=== PATIENT | male | born 1965 | race Caucasian/White ===

== ENCOUNTER 2020-01-31 09:24 | Outpatient (CLI) | payer MEDICARE, SELFPAY ==
--- NOTE | ~2020-01-31 | CT_ITS ---
EXAMINATION:CT lung screening DATE: 01/31/2020 09:51 INDICATION: Personal history of tobacco dependence. Smoker who quit 8 years ago with 30 pack year his tory. TECHNIQUE: Computed tomography (CT) of the chest was performed without intravenous contrast. Automate d exposure control and iterative reconstruction technique were employed. The dose-length product (DLP ) was 614.18 mGy-cm. COMPARISON: None. FINDINGS: There is mild emphysema. There are patchy groundglass opacities, nodules, and small airspac e opacities in right upper lobe and right lower lobe, likely pneumonia. There is an 11 mm nodule in r ight middle lobe. There is mild atelectasis in lingula. There is a 7 mm nodule in left lower lobe. Th ere are small centrilobular nodules in left lower lobe. There is a 1.2 cm nodule in left lower lobe. There are 7 mm and 5 mm nodules in left lower lobe. No pleural effusion. The heart size is normal. No pericardial effusion. There is a small sliding hiatal hernia. There is diffuse hepatic steatosis. Th e adrenal glands are normal. There are no pathologically enlarged lymph nodes. There are bridging end plate osteophytes at multiple levels in the spine, consistent with diffuse idiopathic skeletal hypero stosis (DISH). There is mild chronic anterior wedging of multiple thoracic vertebral bodies. IMPRESSION: 1. Lung-RADS category 4AS. Noncontrast, low-dose chest CT is recommended in 3 months. 2. Right upper lobe and lower lobe pneumonia. Reviewed, dictated and finalized at location A. 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 Lung-RADS category 4AS. Noncontrast, low-dose chest CT is recommended in 3 m onths. 2. Right upper lobe and lower lobe pneumonia.
== END 2020-01-31 09:25 | disposition home or self-care (01) ==
PROVIDERS: PCP Emergency Medicine; Visit Provider Nurse Practitioner Family
DX: Z12.2 Encounter for screening for malignant neoplasm of respiratory organs (principal); Z87.891 Personal history of nicotine dependence; J18.9 Pneumonia, unspecified organism
CPT/HCPCS: G0297

== ENCOUNTER 2020-02-20 12:31 | Outpatient (CLI) | payer MEDICARE, SELFPAY ==
--- NOTE | 2020-02-24 12:39 | WPDHOLTEREM ---
Holter/Event Monitor Holter/Event Monitor Date of procedure: 02/20/20 Procedure Type: 48 hour holter monitor Indications: Tachycardia Conclusion: 1. 48 hour holter monitor on 02/20/20. 2. Underlying rhythm is atrial flutter. HR range 61-138 bpm; average HR 120 bpm. 3. There are no other supraventricular arrhythmias. 4. There are 6 premature ventricular complexes. No ventricular tachycardia. 5. No significant pauses greater than 2 seconds. 6. No symptoms available for correlation.
== END 2020-02-20 12:32 | disposition home or self-care (01) ==
PROVIDERS: PCP Emergency Medicine; Visit Provider Internal Medicine Cardiovascular Disease
DX: R00.0 Tachycardia, unspecified (principal)
CPT/HCPCS: 93225; 93226

== ENCOUNTER 2020-02-27 09:17 | Outpatient (CLI) | payer MEDICARE, SELFPAY ==
--- NOTE | 2020-02-27 09:22 | ECG_ITS ---
Measurements Intervals [place] Rate: 117 P: AL: 0 QRS: 65 QRSD: 91 T: 43 QT: 300 QTc: 420 Interpretive Statements ATRIAL FLUTTER/TACHYCARDIA WITH RAPID VENTRICULAR RESPONSE ABNORMAL ECG Electronically Signed On 02-27-2020 10:16:01 TOOTH POLISHER by Nabil Martinez D.O.
== END 2020-02-27 09:18 | disposition home or self-care (01) ==
PROVIDERS: PCP Emergency Medicine; Visit Provider Internal Medicine Cardiovascular Disease
DX: I48.92 Unspecified atrial flutter (principal); R94.31 Abnormal electrocardiogram [ECG] [EKG]
CPT/HCPCS: 93005

== ENCOUNTER 2020-03-16 00:41 | Outpatient (CLI) | payer MEDICARE, MEDICAID, SELFPAY ==
[2020-03-16 18:38] LABS: SARS-CoV-2 RNA PCR Negative
== END 2020-03-16 00:42 | disposition home or self-care (01) ==
LOC: ANHCOVIDDT 00:41
PROVIDERS: PCP Emergency Medicine; Visit Provider Internal Medicine Cardiovascular Disease
DX: Z01.818 Encounter for other preprocedural examination (principal); Z20.828 Contact with and (suspected) exposure to other viral communicable diseases
CPT/HCPCS: C9803; U0003

== ENCOUNTER 2020-03-19 01:10 | Day surgery (SDC) | payer MEDICARE, MEDICAID, SELFPAY ==
[2020-03-15 14:19] VITALS: BMI 39.0
[2020-03-19] VITALS (9 sets, daily range): BP systolic 93–128; BP diastolic 69–103; PULSE 93–124; RESP 17–20; TEMP 36.1; O2SAT 95–99; BMI 38.2
--- NOTE | 2020-03-19 07:13 | WPDANESEPP ---
Anes - Eval Pre Procedure Procedure: Operation Date: 03/19/20 09:00 Proposed Procedures p Trans Esophageal Echo - Nabil Martinez DO s Electrical Cardioversion - Nabil Martinez DO Date/Time: 03/19/20 07:13 Surgeon: Juan Preop Diagnosis: A flutter Pre Op Diagnosis: Atrial Flutter Patient Data Age: 54 Gender: M Height: 6 ft 2 in Weight: 138 kg Allergies Allergy/AdvReac Type Severity Reaction Status Date / Time amoxicillin Allergy Unknown Unknown Verified 03/15/20 14:16 NSAIDS (Non-Steroidal Allergy Unknown Unknown Verified 03/15/20 14:16 Anti-Inflamma Home Medications Medication Instructions Recorded Confirmed Type diazepam 5 mg tablet 5 mg PO BID PRN 03/07/19 03/15/20 History fluoxetine 20 mg tablet 20 mg PO DAILY 03/07/19 03/15/20 History losartan 100 mg tablet 100 mg PO DAILY 03/07/19 03/15/20 History omeprazole 20 mg capsule,delayed 20 mg PO DAILY 03/07/19 03/15/20 History release oxycodone-acetaminophen 10 mg-325 1 tablet PO Q8H PRN 03/07/19 03/15/20 History mg tablet budesonide-formoterol HFA 160 2 puff INHALATION Q12H #10.2 gm 10/14/19 03/15/20 Rx mcg-4.5 mcg/actuation aerosol inhaler albuterol sulfate 90 mcg/actuation See Rx Instructions .ROUTE 02/03/20 03/15/20 Rx aerosol inhaler .COMPLEX #18 g glimepiride 2 mg tablet 4 mg PO QAM tablet 02/16/20 03/15/20 History rosuvastatin 10 mg tablet 20 mg PO DAILY tablet 02/16/20 03/15/20 History rivaroxaban 20 mg tablet 20 mg PO DAILY #30 tablet 02/24/20 03/15/20 Rx metformin 1,000 mg tablet 1,000 mg PO BID tablet 02/27/20 03/15/20 History sotalol 80 mg tablet 80 mg PO BID #60 tablet 02/27/20 03/15/20 Rx albuterol sulfate 1.25 mg/3 mL 1.25 mg INHALATION Q6H PRN #360 ml 03/05/20 03/15/20 Rx solution for nebulization metoprolol tartrate 50 mg tablet 50 mg PO TID #60 tablet 03/05/20 03/15/20 Rx nebulizer accessories #1 ea 03/05/20 03/15/20 Rx prednisone 10 mg tablet 10 mg PO DIRECTED #34 tablet 03/05/20 03/15/20 Rx ECG: A flutter rate 123 Patient hx anesthesia problems: none Family hx anesthesia problems: none PMFSH Past Medical History Medical History Essential hypertension Former smoker Pneumonia Family History Family History Sibling Patient's brother is in good health Father Cerebrovascular accident, Onset Age: 67 Family history of malignant neoplasm Mother Family history of emphysema Other Diabetes mellitus Family history of arthritis Social History Social History Smoking packs per day: 1 Smoking cigarettes per day: 20.0 Years smoked: 30 Smoking pack-years: 30.00 Smoking status: Former smoker Alcohol intake: current Exam Day of Procedure 03/19/20 07:13
--- NOTE | 2020-03-19 07:19 | ECG_ITS ---
Measurements Intervals [place] Rate: 123 P: HI: 0 QRS: 64 QRSD: 97 T: 84 QT: 313 QTc: 448 Interpretive Statements ATRIAL FLUTTER/TACHYCARDIA WITH RAPID VENTRICULAR RESPONSE NONSPECIFIC T-WAVE ABNORMALITY- HIGH LATERAL LEADS ABNORMAL ECG Electronically Signed On 03-19-2020 9:18:50 PELLET MILL OPERATOR by Nabil Martinez D.O.
[2020-03-19 08:15] LABS: Anion Gap 6 mmol/L (8-16); Blood Urea Nitrogen 17 mg/dL (9-20); Calcium 9.1 mg/dL (8.4-10.2); Carbon Dioxide 31 mmol/L (22-30); Chloride 99 mmol/L (98-107); Estimated CRCL calculation 133 ml/min; Estimated Glomerular Filt Rate > 60; Glucose 226 mg/dL (75-110); Magnesium 1.6 mg/dL (1.6-2.3); Potassium 4.5 mmol/L (3.4-5.0); Sodium 136 mmol/L (137-145)
--- NOTE | 2020-03-19 08:46 | ECHO_ITS ---
Patient Info Name: Kushal Sanders Age: 54 years : 1965 Gender: Male Ht: 74 in Wt: 298 lbs BSA: 2.71 m2 HR: 112 bpm BP: 129 / 76 mmHg Heart Rhythm: Atrial Flutter Technical Quality: Good Exam Date: 03/19/2020 9:56 AM Exam Location: [facility] Patient Status: Outpatient Admit Date: 03/19/2020 Staff Ordering Physician: Nabil Martinez DO Stock Broker: Fer Arias RDCS Attending Provider: Nabil Martinez DO Referring Physician: Juan MARTINEZ; Exam Type: CA echo transesophageal Study Info Indications 427.32 - Atrial flutter Complete two-dimensional, color flow and Doppler transesophageal study is performed. History/Risk Factors Atrial flutter w/ cardioversion. Procedure Details Risks/benefits/alternative treatment discussed with patient and he gave informed consent for procedure. Patient was anesthetised per anesthesiology. HR 120's bpm in atrial flutter and BP 140/100 mmHg. After sedation and cetacaine spray to posterior oropharynx, NUBIA probe advanced into posterior oropharynx and glided smoothly into esophagus without incident. Agitated saline injection x1. NUBIA probe withdrawn and no bleed noted on NUBIA probe tip. No complications. Patient tolerated procedure well. Summary 1. Left ventricular chamber dimension is normal. 2. Left ventricular systolic function is moderately reduced with an ejection fraction 40-45%. 3. There is moderately increased left ventricular wall thickness. 4. The left ventricular diastolic function is indeterminate. 5. Left atrial chamber dimension is moderately enlarged. 6. Right atrial chamber dimension is mildly enlarged. 7. There is mild to moderate mitral valve regurgitation. 8. There is mild tricuspid valve regurgitation. Left Ventricle Left ventricular systolic function is moderately reduced with an ejection fraction 40-45%. Left ventricular chamber dimension is normal. There is moderately increased left ventricular wall thickness. The left ventricular diastolic function is indeterminate. Right Ventricle Right ventricular chamber dimension is normal. Right ventricular systolic function is normal. Left Atria Left atrial chamber dimension is moderately enlarged. Right Atria Right atrial chamber dimension is mildly enlarged. Atrial Septum Intact interatrial septum visualized by agitated saline imaging. Atrial Appendage There is no thrombus visualized in the left atrial appendage. Aortic Valve The aortic valve is trileaflet. There is no aortic valve stenosis. There is no aortic valve regurgitation. Pulmonic Valve There is no pulmonic regurgitation. Mitral Valve There is no mitral valve stenosis. There is mild to moderate mitral valve regurgitation. Tricuspid Valve There is mild tricuspid valve regurgitation. Pericardium/Pleural There is no pericardial effusion. Inferior Vena Cava Not well visualized inferior vena cava. Aorta The aortic root size at the sinus of Valsalva is normal. Report Signatures
--- NOTE | 2020-03-19 09:09 | WPDANESEPPF ---
Anes - Initial Pre Proc Eval Procedure: Operation Date: 03/19/20 09:00 Proposed Procedures p Trans Esophageal Echo - Nabil Martinez DO s Electrical Cardioversion - Nabil Martinez DO Date/Time: 03/19/20 09:09 Surgeon: Nabil Martinez DO Pre Op Diagnosis: Atrial Flutter Patient Data Age: 54 Gender: M Height: 1.88 m Weight: 135 kg Last Vital Signs Temp 36.1 C L 03/19/20 07:45 Pulse 122 H 03/19/20 07:45 Resp 20 03/19/20 07:45 BP 121/90 03/19/20 07:45 Pulse Ox 96 03/19/20 07:45 Allergies Allergy/AdvReac Type Severity Reaction Status Date / Time amoxicillin Allergy Unknown Unknown Verified 03/19/20 07:43 NSAIDS (Non-Steroidal Allergy Unknown Unknown Verified 03/15/20 14:16 Anti-Inflamma Home Medications Medication Instructions Recorded Confirmed Type diazepam 5 mg tablet 5 mg PO BID PRN 03/07/19 03/15/20 History fluoxetine 20 mg tablet 20 mg PO DAILY 03/07/19 03/15/20 History losartan 100 mg tablet 100 mg PO DAILY 03/07/19 03/15/20 History omeprazole 20 mg capsule,delayed 20 mg PO DAILY 03/07/19 03/15/20 History release oxycodone-acetaminophen 10 mg-325 1 tablet PO Q8H PRN 03/07/19 03/15/20 History mg tablet budesonide-formoterol HFA 160 2 puff INHALATION Q12H #10.2 gm 10/14/19 03/15/20 Rx mcg-4.5 mcg/actuation aerosol inhaler albuterol sulfate 90 mcg/actuation See Rx Instructions .ROUTE 02/03/20 03/15/20 Rx aerosol inhaler .COMPLEX #18 g glimepiride 2 mg tablet 4 mg PO QAM tablet 02/16/20 03/15/20 History rosuvastatin 10 mg tablet 20 mg PO DAILY tablet 02/16/20 03/15/20 History rivaroxaban 20 mg tablet 20 mg PO DAILY #30 tablet 02/24/20 03/15/20 Rx metformin 1,000 mg tablet 1,000 mg PO BID tablet 02/27/20 03/15/20 History sotalol 80 mg tablet 80 mg PO BID #60 tablet 02/27/20 03/15/20 Rx albuterol sulfate 1.25 mg/3 mL 1.25 mg INHALATION Q6H PRN #360 ml 03/05/20 03/15/20 Rx solution for nebulization metoprolol tartrate 50 mg tablet 50 mg PO TID #60 tablet 03/05/20 03/15/20 Rx nebulizer accessories #1 ea 03/05/20 03/15/20 Rx prednisone 10 mg tablet 10 mg PO DIRECTED #34 tablet 03/05/20 03/15/20 Rx Laboratory Tests 03/19/20 07:39 Sodium 136 mmol/L L mmol/L (137-145) Potassium 4.5 mmol/L mmol/L (3.4-5.0) Chloride 99 mmol/L mmol/L (98-107) Carbon Dioxide 31 mmol/L H mmol/L (22-30) Anion Gap 6 mmol/L L mmol/L (8-16) BUN 17 mg/dL mg/dL (9-20) Creatinine 0.80 mg/dL mg/dL (0.7-1.3) Estim Creat Clear Calc 133 ml/min ml/min Estimated GFR > 60 (59 - ) Glucose 226 mg/dL H mg/dL (75-110) Calcium 9.1 mg/dL mg/dL (8.4-10.2) Magnesium 1.6 mg/dL mg/dL (1.6-2.3) Patient hx anesthesia problems: none Family hx anesthesia problems: none PMFSH Past Medical History Medical History (Updated 03/19/20 @ 09:10 by Elie Breaux DO) Atrial flutter Chronic obstructive pulmonary disease Diabetes type 2, controlled Essential hypertension Former smoker PAMELA (obstructive sleep apnea) Pneumonia Family History Family History Sibling Patient's brother is in good health Father Cerebrovascular accident, Onset Age: 67 Family history of malignant neoplasm Mother Family history of emphysema Other Diabetes mellitus Family history of arthritis Social History Social History Smoking packs per day: 1 Smoking cigarettes per day: 20.0 Years smoked: 30 Smoking pack-years: 30.00 Smoking status: Former smoker Alcohol intake: current Anes - Eval Final PreProcedure Day of Procedure 03/19/20 09:09 Patient weight: obese Heart: regular rate and rhythm Lungs: clear to auscultation and normal air movement Airway: Mallampati scale class III Neurological: alert and oriented Last oral intake: >/= 8 hours ASA classification: III Emergent: no Anesthetic plan: proceed A
--- NOTE | 2020-03-19 10:07 | ECG_ITS ---
Measurements Intervals [place] Rate: 90 P: 65 AR: 167 QRS: 58 QRSD: 92 T: 64 QT: 364 QTc: 448 Interpretive Statements SINUS RHYTHM NONSPECIFIC T-WAVE ABNORMALITY- HIGH LATERAL LEADS BORDERLINE ECG Electronically Signed On 03-19-2020 10:39:30 APPLE TURNER by Nabil Martinez D.O.
--- NOTE | 2020-03-19 11:05 | P.PCNCVR_ITS ---
Cardioversion Cardioversion Date of procedure: 03/19/20 Procedure: Electrical cardioversion Description of procedure: Risks/benefits/alternative treatment of cardioversion discussed with patient and he gave informed consent. After NUBIA performed which showed no left atrial or left atrial appendage thrombus, cardioversion was performed. Defibrillator pads placed on anterior chest. HR in 120's in atrial flutter and BP 140/100 mmHg. Patient sedated with anesthesiology. Cardioversion set at 100 J biphasic synchronized energy and was successful at restoring sinus rhythm with one shock. Patient tolerated procedure well and no immediate co mplications. Sedation: Per anesthesilogy Conclusion: 1. Successful DC cardioversion from atrial flutter to sinus rhythm. 2. Obtain EKG post cardioversion.
--- NOTE | 2020-03-19 12:02 | SUR.PHASEII ---
1200 - IV d/c'd with catheter intact. Discharge instructions given with stated understanding. Pt up and ambulating around room without dizzyness or N/V. Drinking liquids without any numbness to throat noted. Discharged to home via wheelchair with friend to personal residence.
== END 2020-03-19 12:40 | disposition home or self-care (01) ==
PROVIDERS: PCP Emergency Medicine; Visit Provider Internal Medicine Cardiovascular Disease
PROC: (CPT 93312; principal; 2020-03-19 09:00)
PROC: 5A2204Z Restoration of Cardiac Rhythm, Single (ICD-10-PCS; 2020-03-19 09:00)
DX: I48.92 Unspecified atrial flutter (principal); I34.0 Nonrheumatic mitral (valve) insufficiency; I36.1 Nonrheumatic tricuspid (valve) insufficiency; I10 Essential (primary) hypertension; Z79.01 Long term (current) use of anticoagulants; Z87.891 Personal history of nicotine dependence
CPT/HCPCS: 36415; 80048; 83735; 92960; 93005; 93312; 93320; 93325; C9803; J7030; U0003

== ENCOUNTER 2020-05-08 07:05 | Outpatient (CLI) | payer MEDICARE, MEDICAID, SELFPAY ==
--- NOTE | ~2020-05-08 | CT_ITS ---
EXAMINATION: CT diagnostic chest wo con EXAM DATE: 05/08/2020 07:53 INDICATION: R91.8 - Other nonspecific abnormal finding of lung field. TECHNIQUE: Spiral CT of the chest without contrast. Axial, coronal and sagittal images were reviewe d. Coronal maximum intensity pixel images of chest reviewed. The dose-length product (DLP) for this examination was 1030.03 mGy-cm. The exposure was tailored according to patient size (auto mA exposu re control), and iterative reconstruction (ASIR) was used as additional dose reduction technique. Com parison is made to prior examination from 01/31/2020. FINDINGS: There is 11 mm right middle lobe nodule unchanged. Previously seen scattered small regions of right-sided pneumonia have essentially resolved, with some residual mild groundglass opacity in t he right lower lobe. There is a new triangular shaped left lower lobe pleural-based opacity measuring 1.5 cm, with some pu nctate satellite nodules. This appearance is most consistent with infectious or postinfectious proces s. There is 5 mm left lower lobe nodule unchanged. There are no pleural or pericardial effusions. T racheobronchial tree is patent. There is no mediastinal, hilar or axillary lymphadenopathy. There is no pneumothorax. Heart normal in size. No evidence of coronary arterial calcification. Upper abdomen is unremarkable. There is moderate thoracic spondylosis without osteoblastic or osteolytic lesions identified. Patient has diffuse idiopathic skeletal hyperostosis (DISH). IMPRESSION: 1. New pleural-based left lower lobe intraparenchymal opacity appearance most consistent with infect ion. Recommend 3 month follow-up chest CT. 2. Couple other pulmonary nodules stable. 3. Near resolution of previously seen pneumonia. Reviewed, dictated and finalized at location B. CE MANAGER IMPRESSION: 1. New pleural-based left lower lobe intraparenchymal opacity appearance most consistent with infection. Recommend 3 month follow-up chest CT. 2. Couple other pulmonary nodules stable. 3. Near resolution of previously seen pneumonia.
== END 2020-05-08 07:06 | disposition home or self-care (01) ==
LOC: ANHIMG 07:11
PROVIDERS: PCP Emergency Medicine; Visit Provider Nurse Practitioner Family
DX: R91.8 Other nonspecific abnormal finding of lung field (principal); J44.9 Chronic obstructive pulmonary disease, unspecified; J18.9 Pneumonia, unspecified organism
CPT/HCPCS: 71250

== ENCOUNTER → 2020-07-30 01:19 | Outpatient (CLI) | payer MEDICARE, MEDICAID, SELFPAY ==
[2020-07-30 18:48] LABS: SARS-CoV-2 RNA PCR Negative
== END ==
PROVIDERS: PCP Emergency Medicine; Visit Provider Internal Medicine Cardiovascular Disease
DX: Z01.812 Encounter for preprocedural laboratory examination (principal); Z20.822 Contact with and (suspected) exposure to COVID-19
CPT/HCPCS: C9803; U0003; U0005

== ENCOUNTER 2020-08-02 02:09 | Day surgery (SDC) | payer MEDICARE, MEDICAID, SELFPAY ==
[2020-08-01 11:15] VITALS: BMI 369.1
[2020-08-02] VITALS (7 sets, daily range): BP systolic 130–157; BP diastolic 91–114; PULSE 91–120; RESP 19–20; TEMP 36.6–36.8; O2SAT 96–100; BMI 38.9
--- NOTE | 2020-08-02 07:13 | ECG_ITS ---
Measurements Intervals [place] Rate: 120 P: VT: 0 QRS: 60 QRSD: 99 T: 60 QT: 300 QTc: 425 Interpretive Statements ATRIAL FLUTTER/TACHYCARDIA WITH RAPID VENTRICULAR RESPONSE DELAYED PRECORDIAL R/S TRANSITION ABNORMAL ECG Electronically Signed On 08-02-2020 9:09:48 CDT by Nabil Martinez D.O.
--- NOTE | 2020-08-02 08:35 | WPDANESEPPF ---
Anes - Initial Pre Proc Eval Procedure: Operation Date: 08/02/20 09:00 Proposed Procedures p Electrical Cardioversion - Nabil Martinez DO Date/Time: 08/02/20 08:35 Surgeon: Nabil Martinez DO Pre Op Diagnosis: a-fib Patient Data Age: 55 Gender: M Height: 6 ft 2 in Weight: 137.5 kg Last Vital Signs Temp 98.3 F 08/02/20 08:25 Pulse 120 H 08/02/20 08:25 Resp 19 08/02/20 08:25 BP 157/114 H 08/02/20 08:25 Pulse Ox 96 08/02/20 08:25 Allergies Allergy/AdvReac Type Severity Reaction Status Date / Time amoxicillin Allergy Unknown Swelling Verified 08/02/20 08:28 of Lip/Tongue/Throat NSAIDS (Non-Steroidal Allergy Unknown Rash Verified 08/02/20 08:28 Anti-Inflamma Home Medications Medication Instructions Recorded Confirmed Type diazepam 5 mg tablet 5 mg PO BID PRN 03/07/19 08/01/20 History fluoxetine 20 mg tablet 20 mg PO DAILY 03/07/19 08/02/20 History omeprazole 20 mg capsule,delayed 20 mg PO DAILY 03/07/19 08/02/20 History release rosuvastatin 10 mg tablet 20 mg PO DAILY tablet 02/16/20 08/02/20 History rivaroxaban 20 mg tablet 20 mg PO DAILY #30 tablet 03/29/20 08/01/20 Rx oxycodone-acetaminophen 10 mg-325 1 tablet PO Q6H PRN tablet 04/26/20 08/01/20 History mg tablet budesonide-formoterol HFA 160 See Rx Instructions .ROUTE 05/02/20 08/02/20 Rx mcg-4.5 mcg/actuation aerosol .COMPLEX #11 g inhaler sitagliptin 25 mg tablet 25 mg PO DAILY 06/25/20 08/02/20 History benzonatate 200 mg capsule 200 mg PO TID PRN #90 cap 07/04/20 08/01/20 Rx fluticasone propionate 50 1 spray INTRANASAL BID #16 g 07/04/20 08/02/20 Rx mcg/actuation nasal spray,suspension glimepiride 4 mg tablet 4 mg PO BID tablet 07/04/20 08/02/20 History ipratropium 0.5 mg-albuterol 3 mg 3 ml INHALATION QID PRN #360 ml 07/04/20 08/02/20 Rx (2.5 mg base)/3 mL nebulization soln metformin 1,000 mg tablet 1,000 mg PO BID 07/04/20 08/01/20 History montelukast 10 mg tablet 10 mg PO QHS #30 tablet 07/04/20 08/02/20 Rx sotalol 120 mg tablet 120 mg PO Q12H #180 tablet 07/20/20 08/02/20 Rx albuterol sulfate 90 mcg/actuation See Rx Instructions .ROUTE 07/26/20 08/02/20 Rx aerosol inhaler .COMPLEX #18 g magnesium oxide 400 mg PO DAILY #30 tablet 08/02/20 Rx Laboratory Tests 08/02/20 08:17 Sodium Pending Potassium Pending Chloride Pending Carbon Dioxide Pending Anion Gap Pending BUN Pending Creatinine Pending Estim Creat Clear Calc Pending Estimated GFR Pending Glucose Pending Calcium Pending Magnesium Pending Patient hx anesthesia problems: none Family hx anesthesia problems: none [facility] Past Medical History Medical History Atrial flutter Chronic obstructive pulmonary disease Diabetes type 2, controlled Essential hypertension Former smoker PAMELA (obstructive sleep apnea) Pneumonia Family History Family History Sibling Patient's brother is in good health Father Cerebrovascular accident, Onset Age: 67 Family history of malignant neoplasm Mother Family history of emphysema Other Diabetes mellitus Family history of arthritis Social History Social History Smoking packs per day: 1 Smoking cigarettes per day: 20.0 Years smoked: 30 Smoking pack-years: 30.00 Smoking status: Former smoker Tobacco type: cigarettes Alcohol intake: current Drinks per week: 4 Substance use: never Gender identity (if verbalized by the patient): Male Anes - Eval Final PreProcedure Day of Procedure 08/02/20 08:35 Patient weight: obese Heart: irregular rhythm Lungs: clear to auscultation Airway: Mallampati scale class II Neurological: alert and oriented Last oral intake: >/= 8 hours ASA classification: IV
[2020-08-02 08:38] LABS: Anion Gap 4 mmol/L (8-16); Blood Urea Nitrogen 12 mg/dL (9-20); Calcium 9.1 mg/dL (8.4-10.2); Carbon Dioxide 29 mmol/L (22-30); Chloride 103 mmol/L (98-107); Estimated CRCL calculation 150 ml/min; Estimated Glomerular Filt Rate > 60; Glucose 186 mg/dL (75-110); Magnesium 1.5 mg/dL (1.6-2.3); Potassium 4.6 mmol/L (3.4-5.0); Sodium 136 mmol/L (137-145)
--- NOTE | 2020-08-02 09:42 | ECG_ITS ---
Measurements Intervals [place] Rate: 94 P: 62 HI: 157 QRS: 56 QRSD: 96 T: 78 QT: 359 QTc: 450 Interpretive Statements SINUS RHYTHM BASELINE ARTIFACT- I, AVR, AVL NORMAL ECG Electronically Signed On 08-02-2020 10:31:23 CDT by Nabil Martinez D.O.
--- NOTE | 2020-08-02 10:46 | SUR.PHASEII ---
RN called Dr. Martinez and asked for him to place his discharge orders.
--- NOTE | 2020-08-02 12:09 | P.PCNCVR_ITS ---
Cardioversion Cardioversion Date of procedure: 08/02/20 Procedure: Direct Current cardioversion Pre-op diagnosis: Persistent atrial flutter Indications: Persistent atrial flutter Description of procedure: Risks/benefits/alternative treatment discussed with patient. Patient was given general sedation by anesthesiology. Vitals stable with HR 120 bpm in atrial flutter, BP 130/75 mmHg. DC pads placed in mid sternal and left lateral chest wall. After sedation given, cardioversion with 100 J synchronized biphasic energy without success. It was then increased to 200 J wi thout success. The left lateral wall DC pad was moved to central upper back and 200 J cardioversion was successful. Patient tolerated procedure well with no complications. Sedation: As per anesthesiology. Conclusion: 1. Successful DC cardioversion from atrial flutter to sinus rhythm.
== END 2020-08-02 11:10 | disposition home or self-care (01) ==
LOC: ANHENDO 02:11 → ANHCATHLAB 07:43
PROVIDERS: PCP Emergency Medicine; Visit Provider Internal Medicine Cardiovascular Disease
PROC: 5A2204Z Restoration of Cardiac Rhythm, Single (ICD-10-PCS; principal; 2020-08-02 09:00)
DX: I48.92 Unspecified atrial flutter (principal); J44.9 Chronic obstructive pulmonary disease, unspecified; E11.9 Type 2 diabetes mellitus without complications; I10 Essential (primary) hypertension; G47.33 Obstructive sleep apnea (adult) (pediatric); Z87.891 Personal history of nicotine dependence; Z79.01 Long term (current) use of anticoagulants; Z79.51 Long term (current) use of inhaled steroids; Z79.84 Long term (current) use of oral hypoglycemic drugs
CPT/HCPCS: 36415; 80048; 83735; 92960; 93005; C9803; J2704; J7030; J7040; U0003; U0005

== ENCOUNTER 2020-08-09 10:13 | Outpatient (CLI) | payer MEDICARE, MEDICAID, SELFPAY ==
--- NOTE | ~2020-08-09 | CT_ITS ---
EXAMINATION: CT diagnostic chest wo con DATE: 08/09/2020 10:34 INDICATION: Lung nodule TECHNIQUE: Computed tomography (CT) of the chest was performed without intravenous contrast. The dose -length product (DLP) was 600.53 mGy-cm. Automated exposure control and iterative reconstruction tech [employer] were employed. COMPARISON: 05/08/2020 FINDINGS: There is a 12 mm nodule of the right middle lobe which demonstrates slight increase in size previously measuring 11 mm. There is a stable 6 mm nodule of the right lower lobe on image 94. There are a few additional waxing and waning groundglass nodules of the lungs. There is no pleural effusio n or pneumothorax. Mild emphysema is noted. No pathologically enlarged thoracic lymph nodes are ident ified. The heart size is normal. There are bridging osteophytes at multiple levels in the spine, cons istent with diffuse idiopathic skeletal hyperostosis (DISH). IMPRESSION: 1. Right middle lobe nodule with slight enlargement, concerning for primary bronchogenic carcinoma. C T-guided biopsy is recommended. 2. Additional waxing and waning groundglass nodules of the lungs, most consistent with infection. Reviewed, dictated and finalized at location A. IMPRESSION: 1. Right middle lobe nodule with slight enlargement, concerning for primary bro nchogenic carcinoma. CT-guided biopsy is recommended. 2. Additional waxing and waning groundglass nodules of the lungs, most consiste nt with infection.
== END 2020-08-09 10:14 | disposition home or self-care (01) ==
PROVIDERS: PCP Emergency Medicine; Visit Provider Nurse Practitioner Family
DX: R91.8 Other nonspecific abnormal finding of lung field (principal)
CPT/HCPCS: 71250

== ENCOUNTER 2020-08-16 12:03 | Outpatient (CLI) | payer MEDICARE, MEDICAID, SELFPAY ==
--- NOTE | ~2020-08-16 | PE_ITS ---
EXAMINATION: PET skull to mid thigh DATE: 08/16/2020 14:17 INDICATION: Solitary pulmonary nodule. TECHNIQUE: Blood glucose level was 187 mg/dL. 10.296 mCi of 18-fluorodeoxyglucose (18-FDG) was admini stered i.v. Low dose computed tomography (CT) images were acquired from the base of the brain to the proximal thighs for attenuation correction and anatomic localization. Positron emission tomography (P ET) images were acquired in the same distribution beginning 57 minutes after injection. Images includ ing fused PET/CT images were reconstructed in axial, coronal, and sagittal planes. Automated exposure control technique was employed. The dose-length product was 1269.41mGy-cm. COMPARISON: CT dated 08/09/2020 FINDINGS: Head/neck: There is symmetric increased activity in the oral cavity, palatine tonsils and ocular muscles without CT correlate, likely physiologic. No pathologically enlarged cervical lymphadenopathy or suspicious foci of increased FDG uptake in the visualized head or neck. Chest: No appreciable FDG activity associated with the 12 mm right middle lobe nodule of concern or a smalle r 5-6 mm right lower lobe nodule along the dome of the diaphragm. 7 mm pleural-based nodule without e vident FDG activity in the posterior left lower lobe which appears increased in size since the most r ecent study but significantly decreased in size from 05/08/2020 at which time it measured approximatel y 1.5 cm. A 6 mm nodule at the anterobasilar segment of the right lower lobe on the prior study has r esolved as have the prior groundglass opacities in the left lower lobe. No new pulmonary nodules, pul monary edema or pleural effusion. Heart size is normal. No pericardial effusion. Thoracic aorta is no rmal in caliber. Small sliding-type hiatal hernia. No pathologically enlarged or FDG avid thoracic ly mphadenopathy. Abdomen/pelvis/proximal thighs: Physiologic renal accumulation and excretion of FDG activity in the kidneys, bladder and along portio ns of ureters. Normal degree and heterogenous pattern of increased uptake throughout the liver withou t radiologic correlate or dominant FDG avid lesion. The gallbladder, pancreas, spleen and bilateral a drenal glands are normal. Mild to moderate uptake scattered throughout the bowels without radiologic correlate, also likely physiologic. There are few scattered colonic diverticula without adjacent infl ammatory change to suggest diverticulitis. Normal appendix. No other abnormal foci of increased FDG u ptake or pathologically enlarged lymphadenopathy in the abdomen, pelvis or proximal thighs. Small rj ateral fat-containing inguinal hernias. Musculoskeletal: There are bridging osteophytes at multiple levels in the spine, consistent with diffuse idiopathic sk eletal hyperostosis (DISH). No FDG avid or suspicious lytic or blastic bone lesions. IMPRESSION: 1. No evident FDG uptake associated with the 12 mm right middle lobe nodule concern for of a smaller 6 mm right lower lobe nodule. While reassuring would recommend continued 3-6 month follow-up low-dose noncontrast chest CT. Reviewed, dictated and finalized at location A. IMPRESSION: 1. No evident FDG uptake associated with the 12 mm right middle lobe nodule con cern for of a smaller 6 mm right lower lobe nodule. While reassuring would dao mmend continued 3-6 month follow-up low-dose noncontrast chest CT.
[2020-08-16 12:53] LABS: Glucose Point of Care 187 mg/dl (65-105)
== END 2020-08-16 12:04 | disposition home or self-care (01) ==
LOC: ANHIMG 12:04
PROVIDERS: PCP Emergency Medicine; Visit Provider Nurse Practitioner Family
DX: R91.1 Solitary pulmonary nodule (principal)
CPT/HCPCS: 78815; 82948; A9552

== ENCOUNTER → 2020-08-18 01:07 | Outpatient (CLI) | payer MEDICARE, MEDICAID, SELFPAY ==
[2020-08-18 19:38] LABS: SARS-CoV-2 RNA PCR Negative
== END ==
PROVIDERS: PCP Emergency Medicine; Visit Provider Internal Medicine Critical Care Medicine
DX: Z01.812 Encounter for preprocedural laboratory examination (principal); Z20.822 Contact with and (suspected) exposure to COVID-19
CPT/HCPCS: C9803; U0003; U0005

== ENCOUNTER 2020-08-22 09:10 | Outpatient (CLI) | payer MEDICARE, MEDICAID, SELFPAY ==
[2020-08-20 08:54] VITALS: BMI 38.7
[2020-08-22] VITALS (10 sets, daily range): BP systolic 128–151; BP diastolic 76–100; PULSE 64–71; RESP 19–21; O2SAT 95–97
--- NOTE | ~2020-08-22 | XR_ITS ---
EXAMINATION: XR chest 1V DATE: 08/22/2020 11:33 INDICATION: Right lung middle lobe nodule status post percutaneous biopsy. TECHNIQUE: A single frontal view of the chest was obtained on 2 radiographs. COMPARISON: PET CT 08/16/2020 FINDINGS: There is no pneumonia, pleural effusion, or pneumothorax. The heart size is normal. There a re prominent paracardial fat pads. IMPRESSION: 1. No acute cardiopulmonary disease. Reviewed, dictated and finalized at location A.
--- NOTE | ~2020-08-22 | XR_ITS ---
EXAMINATION: XR chest 1V portable DATE: 08/22/2020 12:32 INDICATION: Right lung nodule status post percutaneous biopsy. TECHNIQUE: A single frontal view of the chest was obtained on 3 radiographs. COMPARISON: Chest single view at 11:25 AM FINDINGS: The chest demonstrates clear lungs without pneumonia, pleural effusion, or pneumothorax. Th e heart size is normal. There are prominent paracardial fat pads. IMPRESSION: 1. No acute cardiopulmonary disease. Reviewed, dictated and finalized at location A.
--- NOTE | ~2020-08-22 | CT_ITS ---
EXAMINATION: CT biopsy lung w/imaging DATE: 08/22/2020 11:42 INDICATION: Right lung middle lobe nodule. TECHNIQUE: The procedure including the risks, benefits, and alternatives and possibility of chest tub e placement were discussed with the patient. Risks discussed included infection, approximately 1/20 r isk of symptomatic hemorrhage beyond mild hemoptysis, approximately 1/3 risk of pneumothorax, approxi mately 1/10 risk of pneumothorax severe enough to warrant chest tube placement, and rarely . The patient understood the risks and agreed to proceed. The patient was placed supine. The skin overlyi ng the right chest was prepped and draped in sterile fashion. Anesthetic was administered with 1% li docaine subcutaneously. A 19 gauge outer needle was advanced under CT guidance to the lesion of inte rest. A 20 gauge core biopsy needle was then used to obtain 2 core biopsy specimens. The needle was r emoved and the entry site was cleaned and dressed. The mA was adjusted according to patient size. Ite rative reconstruction technique was employed. The dose-length product was 192.79 mGy-cm. There were no immediate complications. FINDINGS: CT images demonstrate the outer needle tip adjacent to a 12 mm nodule in right lung middle lobe. IMPRESSION: 1. CT-guided core needle biopsy of a 12 mm nodule in right lung middle lobe. Reviewed, dictated and finalized at location A.
--- NOTE | ~2020-08-22 | XR_ITS ---
EXAMINATION: XR chest 1V portable DATE: 08/22/2020 14:29 INDICATION: Right lung nodule status post percutaneous biopsy. TECHNIQUE: A single frontal view of the chest was obtained. COMPARISON: Chest single view at 12:25 PM FINDINGS: The chest demonstrates clear lungs without pneumonia, pleural effusion, or pneumothorax. Th e heart size is normal. IMPRESSION: 1. No acute cardiopulmonary disease. Reviewed, dictated and finalized at location A.
[2020-08-22 09:25] LABS: Mean Platelet Volume 9.5 fl (7.4-10.4); Platelet Count Result 171 k/mm3 (150-375)
[2020-08-22 09:46] LABS: INR 0.9; Prothrombin Time 12.8 Seconds (11.1-14.7)
--- NOTE | 2020-08-22 14:56 | SUR.PHASEII ---
1455- Dr. Espinoza called and said xrays were okay. That pt could go home. Saline lock removed intact.dressing to bx site dry and intact. Pt dressed and waiting for ride.
== END 2020-08-22 15:10 | disposition home or self-care (01) ==
PROVIDERS: Radiology Diagnostic Radiology; PCP Emergency Medicine; Visit Provider Internal Medicine Critical Care Medicine
DX: R91.1 Solitary pulmonary nodule (principal); Z51.81 Encounter for therapeutic drug level monitoring; Z79.899 Other long term (current) drug therapy
CPT/HCPCS: 32408; 36415; 71045; 85049; 85610; 88305; C9803; U0003; U0005

== ENCOUNTER 2020-10-25 09:30 | Outpatient (RCR) | payer MEDICARE, SELFPAY ==
[2020-10-25 09:37] VITALS: BMI 38.7
[2020-10-25 09:38] VITALS: BMI 38.7
== END 2021-01-09 11:57 | disposition home or self-care (01) ==
LOC: ANHDMC 09:30
PROVIDERS: PCP Emergency Medicine; Visit Provider Internal Medicine Endocrinology, Diabetes & Metabolism
DX: E11.65 Type 2 diabetes mellitus with hyperglycemia (principal); Z71.89 Other specified counseling; Z71.3 Dietary counseling and surveillance
CPT/HCPCS: 97802; G0108

== ENCOUNTER 2021-04-22 08:32 | Outpatient (CLI) | payer MEDICARE, MEDICAID, SELFPAY ==
--- NOTE | ~2021-04-22 | CT_ITS ---
EXAMINATION: CT diagnostic chest wo con EXAM DATE: 04/22/2021 08:46 INDICATION: R91.1 - Solitary pulmonary nodule TECHNIQUE: Spiral CT of the chest without contrast. Axial, coronal and sagittal images of the chest were reviewed. Coronal maximum intensity pixel images of chest reviewed. The dose-length product ( DLP) for this examination was 620.14 mGy-cm. The exposure was tailored according to patient size (au to mA exposure control), and iterative reconstruction (ASIR) was used as additional dose reduction te chnique. Comparison is made to prior examination from 05/08/2020, 01/31/2020. FINDINGS: There is been modest interval increase in size of the right lower lobe nodule since initia l screening CT 01/31/2020. Largest dimension is in craniocaudal dimension at 1.5 cm versus 1.2 cm in 2020. Appears that this nodule is slowly growing, was previously biopsied with indeterminate results and negative on PET CT. Low-grade malignancy is possible. Right lower lobe 4 mm nodule on image 92 unchanged. There is mild emphysema and hyperinflation. There are no pleural or pericardial effusions. Tracheobronchial tree is patent. There is no mediastina l, hilar or axillary lymphadenopathy. There is no pneumothorax. Heart normal in size. No eviden ce of coronary arterial calcification. Upper abdomen is unremarkable. There is thoracic spondylosi s without osteoblastic or osteolytic lesions identified. IMPRESSION: 1. Slow growing right middle lobe nodule; low-grade malignancy is possible. 2. Mild emphysema and hyperinflation. Reviewed, dictated and finalized at location B. 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
== END 2021-04-22 08:33 | disposition home or self-care (01) ==
LOC: ANHIMG 08:36
PROVIDERS: PCP Emergency Medicine; Visit Provider Internal Medicine Critical Care Medicine
DX: R91.1 Solitary pulmonary nodule (principal); J43.9 Emphysema, unspecified; R91.8 Other nonspecific abnormal finding of lung field
CPT/HCPCS: 71250

== ENCOUNTER 2021-05-08 08:05 | Outpatient (CLI) | payer MEDICARE, MEDICAID, SELFPAY ==
--- NOTE | 2021-05-09 15:28 | WPDPFTINT ---
PFT Procedure Performed PFT Procedure Performed Spirometry with Pre/Post Bronchodilator Plethysmography (Lung Vol) Diffusing Cap (DLCO) Flow Vol Loop Spirometry w/o Bronchodil PFT Interpretation Lung volumes were measured with the body plethysmography method. The elevated FRC and residual volume are indicative of air trapping. Spirometry showed diminished expiratory flow rates and a diminished FEV1 to FVC ratio 48%, indicative of obstructive airway disease. Following administration of a bronchodilator, there was significant increase in expiratory flow rates. Lung diffusion capacity is within the normal range. The flow volume loop is consistent with obstructive airway disease. Impression: Moderately severe obstructive airway disease with evidence of air trapping and significant response to bronchodilators on this testing. Lung diffusion capacity within the normal range.
== END 2021-05-08 08:06 | disposition home or self-care (01) ==
LOC: ANHPFT 08:06
PROVIDERS: PCP Emergency Medicine; Visit Provider Nurse Practitioner Family
DX: J44.9 Chronic obstructive pulmonary disease, unspecified (principal); R94.2 Abnormal results of pulmonary function studies
CPT/HCPCS: 94060; 94726; 94729

== ENCOUNTER 2021-06-05 07:28 | Outpatient (CLI) | payer MEDICARE, MEDICAID, SELFPAY ==
--- NOTE | ~2021-06-05 | NM_ITS ---
EXAMINATION: NM felisha stress w perfusion DATE: 06/05/2021 13:24 INDICATION: Dyspnea TECHNIQUE: Rest images were obtained following intravenous administration of 10.5 mCi Tc99m tetrofosm in (Myoview). The patient was infused intravenously with Lexiscan (Regadenoson). Then, 33 mCi Tc99m t etrofosmin (Myoview) was administered intravenously, and stress images were obtained in supine positi on. Data was reconstructed into short axis and horizontal and vertical long axis SPECT images. Gated SPECT images were also obtained. COMPARISON: None. FINDINGS: There is decreased perfusion along the inferior wall on the rest images and to lesser degre e on the stress images were additionally borderline abnormal which favors diaphoretic attenuation art ifact over infarct. Prone images were not obtained. No reversible ischemia. There is normal left vent ricular chamber size, wall motion and ejection fraction. Left ventricular ejection fraction measures 50%. IMPRESSION: 1. Mild decreased activity along the inferior wall on the rest images which is only borderline decrea sed on the stress images and favor diaphragmatic attenuation artifact over infarct. No reversible isc hemia. 2. Left ventricular ejection fraction measuring 50%. Reviewed, dictated and finalized at location A. IMPRESSION: 1. Mild decreased activity along the inferior wall on the rest images which is only borderline decreased on the stress images and favor diaphragmatic attenuat ion artifact over infarct. No reversible ischemia. 2. Left ventricular ejection fraction measuring 50%.
--- NOTE | 2021-06-05 07:44 | ECHO_ITS ---
Patient Info Name: Kushal Sanders Age: 56 years : 1965 Gender: Male Ht: 74 in Wt: 304 lbs BSA: 2.74 m2 HR: 71 bpm BP: 150 / 102 mmHg Technical Quality: Good Exam Date: 06/05/2021 8:06 AM Exam Location: [facility] Patient Status: Outpatient Admit Date: 06/05/2021 Staff Ordering Physician: Nabil Martinez DO Real Estate Lawyer: Maicol Davis RDCS, RT Attending Provider: Nabil Martinez DO Referring Physician: Juan MARTINEZ; Exam Type: CA echo dop color flow w con Study Info Indications R06.00 - Dyspnea, unspecified Complete two-dimensional, color flow and Doppler transthoracic echocardiogram is performed with contrast to opacify the left ventricle and to improve the deliniation of the left ventricle endocardial borders. Summary 1. Left ventricular chamber dimension is mildly enlarged. 2. Definity contrast administered improved wall motion interpretation. 3. Left ventricular systolic function is normal, estimated at 55-60%. 4. There is mildly increased left ventricular wall thickness. 5. The left ventricular diastolic function is grade II diastolic dysfunction. 6. E/e' 9 is minimally elevated. 7. Left atrial chamber dimension is mildly enlarged. Left Ventricle E/e' 9 is minimally elevated. Definity contrast administered improved wall motion interpretation. Left ventricular chamber dimension is mildly enlarged. Left ventricular systolic function is normal, estimated at 55-60%. There is mildly increased left ventricular wall thickness. The left ventricular diastolic function is grade II diastolic dysfunction. Right Ventricle Right ventricular systolic function is normal and with normal TAPSE 2.4 cm. Right ventricular chamber dimension is normal. Left Atria Left atrial chamber dimension is mildly enlarged. Right Atria Right atrial chamber dimension is normal. Aortic Valve The aortic valve is trileaflet. There is no aortic valve stenosis. There is no aortic valve regurgitation. Pulmonic Valve There is no pulmonic regurgitation. Mitral Valve There is no mitral valve stenosis. There is no mitral valve regurgitation. Tricuspid Valve There is no tricuspid valve regurgitation. Pericardium/Pleural There is no pericardial effusion. Inferior Vena Cava Normal inferior vena cava with >50% collapse upon inspiration consistent with normal right atrial pressure, 5 mmHg. Aorta The aortic root size at the sinus of Valsalva is normal. Left Ventricular Outflow Tract Name Value Normal LVOT 2D LVOT Diameter 2.14 cm LVOT Doppler LVOT Peak Gradient 3 mmHg LVOT Mean Gradient 2 mmHg LVOT VTI 20.75 cm LVOT VTI/AV VTI Ratio 0.85 LVOT Stroke Volume 74.51 ml LVOT CO 5.51 l/min LVOT CI 2.02 L/min/m2 Mitral Valve Name Value Normal
--- NOTE | 2021-06-05 08:44 | EST_ITS ---
Patient Info Name: Kushal Sanders Age: 56 years : 1965 Gender: Male Ht: 74 in Wt: 304 lbs BSA: 2.74 m2 HR: 70 bpm BP: 163 / 91 mmHg Heart Rhythm: Sinus Rhythm Exam Date: 06/05/2021 9:42 AM Exam Location: [facility] Stress Patient Status: Outpatient Admit Date: 06/05/2021 Staff Ordering Physician: Nabil Martinez DO Attending Provider: Nabil Martinez DO Exercise Technologist: Tania Valenzuela CT Exercise Physician: Nabil Martinez DO Exam Type: CA stress felisha w NM Study Info Indications R06.00 - Dyspnea, unspecified A regadenoson stress test was performed. Summary 1. 1. Negative lexiscan stress test for ischemic ST changes by ECG criteria. 2. 2. Baseline hypertension. 3. 3. Nuclear scan to follow and will be reported separately. Please correlate with it. 4. 4. Patient informed of the above results. Protocol: Lexiscan Stress ECG Details Stage: REST Duration (min): 2 min : 8 sec HR (bpm): 70 SBP (mmHg): 163 DBP (mmHg): 91 Stage: REST Duration (min): 9 min : 38 sec HR (bpm): 78 SBP (mmHg): 163 DBP (mmHg): 91 Stage: STAGE 1 Duration (min): 0 min : 59 sec HR (bpm): 71 SBP (mmHg): 163 DBP (mmHg): 91 Stage: RECOVERY Duration (min): 1 min : 0 sec HR (bpm): 87 SBP (mmHg): 154 DBP (mmHg): 106 Stage: RECOVERY Duration (min): 2 min : 0 sec HR (bpm): 85 SBP (mmHg): 154 DBP (mmHg): 106 Stage: RECOVERY Duration (min): 2 min : 44 sec HR (bpm): 85 SBP (mmHg): 153 DBP (mmHg): 101 Rest HR: 78 bpm Peak HR: 88 bpm Rest Sys BP: 163 mmHg Peak Sys BP: 154 mmHg Max Pred HR: 163 bpm % Max Pred HR: 54 % Target HR: 139 bpm Max RPP: 13,552 bpm*mmHg Termination Reason: Completed protocol Cardiac Symptoms: Shortness of breath Total Time: 1 min : 0 sec Rest Bobo BP: 91 mmHg Peak Bobo BP: 106 mmHg Total Dose: 0.4 mg Resting ECG Sinus rhythm. Stress ECG No ST changes. Arrhythmias None. Report Signatures
[2021-06-05] MEDS: PERFLUTREN LIPID MICROSPHERES 1.5 ML VIAL DILUTED TO 10 ML TOTAL VOLUME IV PUSH (08:45)
== END 2021-06-05 07:29 | disposition home or self-care (01) ==
LOC: ANHCARD 07:30
PROVIDERS: PCP Emergency Medicine; Visit Provider Internal Medicine Cardiovascular Disease
DX: I51.9 Heart disease, unspecified (principal); R06.02 Shortness of breath; R06.00 Dyspnea, unspecified
CPT/HCPCS: 78452; 93017; A9502; C8929; J2785; Q9957

== ENCOUNTER 2021-06-11 13:07 | Outpatient (CLI) | payer MEDICARE, MEDICAID, SELFPAY ==
--- NOTE | ~2021-06-11 | PE_ITS ---
EXAMINATION: PET skull to mid thigh DATE: 06/11/2021 15:19 INDICATION: Solitary pulmonary nodule TECHNIQUE: Blood glucose level was 111 mg/dL. 1.957 mCi of 18-fluorodeoxyglucose (18-FDG) was adminis tered i.v. Low dose computed tomography (CT) images were acquired from the base of the brain to the p roximal thighs for attenuation correction and anatomic localization. Positron emission tomography (PE T) images were acquired in the same distribution beginning 69 minutes after injection. Images includi ng fused PET/CT images were reconstructed in axial, coronal, and sagittal planes. Automated exposure control technique was employed. The dose-length product was 1225.61mGy-cm. COMPARISON: Chest CT dated 04/22/2021 and PET/CT dated 08/16/2020 FINDINGS: Head/neck: There is symmetric increased activity in the nares, oral cavity, lingual tonsils and ocular muscles w ithout CT correlate, likely physiologic. No pathologically enlarged cervical lymphadenopathy or suspi cious foci of increased FDG uptake in the visualized head or neck. Chest: No significant change in a 12 mm right middle lobe nodule with very mild FDG uptake with maximal SUV of 1.6. The region of the right lower lobe nodule along the dome of the diaphragm is not visualized h owever the region is obscured by respiratory motion. No evident increased FDG uptake in this region. Remaining nodules in the bilateral lower lobes seen on the prior PET/CT are not visualized on the cur rent study or the most recent chest CT. Heart size is normal. No pericardial or pleural effusion. No pathologically enlarged or FDG avid thoracic lymphadenopathy. Abdomen/pelvis/proximal thighs: Physiologic renal accumulation and excretion of FDG activity in the kidneys, bladder and along portio ns of ureters. Normal degree and heterogenous pattern of increased uptake throughout the liver withou t radiologic correlate or dominant FDG avid lesion. The gallbladder, pancreas, spleen and bilateral a drenal glands are normal. Moderate uptake scattered throughout the bowels without radiologic correlat e, also likely physiologic. Normal appendix. There are few scattered colonic diverticula but adjacent inflammatory change to suggest diverticulitis. No other abnormal foci of increased FDG uptake or pat hologically enlarged lymphadenopathy in the abdomen, pelvis or proximal thighs. Small bilateral fat-c ontaining inguinal hernias. Musculoskeletal: There is mild increased FDG uptake associated with a linear pattern of lateral right fifth-seventh ri b fractures. No suspicious lytic or blastic or other suspicious FDG avid bone lesions. IMPRESSION: 1. Unchanged 12 mm right middle lobe nodule with very mild FDG uptake which remains indeterminate. 2. Likely physiologic mild increased FDG uptake associated with a few recent right-sided rib fracture s. Reviewed, dictated and finalized at location A. IMPRESSION: 1. Unchanged 12 mm right middle lobe nodule with very mild FDG uptake which rem ains indeterminate. 2. Likely physiologic mild increased FDG uptake associated with a few recent ri ght-sided rib fractures.
[2021-06-11 13:29] LABS: Glucose Point of Care 111 mg/dl (65-105)
== END 2021-06-11 13:08 | disposition home or self-care (01) ==
PROVIDERS: PCP Emergency Medicine; Visit Provider Internal Medicine Critical Care Medicine
DX: R91.1 Solitary pulmonary nodule (principal); S22.41XA Multiple fractures of ribs, right side, initial encounter for closed fracture
CPT/HCPCS: 78815; A9552

== ENCOUNTER 2021-06-22 11:39 | Outpatient (CLI) | payer MEDICARE, MEDICAID, SELFPAY | END 2021-06-22 11:40 | disposition home or self-care (01) | PROVIDERS: PCP Emergency Medicine; Visit Provider Nurse Practitioner Family | DX: R09.3 Abnormal sputum (principal) | CPT/HCPCS: 87015; 87070; 87102; 87106; 87116; 87149; 87205; 87206 ==

== ENCOUNTER 2021-09-13 06:39 | Outpatient (CLI) | payer MEDICARE, MEDICAID, SELFPAY ==
--- NOTE | ~2021-09-13 | CT_ITS ---
EXAMINATION: CT diagnostic chest w con DATE: 09/13/2021 07:07 INDICATION: Right middle lobe nodule TECHNIQUE: Computed tomography (CT) of the chest was performed without intravenous contrast. The dose -length product was 976.21 mGy-cm. Automated exposure control and iterative reconstruction technique were employed. COMPARISON: CT dated 04/22/2021 FINDINGS: Heart size normal. No significant pleural or pericardial effusion. No thoracic lymphadenopa thy. No significant vascular abnormality. Fatty infiltration of the liver. There are new no pneumotho rax. No endobronchial lesions. New reticulonodular densities in the left upper 3 mm right lower lobe nodule, image 103, unchanged. And left lower lobe, most likely infectious/inflammatory. Possible mini roger increased size of 13 mm right middle lobe nodule, although this could be related to technique. Small left lower lobe pleural-based nodule measuring 4 mm, unchanged. There are multiple healing righ t lower rib fractures. Mild-moderate thoracic spondylosis with accentuated kyphosis. IMPRESSION: 1. New patchy reticulonodular densities of the left upper and lower lobe, most likely infectious/infl ammatory. Recommend follow-up low dose CT chest in 3 months to assess for resolution. 2: Stable bilateral pulmonary nodules, largest in the right middle lobe measuring 13 mm. Reviewed, dictated and finalized at location A. IMPRESSION: 1. New patchy reticulonodular densities of the left upper and lower lobe, most likely infectious/inflammatory. Recommend follow-up low dose CT chest in 3 torin hs to assess for resolution. 2: Stable bilateral pulmonary nodules, largest in the right middle lobe measuri ng 13 mm.
[2021-09-13 07:01] LABS: Estimated Glomerular Filt Rate > 60
== END 2021-09-13 06:40 | disposition home or self-care (01) ==
PROVIDERS: PCP Emergency Medicine; Visit Provider Thoracic Surgery (Cardiothoracic Vascular Surgery)
DX: R91.1 Solitary pulmonary nodule (principal); M47.814 Spondylosis without myelopathy or radiculopathy, thoracic region; K76.0 Fatty (change of) liver, not elsewhere classified
CPT/HCPCS: 71260; Q9967

== ENCOUNTER 2021-09-24 09:16 | Outpatient (CLI) | payer MEDICARE, MEDICAID, SELFPAY | END 2021-09-24 09:17 | disposition home or self-care (01) | LOC: ANHLAB 09:19 | PROVIDERS: PCP Emergency Medicine; Referring Provider Nurse Practitioner Family; Visit Provider Internal Medicine Critical Care Medicine | DX: R09.3 Abnormal sputum (principal) | CPT/HCPCS: 87015; 87070; 87102; 87106; 87116; 87205; 87206 ==

== ENCOUNTER 2022-04-02 08:43 | Outpatient (CLI) | payer MEDICARE, MEDICAID, SELFPAY ==
--- NOTE | ~2022-04-02 | CT_ITS ---
EXAMINATION: CT diagnostic chest w con DATE: 04/02/2022 09:18 INDICATION: Right lung nodule. Former smoker. TECHNIQUE: Computed tomography (CT) of the chest was performed with 75 CC Omnipaque 350 intravenous c ontrast. Automated exposure control and iterative reconstruction technique were employed. Exam dose: 1102.89 mGy-cm total exam DLP. COMPARISON: 09/13/2021 CT chest FINDINGS: Stable or slightly diminished size of middle lobe nodule since 09/13/2021, currently measurin g up to approximately 12.5 cm maximal dimension versus 13.6 mm on 09/13/2021. 5 mm nodule at the base of the right lower lobe adjacent to the diaphragm as attenuation up to 138 Ho unsfield units, most likely a calcified pulmonary granuloma, previously measured 4 mm on 09/13/2021. Stable very small pleural-based opacity, posterolateral left lower chest. No other pulmonary mass lesion is detected. No pulmonary infiltrate or consolidation.. There is resol ution of left upper and lower lobe infiltrates since 09/13/2021. Minimal discoid atelectasis or scarring at the base of the lingula and left lower lobe. No hilar or mediastinal mass lesion or lymphadenopathy. No thoracic aortic aneurysm or dissection. Normal heart size. No pericardial or pleural effusion. Small sliding hiatal hernia. Normal morphology of the adrenal glands. Diffuse hepatic steatosis. Prominent degenerative disease in the lower cervical spine. Diffuse idiopathic skeletal hyperostosis of the thoracic spine. IMPRESSION: Slightly diminished size of middle lobe nodule is suggested since 09/13/2021. No new or en larging pulmonary mass lesion Resolution of left upper and lower lobe infiltrates since 09/13/2021 Reviewed, dictated and finalized at Location A. Reviewed, dictated and finalized at location B. 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 No new or enlarging pulmonary mass lesion Resolution of left upper and lower lobe infiltrates since 09/13/2021
[2022-04-02 09:11] LABS: Estimated Glomerular Filt Rate > 60
== END 2022-04-02 08:44 | disposition home or self-care (01) ==
PROVIDERS: PCP Emergency Medicine; Visit Provider Thoracic Surgery (Cardiothoracic Vascular Surgery)
DX: R91.1 Solitary pulmonary nodule (principal)
CPT/HCPCS: 71260; Q9967

== ENCOUNTER 2022-04-02 11:35 | Outpatient (CLI) | payer MEDICARE, MEDICAID, SELFPAY ==
[2022-04-02 20:59] LABS: Creatinine Urine 99.3 mg/dL
[2022-04-02 21:03] LABS: MALB Creatinine Ratio 10.8 mg/g (0-30); Microalbumin Urine Random 10.7 mg/L (0-16.7)
== END 2022-04-02 11:36 | disposition home or self-care (01) ==
LOC: ANHWCLAB 11:37
PROVIDERS: PCP Emergency Medicine; Visit Provider Internal Medicine Endocrinology, Diabetes & Metabolism
DX: Z79.4 Long term (current) use of insulin (principal); E11.9 Type 2 diabetes mellitus without complications
CPT/HCPCS: 82043

== ENCOUNTER 2022-05-27 11:15 | Outpatient (CLI) | payer MEDICARE, MEDICAID, SELFPAY ==
--- NOTE | ~2022-05-27 | XR_ITS ---
Clinical Indication: Cough PA and lateral views of the chest: Comparison: 08/22/2020 Findings: The lungs are clear, without evidence of focal consolidation or pleural effusion. Cardiome diastinal silhouette is within normal limits. Bones and soft tissues are unremarkable. Impression: Normal chest. Reviewed, dictated and finalized at location . Impression: Normal chest.
== END 2022-05-27 11:16 | disposition home or self-care (01) ==
PROVIDERS: PCP Emergency Medicine; Visit Provider Nurse Practitioner Family
DX: R50.9 Fever, unspecified (principal); R09.3 Abnormal sputum; R05.9 Cough, unspecified
CPT/HCPCS: 71046; 87015; 87070; 87102; 87106; 87116; 87186; 87205; 87206

== ENCOUNTER 2022-09-30 07:32 | Outpatient (CLI) | payer MEDICARE, MEDICAID, SELFPAY ==
--- NOTE | ~2022-09-30 | CT_ITS ---
EXAMINATION: CT diagnostic chest wo con DATE: 09/30/2022 07:51 INDICATION: Pulmonary nodules TECHNIQUE: Computed tomography (CT) of the chest was performed without intravenous contrast. Automate d exposure control and iterative reconstruction technique were employed. Exam dose: 510.70 mGy-cm to fransisco exam DLP. COMPARISON: 08/18/2022 2 view chest 04/02/2022 CT chest 09/13/2021 CT chest 06/11/2021 PET/CT scan FINDINGS: Normal heart size. No pericardial or pleural effusion. No thoracic aortic aneurysm. Minimal aortic arch atherosclerotic calcification. No hilar or mediastinal mass lesion or lymphadenopathy. Stable up to approximately 12 mm middle lobe opacity with attenuation up to 300 Hounsfield units, mil dly diminished in size from 1.3 cm measurement on 09/13/2021. The high density and slightly diminished size since 09/13/2021 are consistent with benign process Small sliding hiatal hernia. Normal morphology of the adrenal glands. Old healed right rib fractures. Diffuse idiopathic skeletal hyperostosis of the thoracic spine. IMPRESSION: Slightly diminished size of hypodensity 12 mm mass of middle lobe since 09/13/2021, consist ent with benign process Reviewed, dictated and finalized at Location A. Reviewed, dictated and finalized at location L. IMPRESSION: Slightly diminished size of hypodensity 12 mm mass of middle lobe s robert 09/13/2021, consistent with benign process
== END 2022-09-30 07:33 | disposition home or self-care (01) ==
PROVIDERS: PCP Emergency Medicine; Visit Provider Thoracic Surgery (Cardiothoracic Vascular Surgery)
DX: R91.8 Other nonspecific abnormal finding of lung field (principal)
CPT/HCPCS: 71250

== ENCOUNTER 2023-02-07 16:46 | Emergency (ER) | payer MEDICARE, MEDICAID, SELFPAY ==
[2023-02-07] VITALS (24 sets, daily range): BP systolic 121–146; BP diastolic 65–93; PULSE 85–95; RESP 12–23; TEMP 36.2; O2SAT 91–98
--- NOTE | ~2023-02-07 | XR_ITS ---
EXAMINATION: XR chest 2V Exam Date/Time: 02/07/2023 17:06 CAPITAL EQUIPMENT SPECIALIST HISTORY: dyspnea/ cough; HTN, COPD,Type 2 DM, prev smoker Comparison: 08/18/2022. RESULT: Lines, tubes, and devices: None. Lungs and pleura: Emphysematous change. Increasing subsegmental left lower lobe opacity. Cardiomediastinal silhouette: Stable. Other: No acute osseous or upper abdominal finding. IMPRESSION: Subsegmental left lower lobe atelectasis/consolidation. Reviewed, dictated and finalized at location K. TAL EQUIPMENT SPECIALIST
--- NOTE | 2023-02-07 20:25 | ED.SOB ---
HPI - SOB/Dyspnea General Chief Complaint: Shortness of Breath/Dyspnea <Teresita Blanco MD - Last Filed: 02/16/23 20:43> Stated Complaint: bronchitis <Teresita Blanco MD - Last Filed: 02/16/23 20:43> Time Seen by Provider: 02/07/23 19:43 <Teresita Blanco MD - Last Filed: 02/16/23 20:43> History of Present Illness HPI Narrative: Patient is a 57-year-old male with a history of COPD, a flutter on Xarelto, diabetes, hypertension presenting with shortness of breath. Patient states that he has been feeling short of breath, wheezy for several weeks. States that he has had a nonproductive cough. He saw his PCP about 10 days ago who gave him steroids and antibiotics. States that his symptoms have continued. States that he has been using his nebulizer with temporary improvement. He denies any chest pain. No palpitations. No fevers or chills. No nausea or vomiting. No leg swelling. No further complaints. <Teresita Blanco MD - Last Filed: 02/16/23 20:43> Related Data Home Medications: Home Medications Medication Instructions Recorded Confirmed diazepam 5 mg tablet 5 mg PO BID PRN Anxiety 03/07/19 01/05/23 fluoxetine 20 mg tablet 20 mg PO DAILY 03/07/19 01/05/23 omeprazole 20 mg capsule,delayed 20 mg PO DAILY 03/07/19 01/05/23 release oxycodone-acetaminophen 10 mg-325 1 tablet PO Q6H PRN pain 04/26/20 01/05/23 mg tablet omega 0-cbl-muv-fish oil 1,000 mg 1 cap PO DAILY 05/21/22 01/05/23 (120 mg-180 mg) capsule (Fish Oil) rosuvastatin 20 mg tablet (Crestor) 20 mg PO DAILY 01/05/23 01/05/23 <Teresita Blanco MD - Last Filed: 02/16/23 20:43> Allergies/Adverse Reactions: Allergies Allergy/AdvReac Type Severity Reaction Status Date / Time amoxicillin Allergy Unknown Swelling Verified 01/05/23 10:23 of Lip/Tongue/Throat NSAIDS (Non-Steroidal Allergy Unknown Rash Verified 01/05/23 10:23 Anti-Inflamma <Teresita Blanco MD - Last Filed: 02/16/23 20:43> Review of Systems Review of Systems: All systems reviewed & are unremarkable except as noted in HPI and below <Teresita Blanco MD - Last Filed: 02/16/23 20:43> [facility] Past Medical History Medical History: Medical History Allergies Anxiety Arthritis Asthma Atrial flutter Body mass index (BMI) 35 or more (11/29/18) Chronic bronchitis Chronic pain of both knees COPD (chronic obstructive pulmonary disease) DEL ANGEL (dyspnea on exertion) Essential hypertension Former smoker GERD (gastroesophageal reflux disease) Hyperlipidemia LDL goal <100 Lung nodule, solitary PAMELA (obstructive sleep apnea) Pneumonia Primary osteoarthritis of both knees Systolic dysfunction Tachycardia Type 2 diabetes mellitus with hyperglycemia, without long-term current use of insulin <Teresita Blanco MD - Last Filed: 02/16/23 20:43> Surgical History Surgical History: Surgical History No pertinent past surgical history <Teresita Blanco MD - Last Filed: 02/16/23 20:43> Family History Family History: Family History Sibling Patient's brother is in good health Father Cerebrovascular accident, Onset Age: 67 Family history of malignant neoplasm Mother Family history of emphysema Other Diabetes mellitus Family history of arthritis <Teresita Blanco MD - Last Filed: 02/16/23 20:43> Social History Social History: Social History Smoking packs per day: 1 Smoking cigarettes per day: 20.0 Years smoked: 30 Smoking pack-years: 30.00 Smoking status: Former smoker Tobacco type: cigarettes Alcohol intake: current Drinks per week: 4 Substance use: never Lack of Transportation: No Lack of Food: Never True
[2023-02-07 20:26] LABS: Basophils Absolute Auto 0.1 K/mm3 (0.0-0.1); Basophils Percent Auto 0.5 % (0.2-1.2); Eosinophils Percent Auto 8.7 % (0-4.4); Hematocrit 51.7 % (42.0-52.0); Hemoglobin 17.2 g/dL (14.0-18.0); Immature Granulocyte Absolute 0.05 K/mm3 (0.00-0.031); Immature Granulocyte Percent A 0.5 % (0-0.5); Lymphocytes Absolute Auto 3.24 K/mm3 (0.9-3.2); Lymphocytes Percent Auto 29.3 % (18.3-44.2); Mean Corpuscular HGB Conc 33.3 g/dl (32-36); Mean Corpuscular Hemoglobin 29.9 pg (26-34); Mean Corpuscular Volume 89.8 fl (80-100); Mean Platelet Volume 9.5 fl (7.4-10.4); Monocytes Absolute Auto 0.8 K/mm3 (0.1-0.6); Monocytes Percent Auto 6.9 % (2.6-8.5); Neutrophils Percent Auto 54.1 % (45.5-73.1); Platelet Count Result 233 k/mm3 (150-375); Red Blood Count 5.76 M/mm3 (4.6-6.20); Red Cell Distribution Width 13.9 % (11.5-14.5); White Blood Count 11.1 K/mm3 (4.5-10.0)
[2023-02-07] MEDS: ALBUTEROL SULFATE NEB 2.5 MG/3 ML INH 10 MG INHALATION ×2 (20:49→22:25)
[2023-02-07] MEDS: IPRATROPIUM BR 0.02% INH SOLN 0.5 MG/2.5 ML VIAL INHALATION ×2 (20:52→22:25)
[2023-02-07 21:00] LABS: Alanine Aminotransferase 25 U/L (6-50); Albumin Level 4.1 g/dL (3.5-5.1); Alkaline Phosphatase 107 U/L (38-126); Anion Gap 10 mmol/L (8-16); Aspartate Amino Transferase 27 U/L (17-59); Bilirubin,Total 0.7 mg/dL (0.2-1.3); Blood Urea Nitrogen 11 mg/dL (9-20); Calcium 8.9 mg/dL (8.4-10.2); Carbon Dioxide 24 mmol/L (22-30); Chloride 102 mmol/L (98-107); Estimated CRCL calculation 163 ml/min; Estimated Glomerular Filt Rate > 60; Glucose 176 mg/dL (65-110); Potassium 3.9 mmol/L (3.4-5.0); Sodium 136 mmol/L (137-145)
[2023-02-07 21:25] LABS: Influenza A QL RT-PCR Negative (Negative); Influenza B QL RT-PCR Negative (Negative); RSV RNA, RT-PCR Negative (Negative); SARS-CoV-2 RNA PCR Negative (Negative)
[2023-02-07] MEDS: SOTALOL HCL 40 MG, SOTALOL HCL 80 MG 120 MG PO (21:40)
[2023-02-07] MEDS: methylPREDNISolone SOD SUCC 125 MG VIAL IV PUSH (21:40)
[2023-02-07] MEDS: RIVAROXABAN 20 MG TABLET PO (21:41)
[2023-02-07] MEDS: cefTRIAXone 2 GM/NS 100 ML 2 GM/100 ML BAG IVPB (21:41)
[2023-02-07] MEDS: DOXYCYCLINE 100 MG/NS 100 ML 100 MG/100 ML BAG IVPB (21:58)
[2023-02-07] MEDS: ALBUTEROL SULFATE NEB 2.5 MG/3 ML INH (22:05)
--- NOTE | 2023-02-07 23:26 | PC.NURSE ---
care and report given to [place] RN. all questions answered
--- NOTE | 2023-02-07 23:42 | PC.NURSE ---
Report received from JOHN Enamorado. Assumed care of patient at this time.
--- NOTE | 2023-02-07 23:56 | PC.NURSE ---
Patient walked in hallway for ambulation assessment. Patient maintained O2 sat of 93-94% while ambulating. Patient states he feels better and is ready to go home. ERP notified.
[2023-02-08] VITALS: PULSE 85; RESP 17; O2SAT 91
[2023-02-08 00:17] VITALS: PULSE 86; RESP 14; O2SAT 94
[2023-02-08 00:30] VITALS: PULSE 85; RESP 21; O2SAT 91
[2023-02-08 00:45] VITALS: PULSE 88; RESP 16; O2SAT 93
[2023-02-08 01:00] VITALS: PULSE 81; RESP 18; O2SAT 93
== END 2023-02-08 02:21 | disposition home or self-care (01) ==
PROVIDERS: Emergency Provider Emergency Medicine; PCP Emergency Medicine
DX: J18.9 Pneumonia, unspecified organism (principal); J44.9 Chronic obstructive pulmonary disease, unspecified; Z20.822 Contact with and (suspected) exposure to COVID-19; I48.92 Unspecified atrial flutter; I10 Essential (primary) hypertension; E11.9 Type 2 diabetes mellitus without complications; E78.5 Hyperlipidemia, unspecified; K21.9 Gastro-esophageal reflux disease without esophagitis; M17.0 Bilateral primary osteoarthritis of knee; G47.33 Obstructive sleep apnea (adult) (pediatric); F41.9 Anxiety disorder, unspecified; Z87.891 Personal history of nicotine dependence; Z87.01 Personal history of pneumonia (recurrent); Z79.01 Long term (current) use of anticoagulants; Z79.4 Long term (current) use of insulin; Z79.85 Long-term (current) use of injectable non-insulin antidiabetic drugs
CPT/HCPCS: 36415; 71046; 80053; 85025; 87637; 94640; 96365; 96367; 96375; 99284; A9270; J0696; J2930

== ENCOUNTER 2023-02-22 09:37 | Outpatient (CLI) | payer MEDICARE, MEDICAID, SELFPAY ==
--- NOTE | ~2023-02-22 | XR_ITS ---
EXAMINATION: XR chest 2V Exam Date/Time: 02/22/2023 9:58 SPORT INTERN HISTORY: HX PNEUMONIA 2WKS AGO STILL HAS TIGHTNESS AND COUGH Comparison: 02/07/2023. RESULT: Lines, tubes, and devices: None. Lungs and pleura: Emphysematous change. Improving left medial basal aeration. Cardiomediastinal silhouette: Stable. Other: No acute osseous or upper abdominal finding. IMPRESSION: Improving subsegmental left lower lobe atelectasis/consolidation. Reviewed, dictated and finalized at location K. T INTERN
== END 2023-02-22 09:38 | disposition home or self-care (01) ==
PROVIDERS: PCP Emergency Medicine; Visit Provider Emergency Medicine
DX: J18.9 Pneumonia, unspecified organism (principal)
CPT/HCPCS: 71046

== ENCOUNTER 2023-03-13 09:07 | Outpatient (CLI) | payer MEDICARE, MEDICAID, SELFPAY ==
--- NOTE | ~2023-03-13 | XR_ITS ---
EXAMINATION: XR chest 2V DATE: 03/13/2023 09:27 INDICATION: Pneumonia, follow-up TECHNIQUE: PA and lateral views of the chest are obtained. COMPARISON: 02/22/2023 FINDINGS: The lungs are free of acute opacities. No pleural effusion or pneumothorax. The cardiomedia stinal silhouette is normal. There are bridging osteophytes at multiple levels in the spine, consiste nt with diffuse idiopathic skeletal hyperostosis (DISH). There are healed anterior rib fractures on t he right. IMPRESSION: 1. No acute cardiopulmonary abnormality. Reviewed, dictated and finalized at location B. AND DETONATOR
== END 2023-03-13 09:08 | disposition home or self-care (01) ==
PROVIDERS: PCP Emergency Medicine; Visit Provider Emergency Medicine
DX: J18.9 Pneumonia, unspecified organism (principal)
CPT/HCPCS: 71046

== ENCOUNTER 2023-04-01 09:36 | Outpatient (CLI) | payer MEDICARE, MEDICAID, SELFPAY ==
--- NOTE | ~2023-04-01 | CT_ITS ---
CT Scan of the Chest without Contrast: Clinical Indication: Pulmonary nodule Technique: Contiguous sections were acquired throughout the chest without intravenous contrast. Dose reduction technique was used on this scan by utilizing automated exposure control and iterative recon struction technique. The dose-length product (DLP) was 439.94 mGy-cm. COMPARISON: 09/30/2022 and 09/13/2021 Findings: There is no evidence of any significant mediastinal, hilar or axillary lymphadenopathy. The mediastin al soft tissues appear normal. There is no evidence of pleural or pericardial effusion. 1.2 cm right middle lobe nodule is essentially stable from prior exam. 5 mm right basilar pulmonary n odules unchanged. There is probable minimal postinflammatory scarring at the left lung base, unchange d. 3 mm lingular nodule is unchanged. Images through the upper abdomen reveal no abnormalities. Impression: Stable pulmonary nodules, as detailed above, largest at the right middle lobe measuring 1.2 cm. Reviewed, dictated and finalized at location M. W MACHINE TENDER Impression: Stable pulmonary nodules, as detailed above, largest at the right middle lobe m easuring 1.2 cm.
== END 2023-04-01 09:37 | disposition home or self-care (01) ==
PROVIDERS: PCP Emergency Medicine; Visit Provider Nurse Practitioner Family
DX: R91.8 Other nonspecific abnormal finding of lung field (principal)
CPT/HCPCS: 71250

== ENCOUNTER 2023-07-31 09:15 | Outpatient (CLI) | payer MEDICARE, MEDICAID, SELFPAY ==
--- NOTE | ~2023-07-31 | XR_ITS ---
Clinical Indication: Cough PA and lateral views of the chest: Comparison: 03/13/2023 Findings: The lungs are clear, without evidence of focal consolidation or pleural effusion. Cardiome diastinal silhouette is within normal limits. Bones and soft tissues are unremarkable. Impression: Normal chest. Reviewed, dictated and finalized at location . Impression: Normal chest.
== END 2023-07-31 09:16 | disposition home or self-care (01) ==
LOC: ANHIMG 09:18
PROVIDERS: PCP Emergency Medicine; Visit Provider Emergency Medicine
DX: R05.9 Cough, unspecified (principal); J44.9 Chronic obstructive pulmonary disease, unspecified; Z87.891 Personal history of nicotine dependence
CPT/HCPCS: 71046

== ENCOUNTER 2023-11-20 09:27 | Outpatient (CLI) | payer MEDICARE, MEDICAID, SELFPAY ==
--- NOTE | ~2023-11-20 | XR_ITS ---
EXAMINATION: XR tibia fibula RT 2V DATE: 11/20/2023 09:55 INDICATION: Right lower leg injury and pain. TECHNIQUE: 2 views of right tibia and fibula on 4 radiographs were obtained. COMPARISON: None. FINDINGS: Alignment is normal. No acute fracture. There is internal fixation of distal fibula with pl ate and screws and syndesmotic screws. There is internal fixation of distal tibia with multiple screw s. There is mild knee joint osteoarthritis. There is moderate ankle joint osteoarthritis. There is mi ld midfoot osteoarthritis. There are enthesophytes at the posterior and plantar aspects of calcaneal tuberosity. IMPRESSION: 1. Polyarticular osteoarthritis. Reviewed, dictated and finalized at location A.
== END 2023-11-20 09:28 | disposition home or self-care (01) ==
LOC: ANHIMG 09:30
PROVIDERS: PCP Emergency Medicine; Visit Provider Emergency Medicine
DX: M19.071 Primary osteoarthritis, right ankle and foot (principal)
CPT/HCPCS: 73590

== ENCOUNTER 2024-03-11 15:39 | Outpatient (CLI) | payer MEDICARE, MEDICAID, SELFPAY ==
--- NOTE | ~2024-03-11 | CT_ITS ---
EXAMINATION: CT lung screening DATE: 03/11/2024 16:00 INDICATION: Z87.891 - Personal history of nicotine dependence TECHNIQUE: Computed tomography (CT) of the chest was performed without intravenous contrast. Addition al 3D reconstructions utilizing coronal maximum intensity projection (MIP) were performed. Automated exposure control and iterative reconstruction technique were employed. The dose-length product was 42 8.99 mGy-cm. COMPARISON: 04/01/2023 and 01/31/2020 FINDINGS: Mild emphysema. Very slowly growing 1.5 x 1.5 x 1.1 cm right middle lobe nodule with lobular margins which measured 1.3 x 1.1 x 1.1 cm on study from 01/31/2020. 5 mm right lower lobe nodule. Tree-in-bud opacities in the basilar left lower lobe. No pulmonary edema or pleural effusion. Heart size is norm al. No pericardial effusion. Thoracic aorta is normal in caliber. No pathologically enlarged thoracic lymphadenopathy. Small sliding-type hiatal hernia. Diffuse hepatic steatosis. Moderate thoracic spon dylosis with bridging osteophytes at multiple levels consistent with diffuse idiopathic skeletal hype rostosis (DISH). Chronic mild anterior wedging of a few lower thoracic vertebral bodies. IMPRESSION: 1. Lung-RADS category 4B: (Very suspicious, >15% chance of malignancy) PET-CT and/or tissue sampling depending on probably of malignancy and comorbidities. Reviewed, dictated and finalized at location A. NO ASSISTANT MANAGER IMPRESSION: 1. Lung-RADS category 4B: (Very suspicious, >15% chance of malignancy) PET-CT a nd/or tissue sampling depending on probably of malignancy and comorbidities.
== END 2024-03-11 15:40 | disposition home or self-care (01) ==
PROVIDERS: PCP Emergency Medicine; Visit Provider Nurse Practitioner Family
DX: Z12.2 Encounter for screening for malignant neoplasm of respiratory organs (principal); Z87.891 Personal history of nicotine dependence
CPT/HCPCS: 71271

== ENCOUNTER 2024-06-22 04:58 | Outpatient (CLI) | payer MEDICARE, MEDICAID, SELFPAY ==
[2024-06-14 08:48] VITALS: BMI 34.3
--- NOTE | 2024-06-14 08:55 | PC.NURSE ---
Pre Radiology instructions Report to the outpatient torie sahu on date _[id number]_ at time _0900_ for procedure Time: _1100_ YOU MAY BE MONITORED AT HOSPITAL FOR UP TO 4 HOURS AFTER YOUR PROCEDURE. A visitor will be allowed to accompany the patient into the hospital. You and your visitor will be asked to self-screen and do not enter if you have any COVID symptoms. A mask is OPTIONAL within the hospital. Patients are to have no food or drink 6 hours prior to procedure time Driving will be restricted after the procedure, you must have a person to drive you home. Labs will be drawn in preop area and once reviewed, you will be taken to radiology area for procedure. When the procedure is completed, you will be taken to outpatient where you will be monitored for several hours. You may have one visitor in this area. Other than holding anti-coagulants, patient may take other medication(s) as scheduled. Prior to your appointment date patients are instructed to hold anti-coagulants after discussing with ordering provider to stop. If unable to discontinue anti-coagulants please notify radiologist. ? No aspirin or warfarin (Coumadin) for 7 days prior to the procedure. ? No clopidogrel (Plavix), ticagrelor (Brilinta), prasugrel (Effient) or dabigatran (Pradaxa) for 5 days prior to the procedure. ? No rivaroxaban (Xarelto), apixaban (Eliquis), dipyridamole (Aggrenox or Persantine) or cilostazol (Pletal) for 2 days prior to the procedure. Medications to discontinue per physician: __Xarelto Date to take last dose: __[id number] Please leave all valuables, including medications, at home the day of procedure. The hospital will not accept responsibility for valuables. Wear comfortable, loose fitting clothing.? Follow any additional instructions given to you from ordering provider. Telephone instructions given to __David___and asked if any additional questions and then verbalized understanding. Patient advised to call scheduling provider office or registration scheduling [phone] if any additional questions.
[2024-06-22] VITALS (9 sets, daily range): BP systolic 133–166; BP diastolic 73–99; PULSE 53–69; RESP 16–18; TEMP 36.3; O2SAT 98–100
--- NOTE | ~2024-06-22 | XR_ITS ---
EXAM/PROCEDURE: XR chest 1V portable - 06/22/2024 14:40 CDT HISTORY: 59 years old Male with 3 HR POST LUNG BX TECHNIQUE: Three view(s) of the chest. COMPARISON: 06/22/2024 FINDINGS: LUNGS/ PLEURA: No focal consolidation. No appreciable pneumothorax or large pleural effusion. HEART/ MEDIASTINUM: Heart appears normal in size. BONES: No acute osseous abnormality. OTHER: Visualized upper abdomen is unremarkable. IMPRESSION: No residual pneumothorax post right lung nodule biopsy. Reviewed, dictated and finalized at location A.
--- NOTE | ~2024-06-22 | CT_ITS ---
Procedure: CT guided biopsy of right pulmonary nodule. Indication: 59 years old Male with PULMONARY NODULE . Operating Physician: Mariano Mcneill MD. Consent: After a detailed discussion of the procedure, risks, benefits, and alternative treatment opt ions, informed consent was obtained from the patient. Time Out: A time out for the procedure was performed in the presence of Dr. Mcneill. The patient's iden tification was verified. Informed consent with agreement of procedure was reviewed. All necessary equ ipment was available prior to procedure. Complications: Small pneumothorax which improved after aspiration Anesthesia: Local. Medication: 1% lidocaine locally. Procedure: Survey CT images were obtained. Right chest was prepped and draped using usual sterile fas hion. All elements of maximal sterile barrier technique were followed including cap, mask, sterile go wn, large sterile barrier, and hand hygiene. 2% chlorhexidine cutaneous antisepsis was also used. Local anesthesia was administered. The lesion was accessed using a 19 gauge needle and multiple core biopsy specimens were obtained using 20 gauge core biopsy device. All obtained samples were sent to Pathology. The needle was removed and hemostasis was achieved using a blood patch and manual pressure .. Given the findings, 5 Faroese one-step needle was advanced into the pleural cavity after administratio n of local anesthesia. Air was aspirated and then the needle was pulled out. Sterile dressing was applied. Patient tolerated the procedure. The entire procedure was personally performed by Dr. Mcneill. Findings: CT images provided access for biopsy of the right pulmonary nodule. Moderate-sized pneumoth orax is seen at the termination of the procedure. The air was aspirated and a tiny residual pneumotho rax was seen. Impression: Successful CT guided biopsy of right pulmonary nodule. Plan: Chest x-ray will be obtained to rule out progression of pneumothorax. Reviewed, dictated and finalized at location A. Impression: Successful CT guided biopsy of right pulmonary nodule. Plan: Chest x-ray will be obtained to rule out progression of pneumothorax.
--- NOTE | ~2024-06-22 | XR_ITS ---
CHEST RADIOGRAPH CLINICAL HISTORY: POST LUNG BIOPSY . COMPARISON: 07/31/2023 TECHNIQUE: Single portable view of the chest. FINDINGS The cardiomediastinal silhouette is unremarkable. The right lung is fully inflated. No significant perilesional hemorrhage. The left hemithorax is clear. IMPRESSION: No pneumothorax or significant perilesional hemorrhage on immediate imaging post right-sided lung bio psy, as detailed above. Reviewed, dictated and finalized at location A. IMPRESSION: No pneumothorax or significant perilesional hemorrhage on immediate imaging pos t right-sided lung biopsy, as detailed above.
--- NOTE | ~2024-06-22 | XR_ITS ---
EXAMINATION: XR chest 1V portable 06/22/2024 12:56 INDICATION: Right lung biopsy. PROCEDURE: AP portable chest COMPARISON: 06/22/2024 FINDINGS: Focal infiltrate present right lung base which may represent postbiopsy hemorrhage. No pneu mothorax identified. The cardiomediastinal silhouette is within normal limits. There are no pleural effusions. There is no pneumothorax suspected. IMPRESSION: 1: Focal right basilar infiltrate may represent hemorrhage postbiopsy. No pneumothorax.. Reviewed, dictated and finalized at location A. IMPRESSION: 1: Focal right basilar infiltrate may represent hemorrhage postbiopsy. No pneu mothorax..
--- OUTSIDE RECORDS SUMMARY | 2024-06-22 05:01 | XMS_ITS | Clinical Summary ---
Author Organization [facility] Address [address] [place] [address] Care Team Providers Care Gum Cook Name Role Phone Americo Coyle MD Primary Care Provider [phone] Source Comments [facility],non-[facility] Affiliates and Associated Physician Practices is amultiple site organization consisting of ambulatory clinics and hospital sitesin [place], [place], [place] and [place]. This disclosure is being madepursuant to the Care Everywhere program and may not contain all information available regarding this patient. Last updated 17.[facility] [employer] Social History Tobacco Use Types Packs/Day Years Used Date Smoking Tobacco: Former Cigarettes Q uit: 05/17/2012 Alcohol Use Standard Drinks/Week Comments Not Asked 0 (1 standard drink = 0.6 oz pur e alcohol) Sex and Gender Information Value Date Recorded Sex Assigned at Not on file Gender Identity Not on file Sexual Orientation Not on file Last Filed Vital Signs Vital Sign Reading Time Taken Comments Blood Pressure 122/82 07/24/2014 11:31 AM CDT Pulse - - Temperature 36.7 C (98.1 F) 12/11/2014 8:46 AM CDT Respiratory Rate - - Oxygen Saturation - - Inhaled Oxygen Concentration - - Weight 138.3 kg (305 lb) 12/11/2014 8:46 AM CDT Height 188 cm (6' 2 ) 12/11/2014 8:46 AM CDT Body Mass Index 39.16 12/11/2014 8:46 AM CDT Plan of Treatment Health Maintenance Due Date Last Done Comments [place]AN (AGES 45-75) - COL ON CA SCREENING 1964 COLON MONITORING 1964 COLONOSCOPY - COLON CA SCREENING 1964 CT COLONOGRAPHY - COLON CA SCREENING 1964 Colorectal Cancer Screening 1964 FIT - COLON CA SCREENING 1964 FLEX SIG - COLON CA SCREENING 1964 LIPID TESTING 1964 MEDICARE AWV 12 MONTHS 1964 HIV SCREENING 1979 HEPATITIS C SCREENING 04/10/1982 DTAP/TDAP/TD VACCINES (1 - Tdap) 1983 PNEUMOCOCCAL VACCINE 50+ (1 of 1 - PCV) 2014 ZOSTER VACCINE (1 of 2) 2014 COVID-19 VACCINE (1 - 2023-2 5 season) 2023 DEPRESSION SCREENING 03/16/2024 INFLUENZA VACCINE (Season Ended) 2024 Respiratory Syncytial Virus (RSV) Vaccine Pt: or over 60 yrs (1 - 1-dose 75+ series) 2039 HEPATITIS B VACCINE Aged Out No longe r eligible based on patient's age to complete this topic HIB VACCINE Aged Out No longer eligi ble based on patient's age to complete this topic HPV VACCINE Aged Out No longer eligi ble based on patient's age to complete this topic MENINGOCOCCAL (Group B) VACC INE SHARED DECISION-MAKING Aged Out No longer eligibl e based on patient's age to complete this topic MENINGOCOCCAL GROUPS A/C/Y/W VACCINE Aged Out No longer eligible b ased on patient's age to complete this topic PNEUMOCOCCAL VACCINE Aged Out No long er eligible based on patient's age to complete this topic Care Teams Gum Cook Relationship Specialty Start Date End Date Americo Coyle MD [address] [facility] [address] [place] [address] PCP - General 07/06/14
--- OUTSIDE RECORDS SUMMARY | 2024-06-22 05:01 | XMS_ITS | Encounter Summary ---
Author Organization [facility] Address [address] [place] [id number] Care Team Providers Care Fish Bait Processing Supervisor Name Role Phone Americo Coyle MD Primary Care Provider [phone] Encounter Details Date Type Department Care Team (Late st Contact Info) Description 09/25/2021 Abstract [place] [address] [address] Yi Kauffman MA Social History Tobacco Use Types Packs/Day Years Used Date Smoking Tobacco: Former Cigarettes Smokeless Tobacco: Never Sex and Gender Information Value Date Recorded Sex Assigned at Not on file Legal Sex Male 3:05 AM CDT Gender Identity Not on file Sexual Orientation Not on file COVID-19 Exposure Response Date Recorded In the last 10 days, have yo u been in contact with someone who was confirmed or suspected to have Coronavirus/COVID-19? No / Unsure 09/17/2021 8:29 AM CDT documented as of this encounter Plan of Treatment Not on file documented as of this encounter Procedures Procedure Name Priority Date/Time Associated Diagnosis Comments CREATININE Routine 09/13/2021 documented in this encounter Results * CREATININE (09/13/2021) CREATININE S/P/B 0.80 0.7 - 1.3 EGFR NON-AFR. AMER. >60 <=90 09/13/2021 us Doc [facility] LABORATORY Final Result documented in this encounter Visit Diagnoses Not on filedocumented in this encounter Care Teams Fish Bait Processing Supervisor Relationship Specialty Start Date End Date Americo Coyle MD PCP - General 06/01/14 documented as of this encounter
--- OUTSIDE RECORDS SUMMARY | 2024-06-22 05:01 | XMS_ITS | Continuity of Care Document ---
Author Organization [facility] Address [address] [place] [address] Phone Care Team Providers Care Resident Care Spec Name Role Phone Americo Coyle MD Unavailable Unavailable Allergies, Adverse Reactions, Alerts Substance Reaction Status Criticality amoxicillin Active No Information NSAIDS (Non-Steroidal Anti-Inflammatory Drug) Active No Information Medications Medication Instructions Dosage Effective Dates (start - stop) Status Comments oxybutynin chloride 5 mg tablet take 1 tablet by oral route 2 times every day 5 MG - Active Prozac 20 mg capsule take 1 Capsule by oral route every day in the morning 20 MG - Active Breztri Aerosphere 160 mcg-9mcg-4.8mcg/act uation HFA aerosol inhaler inhale 2 puff by inhalation route 2 times every day in the morning and evening 2.00 puff - Active Percocet 10 mg-325 mg tablet take 1 tablet by oral route every 6 hours as needed as needed 1.00 tablet - Active PRN for pain, avoid driving or operate machines Valium 5 mg tablet take 1 tablet by oral route 2 times every day as needed 5 MG - Active avoid driving or operate machines, PRn for anxiety omeprazole 20 mg tablet,delayed release take 1 tablet by oral route every day 1 tablet - Active Lipitor 10 mg tablet take 1 tablet by oral route every day 10 MG - Active Jardiance 10 mg tablet take 1 tablet by oral route every day in the morning 10 MG - Active Tresiba FlexTouch U-100 insulin 100 unit/mL (3 mL) subcutaneous pen inject by subcutaneous route as per insulin protocol 0.00 - Active 15 units daily naloxone 0.4 mg/mL injection syringe inject 1 milliliter by IM route over once, may repeat at 2 to 3 minute intervals as needed - Active PRN for OD losartan 25 mg tablet take 1 tablet by oral route every day 25 MG - Active Ozempic 1 mg/dose (2 mg/1.5 mL) subcutaneous pen injector inject (1MG) by subcutaneous route every week on the same day of each week - Active sotalol 120 mg tablet take 1 tablet by oral route 2 times every day 120 MG - Active Xarelto 20 mg tablet take 1 tablet by oral route every day with the evening meal 20 MG - Active albuterol sulfate 2.5 mg/3 mL (0.083 %) solution for nebulization inhale 3 milliliter by nebulization route every 6 hours as needed 2.5 MG - Active PRN for sob Procedures Procedure Date OFFICE/OUTPATIENT VISIT, EST OFFICE/OUTPATIENT VISIT, EST OFFICE/OUTPATIENT VISIT, EST OFFICE/OUTPATIENT VISIT, EST OFFICE/OUTPATIENT VISIT, EST OFFICE/OUTPATIENT VISIT, EST OFFICE/OUTPATIENT VISIT, EST OFFICE/OUTPATIENT VISIT, EST OFFICE/OUTPATIENT VISIT, EST OFFICE/OUTPATIENT VISIT, EST OFFICE/OUTPATIENT VISIT, EST OFFICE/OUTPATIENT VISIT, EST PREV VISIT, EST, AGE 40-64 OFFICE/OUTPATIENT VISIT, EST OFFICE/OUTPATIENT VISIT, EST OFFICE/OUTPATIENT VISIT, EST OFFICE/OUTPATIENT VISIT, EST OFFICE/OUTPATIENT VISIT, EST OFFICE/OUTPATIENT VISIT, EST OFFICE/OUTPATIENT VISIT, EST OFFICE/OUTPATIENT VISIT, EST OFFICE/OUTPATIENT VISIT, EST OFFICE/OUTPATIENT VISIT, EST OFFICE/OUTPATIENT VISIT, EST OFFICE/OUTPATIENT VISIT, EST OFFICE/OUTPATIENT VISIT, EST OFFICE/OUTPATIENT VISIT, EST OFFICE/OUTPATIENT VISIT, EST OFFICE/OUTPATIENT VISIT, EST OFFICE/OUTPATIENT VISIT, EST OFFICE/OUTPATIENT VISIT, EST OFFICE/OUTPATIENT VISIT, EST PREV VISIT, EST, AGE 40-64 OFFICE/OUTPATIENT VISIT, EST OFFICE/OUTPATIENT VISIT, EST OFFICE/OUTPATIENT VISIT, EST PREV VISIT, EST, AGE 40-64 OFFICE/OUTPATIENT VISIT, EST OFFICE/OUTPATIENT VISIT, EST OFFICE/OUTPATIENT VISIT, EST OFFICE/OUTPATIENT VISIT, EST OFFICE/OUTPATIENT VISIT, EST OFFICE/OUTPATIENT VISIT, EST OFFICE/OUTPATIENT VISIT, EST OFFICE/OUTPATIENT VISIT, EST OFFICE/OUTPATIENT VISIT, EST OFFICE/OUTPATIENT VISIT, EST OFFICE/OUTPATIENT VISIT, EST OFFICE/OUTPATIENT VISIT, EST OFFICE/OUTPATIENT VISIT, EST OFFICE/OUTPATIENT VISIT, EST OFFICE/OUTPATIENT VISIT, EST PREV VISIT, EST, AGE 40-64 OFFICE/OUTPATIENT VISIT, EST OFFICE/OUTPATIENT VISIT, EST OFFICE/OUTPATIENT VISIT, EST OFFICE/OUTPATIENT VISIT, EST OFFICE/OUTPATIENT VISIT, EST OFFICE/OUTPATIENT VISIT, EST OFFICE/OUTPATIENT VISIT, EST OFFICE/OUTPATIENT VISIT, EST OFFICE/OUTPATIENT VISIT, EST OFFICE/OUTPATIENT VISIT, EST OFFICE/OUTPATIENT VISIT, EST OFFICE/OUTPATIENT VISIT, EST OFFICE/OUTPATIENT VISIT, EST OFFICE/OUTPATIENT VISIT, EST OFFICE/OUTPATIENT VISIT, EST OFFICE/OUTPATIENT VISIT, EST OFFICE/OUTPATIENT VISIT, EST OFFICE/OUTPATIENT VISIT, EST PREV VISIT, EST, AGE 40-64 OFFICE/OUTPATIENT VISIT, EST OFFICE/OUTPATIENT VISIT, EST OFFICE/OUTPATIENT VISIT, EST OFFICE/OUTPATIENT VISIT, EST OFFICE/OUTPATIENT VISIT, EST OFFICE/OUTPATIENT VISIT, EST OFFICE/OUTPATIENT VISIT, EST OFFICE/OUTPATIENT VISIT, EST OFFICE/OUTPATIENT VISIT, EST OFFICE/OUTPATIENT VISIT, EST OFFICE/OUTPATIENT VISIT, EST OFFICE/OUTPATIENT VISIT, EST OFFICE/OUTPATIENT VISIT, EST OFFICE/OUTPATIENT VISIT, EST PREV VISIT, EST, AGE 40-64 OFFICE/OUTPATIENT VISIT, EST OFFICE/OUTPATIENT VISIT, EST OFFICE/OUTPATIENT VISIT, EST OFFICE/OUTPATIENT VISIT, EST OFFICE/OUTPATIENT VISIT, EST OFFICE/OUTPATIENT VISIT, EST OFFICE/OUTPATIENT VISIT, EST OFFICE/OUTPATIENT VISIT, EST OFFICE/OUTPATIENT VISIT, EST OFFICE/OUTPATIENT VISIT, EST OFFICE/OUTPATIENT VISIT, EST PREV VISIT, EST, AGE 40-64 OFFICE/OUTPATIENT VISIT, EST OFFICE/OUTPATIENT VISIT, EST OFFICE/OUTPATIENT VISIT, EST OFFICE/OUTPATIENT VISIT, EST OFFICE/OUTPATIENT VISIT, EST PREV VISIT, EST, AGE 40-64 OFFICE/OUTPATIENT VISIT, EST OFFICE/OUTPATIENT VISIT, EST OFFICE/OUTPATIENT VISIT, EST OFFICE/OUTPATIENT VISIT, EST OFFICE/OUTPATIENT VISIT, EST OFFICE/OUTPATIENT VISIT, EST OFFICE/OUTPATIENT VISIT, EST OFFICE/OUTPATIENT VISIT, EST OFFICE/OUTPATIENT VISIT, EST OFFICE/OUTPATIENT VISIT, EST OFFICE/OUTPATIENT VISIT, EST OFFICE/OUTPATIENT VISIT, EST OFFICE/OUTPATIENT VISIT, EST PREV VISIT, EST, AGE 40-64 OFFICE/OUTPATIENT VISIT, EST OFFICE/OUTPATIENT VISIT, EST OFFICE/OUTPATIENT VISIT, EST OFFICE/OUTPATIENT VISIT, EST OFFICE/OUTPATIENT VISIT, EST OFFICE/OUTPATIENT VISIT, EST OFFICE/OUTPATIENT VISIT, EST OFFICE/OUTPATIENT VISIT, EST OFFICE/OUTPATIENT VISIT, EST OFFICE/OUTPATIENT VISIT, EST OFFICE/OUTPATIENT VISIT, EST -2014 OFFICE/OUTPATIENT VISIT, EST OFFICE/OUTPATIENT VISIT, EST OFFICE/OUTPATIENT VISIT, EST -2014 PREV VISIT, EST, AGE 40-64 OFFICE/OUTPATIENT VISIT, EST -2014 OFFICE/OUTPATIENT VISIT, EST OFFICE/OUTPATIENT VISIT, EST OFFICE/OUTPATIENT VISIT, EST OFFICE/OUTPATIENT VISIT, EST OFFICE/OUTPATIENT VISIT, EST OFFICE/OUTPATIENT VISIT, EST OFFICE/OUTPATIENT VISIT, EST OFFICE/OUTPATIENT VISIT, EST OFFICE/OUTPATIENT VISIT, EST OFFICE/OUTPATIENT VISIT, EST OFFICE/OUTPATIENT VISIT, EST PREV VISIT, NEW, AGE 40-64 Advance Directives Directive Yes / No Effective Date File Name No Information Encounters Encounter Description Practice Location Reason(s) For Visit Diagnoses Date Provider Providers Copied on Encounter OFFICE/OUTPA TIENT VISIT, [facility], [address], [place], [place], [address], [place] tel:[phone] [facility] [place], [facility] pain (chief complaint) anxiety1 (chief complaint) COPD1 (chief complaint) urinary 1 (chief complaint) Solitary lung noduleCentrilobular emphysemaChronic pain syndromeGeneralized anxiety disorderOveractive bladder 5 Leonides Driscoll. [address], [place], [place], [address] , [place]. tel:[phone] OFFICE/OUTPA TIENT VISIT, [facility], [address], [place], [place], [address], [place] tel:[phone] [facility] [place] pain (chief complaint) anxiety1 (chief complaint) cough1 (chief complaint) UA (chief complaint) Chronic pain syndromeGeneralized anxiety disorderAsymptomati c microscopic hematuriaCOPD w/ acute exacerbation 5 Leonides Son [address], [place], [place], [address] , [place]. tel:[phone] OFFICE/OUTPA TIENT VISIT, [facility], [address], [place], [place], [address], [place] tel:[phone] [facility] [place] urinary1 (chief complaint) Asymptomatic microscopic hematuriaRenal stoneAbnormal weight loss 5 Leonides Driscoll. [address], [place], [place], [address] , [place]. tel:[phone] OFFICE/OUTPA TIENT VISIT, [facility], [address], [place], [place], [address], [place] tel:[phone] [facility] [place] pain (chief complaint) anxiety1 (chief complaint) lung (chief complaint) GERD1 (chief complaint) Generalized anxiety disorderChronic pain syndromeGERD w/o esophagitisSolitary lung nodule 5 Leonides Driscoll. [address], [place], [place], [address] , [place]. tel:[phone] OFFICE/OUTPA TIENT VISIT, [facility], [address], [place], [place], [address], [place] tel:[phone] [facility] Medicine pain (chief complaint) anxiety1 (chief complaint) Chronic pain syndromeGeneralized anxiety disorder 4 Leonides Driscoll. [address], [place], [place], [address] , [place]. tel:[phone] OFFICE/OUTPA TIENT VISIT, [facility], [address], [place], [place], [address], [place] tel:[phone] [facility] [place] pain (chief complaint) anxiety1 (chief complaint) fatigue1 (chief complaint) Chronic pain syndromeGeneralized anxiety disorderFatigueAdul t obstructive sleep apnea 4 Leonides Driscoll. [address], [place], [place], [address] , [place]. tel:[phone] OFFICE/OUTPA TIENT VISIT, [facility], [address], [place], [place], [address], [place] tel:[phone] [facility] [place] pain (chief complaint) anxiety1 (chief complaint) Chronic pain syndromeGeneralized anxiety disorder 4 Leonides Driscoll. [address], [place], [place], [address] , [place]. tel:[phone] OFFICE/OUTPA TIENT VISIT, [facility], [address], [place], [place], [address], [place] tel:[phone] [facility] [place] pain (chief complaint) anxiety1 (chief complaint) leg pain1 (chief complaint) Pain in right legGeneralized anxiety disorderNontraumati c hematoma of soft tissueChronic pain syndrome 4 Leonides Son [address], [place], [place], [address] , [place]. tel:[phone] OFFICE/OUTPA TIENT VISIT, [facility], [address], [place], [place], [address], [place] tel:[phone] [facility] [place] pain (chief complaint) anxiety1 (chief complaint) leg pain1 (chief complaint) Pain in right legNontraumatic hematoma of soft tissueChronic pain syndromeGeneralized anxiety disorder 4 Leonides Son [address], [place], [place], [address] , [place]. tel:[phone] OFFICE/OUTPA TIENT VISIT, [facility], [address], [place], [place], [address], [place] tel:[phone] [facility] [place] pain (chief complaint) anxiety1 (chief complaint) HLP (chief complaint) Chronic pain syndromeGeneralized anxiety disorderMixed hyperlipidemia 4 Leonides Son [address], [place], [place], [address] , [place]. tel:[phone] OFFICE/OUTPA TIENT VISIT, [facility], [address] [place], [address], [place] tel:[phone] [facility] [place] pain (chief complaint) anxiety1 (chief complaint) Chronic pain syndromeGeneralized anxiety disorder 4 Leonides Son [address], [place], [place], [address] , [place]. tel:[phone] OFFICE/OUTPA TIENT VISIT, [facility], [address], [place], [place], [address], [place] tel:[phone] [facility] [place] anxiety1 (chief complaint) pain (chief complaint) bronchitis 1 (chief complaint) yeast1 (chief complaint) Centrilobular emphysemaChronic pain syndromeGeneralized anxiety disorderInflammator y disorders of scrotum 4 Leonides Son [address], [place], [place], [address] , [place]. [phone] PREV VISIT, EST, AGE 40-64 [facility] [place], [address], [place], [place], [address], [place] tel:[phone] [facility] Medicine physical (chief complaint) Encounter for general adult medical exam w abnormal findingsEncounter for STD screeningGeneralize d anxiety disorderAtrial flutterChronic pain syndromeMixed hyperlipidemiaGERD w/o esophagitisType 2 diabetes mellitus with diabetic nephropathyCentrilo bular emphysema 4 Leonides Driscoll. [address], [place], [place], [address] , [place]. tel:[phone] OFFICE/OUTPA TIENT VISIT, [facility], [address], [place], [place], [address], [place] tel:[phone] [facility] [place] anxiety1 (chief complaint) pain (chief complaint) STD (chief complaint) aflutter1 (chief complaint) Chronic pain syndromeGeneralized anxiety disorderEncounter for STD screeningType 2 diabetes mellitus with diabetic nephropathyAtrial flutter 4 Leonides Driscoll. [address], [place], [place], [address] , [place]. tel:[phone] OFFICE/OUTPA TIENT VISIT, [facility], [address], [place], [place], [address], [place] tel:[phone] [facility] [place] anxiety1 (chief complaint) pain (chief complaint) HLP (chief complaint) Chronic pain syndromeGeneralized anxiety disorderMixed hyperlipidemia 4 Leonides Driscoll. [address], [place], [place], [address] , [place]. tel:[phone] OFFICE/OUTPA TIENT VISIT, [facility], [address], [place], [place], [address], [place] tel:[phone] [facility] [place] anxiety1 (chief complaint) pain (chief complaint) GERD1 (chief complaint) HLP (chief complaint) Mixed hyperlipidemiaChron ic pain syndromeGeneralized anxiety disorderGERD w/o esophagitis 4 Leonides Driscoll. [address], [place], [place], [address] , [place]. tel:[phone] OFFICE/OUTPA TIENT VISIT, [facility], [address], [place], [place], [address], [place] tel:[phone] [facility] [place] anxiety1 (chief complaint) pain (chief complaint) lung nodule1 (chief complaint) pneumonia1 (chief complaint) HLP (chief complaint) PneumoniaGeneralize d anxiety disorderChronic pain syndromeCentrilobul ar emphysemaSolitary lung noduleMixed hyperlipidemia 4 Leonides Son [address], [place], [place], [address] , [place]. tel:[phone] OFFICE/OUTPA TIENT VISIT, [facility], [address], [place], [place], [address], [place] tel:[phone] [facility] [place] anxiety1 (chief complaint) pain (chief complaint) COPD1 (chief complaint) PneumoniaChronic pain syndromeGeneralized anxiety disorderCentrilobul ar emphysema 3 Leonides Son [address], [place], [place], [address] , [place]. tel:[phone] OFFICE/OUTPA TIENT VISIT, [facility], [address], [place], [place], [address], [place] tel:[phone] [facility] [place] pneumonia1 (chief complaint) Pneumonia 3 Leonides Son [address], [place], [place], [address] , [place]. tel:[phone] OFFICE/OUTPA TIENT VISIT, [facility], [address], [place], [place], [address], [place] tel:[phone] [facility] [place] anxiety1 (chief complaint) pain (chief complaint) pneumonia1 (chief complaint) PneumoniaChronic pain syndromeGeneralized anxiety disorder 3 Leonides Son [address], [place], [place], [address] , [place]. tel:[phone] OFFICE/OUTPA TIENT VISIT, [facility], [address], [place], [place], [address], [place] tel:[phone] [facility] anxiety1 (chief complaint) pain (chief complaint) colon polyp1 (chief complaint) myopathy1 (chief complaint) Chronic pain syndromeDrug-induce d myopathyGeneralized anxiety disorderMixed hyperlipidemiaPolyp of colon 3 Leonides Son [address] [place], [address] , [place]. tel:[phone] OFFICE/OUTPA TIENT VISIT, [facility], [address] [place], [address], [place] tel:[phone] [facility] [place] anxiety1 (chief complaint) pain (chief complaint) HLP (chief complaint) Chronic pain syndromeGeneralized anxiety disorderMixed hyperlipidemiaDrug- induced myopathy 3 Leonides Driscoll. [address] [place] [place], [address] , [place]. tel:[phone] OFFICE/OUTPA TIENT VISIT, [facility], [address] [place], [address], [place] tel:[phone] [facility] [place] anxiety1 (chief complaint) pain (chief complaint) HLP (chief complaint) polyp1 (chief complaint) Chronic pain syndromeGeneralized anxiety disorderPolyp of colonMixed hyperlipidemia 3 Leonides Son [address] [place], [address] , [place]. tel:[phone] OFFICE/OUTPA TIENT VISIT, [facility], [address] [place], [address], [place] tel:[phone] [facility] [place] lung nodule1 (chief complaint) anxiety1 (chief complaint) pain (chief complaint) Chronic pain syndromeGeneralized anxiety disorderSolitary lung nodule 3 Leonides Driscoll. [address] [facility] [place] [address] , [place]. tel:[phone] OFFICE/OUTPA TIENT VISIT, [facility], [address] [place], [address], [place] tel:[phone] [facility] [place] anxiety1 (chief complaint) pain (chief complaint) colon polyp1 (chief complaint) lung nodule1 (chief complaint) toe (chief complaint) Ingrowing nailGeneralized anxiety disorderChronic pain syndromePolyp of colonSolitary lung nodule 3 Leonides Son [address], [place], [place], [address] , [place]. tel:[phone] OFFICE/OUTPA TIENT VISIT, [facility], [address], [place], [place], [address], [place] tel:[phone] [facility] [place] anxiety1 (chief complaint) pain (chief complaint) colon polyp1 (chief complaint) HLP (chief complaint) Generalized anxiety disorderChronic pain syndromeMixed hyperlipidemiaPolyp of colon 3 Leonides Son [address], [place], [place], [address] , [place]. tel:[phone] OFFICE/OUTPA TIENT VISIT, [facility], [address], [place], [place], [address], [place] tel:[phone] [facility] [place] anxiety1 (chief complaint) pain (chief complaint) HLP (chief complaint) DM (chief complaint) colon polylp1 (chief complaint) Chronic pain syndromeGeneralized anxiety disorderType 2 diabetes mellitus with diabetic nephropathyMixed hyperlipidemiaPolyp of colon 3 Leonides Son [address], [place], [place], [address] , [place]. tel:[phone] OFFICE/OUTPA TIENT VISIT, [facility], [address], [place], [place], [address], [place] tel:[phone] [facility] [place] anxiety1 (chief complaint) pain (chief complaint) MAC (chief complaint) Chronic pain syndromeGeneralized anxiety disorderCentrilobul ar emphysema 3 Leonides Driscoll. [address], [place], [place], [address] , [place]. tel:[phone] OFFICE/OUTPA TIENT VISIT, [facility], [address], [place], [place], [address], [place] tel:[phone] [facility] [place] anxiety1 (chief complaint) pain (chief complaint) Chronic pain syndromeGeneralized anxiety disorder 3 Leonides Son [address], [place], [place], [address] , [place]. tel:[phone] OFFICE/OUTPA TIENT VISIT, [facility], [address] [place], [address], [place] tel:[phone] [facility] [place] anxiety1 (chief complaint) pain (chief complaint) lung nodule1 (chief complaint) GERD1 (chief complaint) Chronic pain syndromeGeneralized anxiety disorderGERD w/o esophagitisSolitary lung noduleTrichomoniasi s 3 Leonides Son [address], [place], [place], [address] , [place]. [phone] OFFICE/OUTPA TIENT VISIT, [facility], [address], [place], [place], [address], [place] tel:[phone] [facility] [place] trichomona s1 (chief complaint) Trichomoniasis 3 Leonides Son [address], [place], [place], [address] , [place]. tel:[phone] PREV VISIT, [facility], AGE 40-64 [facility] [place], [address] [place], [address], [place] tel:[phone] [facility] Medicine physical (chief complaint) Encounter for general adult medical examination without abnormal findingsMixed hyperlipidemiaType 2 diabetes mellitus with diabetic nephropathyChronic pain syndromeEssential (primary) hypertensionGeneral ized anxiety disorderEncounter for general adult medical exam w abnormal findings 3 Leonides Driscoll. [address], [place], [place], [address] , [place]. tel:[phone] OFFICE/OUTPA TIENT VISIT, [facility], [address], [place], [place], [address], [place] tel:[phone] [facility] [place] anxiety1 (chief complaint) pain (chief complaint) Chronic pain syndromeGeneralized anxiety disorder 2 Leonides Driscoll. [address], [place], [place], [address] , [place]. tel:[phone] OFFICE/OUTPA TIENT VISIT, [facility], [address] [place], [address], [place] [phone] [facility] [place] anxiety1 (chief complaint) pain (chief complaint) DM (chief complaint) fatty liver1 (chief complaint) HLP (chief complaint) Mixed hyperlipidemiaFatty liverType 2 diabetes mellitus with diabetic nephropathyGenerali zed anxiety disorderChronic pain syndrome 2 Leonides Driscoll. [address], [place], [place], [address] , [place]. tel:[phone] PREV VISIT, EST, AGE 40-64 [facility] [place], [address] [place], [address], [place] tel:[phone] [facility] [place] physical (chief complaint) Encounter for general adult medical exam w abnormal findingsPrimary central sleep apneaGeneralized anxiety disorderChronic pain syndromeEssential (primary) hypertensionMixed hyperlipidemiaType 2 diabetes mellitus with diabetic mononeuropathy 2 Leonides Driscoll. [address], [place], [place], [address] , [place]. tel:[phone] OFFICE/OUTPA TIENT VISIT, [facility], [address] [place], [address], [place] [phone] [facility] [place] anxiety1 (chief complaint) pain (chief complaint) colon polyp1 (chief complaint) MAC (chief complaint) Chronic pain syndromeGeneralized anxiety disorderSolitary lung nodulePolyp of colonDissem mycobacterium avium-intracellular e complex (DMAC) 2 Leonides Driscoll. [address], [place], [place], [address] , [place]. tel:[phone] OFFICE/OUTPA TIENT VISIT, [facility], [address] [address], [place], [place], [address], [place] tel:[phone] [facility], [place], [facility] anxiety1 (chief complaint) pain (chief complaint) Chronic pain syndromeGeneralized anxiety disorder 2 Leonides Driscoll. [address], [place], [place], [address] , [place]. tel:[phone] OFFICE/OUTPA TIENT VISIT, [facility], [address], [place], [place], [address], [place] tel:[phone] [facility], [place], [facility] anxiety (chief complaint) pain (chief complaint) lung (chief complaint) GERD1 (chief complaint) Solitary lung noduleGERD w/o esophagitisGenerali zed anxiety disorderChronic pain syndrome 2 Leonides Driscoll. [address], [place], [place], [address] , [place]. tel:[phone] OFFICE/OUTPA TIENT VISIT, [facility], [address], [place], [place], [address], [place] tel:[phone] [facility] [place] anxiety1 (chief complaint) pain (chief complaint) Chronic pain syndromeGeneralized anxiety disorder 2 Leonides Driscoll. [address], [place], [place], [address] , [place]. tel:[phone] OFFICE/OUTPA TIENT VISIT, [facility], [address] [place], [address], [place] tel:[phone] [facility] [place] lung nodule1 (chief complaint) anxiety1 (chief complaint) pain1 (chief complaint) sleep apnea1 (chief complaint) Chronic pain syndromeGeneralized anxiety disorderSolitary lung noduleSleep apnea 2 Leonides Driscoll. [address], [place], [place], [address] , [place]. tel:[phone] OFFICE/OUTPA TIENT VISIT, [facility], [address], [place], [place], [address], [place] tel:[phone] [facility] [place] pain (chief complaint) anxiety1 (chief complaint) lung nodule1 (chief complaint) Chronic pain syndromeGeneralized anxiety disorderSolitary lung nodule Jun- 2 Leonides Driscoll. [address], [place], [place], [address] , [place]. tel:[phone] OFFICE/OUTPA TIENT VISIT, [facility], [address] [place], [address], [place] tel:[phone] [facility] [place] lung nodule1 (chief complaint) Aflutter1 (chief complaint) pain (chief complaint) anxniety1 (chief complaint) Chronic pain syndromeSolitary lung noduleGeneralized anxiety disorderAtrial flutter May- 2 Leonides Driscoll. [address], [place], [place], [address] , [place]. [phone] OFFICE/OUTPA TIENT VISIT, [facility], [address] [place], [address], [place] tel:[phone] [facility] [place] lung nodule1 (chief complaint) pain (chief complaint) anxiety1 (chief complaint) HTN (chief complaint) Solitary lung noduleChronic pain syndromeGeneralized anxiety disorderEssential (primary) hypertension May- 2 Leonides Driscoll. [address], [place], [place], [address] , [place]. tel:[phone] OFFICE/OUTPA TIENT VISIT, [facility], [address] [place], [address], [place] tel:[phone] [facility] [place], [facility] anxiety1 (chief complaint) pain (chief complaint) lung nodule1 (chief complaint) HLP (chief complaint) Chronic pain syndromeGeneralized anxiety disorderHyperlipide miaSolitary lung nodule 2 Leonides Driscoll. [address], [place], [place], [address] , [place]. [phone] OFFICE/OUTPA TIENT VISIT, [facility], [address], [place], [place], [address], [place] tel:[phone] [facility] [place] anxiety1 (chief complaint) pain (chief complaint) Chronic pain syndromeGeneralized anxiety disorder 2 Leonides Son [address], [place], [place], [address] , [place]. tel:[phone] OFFICE/OUTPA TIENT VISIT, [facility], [address], [place], [address], tel:[phone] [facility] [place], [facility] anxiety1 (chief complaint) pain (chief complaint) HTN (chief complaint) Chronic pain syndromeGeneralized anxiety disorderEssential (primary) hypertension 1 Leonides Son [address] [place], [address] , [place]. tel:[phone] OFFICE/OUTPA TIENT VISIT, [facility], [address] [place], [address], tel:[phone] [facility] [place] anxiety1 (chief complaint) pain (chief complaint) HTN (chief complaint) Essential (primary) hypertensionGeneral ized anxiety disorderChronic pain syndromeAsthma 1 Leonides Son [address] [place], [address] , [place]. [phone] OFFICE/OUTPA TIENT VISIT, [facility], [address] [place], [address], [place] tel:[phone] [facility] [place] anxiety1 (chief complaint) pain (chief complaint) DM (chief complaint) HLP (chief complaint) ferritin1 (chief complaint) proteinuri a1 (chief complaint) HyperlipidemiaType 2 diabetes mellitus with diabetic nephropathyIron deficiencyChronic pain syndromeGeneralized anxiety disorderEssential (primary) hypertension 1 Leonides Son [address] [place], [address] , [place]. [phone] OFFICE/OUTPA TIENT VISIT, [facility], [address] [place], [address], [place] tel:[phone] [facility] [place] anxiety1 (chief complaint) pain (chief complaint) Chronic pain syndromeGeneralized anxiety disorder 1 eLonides Son [address], [place], [place], [address] , [place]. [phone] PREV VISIT, EST, AGE 40-64 [facility] [place], [address], [place], [place], [address], [place] [phone] [facility] [place] physical (chief complaint) Encounter for general adult medical exam w abnormal findingsGERD w/o esophagitisAtrial flutterSolitary lung noduleType 2 diabetes mellitus with diabetic nephropathySleep apneaChronic pain syndromeGeneralized anxiety disorderHyperlipide miaMale erectile dysfunction, unspecifiedFatty liver 1 Leonides Son [address], [place], [place], [address] , [place]. tel:[phone] OFFICE/OUTPA TIENT VISIT, EST [facility] [place], [address], [place], [place], [address], [place] [phone] [facility] [place] anxiety1 (chief complaint) pain (chief complaint) lung nodule1 (chief complaint) aflutter1 (chief complaint) GRED1 (chief complaint) HyperlipidemiaSolit reese lung noduleAtrial flutterChronic pain syndromeGeneralized anxiety disorderGERD w/o esophagitis 1 Leonides Son [address], [place], [place], [address] , [place]. tel:[phone] OFFICE/OUTPA TIENT VISIT, EST [facility] [place], [address], [place], [place], [address], [place] tel:[phone] [facility] [place] DM (chief complaint) lung nodule1 (chief complaint) HLP (chief complaint) anxiety1 (chief complaint) pain (chief complaint) Solitary lung noduleHyperlipidemi aType 2 diabetes mellitus with diabetic nephropathyChronic pain syndromeGeneralized anxiety disorder 1 Leonides Son [address], [place], [place], [address] , [place]. [phone] OFFICE/OUTPA TIENT VISIT, [facility], [address], [place], [place], [address], [place] [phone] [facility] Medicine DM (chief complaint) anxiety1 (chief complaint) ED (chief complaint) lung nodule1 (chief complaint) pain (chief complaint) Solitary lung noduleGeneralized anxiety disorderType 2 diabetes mellitus with diabetic nephropathyMale erectile dysfunction, unspecifiedChronic pain syndrome 0 1 Leonides Driscoll. [address], [place], [place], [address] , [place]. tel:[phone] OFFICE/OUTPA TIENT VISIT, [facility], [address], [place], [place], [address], [place] tel:[phone] [facility] [place] DM (chief complaint) anxiety1 (chief complaint) ED (chief complaint) pain (chief complaint) Type 2 diabetes mellitus with diabetic nephropathyMale erectile dysfunction, unspecifiedGenerali zed anxiety disorderChronic pain syndrome 1 Leonides Driscoll. [address], [place], [place], [address] , [place]. tel:[phone] OFFICE/OUTPA TIENT VISIT, [facility], [address], [place], [place], [address], [place] tel:[phone] [facility] [place] pain (chief complaint) anxiety1 (chief complaint) DM (chief complaint) chest1 (chief complaint) ED (chief complaint) HLP (chief complaint) Atrial flutterChronic pain syndromeGeneralized anxiety disorderSolitary lung noduleType 2 diabetes mellitus with diabetic nephropathyMale erectile dysfunction, unspecifiedHyperlip idemia 1 Leonides Driscoll. [address], [place], [place], [address] , [place]. [phone] OFFICE/OUTPA TIENT VISIT, [facility], [address], [place], [place], [address], [place] tel:[phone] [facility] pain (chief complaint) anxiety1 (chief complaint) aflutter (chief complaint) DM (chief complaint) Atrial flutterType 2 diabetes mellitus with diabetic nephropathyChronic pain syndromeGeneralized anxiety disorderSolitary lung nodule 1 Leonides Driscoll. [address], [place], [place], [address] , [place]. tel:[phone] Referring Provider: [address], [place], [place], [address]. tel:[phone] OFFICE/OUTPA TIENT VISIT, [facility], [address], [place], [place], [address], [place] tel:[phone] [facility] pain (chief complaint) anxiety1 (chief complaint) aflutter (chief complaint) DM (chief complaint) lung nodule1 (chief complaint) Chronic pain syndromeGeneralized anxiety disorderType 2 diabetes mellitus with diabetic nephropathyAtrial flutterSolitary lung nodule 1 Leonides Driscoll. [address], [place], [place], [address] , [place]. tel:[phone] Referring Provider: [address], [place], [place], [address]. tel:[phone] OFFICE/OUTPA TIENT VISIT, [facility], [address], [place], [place], [address], [place] tel:[phone] [facility] Medicine pain (chief complaint) anxiety1 (chief complaint) tachycardi a1 (chief complaint) slep apnea1 (chief complaint) DM (chief complaint) Generalized anxiety disorderType 2 diabetes mellitus with diabetic nephropathyAtrial flutterSleep apneaChronic pain syndrome 0 Leonides Driscoll. [address], [place], [place], [address] , [place]. tel:[phone] Referring Provider: [address], [place], [place], [address]. tel:[phone] OFFICE/OUTPA TIENT VISIT, [facility], [address], [place], [place], [address], [place] tel:[phone] [facility] [place] anxiety1 (chief complaint) pain (chief complaint) HLP (chief complaint) lung (chief complaint) DM (chief complaint) Chronic pain syndromeGeneralized anxiety disorderHyperlipide miaType 2 diabetes mellitus with diabetic nephropathyPneumoni a 0 Leonides Driscoll. [address], [place], [place], [address] , [place]. tel:[phone] Referring Provider: [address], [place], [place], [address]. tel:[phone] OFFICE/OUTPA TIENT VISIT, [facility], [address], [place], [place], [address], [place] tel:[phone] [facility] [place] HLP (chief complaint) pain (chief complaint) anxiety1 (chief complaint) DM (chief complaint) Generalized anxiety disorderChronic pain syndromeType 2 diabetes mellitus with diabetic nephropathyHyperlip idemia 0 Leonides Driscoll. [address], [place], [place], [address] , [place]. tel:[phone] Referring Provider: [address], [place], [place], [address]. tel:[phone] OFFICE/OUTPA TIENT VISIT, [facility], [address], [place], [place], [address], [place] tel:[phone] [facility] [place] HLP (chief complaint) DM (chief complaint) pain (chief complaint) anxiety1 (chief complaint) LFT (chief complaint) Type 2 diabetes mellitus with diabetic nephropathyHyperlip idemiaFatty liverChronic pain syndromeGeneralized anxiety disorder 0 Leonides Driscoll. [address], [place], [place], [address] , [place]. tel:[phone] Referring Provider: [address], [place], [place], [address]. tel:[phone] OFFICE/OUTPA TIENT VISIT, [facility], [address], [place], [place], [address], [place] tel:[phone] [facility] [place] pain (chief complaint) anxiety1 (chief complaint) Generalized anxiety disorderChronic pain syndrome 0 Leonides Driscoll. [address], [place], [place], [address] , [place]. tel:[phone] Referring Provider: [address], [place], [place], [address]. tel:[phone] OFFICE/OUTPA TIENT VISIT, [facility], [address], [place], [place], [address], [place] tel:[phone] [facility] [place] pain (chief complaint) anxiety1 (chief complaint) GERD1 (chief complaint) GERD w/o esophagitisGenerali zed anxiety disorderChronic pain syndrome 0 Leonides Driscoll. [address], [place], [place], [address] , [place]. tel:[phone] Referring Provider: [address], [place], [place], [address]. tel:[phone] OFFICE/OUTPA TIENT VISIT, [facility], [address], [place], [place], [address], [place] tel:[phone] [facility] [place] pain (chief complaint) anxiety1 (chief complaint) HLP (chief complaint) sleep apnea1 (chief complaint) Chronic pain syndromeGeneralized anxiety disorderSleep apneaHyperlipidemia Tobacco use 0 Leonides Driscoll. [address], [place], [place], [address] , [place]. tel:[phone] Referring Provider: [address], [place], [place], [address]. tel:[phone] OFFICE/OUTPA TIENT VISIT, [facility], [address], [place], [place], [address], [place] tel:[phone] [facility] [place] chronic pain1 (chief complaint) anxiety1 (chief complaint) Chronic pain syndromeGeneralized anxiety disorder -202 0 Leonides Son [address], [place], [place], [address] , [place]. tel:[phone] Referring Provider: [address], [place], [place], [address]. tel:[phone] OFFICE/OUTPA TIENT VISIT, [facility], [address], [place], [place], [address], [place] tel:[phone] [facility] [place] pain (chief complaint) anxiety1 (chief complaint) Chronic pain syndromeGeneralized anxiety disorder July-0 0 Leonides Son [address], [place], [place], [address] , [place]. tel:[phone] Referring Provider: [address], [place], [place], [address]. tel:[phone] OFFICE/OUTPA TIENT VISIT, [facility], [address], [place], [place], [address], [place] tel:[phone] [facility] [place] pain (chief complaint) anxiety1 (chief complaint) tobacco1 (chief complaint) Chronic pain syndromeGeneralized anxiety disorderTobacco use Jun-0 0 Leonides Son [address], [place], [place], [address] , [place]. [phone] Referring Provider: [address], [place], [place], [address]. tel:[phone] PREV VISIT, EST, AGE 40-64 [facility] [place], [address], [place], [place], [address], [place] tel:[phone] [facility] [place] PHysical (chief complaint) Encounter for general adult medical exam w abnormal findingsSleep apneaType 2 diabetes mellitus without complicationsEssent ial (primary) hypertensionGERD w/o esophagitisHyperlip idemiaGeneralized anxiety disorder May-0 0 Leonides Son [address], [place], [place], [address] , [place]. tel:[phone] Referring Provider: [address], [place], [place], [address]. tel:[phone] OFFICE/OUTPA TIENT VISIT, [facility], [address], [place], [place], [address], [place] [phone] [facility] [place] pain1 (chief complaint) anxiety1 (chief complaint) polyp1 (chief complaint) Generalized anxiety disorderChronic pain syndromePolyp of colon 0 Leonides Son [address], [place], [place], [address] , [place]. tel:[phone] Referring Provider: [address], [place], [place], [address]. tel:[phone] OFFICE/OUTPA TIENT VISIT, [facility], [address], [place], [place], [address], [place] tel:[phone] [facility] [place] DM (chief complaint) chronic pain1 (chief complaint) anxiety1 (chief complaint) COPD1 (chief complaint) Chronic pain syndromeType 2 diabetes mellitus without complicationsEmphys emaGeneralized anxiety disorderSleep apneaPolyp of colon 0 Leonides Son [address], [place], [place], [address] , [place]. tel:[phone] Referring Provider: [address], [place], [place], [address]. tel:[phone] OFFICE/OUTPA TIENT VISIT, [facility], [address], [place], [place], [address], [place] tel:[phone] [facility] [place] chronic pain (chief complaint) anxiety1 (chief complaint) polyp1 (chief complaint) sleep apnea1 (chief complaint) Chronic pain syndromeGeneralized anxiety disorderPolyp of colonSleep apnea 201 [address], [place], [place], [address] , [place]. [phone] Referring Provider: [address], [place], [place], [address]. tel:[phone] OFFICE/OUTPA TIENT VISIT, [facility], [address], [place], [place], [address], [place] tel:[phone] [facility] [place] pain1 (chief complaint) anxiety1 (chief complaint) colon polyp1 (chief complaint) Body mass index (BMI) 40.0-44.9, adultChronic pain syndromeGeneralized anxiety disorderPolyp of colon 9 Leonides Driscoll. [address], [place], [place], [address] , [place]. [phone] Referring Provider: [address], [place], [place], [address]. tel:[phone] OFFICE/OUTPA TIENT VISIT, [facility], [address], [place], [place], [address], [place] tel:[phone] [facility] [place] chronic pain (chief complaint) anxiety1 (chief complaint) HTN (chief complaint) COPD1 (chief complaint) EmphysemaChronic pain syndromeGeneralized anxiety disorderEssential (primary) hypertension 9 Leonides Driscoll. [address], [place], [place], [address] , [place]. [phone] Referring Provider: [address], [place], [place], [address]. tel:[phone] OFFICE/OUTPA TIENT VISIT, [facility], [address], [place], [place], [address], [place] tel:[phone] [facility] [place] chronic pain1 (chief complaint) DM (chief complaint) anxiety1 (chief complaint) Body mass index (BMI) 40.0-44.9, adultType 2 diabetes mellitus without complicationsGenera lized anxiety disorderChronic pain syndrome 9 Leonides Son [address], [place], [place], [address] , [place]. tel:[phone] Referring Provider: [address], [place], [place], [address]. tel:[phone] OFFICE/OUTPA TIENT VISIT, [facility], [address], [place], [place], [address], tel:[phone] [facility] [place] chronic pain (chief complaint) anxiety1 (chief complaint) Chronic pain syndromeGeneralized anxiety disorder 9 Leonides Driscoll. [address], [place], [place], [address] , [place]. tel:[phone] Referring Provider: [address], [place], [place], [address]. tel:[phone] OFFICE/OUTPA TIENT VISIT, [facility], [address], [place], [place], [address], [place] tel:[phone] [facility] [place] HLP (chief complaint) DM (chief complaint) chronic pain1 (chief complaint) anxiety1 (chief complaint) GERD1 (chief complaint) Generalized anxiety disorderType 2 diabetes mellitus without complicationsGERD w/o esophagitisChronic pain syndromeHyperlipide elio 9 Leonides Driscoll. [address], [place], [place], [address] , [place]. tel:[phone] OFFICE/OUTPA TIENT VISIT, [facility], [address], [place], [place], [address], [place] tel:[phone] [facility] [place] anxiety1 (chief complaint) pain (chief complaint) DM (chief complaint) HLP (chief complaint) COPD1 (chief complaint) Generalized anxiety disorderChronic pain syndromeHyperlipide miaType 2 diabetes mellitus without complicationsEmphys donna 9 Leonides Driscoll. [address], [place], [place], [address] , [place]. tel:[phone] Referring Provider: [address], [place], [place], [address]. tel:[phone] OFFICE/OUTPA TIENT VISIT, [facility], [address], [place], [place], [address], [place] tel:[phone] [facility] [place] anxiety1 (chief complaint) chronic pain1 (chief complaint) Chronic pain syndromeGeneralized anxiety disorder 9 Leonides Driscoll. [address], [place], [place], [address] , [place]. tel:[phone] Referring Provider: [address], [place], [place], [address]. tel:[phone] OFFICE/OUTPA TIENT VISIT, [facility], [address], [place], [place], [address], [place] tel:[phone] [facility] [place] cough1 (chief complaint) Acute bronchitis 9 Leonides Dris[address]. [address], [place], [place], [address] , [place]. [phone] Referring Provider: [address], [place], [place], [address]. tel:[phone] OFFICE/OUTPA TIENT VISIT, [facility], [address], [place], [place], [address], [place] tel:[phone] [facility] [place] chronic pain (chief complaint) anxiety1 (chief complaint) Body mass index (BMI) 40.0-44.9, adultGeneralized anxiety disorderChronic pain syndrome 9 [address], [place], [place], [address] , [place]. tel:[phone] Referring Provider: [address], [place], [place], [address]. tel:[phone] OFFICE/OUTPA TIENT VISIT, [facility], [address], [place], [place], [address], [place] tel:[phone] [facility] [place] chronic pain1 (chief complaint) anxiety1 (chief complaint) HLP (chief complaint) knee pain1 (chief complaint) Chronic pain syndromeHyperlipide miaGeneralized anxiety disorderSleep apneaPain in left knee 9 Leonides Driscoll. [address], [place], [place], [address] , [place]. [phone] Referring Provider: Sim [address], [place], [place], [address]. tel:[phone] PREV VISIT, EST, AGE 40-64 [facility], [place], [address], [place], [place], [address], [place] tel:[phone] [facility] Medicine PHysical (chief complaint) Encounter for general adult medical exam w abnormal findingsHyperlipide miaFatty liverChronic pain syndromeGERD w/o esophagitisSleep apneaType 2 diabetes mellitus without complications 9 Leonides Driscoll. [address], [place], [place], [address] , [place]. [phone] Referring Provider: Sim [address], [place], [place], [address]. tel:[phone] OFFICE/OUTPA TIENT VISIT, EST [facility], [place], [address], [place], [place], [address], [place] tel:[phone] [facility] [place] HLP (chief complaint) chronic pain (chief complaint) anxiety1 (chief complaint) Body mass index (BMI) 40.0-44.9, adultHyperlipidemia Chronic pain syndromeGeneralized anxiety disorder 9 Leonides Son [address], [place], [place], [address] , [place]. tel:[phone] OFFICE/OUTPA TIENT VISIT, EST [facility] [place], [address], [place], [place], [address], [place] tel:[phone] [facility] [place] GERD1 (chief complaint) chronic pain (chief complaint) anxiety1 (chief complaint) toothpain1 (chief complaint) Generalized anxiety disorderChronic pain syndromeGERD w/o esophagitisAtypical facial pain 8 Leonides Driscoll. [address], [place], [place], [address] , [place]. tel:[phone] Referring Provider: Americo Coyle, [address], [place], [address]. tel:[phone] OFFICE/OUTPA TIENT VISIT, [facility], [address] [place] [address] [place], [address], tel:[phone] [facility] [place] chronic pain (chief complaint) anxiety1 (chief complaint) HLP (chief complaint) HTN (chief complaint) sleep apnea1 (chief complaint) Body mass index (BMI) 40.0-44.9, adultChronic pain syndromeHyperlipide miaGeneralized anxiety disorderEssential (primary) hypertensionSleep apnea 8 Leonides Driscoll. [address] [facility] [place], [address] , . tel:[phone] Referring Provider: Sim Wei [place], [address]. tel:[phone] OFFICE/OUTPA TIENT VISIT, [facility], [address] [place] [address] [place], [address], [place] tel:[phone] [facility] [place] DM (chief complaint) HLP (chief complaint) proteinuri a1 (chief complaint) COPD1 (chief complaint) pain1 (chief complaint) Body mass index (BMI) 40.0-44.9, adultEmphysemaType 2 diabetes mellitus without complicationsHyperl ipidemiaProteinuria Chronic pain syndromeGeneralized anxiety disorder 8 Leonides Driscoll. [address] [place] [address] [place], [address] , [place]. tel:[phone] Referring Provider: Sim Wei [place], [address]. tel:[phone] OFFICE/OUTPA TIENT VISIT, [facility], [address] [place] [address] [place], [address], tel:[phone] [facility] [place] chronic pain (chief complaint) anxiety1 (chief complaint) DM (chief complaint) COPD1 (chief complaint) Body mass index (BMI) 40.0-44.9, adultEmphysemaGener alized anxiety disorderChronic pain syndromeType 2 diabetes mellitus without complicationsPolyp of colon 8 Leonides Son [address], [place], [place], [address] , [place]. tel:[phone] Referring Provider: Sim Wei [facility] A, [place], [place], [address]. tel:[phone] OFFICE/OUTPA TIENT VISIT, [facility], [address] [place], [address], [place] tel:[phone] [facility] [place] anxiety1 (chief complaint) HLP (chief complaint) chronic pain1 (chief complaint) cough1 (chief complaint) Body mass index (BMI) 40.0-44.9, adultHyperlipidemia Chronic pain syndromeGeneralized anxiety disorderAcute bronchitis 8 Leonides Son [address], [place], [place], [address] , [place]. tel:[phone] Referring Provider: [facility] [address], [place], [place], [address]. tel:[phone] OFFICE/OUTPA TIENT VISIT, [facility], [address] [place], [address], [place] tel:[phone] [facility] [place] anxiety1 (chief complaint) chronic pain1 (chief complaint) hand pain1 (chief complaint) Body mass index (BMI) 40.0-44.9, adultChronic pain syndromeDe Quervain tenosynovitisGenera lized anxiety disorder 8 Leonides Son [address], [place], [place], [address] , [place]. tel:[phone] OFFICE/OUTPA TIENT VISIT, [facility], [address] [place], [address], [place] tel:[phone] [facility] [place] HLP (chief complaint) anxiety1 (chief complaint) GERD1 (chief complaint) chronic pain (chief complaint) Body mass index (BMI) 40.0-44.9, adultFatty liverHyperlipidemia Chronic pain syndromeGeneralized anxiety disorderGERD w/o esophagitis 8 Leonides Son [address], [place], [place], [address] , [place]. tel:[phone] Referring Provider: Sim Wei [facility] A, [place], [place], [address]. tel:[phone] OFFICE/OUTPA TIENT VISIT, [facility], [address] [place], [address], [place] tel:[phone] [facility] [place] chronic pain (chief complaint) anxiety1 (chief complaint) KCL (chief complaint) obesity1 (chief complaint) Body mass index (BMI) 40.0-44.9, adultChronic pain syndromeHyperkalemi aType 2 diabetes mellitus without complicationsLiver diseaseGeneralized Anxiety Disorder 8 Leonides Son [address], [place], [place], [address] , [place]. tel:[phone] OFFICE/OUTPA TIENT VISIT, [facility], [address] [place], [address], [place] tel:[phone] [facility] [place] DM (chief complaint) LFT (chief complaint) kcl (chief complaint) chronic pain1 (chief complaint) Type 2 diabetes mellitus without complicationsLiver diseaseHyperkalemia Chronic pain syndrome 8 [address] [place], [address] , [place]. tel:[phone] Referring Provider: Sim [address], [place], [place], [address]. tel:[phone] PREV VISIT, EST, AGE 40-64 [facility] [place], [address] [place], [address], [place] tel:[phone] [facility] [place] PHysical (chief complaint) Encounter for general adult medical exam w abnormal findingsType 2 diabetes mellitus without complicationsHyperl ipidemiaAllergy status to penicillin 8 Leonides Son [address], [place], [place], [address] , [place]. [phone] Referring Provider: Sim [address], [place], [place], [address]. tel:[phone] OFFICE/OUTPA TIENT VISIT, [facility], [address], [place], [place], [address], [place] [phone] [facility] [place] chronic pain (chief complaint) anxiety1 (chief complaint) HLP (chief complaint) GERD1 (chief complaint) HyperlipidemiaGERD w/o esophagitisChronic pain syndromeType 2 diabetes mellitus without complications 8 Leonides Driscoll. [address], [place], [place], [address] , [place]. tel:[phone] Referring Provider: Sim [address], [place], [place], [address]. tel:[phone] OFFICE/OUTPA TIENT VISIT, [facility], [address], [place], [place], [address], [place] tel:[phone] [facility] [place] back pain1 (chief complaint) Anxiety1 (chief complaint) HTN (chief complaint) COPD1 (chief complaint) EmphysemaEssential (primary) hypertensionChronic pain syndrome 7 Leonides Driscoll. [address], [place], [place], [address] , [place]. tel: [phone] Referring Provider: Sim [address], [place], [place], [address]. tel:[phone] OFFICE/OUTPA TIENT VISIT, [facility], [address], [place], [place], [address], [place] [phone] [facility] [place] HLP (chief complaint) DM (chief complaint) cough1 (chief complaint) anxiety1 (chief complaint) chronic pain1 (chief complaint) HyperlipidemiaType 2 diabetes mellitus without complicationsChroni c pain syndromeGeneralized anxiety disorder 7 Leonides Son [address], [place], [place], [address] , [place]. tel:[phone] Referring Provider: Americo Coyle, [address], [place], [place], [address]. tel:[phone] OFFICE/OUTPA TIENT VISIT, [facility], [address], [place], [place], [address], [place] [phone] [facility] [place] COPD1 (chief complaint) HLP (chief complaint) DM (chief complaint) GERD1 (chief complaint) anxiety1 (chief complaint) GERD w/o esophagitisEmphysem aHyperlipidemiaType 2 diabetes mellitus without complications Leonides Driscoll. [address], [place], [place], [address] , [place]. [phone] PREV VISIT, [facility], AGE 40-64 [facility] [place], [address], [place], [place], [address], [place] tel:[phone] [facility] [place] physical (chief complaint) Encounter for general adult medical exam w abnormal findingsGERD w/o esophagitisSleep apneaType 2 diabetes mellitus without complications Leonides Driscoll. [address], [place], [place], [address] , [place]. [phone] Referring Provider: Sim [address], [place], [place], [address]. tel:[phone] OFFICE/OUTPA TIENT VISIT, [facility], [address], [place], [place], [address], [place] tel:[phone] [facility] [place] chronic pain1 (chief complaint) anxiety1 (chief complaint) GERD1 (chief complaint) colon polyp1 (chief complaint) Chronic pain syndromeGeneralized anxiety disorderGERD w/o esophagitisPolyp of colon 7 Leonides Driscoll. [address], [place], [place], [address] , [place]. [phone] Referring Provider: Sim [address], [place], [place], [address]. tel:[phone] OFFICE/OUTPA TIENT VISIT, [facility], [address], [place], [place], [address], [place] tel:[phone] [facility] [place] anxiety1 (chief complaint) LBP (chief complaint) sleep apnea1 (chief complaint) HTN (chief complaint) Chronic pain syndromeSleep apneaEssential (primary) hypertensionGeneral ized anxiety disorder 7 Leonides Driscoll. [address], [place], [place], [address] , [place]. tel:[phone] Referring Provider: Sim [address], [place], [place], [address]. tel:[phone] OFFICE/OUTPA TIENT VISIT, [facility], [address], [place], [place], [address], [place] tel:[phone] [facility] [place] chronic pain (chief complaint) anxiety1 (chief complaint) Chronic pain syndromeGeneralized anxiety disorder 7 Leonides Driscoll. [address], [place], [place], [address] , [place]. tel:[phone] Referring Provider: Sim [address], [place], [place], [address]. tel:[phone] OFFICE/OUTPA TIENT VISIT, [facility], [address], [place], [place], [address], [place] tel:[phone] [facility] [place] back pain1 (chief complaint) anxiety1 (chief complaint) GERD1 (chief complaint) obeisty1 (chief complaint) Chronic pain syndromeGeneralized anxiety disorderBody mass index (BMI) 40.0-44.9, adultGERD w/o esophagitis 7 Leonides Driscoll. [address], [place], [place], [address] , [place]. tel:[phone] Referring Provider: Sim [address], [place], [place], [address]. tel:[phone] OFFICE/OUTPA TIENT VISIT, [facility], [address], [place], [place], [address], tel:[phone] [facility] [place] HLP (chief complaint) chronic pain1 (chief complaint) anxiety1 (chief complaint) DM (chief complaint) HyperlipidemiaType 2 diabetes mellitus without complicationsSleep apneaGeneralized anxiety disorder July- 7 Leonides Driscoll. [address], [place], [place], [address] , [place]. tel:[phone] Referring Provider: Sim [address], [place], [place], [address]. tel:[phone] OFFICE/OUTPA TIENT VISIT, [facility], [address], [place], [place], [address], tel:[phone] [facility] [place] anxiety1 (chief complaint) chronic pain1 (chief complaint) hearing loss1 (chief complaint) obesity1 (chief complaint) Chronic pain syndromeGeneralized anxiety disorderBody mass index (BMI) 40.0-44.9, adultHearing loss Apr-0 7 Leonides Driscoll. [address], [place], [place], [address] , [place]. tel:[phone] Referring Provider: Sim [address], [place], [place], [address]. tel:[phone] OFFICE/OUTPA TIENT VISIT, [facility], [address], [place], [place], [address], [place] tel:[phone] [facility] [place] hearing loss1 (chief complaint) GERD1 (chief complaint) chornic pain1 (chief complaint) sleep apnea1 (chief complaint) anxiety1 (chief complaint) GERD w/o esophagitisHearing lossSleep apneaChronic pain syndrome 0 7 Leonides Driscoll. [address], [place], [place], [address] , [place]. tel:[phone] Referring Provider: Sim [address], [place], [place], [address]. tel:[phone] OFFICE/OUTPA TIENT VISIT, [facility], [address], [place], [place], [address], [place] tel:[phone] [facility] [place] chronic pain1 (chief complaint) anxiety1 (chief complaint) HLP (chief complaint) Chronic pain syndromeGeneralized anxiety disorderHyperlipide miaBody mass index (BMI) 40.0-44.9, adult Fe- 7 Leonides Driscoll. [address], [place], [place], [address] , [place]. [phone] Referring Provider: Americo Coyle, [address], [place], [place], [address]. tel:[phone] OFFICE/OUTPA TIENT VISIT, [facility], [address], [place], [place], [address], [place] tel:[phone] [facility] [place] chornic pain (chief complaint) anxiety1 (chief complaint) obesity1 (chief complaint) hearing loss1 (chief complaint) Body mass index (BMI) 40.0-44.9, adultChronic pain syndromeGeneralized anxiety disorderHearing loss 7 Leonides Driscoll. [address], [place], [place], [address] , [place]. tel:[phone] Referring Provider: Sim [address], [place], [place], [address]. tel:[phone] OFFICE/OUTPA TIENT VISIT, [facility], [address], [place], [place], [address], [place] tel:[phone] [facility] [place] DM (chief complaint) anxiety1 (chief complaint) GERD1 (chief complaint) back pain1 (chief complaint) Chronic pain syndromeType 2 diabetes mellitus without complicationsGERD w/o esophagitisGenerali zed Anxiety Disorder 6 Leonides Driscoll. [address], [place], [place], [address] , [place]. tel:[phone] Referring Provider: Sim [address], [place], [place], [address]. tel:[phone] OFFICE/OUTPA TIENT VISIT, EST [facility] [place], [address], [place], [place], [address], [place] tel:[phone] [facility] Medicine chronic pain1 (chief complaint) anxiety1 (chief complaint) HLP (chief complaint) leg numbness1 (chief complaint) Chronic pain syndromeHyperlipide miaGeneralized anxiety disorder 0-201 6 Leonides Driscoll. [address], [place], [place], [address] , [place]. tel:[phone] Referring Provider: Sim [address], [place], [place], [address]. tel:[phone] OFFICE/OUTPA TIENT VISIT, [facility], [address], [place], [place], [address], [place] tel:[phone] [facility] Medicine DM (chief complaint) HLP (chief complaint) chronic pain1 (chief complaint) anxiety1 (chief complaint) Type 2 diabetes mellitus without complicationsHyperl ipidemiaChronic pain syndromeGeneralized anxiety disorder 2201 6 Leonides Driscoll. [address], [place], [place], [address] , [place]. tel:[phone] Referring Provider: Sim [address], [place], [place], [address]. tel:[phone] PREV VISIT, EST, AGE 40-64 [facility] [place], [address], [place], [place], [address], [place] tel:[phone] [facility] Medicine PHysical (chief complaint) Encounter for general adult medical exam w abnormal findingsChronic pain syndromeType 2 diabetes mellitus without complicationsGenera lized anxiety disorder 4201 6 Leonides Driscoll. [address], [place], [place], [address] , [place]. tel:[phone] Referring Provider: Sim [address], [place], [place], [address]. tel:[phone] OFFICE/OUTPA TIENT VISIT, [facility], [address], [place], [place], [address], [place] tel:[phone] [facility] [place] GERD1 (chief complaint) chronic pain1 (chief complaint) anxiety1 (chief complaint) HLP (chief complaint) GERD w/o esophagitisChronic pain syndromeGeneralized anxiety disorderHyperlipide elio 6 Leonides Driscoll. [address], [place], [place], [address] , [place]. tel:[phone] Referring Provider: Sim [address], [place], [place], [address]. tel:[phone] OFFICE/OUTPA TIENT VISIT, [facility], [address], [place], [place], [address], [place] tel:[phone] [facility] [place] HLP (chief complaint) GERD1 (chief complaint) chronic pain (chief complaint) anxiety1 (chief complaint) Chronic pain syndromeGeneralized anxiety disorderHyperlipide [facility] w/o esophagitis 6 Leonides Driscoll. [address], [place], [place], [address] , [place]. tel:[phone] Referring Provider: Sim [address], [place], [place], [address]. tel:[phone] OFFICE/OUTPA TIENT VISIT, [facility], [address], [place], [place], [address], [place] tel:[phone] [facility] [place] DM (chief complaint) back pain1 (chief complaint) HLP (chief complaint) anxiety1 (chief complaint) Type 2 diabetes mellitus without complicationsHyperl ipidemiaChronic pain syndromeGeneralized anxiety disorder 6 Leonides Driscoll. [address], [place], [place], [address] , [place]. tel:[phone] Referring Provider: Sim [address], [place], [place], [address]. tel:[phone] OFFICE/OUTPA TIENT VISIT, [facility], [address], [place], [place], [address], [place] tel:[phone] [facility] [place] DM (chief complaint) HLP (chief complaint) chronic pain1 (chief complaint) anxiety1 (chief complaint) Type 2 diabetes mellitus without complicationsHyperl ipidemiaChronic pain syndromeGeneralized anxiety disorder 6 Leonides Driscoll. [address], [place], [place], [address] , [place]. tel:[phone] Referring Provider: Sim [address], [place], [place], [address]. tel:[phone] OFFICE/OUTPA TIENT VISIT, [facility], [address], [place], [place], [address], [place] tel:[phone] [facility] [place] DM (chief complaint) HLP (chief complaint) chronic apin (chief complaint) anxiety1 (chief complaint) GERD1 (chief complaint) Type 2 diabetes mellitus without complicationsGenera lized anxiety disorderChronic pain syndromeHyperlipide elio 6 Leonides Driscoll. [address], [place], [place], [address] , [place]. tel:[phone] Referring Provider: Sim [address], [place], [place], [address]. tel:[phone] OFFICE/OUTPA TIENT VISIT, [facility], [address], [place], [place], [address], [place] tel:[phone] [facility] [place] chronic pain (chief complaint) anxiety1 (chief complaint) HLP (chief complaint) GERD1 (chief complaint) GERD w/o esophagitisGenerali zed anxiety disorderChronic pain syndromeEssential (primary) hypertension 6 Leonides Driscoll. [address], [place], [place], [address] , [place]. tel:[phone] Referring Provider: Sim [address], [place], [place], [address]. tel:[phone] OFFICE/OUTPA TIENT VISIT, [facility], [address], [place], [place], [address], [place] tel:[phone] [facility] [place] GERD1 (chief complaint) back pain1 (chief complaint) HTN (chief complaint) Anxiety1 (chief complaint) Other chronic painEssential (primary) hypertensionGeneral ized anxiety disorderGERD with esophagitis 6 Leonides Driscoll. [address], [place], [place], [address] , [place]. tel:[phone] Referring Provider: Sim [address], [place], [place], [address]. tel:[phone] OFFICE/OUTPA TIENT VISIT, [facility], [address], [place], [place], [address], [place] tel:[phone] [facility] [place] DM1 (chief complaint) anxiety1 (chief complaint) chronic pain1 (chief complaint) Type 2 diabetes mellitus without complicationsGenera lized anxiety disorderChronic pain syndromeEncounter for screening for malignant neoplasm of prostate 6 Leonides Driscoll. [address], [place], [place], [address] , [place]. tel:[phone] Referring Provider: Sim [address], [place], [place], [address]. tel:[phone] OFFICE/OUTPA TIENT VISIT, [facility], [address], [place], [place], [address], [place] tel:[phone] [facility] [place] DM1 (chief complaint) chronic pain1 (chief complaint) Anxiety1 (chief complaint) sleep apnea1 (chief complaint) Type 2 diabetes mellitus with unspecified complicationsChroni c pain syndromeGeneralized anxiety disorderSleep apnea 5 Leonides Son [address], [place], [place], [address] , [place]. tel:[phone] Referring Provider: Sim [address], [place], [place], [address]. tel:[phone] OFFICE/OUTPA TIENT VISIT, [facility], [address], [place], [place], [address], [place] tel:[phone] [facility] [place] DM1 (chief complaint) HLP1 (chief complaint) back pain1 (chief complaint) anxizety1 (chief complaint) Type 2 diabetes mellitus without complicationsMixed hyperlipidemiaOther spondylosis, lumbar regionGeneralized anxiety disorder 5 Leonides Driscoll. [address], [place], [place], [address] , [place]. tel:[phone] Referring Provider: Sim [address], [place], [place], [address]. tel:[phone] OFFICE/OUTPA TIENT VISIT, [facility], [address], [place], [place], [address], [place] tel:[phone] [facility], [place] chronic pain1 (chief complaint) DM1 (chief complaint) anxiety1 (chief complaint) HLP1 (chief complaint) Dietary surveillance and counselingOther spondylosis, lumbar regionType 2 diabetes mellitus w/o complicationMixed hyperlipidemiaGener alized anxiety disorder 5 Leonides Driscoll. [address], [place], [place], [address] , [place]. [phone] Referring Provider: Sim [address], [place], [place], [address]. tel:[phone] OFFICE/OUTPA TIENT VISIT, [facility], [address], [place], [place], [address], [place] tel:[phone] [facility], [place] DM (chief complaint) anxiety (chief complaint) back pain (chief complaint) Diabetes mellitus without mention of complication, type II or unspecified type, uncontrolledGeneral ized anxiety disorderChronic painDietary surveillance and counseling 5 Leonides Driscoll. [address], [place], [place], [address] , [place]. tel:[phone] Referring Provider: Sim [address], [place], [place], [address]. tel:[phone] OFFICE/OUTPA TIENT VISIT, [facility], [address], [place], [place], [address], [place] tel:[phone] [facility] Medicine DM (chief complaint) HLP (chief complaint) chronic pain (chief complaint) GERDR (chief complaint) Brittle diabetesOther and unspecified hyperlipidemiaChron ic painDietary surveillance and counseling 5 Leonides Driscoll. [address], [place], [place], [address] , [place]. tel:[phone] Referring Provider: Sim [address], [place], [place], [address]. tel:[phone] PREV VISIT, EST, AGE 40-64 [facility], [place], [address], [place], [place], [address], [place] tel:[phone] [facility] [place] Physical (chief complaint) Routine medical examDietary surveillance and counseling 5 Leonides Driscoll. [address], [place], [place], [address] , [place]. tel:[phone] Referring Provider: [address], [place], [place], [address]. tel:[phone] OFFICE/OUTPA TIENT VISIT, EST [facility], [place], [address], [place], [place], [address], [place] tel:[phone] [facility] [place] ankle pain (chief complaint) anxiety (chief complaint) Ankle painDepressive disorder, not elsewhere classifiedUnspecifi ed essential hypertensionBMI 35.0 to 35.9 5 Leonides Son [address], [place], [place], [address] , [place]. tel:[phone] Referring Provider: Sim [address], [place], [place], [address]. tel:[phone] OFFICE/OUTPA TIENT VISIT, EST [facility], [place], [address], [place], [place], [address], [place] tel:[phone] [facility] Medicine ankle pain (chief complaint) anxiety (chief complaint) HTN (chief complaint) Dietary surveillance and counselingGeneraliz ed anxiety disorderEsophageal refluxUnspecified essential hypertensionAnkle pain 5 Leonides Driscoll. [address], [place], [place], [address] , [place]. tel:[phone] Referring Provider: [address], [place], [place], [address]. tel:[phone] OFFICE/OUTPA TIENT VISIT, [facility], [address], [place], [place], [address], [place] tel:[phone] [facility] [place] GERD (chief complaint) chornic pain (chief complaint) DM (chief complaint) depression (chief complaint) Dietary surveillance and counselingGERDPain in joint involving lower legDiabetes Mellitus Type 2, UncomplicatedGenera lized anxiety disorder 5 Leonides Driscoll. [address], [place], [place], [address] , [place]. tel:[phone] Referring Provider: Sim [address], [place], [place], [address]. tel:[phone] OFFICE/OUTPA TIENT VISIT, [facility], [address], [place], [place], [address], [place] tel:[phone] [facility] [place] GERD (chief complaint) HTN (chief complaint) chornic pain (chief complaint) Dietary surveillance and counselingGERDHyper tension, UnspecifiedPain in joint involving lower legSpecial screening for malignant neoplasms, colon 5 Leonides Driscoll. [address], [place], [place], [address] , [place]. tel:[phone] Referring Provider: [address], [place], [place], [address]. tel:[phone] OFFICE/OUTPA TIENT VISIT, [facility], [address] [place] [address], [place] tel:[phone] [facility] [place] HTN (chief complaint) chronic pain (chief complaint) DM (chief complaint) depression (chief complaint) back pain (chief complaint) GERD (chief complaint) Dietary surveillance and counselingLumbagoHy pertension, UnspecifiedGERDOpio id type dependence, unspecified use 5 Leonides Driscoll. [address], [place], [place], [address] , [place]. [phone] Referring Provider: [address], [place], [place], [address]. tel:[phone] OFFICE/OUTPA TIENT VISIT, [facility], [address], [place], [place], [address], [place] tel:[phone] [facility] [place] HTN (chief complaint) chronic pain (chief complaint) back pain (chief complaint) Dietary surveillance and counselingHypertens ion, UnspecifiedPain in joint involving lower legLumbago Fe 5 Leonides Son [address], [place], [place], [address] , [place]. [phone] Referring Provider: Sim [address], [place], [place], [address]. tel:[phone] OFFICE/OUTPA TIENT VISIT, [facility], [address], [place], [place], [address], [place] tel:[phone] [facility] [place] HTN (chief complaint) Ankle pain (chief complaint) depression (chief complaint) COPD (chief complaint) Dietary surveillance and counselingHypertens ion, UnspecifiedDepressi onPain in joint involving lower legCOPD 5 Leonides Son [address], [place], [place], [address] , [place]. [phone] Referring Provider: Sim [address], [place], [place], [address]. tel:[phone] OFFICE/OUTPA TIENT VISIT, [facility], [address], [place], [place], [address], [place] tel:[phone] [facility] [place] DM (chief complaint) Chornic pain (chief complaint) depression (chief complaint) Dietary surveillance and counselingDiabetes Mellitus Type 2, UncomplicatedPain in joint involving lower legDepression 2 4 Leonides Son [address], [place], [place], [address] , [place]. [phone] Referring Provider: [address], [place], [place], [address]. tel:[phone] OFFICE/OUTPA TIENT VISIT, [facility], [address], [place], [place], [address], [place] tel:[phone] [facility] [place] carpal tunnel (chief complaint) ankle pain (chief complaint) DM (chief complaint) Dietary surveillance and counselingPain in joint involving lower legDiabetes Mellitus Type 2, UncomplicatedCarpal Tunnel Syndrome 4 Leonides Son [address], [place], [place], [address] , [place]. [phone] Referring Provider: [address], [place], [place], [address]. tel:[phone] OFFICE/OUTPA TIENT VISIT, [facility], [address], [place], [place], [address], [place] tel:[phone] [facility] [place] hand pain (chief complaint) ankle pain (chief complaint) DM (chief complaint) Dietary surveillance and counselingCarpal Tunnel SyndromePain in joint involving lower legDiabetes Mellitus Type 2, Uncomplicated 4 Leonides Son [address], [place], [place], [address] , [place]. [phone] Referring Provider: Sim [address], [place], [place], [address]. tel:[phone] OFFICE/OUTPA TIENT VISIT, [facility], [address], [place], [place], [address], [place] tel:[phone] [facility] [place] ankle pain (chief complaint) COPD (chief complaint) Dietary surveillance and counselingCOPDPain in joint involving lower leg Sep-0 4 Leonides Son [address], [place], [place], [address] , [place]. tel:[phone] Referring Provider: Sim [address], [place], [place], [address]. tel:[phone] OFFICE/OUTPA TIENT VISIT, EST [facility] [place], [address], [place], [place], [address], [place] tel:[phone] [facility] Medicine ankle pain (chief complaint) DM (chief complaint) vitamin D (chief complaint) COPD (chief complaint) Dietary surveillance and counselingDiabetes Mellitus Type 2, UncomplicatedCOPDPa in in joint involving lower leg 4 Leonides Driscoll. [address] [facility] [place] [address] , [place]. tel:[phone] Referring Provider: Sim [address] [facility] [address], [place], [place], [address]. tel:[phone] PREV VISIT, NEW, AGE 40-64 [facility] [place], [address] [place], [address], [place] tel:[phone] [facility] [place] Physical (chief complaint) Routine Medical ExamDietary surveillance and counselingRoutine Medical Exam 4 Leonides Driscoll. [address], [address] [place], [address] , [place]. [phone] Family History Family Member Type Diagnosis Age At Onset Mother Problem (finding) Diabetes mellitus Father Problem (finding) Stroke 69 Mother Problem (finding) COPD Brother Problem (finding) Alive and well Payers Payer name Insurance type Covered libertarian ID Authoriza tisandor(s) [facility] [id number] Social History Type Description Quantity Date Captured Comments Alcohol Use Details No Caffeine Use Details Unknown Tobacco Use Status Ex-cigarette smoker 025 Smoking Status Former smoker Sex Male Vital Signs Date / Time: Height Weight BMI Pulse Rate Blood Pressure Temperature Respiratory Rate Body Surface Area Head Circumference BMI percentile Pulse Ox Inhaled Ox 9:15 AM 74.00 in 257.60 lbs 33.0 7 kg/m eter (2) 52 /min 135/88 mm[Hg] 97.9 F 16 /min Chief Complaint And Reason For Visit From encounter dated '06/09/2024 09:11'. pain (chief complaint). Description: Pt has chronic back and ankle pain. Pt denies any worsening pain, Pt denies any loss of bladder control. Pt failed NSAID and ultram. Pt takes percocet PRN for pain. Pt has 6/10 pain daily. Pt has mild neuropathy. Pt failed neurontin. Pt denies any saddle area paresthesia anxiety1 (chief complaint). Description: Pt has chronic anxiety and depression Pt takes prozac and valium and doing ok. Pt denies any suicidal or homicidal thought. pt denies any crying spells COPD1 (chief complaint). Description: Pt has COPD . Pt started breztri and he is off symbicort and spiriva and he is breathing much better now. Pt still coughs but much less. urinary 1 (chief complaint). Description: Pt has been having urinary incontinence for the past month Pt has some urgency and he could not hold urine before making to bathrooms. Pt denies any dysuria.Pt also takes jardiance. Plan Of Treatment Date Type Action Status Goal Tobacco cessation counseling completed Goal Tobacco cessation counseling completed Goal Special diet education compl eted Goal Tobacco cessation counseling completed Goal Special diet education compl eted Goal Tobacco cessation counseling completed Goal Special diet education compl eted Goal Special diet education compl eted Goal Tobacco cessation counseling completed Goal Tobacco cessation counseling completed Goal Special diet education compl eted Goal Tobacco cessation counseling completed Goal Special diet education compl eted Goal Special diet education compl eted Goal Tobacco cessation counseling completed Goal Special diet education compl eted Goal Tobacco cessation counseling completed Goal Tobacco cessation counseling completed Goal Special diet education compl eted Goal Special diet education compl eted Goal Tobacco cessation counseling completed Goal Special diet education compl eted Goal Special diet education compl eted Goal Tobacco cessation counseling completed Goal Tobacco cessation counseling completed Goal Special diet education compl eted Goal Tobacco cessation counseling completed Goal Special diet education compl eted Goal Tobacco cessation counseling completed Goal Special diet education compl eted Goal Special diet education compl eted Goal Special diet education compl eted Goal Special diet education compl eted Goal Prescribed dietary intake co mpleted Goal Special diet education compl eted Goal Prescribed dietary intake co mpleted Goal Special diet education compl eted Goal Special diet education compl eted Referral Ordered: LOWER LEG TIB/FIB XRAY Right ordered Referral Ordered: ZAN MARTINEZ -Podiatric Medicine & Surgery Service Providers : Flotation Tender (related to Ingrowing nail) ordered Referral Referred To: ZAN MARTINEZ [address] [place], [place], [phone] Ordered: Referrals: Podiatric Medicine & Surgery Service Providers : Flotation Tender. ZAN MARTINEZ. 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 YESIKA CAIN. 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
[address] [place], [place] [id number] Ordered: Referrals: Allopathic & Osteopathic Physicians : Internal Medicine : Endocrinology, Diabetes & Metabolism. Jane Stevenson. Evaluate and treat ordered Referral Ordered: CT THORAX W/O DYE ordered Referral Referred To: Corinne Taylor [address] [place], [phone] Ordered: Referrals: Corinne Taylor. Evaluate and treat ordered Referral Ordered: Eloy Pandya -Allopathic & Osteopathic Physicians : Orthopaedic Surgery (related to Pain in left knee) ordered Referral Referred To: Eloy Pandya [address] [place], [place] [phone] Ordered: Referrals: Allopathic & Osteopathic Physicians : Orthopaedic Surgery. Eloy Pandya. Evaluate and treat ordered Referral Ordered: Callum Renae -Allopathic & Osteopathic Physicians : Surgery (related to De Quervain tenosynovitis) ordered Referral Ordered: Jono Hein -Allopathic & Osteopathic Physicians : Orthopaedic Surgery (related to Chronic pain syndrome) ordered Referral Referred To: Jono Hein [facility] [address] [place], [place] [phone] Ordered: Referrals: Allopathic & Osteopathic Physicians : Orthopaedic Surgery. Jono Hein. Evaluate and treat ordered Referral Referred To: Callum Renae [address] [place], [place] [phone] Ordered: Referrals: Allopathic & Osteopathic Physicians : Surgery. Callum Renae. Evaluate and treat ordered Referral Ordered: US EXAM, ABDOM, COMPLETE ordered Referral Ordered: Jono Hein (related to Chronic pain syndrome) ordered Referral Referred To: Jono Hein [facility] [address] [place], [place] [phone] Ordered: Referrals: Jono Hein. Evaluate and treat ordered Referral Ordered: Otolaryngology (related to Hearing loss) ordered Referral Ordered: Referrals: Otolaryngology. Evaluate and treat ordered Referral Ordered: Lio Hernandez (related to Body mass index (BMI) 40.0-44.9, adult) ordered Referral Referred To: Lio Hernandez [address] [place], [phone] Ordered: Referrals: Lio Hernandez. Evaluate and treat ordered Referral Ordered: HEARING TEST PURE TONE AUDIOMETRY, AIR ordered Referral Ordered: Neurosurgery (related to Other spondylosis, lumbar region) ordered Referral Ordered: Referrals: Neurosurgery. Evaluate and treat ordered Referral Ordered: MRI LUMBAR SPINE W/O DYE ordered Referral Ordered: Physical Therapy (related to Diabetes Mellitus Type 2, Uncomplicated) ordered Referral Referred To: Physical Therapy Ordered: Referrals: Physical Therapy. Evaluate and treat ordered Referral Ordered: Ortho Surg (related to Pain in joint involving lower leg) ordered Referral Ordered: Referral: Ortho Surg. ordered Referral Ordered: COLONOSCOPY AND BIOPSY ordered Referral Ordered: LUMBAR XRAY AP AND LAT ONLY ordered Referral Ordered: Referral: Ophthalmology. Evaluate and treat. ordered Referral Ordered: Referral: Plastic Surg. ordered Referral Ordered: MOTOR NERVE CONDUCTION TEST ordered Referral Ordered: CHEST X-RAY PA/LAT TWO-VIEWS ordered Appointment Kushal Sanders BOOKED History Of Present Illness Encounter Date Complaint History Of Prese nt Illness pain Pt has chronic b ack and ankle pain. Pt denies any worsening pain, Pt denies any loss of bladder control. Pt failed NSAID and ultram. Pt takes percocet PRN for pain. Pt has 6/10 pain daily. Pt has mild neuropathy. Pt failed neurontin. Pt denies any saddle area paresthesia anxiety1 Pt has chronic a nxiety and depression Pt takes prozac and valium and doing ok. Pt denies any suicidal or homicidal thought. pt denies any crying spells COPD1 Pt has COPD . Pt started breztri and he is off symbicort and spiriva and he is breathing much better now. Pt still coughs but much less. urinary 1 Pt has been havi ng urinary incontinence for the past month Pt has some urgency and he could not hold urine before making to bathrooms. Pt denies any dysuria. Pt also takes jardiance. cough1 Pt c/o persisten t productive cough with green phlegm feeling sob for two weeks .Pt denies any hemoptysis Pt has not done lung nodule biopsy yet. Pt does have COPD Pt is on symbicort only .Pt sees pulmonary. Pt denies any fever. UA Pt states that u rinary symptoms resolved. UA clear. Pt denies any abd pain pain Pt has chronic b ack and ankle pain. Pt denies any worsening pain, Pt denies any loss of bladder control. Pt failed NSAID and ultram. Pt takes percocet PRN for pain. Pt has 6/10 pain daily. Pt has mild neuropathy. Pt failed neurontin. Pt denies any saddle area paresthesia anxiety1 Pt has chronic a nxiety and depression Pt takes prozac and valium and doing ok. Pt denies any suicidal or homicidal thought. pt denies any crying spells urinary1 Pt has urinary f requency and urgency for the past 10 days .pt denies any dysuria, Pt stopped jardiance which did not help and he is back on jardiance now Pt states that he also lost some bowel control when he tried to urinate Pt denies any flank pain, fever, chill, Pt took some OTC azo and he is back to his baseline now with normal stream but he still feels urgency and frequency but is improving. Pt states that he also had some difficulty with urination with slow stream several days ago which resolved now. Pt had UA done which showed turbid, with blood in urine and WBC but urine culture is negative. Pt did have brief episode of pain around low pelvic area during above episode several days ago which resolved also. he is back to 80 % baseline now. he states that bowel incontinence resolved now. Pt has been losing weight with ozempic pain Pt has chronic b ack and ankle pain. Pt denies any worsening pain, Pt denies any loss of bladder control. Pt failed NSAID and ultram. Pt takes percocet PRN for pain. Pt has 6/10 pain daily. Pt has mild neuropathy. Pt failed neurontin. Pt denies any saddle area paresthesia anxiety1 Pt has chronic a nxiety and depression Pt takes prozac and valium and doing ok. Pt denies any suicidal or homicidal thought. pt denies any crying spells lung Pt has suspiciou s lung nodule and he had PET scan done which was recommended for biopsy . pt does have COPD and s GERD1 Pt has chronic G ERD Pt takes omeprazole and doing ok. Pt needs it refilled pt had benign EGD pain Pt has chronic b ack and ankle pain. Pt denies any worsening pain, Pt denies any loss of bladder control. Pt failed NSAID and ultram. Pt takes percocet PRN for pain. Pt has 6/10 pain daily. Pt has mild neuropathy. Pt failed neurontin. Pt denies any saddle area paresthesia anxiety1 Pt has chronic a nxiety and depression Pt takes prozac and valium and doing ok. Pt denies any suicidal or homicidal thought. pt denies any crying spells pain Pt has chronic b ack and ankle pain. Pt denies any worsening pain, Pt denies any loss of bladder control. Pt failed NSAID and ultram. Pt takes percocet PRN for pain. Pt has 6/10 pain daily. Pt has mild neuropathy. Pt failed neurontin. Pt denies any saddle area paresthesia anxiety1 Pt has chronic a nxiety and depression Pt takes prozac and valium and doing ok. Pt denies any suicidal or homicidal thought. pt denies any crying spells fatigue1 Pt has been feel ing fatigue recently .Pt does have sleep apnea but he does not want to use any cpap or dental device. Pt is interested in testosterone check anxiety1 Pt has chronic a nxiety and depression Pt takes prozac and valium and doing ok. Pt denies any suicidal or homicidal thought. pt denies any crying spells pain Pt has chronic b ack and ankle pain. Pt denies any worsening pain, Pt denies any loss of bladder control. Pt failed NSAID and ultram. Pt takes percocet PRN for pain. Pt has 6/10 pain daily. Pt has mild neuropathy. Pt failed neurontin. Pt denies any saddle area paresthesia anxiety1 Pt has chronic a nxiety and depression Pt takes prozac and valium and doing ok. Pt denies any suicidal or homicidal thought. pt denies any crying spells pain Pt has chronic b ack and ankle pain. Pt denies any worsening pain, Pt denies any loss of bladder control. Pt failed NSAID and ultram. Pt takes percocet PRN for pain. Pt has 6/10 pain daily. Pt has mild neuropathy. Pt failed neurontin. Pt denies any saddle area paresthesia leg pain1 Pt states that r ight lower leg pain resolved completely Pt denies any bruising or paresthesia. X ray showed polyarthritis anxiety1 Pt has chronic a nxiety and depression Pt takes prozac and valium and doing ok. Pt denies any suicidal or homicidal thought. pt denies any crying spells leg pain1 Pt was stung by a wasp two days ago and he tried to get away and his right leg got caught by a metal bar that sticking out of the trailer. He fell on the ground and he notices right anterior tib/fib swelling and bruising immediately afterward and he notices a small area of skin abrasion right anterior tib/fib area ,Pt is able to bear weight on right leg without pain and he only notices pain when he put pressure around the area. He notices a swelling nodule along right tib/fib. He states that bruising or redness resolved. pain Pt has chronic b ack and ankle pain. Pt denies any worsening pain, Pt denies any loss of bladder control. Pt failed NSAID and ultram. Pt takes percocet PRN for pain. Pt has 6/10 pain daily. Pt has mild neuropathy. Pt failed neurontin. Pt denies any saddle area paresthesia pain Pt has chronic b ack and ankle pain. Pt denies any worsening pain, Pt denies any loss of bladder control. Pt failed NSAID and ultram. Pt takes percocet PRN for pain. Pt has 6/10 pain daily. Pt has mild neuropathy. Pt failed neurontin. Pt denies any saddle area paresthesia anxiety1 Pt has chronic a nxiety and depression Pt takes prozac and valium and doing ok. Pt denies any suicidal or homicidal thought. pt denies any crying spells HLP Pt has HLP Pt ta kes lipitor Pt denies any myalgia pain Pt has chronic b ack and ankle pain. Pt denies any worsening pain, Pt denies any loss of bladder control. Pt failed NSAID and ultram. Pt takes percocet PRN for pain. Pt has 6/10 pain daily. Pt has mild neuropathy. Pt failed neurontin. Pt denies any saddle area paresthesia anxiety1 Pt has chronic a nxiety and depression Pt takes prozac and valium and doing ok. Pt denies any suicidal or homicidal thought. pt denies any crying spells pain Pt has chronic b ack and ankle pain. Pt denies any worsening pain, Pt denies any loss of bladder control. Pt failed NSAID and ultram. Pt takes percocet PRN for pain. Pt has 6/10 pain daily. Pt has mild neuropathy. Pt failed neurontin. Pt denies any saddle area paresthesia anxiety1 Pt has chronic a nxiety and depression Pt takes prozac and valium and doing ok. Pt denies any suicidal or homicidal thought. pt denies any crying spells bronchitis1 Pt c/o persisten t productive cough and wheezing Pt does have COPD Pt is on symbicort and spiriva. He had chest x ray done last month which was normal. His pulmonary one week ago and he was started again on Z kenia with steroid taper. Pt states that his cough is improving. yeast1 Pt states that h is G/f told him that she has bacterial infection around vaginal area. Pt started to notice some drainage with raw appearing skin on the base of his shaft penis on the scrotum and also some redness around the tip of his penis for 6 days .Pt denies any pain or itching. Pt denies any penile discharge. Pt notices some pus drainage from the area as well Pt denies any testicular pain. physical Pt needs annual physical. Pt has chronic back and knee and ankle pain. Pt takes percocet PRn for pain. Pt has anxiety and depression Pt takes prozac and valium and doing ok. Pt denies any suicidal or homicidal thought. Pt denies any crying spells. Pt has chronic GERD. Pt takes omeprazole and doing ok. Pt has HTN Pt takes losartan .Pt has atrial flutter Pt denies any chest pain or palpitation Pt takes sotalol and xarelto. Pt sees cardiology Pt has COPD Pt sees pulmonary. Pt is on symbicort and spiriva and rescue inhalers. Pt c/o acute onset of productive green phlegm with some wheezing recently and he just started doxycycline and prednisone by pulmonary yesterday .. Pt has HLP. He is back on lipitor and he has very mild leg ramp his lipid profile improved Pt has DM ,pt takes ozempic and insulin. Pt sees endo. Pt denies any fever or worsening sob. anxiety1 Pt has chronic a nxiety and depression Pt takes prozac and valium and doing ok. Pt denies any suicidal or homicidal thought. pt denies any crying spells pain Pt has chronic b ack and ankle pain. Pt denies any worsening pain, Pt denies any loss of bladder control. Pt failed NSAID and ultram. Pt takes percocet PRN for pain. Pt has 6/10 pain daily. Pt has mild neuropathy. Pt failed neurontin. Pt denies any saddle area paresthesia STD Pt wants STD scr eening. Pt denies any symptoms. his partner cheated on him recently aflutter1 Pt has atrial fl utter Pt is on sotalol and he is on xarelto and he sees cardiology Pt denies any chest pain or palpitation Pt has DM Pt sees endo. His A1c is 6.6 recently anxiety1 Pt has chronic a nxiety and depression Pt takes prozac and valium and doing ok. Pt denies any suicidal or homicidal thought. pt denies any crying spells pain Pt has chronic b ack and ankle pain. Pt denies any worsening pain, Pt denies any loss of bladder control. Pt failed NSAID and ultram. Pt takes percocet PRN for pain. Pt has 6/10 pain daily. Pt has mild neuropathy. Pt failed neurontin. Pt denies any saddle area paresthesia HLP Pt tolerated lip itor ok He has not had any myalgia pain Pt has chronic b ack and ankle pain. Pt denies any worsening pain, Pt denies any loss of bladder control. Pt failed NSAID and ultram. Pt takes percocet PRN for pain. Pt has 6/10 pain daily. Pt has mild neuropathy. Pt failed neurontin. Pt denies any saddle area paresthesia anxiety1 Pt has chronic a nxiety and depression Pt takes prozac and valium and doing ok. Pt denies any suicidal or homicidal thought. pt denies any crying spells GERD1 Pt has chronic G ERD Pt is on omeprazole daily Pt failed pepcid Pt has daily gerd without omeprazole HLP Pt has HLP Pt sanchez s been off statin due to myalgia. his LDL is high. lung nodule1 Pt has history o f lung nodule Pt has COPD Pt is on spiriva and also symbicort now and he is off stiolto per pulmonary Pt had chest CT done which showed stable nodule Pt no longer smoking pain Pt has chronic b ack and ankle pain. Pt denies any worsening pain, Pt denies any loss of bladder control. Pt failed NSAID and ultram. Pt takes percocet PRN for pain. Pt has 6/10 pain daily. Pt has mild neuropathy. Pt failed neurontin. Pt denies any saddle area paresthesia HLP Pt has HLP Pt sanchez s been off crestor and myalgia resolved. anxiety1 Pt has chronic a nxiety and depression Pt takes prozac and valium and doing ok. Pt denies any suicidal or homicidal thought. pt denies any crying spells pneumonia1 Pt denies any ch est pain or sob or cough or hemoptysis. chest x ray clear anxiety1 Pt has chronic a nxiety and depression Pt takes prozac and valium and doing ok. Pt denies any suicidal or homicidal thought. pt denies any crying spells COPD1 Pt has COPD Pt n o longer smoking Pt is on stiolto inhaler daily and he needs neb and albuterol PRN. Pt sees pulmonary Pt has pneumonia recently and he finished two rounds of abx and steroid .Pt still has some wheezing, productive cough with yellow phlegm with some sob .Pt denies any fever. Pt denies any chest pain pain Pt has chronic b ack and ankle pain. Pt denies any worsening pain, Pt denies any loss of bladder control. Pt failed NSAID and ultram. Pt takes percocet PRN for pain. Pt has 6/10 pain daily. Pt has mild neuropathy. Pt failed neurontin. Pt denies any saddle area paresthesia pneumonia1 Pt recently was diagnosed with pneumonia and he took cefuroxime and also doxycycline along with prednisone and he still feels sob with wheezing with productive cough. Pt denies any fever. Pt denies any chest pain Pt had chest x ray done which showed improving subsegmental left lower lobe consolidation. Pt does have COPD and he sees pulmonary and he is on inhalers. pain Pt has chronic b ack and ankle pain. Pt denies any worsening pain, Pt denies any loss of bladder control. Pt failed NSAID and ultram. Pt takes percocet PRN for pain. Pt has 6/10 pain daily. Pt has mild neuropathy. Pt failed neurontin. Pt denies any saddle area paresthesia anxiety Pt has chronic a nxiety and depression Pt takes prozac and valium and doing ok. Pt denies any suicidal or homicidal thought. pt denies any crying spells pneumonia1 Pt recently went to ER for coughing and he has pneumonia LLL. Pt was treated with neb and IV abx and he is on doxycycline and cefuroxime and prednisone now. He is doing better .Pt denies any acute sob or wheezing or any chest pain he denies any hemoptysis colon polyp1 Pt has history o f tubular adenoma and he just had another colonoscopy done which was clear without polyps anxiety1 Pt has chronic a nxiety and depression Pt takes prozac and valium and doing ok. Pt denies any suicidal or homicidal thought. pt denies any crying spells pain Pt has chronic b ack and ankle pain. Pt denies any worsening pain, Pt denies any loss of bladder control. Pt failed NSAID and ultram. Pt takes percocet PRN for pain. Pt has 6/10 pain daily. Pt has mild neuropathy. Pt failed neurontin. Pt denies any saddle area paresthesia myopathy1 Pt still c/o laurie dalila symptoms with only 10 mg crestor. anxiety1 Pt has chronic a nxiety and depression Pt takes prozac and valium and doing ok. Pt denies any suicidal or homicidal thought. pt denies any crying spells pain Pt has chronic b ack and ankle pain. Pt denies any worsening pain, Pt denies any loss of bladder control. Pt failed NSAID and ultram. Pt takes percocet PRN for pain. Pt has 6/10 pain daily. Pt has mild neuropathy. Pt failed neurontin. Pt denies any saddle area paresthesia HLP Pt has HLP. Pt r estarted crestor last month but he notices some bilateral leg cramps. pain Pt has chronic b ack and ankle pain. Pt denies any worsening pain, Pt denies any loss of bladder control. Pt failed NSAID and ultram. Pt takes percocet PRN for pain. Pt has 6/10 pain daily. Pt has mild neuropathy. Pt failed neurontin. Pt denies any saddle area paresthesia anxiety1 Pt has chronic a nxiety and depression Pt takes prozac and valium and doing ok. Pt denies any suicidal or homicidal thought. pt denies any crying spells HLP Pt has HLP Pt wa s taking crestor but was put on hold by ID and his pulmonary cleared him to go back to crestor pt denies any myalgia. polyp1 pt has tubular a denoma on colonoscopy 2019. He denies any lower GI issue. Pt supposes to do colonoscopy but he has to reschedule until December lung nodule1 Pt has stable damien ng nodule on recent chest Ct. Pt denies any hemoptysis, cough. pt does have COPD Pt sees pulmonary. anxiety1 Pt has chronic a nxiety and depression Pt takes prozac and valium and doing ok. Pt denies any suicidal or homicidal thought. pt denies any crying spells pain Pt has chronic b ack and ankle pain. Pt denies any worsening pain, Pt denies any loss of bladder control. Pt failed NSAID and ultram. Pt takes percocet PRN for pain. Pt has 6/10 pain daily. Pt has mild neuropathy. Pt failed neurontin. Pt denies any saddle area paresthesia anxiety1 Pt has chronic a nxiety and depression Pt takes prozac and valium and doing ok. Pt denies any suicidal or homicidal thought. pt denies any crying spells pain Pt has chronic b ack and ankle pain. Pt denies any worsening pain, Pt denies any loss of bladder control. Pt failed NSAID and ultram. Pt takes percocet PRN for pain. Pt has 6/10 pain daily. Pt has mild neuropathy. Pt failed neurontin. Pt denies any saddle area paresthesia toe Pt c/o left big toe nail fungus with ingrown toenail for several months Pt notices some pain around the lateral nailbed. Pt denies any drainage. Pt denies any injury colon polyp1 Pt has tubular a denoma. Pt has colonoscopy scheduled in October. Pt denies any GI issue lung nodule1 Pt has history o f lung nodule. Pt denies any hemoptysis, sob or cough Pt has lung Ct scheduled in two weeks by pulmonary anxiety1 Pt has chronic a nxiety and depression Pt takes prozac and valium and doing ok. Pt denies any suicidal or homicidal thought. pt denies any crying spells colon polyp1 Pt has tubular a denoma on colonoscopy 2019 Pt denies any GI issue Pt has kelly with Dr Taylor for colonoscopy in two weeks HLP Pt has HLP Pt is not on statin per ID Pt has hard time reaching his ID. Pt is being treated for MAC infection and he denies any hemoptysis, fever or cough now pain Pt has chronic b ack and ankle pain. Pt denies any worsening pain, Pt denies any loss of bladder control. Pt failed NSAID and ultram. Pt takes percocet PRN for pain. Pt has 6/10 pain daily. Pt has mild neuropathy. Pt failed neurontin. Pt denies any saddle area paresthesia pain Pt has chronic b ack and ankle pain. Pt denies any worsening pain, Pt denies any loss of bladder control. Pt failed NSAID and ultram. Pt takes percocet PRN for pain. Pt has 6/10 pain daily. Pt has mild neuropathy. Pt failed neurontin. Pt denies any saddle area paresthesia anxiety1 Pt has chronic a nxiety and depression Pt takes prozac and valium and doing ok. Pt denies any suicidal or homicidal thought. pt denies any crying spells colon polylp1 Pt has tubular a denoma around 2019 and he needs to repeat colonoscopy now Pt denies any GI issue HLP Pt has HLP Pt wa s on crestor but ID took him off due to MAC infection and he was successfully treated for MAC. pt is on fish oil DM Pt has DM Pt see s endo. pt is on jardiance, tresiba and ozempic now .His glucose is around 110s .Pt denies any hypoglycemia pain Pt has chronic b ack and ankle pain. Pt denies any worsening pain, Pt denies any loss of bladder control. Pt failed NSAID and ultram. Pt takes percocet PRN for pain. Pt has 6/10 pain daily. Pt has mild neuropathy. Pt failed neurontin. Pt denies any saddle area paresthesia anxiety1 Pt has chronic a nxiety and depression Pt takes prozac and valium and doing ok. Pt denies any suicidal or homicidal thought. pt denies any crying spells MAC Pt has MAC. Pt i s seeing pulmonary and ID .Pt is on prednisone and doxycycline now Pt still coughs up phlegm. Pt has been on doxycycline x 2 round now. Pt tested negative for MAC recently. But he is still on doxycycline and prednisone due to productive cough Pt is on Bevespi now for emphysema. Pt denies any sob anxiety1 Pt has chronic a nxiety and depression Pt takes prozac and valium and doing ok. Pt denies any suicidal or homicidal thought. pt denies any crying spells pain Pt has chronic b ack and ankle pain. Pt denies any worsening pain, Pt denies any loss of bladder control. Pt failed NSAID and ultram. Pt takes percocet PRN for pain. Pt has 6/10 pain daily. Pt has mild neuropathy. Pt failed neurontin. Pt denies any saddle area paresthesia anxiety1 Pt has chronic a nxiety and depression Pt takes prozac and valium and doing ok. Pt denies any suicidal or homicidal thought. pt denies any crying spells lung nodule1 Pt had another c hest Ct done recently and the nodule reduced in size per patient. Pt was told to follow up with chest Ct in 6 months. GERD1 Pt has chronic G ERD Pt takes omeprazole daily and doing ok. P failed pepcid Pt has daily GERD without omeprazole pain Pt has chronic b ack and ankle pain. Pt denies any worsening pain, Pt denies any loss of bladder control. Pt failed NSAID and ultram. Pt takes percocet PRN for pain. Pt has 6/10 pain daily. Pt has mild neuropathy. Pt failed neurontin. Pt denies any saddle area paresthesia trichomonas1 Pt states that h is sex partner recently got a pap smear last week which showed trichomonas. She is asymptomatic. Pt denies any penile discharge or any urinary symptoms. Pt denies any testicular pain, atrophy or nodule or swelling or redness .Pt davina any inguinal swelling. physical Pt needs annual physical. Pt has chronic back and knee and ankle pain. Pt takes percocet PRn for pain. Pt has anxiety and depression Pt takes prozac and valium and doing ok. Pt denies any suicidal or homicidal thought. Pt denies any crying spells. Pt has chronic GERD. Pt takes omeprazole and doing ok. Pt has HTN Pt takes losartan .Pt has a flutter Pt denies any chest pain or palpitation Pt takes sotalol and xarelto. Pt has MAC infection and lung nodule. pt is seeing ID and pulmonary. Pt is on symbicort and rescue inhalers. Pt has HLP Pt has DM ,pt takes ozempic and insulin. Pt sees endo .Pt states that his glucose is around 120s. anxiety1 Pt has chronic a nxiety and depression Pt takes prozac and valium and doing ok. Pt denies any suicidal or homicidal thought. pt denies any crying spells pain Pt has chronic b ack and ankle pain. Pt denies any worsening pain, Pt denies any loss of bladder control. Pt failed NSAID and ultram. Pt takes percocet PRN for pain. Pt has 6/10 pain daily. Pt has mild neuropathy. Pt failed neurontin. Pt denies any saddle area paresthesia anxiety1 Pt has chronic a nxiety and depression Pt takes prozac and valium and doing ok. Pt denies any suicidal or homicidal thought. pt denies any crying spells pain Pt has chronic b ack and ankle pain. Pt denies any worsening pain, Pt denies any loss of bladder control. Pt failed NSAID and ultram. Pt takes percocet PRN for pain. Pt has 6/10 pain daily. Pt has mild neuropathy. Pt failed neurontin. Pt denies any saddle area paresthesia DM Pt has DM, which is getting worse, His A1c is 9.1 .Pt takes ozempic and his endo started him on long acting insulin as well pt has not picked up the insulin yet. his glucose is over 200 . fatty liver1 Pt has fatty pamela er .Pt denies any abd pain or jaundice. HLP Pt has HLP Pt is off crestor per ID specialist. Pt has MAC infection and he is seeing ID who took him off crestor for unknown reason physical Pt needs annual physical. Pt has chronic back and knee and ankle pain. Pt takes percocet PRn for pain. Pt has anxiety and depression Pt takes prozac and valium and doing ok. Pt denies any suicidal or homicidal thought. Pt denies any crying spells. Pt has chronic GERD. Pt takes omeprazole and doing ok. Pt has HTN Pt takes losartan .Pt has a flutter Pt denies any chest pain or palpitation Pt takes sotalol and xarelto. Pt has MAC infection and lung nodule. pt is seeing ID and pulmonary. Pt is on symbicort and rescue inhalers. Pt has HLP Pt has DM ,pt takes ozempic only .Pt sees endo. Pt is off metformin and amaryl. anxiety1 Pt has chronic a nxiety and depression Pt takes prozac and valium and doing ok. Pt denies any suicidal or homicidal thought. pt denies any crying spells pain Pt has chronic b ack and ankle pain. Pt denies any worsening pain, Pt denies any loss of bladder control. Pt failed NSAID and ultram. Pt takes percocet PRN for pain. Pt has 6/10 pain daily. Pt has mild neuropathy. Pt failed neurontin. Pt denies any saddle area paresthesia colon polyp1 Pt has tubular a denoma 2019 and he denies any GI issue. MAC Pt has mycobacte rium avium. Pt denies any chest pain or sob. Pt denies any hemoptysis Pt has not been treated by pulmonary. Pt has kelly with ID in two weeks. pain Pt has chronic b ack and ankle pain. Pt denies any worsening pain, Pt denies any loss of bladder control. Pt failed NSAID and ultram. Pt takes percocet PRN for pain. Pt has 6/10 pain daily. Pt has mild neuropathy. Pt failed neurontin. Pt denies any saddle area paresthesia anxiety1 Pt has chronic a nxiety and depression Pt takes prozac and valium and doing ok. Pt denies any suicidal or homicidal thought. pt denies any crying spells lung Pt had chest CT done which showed stable nodule with ? MAC? Pt is getting sputum sample now from pulmonary. GERD1 Pt has chronic G ERD Pt takes omeprazole and doing ok pt failed pepcid. pt needs omeprazole refilled anxiety Additional infor mation: Pt has chronic anxiety and depression Pt takes prozac and valium and doing ok. Pt denies any suicidal or homicidal thought. pt denies any crying spells. pain Pt has chronic b ack and ankle pain. Pt denies any worsening pain, Pt denies any loss of bladder control. Pt failed NSAID and ultram. Pt takes percocet PRN for pain. Pt has 6/10 pain daily. Pt has mild neuropathy. Pt failed neurontin. Pt denies any saddle area paresthesia anxiety1 Pt has chronic a nxiety and depression Pt takes prozac and valium and doing ok. Pt denies any suicidal or homicidal thought. pt denies any crying spells pain Pt has chronic b ack and ankle pain. Pt denies any worsening pain, Pt denies any loss of bladder control. Pt failed NSAID and ultram. Pt takes percocet PRN for pain. Pt has 6/10 pain daily. Pt has mild neuropathy. Pt failed neurontin. Pt denies any saddle area paresthesia anxiety1 Pt has chronic a nxiety and depression Pt takes prozac and valium and doing ok. Pt denies any suicidal or homicidal thought. pt denies any crying spells pain1 Pt has chronic b ack and ankle pain. Pt denies any worsening pain, Pt denies any loss of bladder control. Pt failed NSAID and ultram. Pt takes percocet PRN for pain. Pt has 6/10 pain daily. Pt has mild neuropathy. Pt failed neurontin. Pt denies any saddle area paresthesia lung nodule1 Pt has lung nodu le and he had PET CT which showed stable nodule and he will do chest ct on 09/13/21. pt denies any hemoptysis, worsening sob or cough sleep apnea1 Pt has sleep carrier blower ea Pt uses oral device and doing ok. Pt failed cpap. Pt feels more energy and better resting at night pain Pt has chronic b ack and ankle pain. Pt denies any worsening pain, Pt denies any loss of bladder control. Pt failed NSAID and ultram. Pt takes percocet PRN for pain. Pt has 6/10 pain daily. Pt has mild neuropathy. Pt failed neurontin. Pt denies any saddle area paresthesia anxiety1 Pt has chronic a nxiety and depression Pt takes prozac and valium and doing ok. Pt denies any suicidal or homicidal thought. pt denies any crying spells lung nodule1 Pt has suspiciou s lung nodule. Pt was evaluated by CT surgeon and he will do another chest CT in September. lung nodule1 Pt has lung nodu le. Pt had PET scan and biopsy but were inconclusive and he went to see CT surgeon and he was told to do another PET CT and biopsy. Pt denies any hemoptysis worsening or cough. Pt had another PET CT by pulmonary which showed unchanged nodule which remains indeterminate. He has severe right side rib fracture from recent fall. Aflutter1 Pt has aflutter Pt denies any chest pain or palpitation Pt sees cardiology and he had negative echo and nuclear stress test recently Pt is on sotalol and also xarelto by cardiology pain Pt has chronic b ack and ankle pain. Pt denies any worsening pain, Pt denies any loss of bladder control. Pt failed NSAID and ultram. Pt takes percocet PRN for pain. Pt has 6/10 pain daily. Pt has mild neuropathy. Pt failed neurontin. Pt denies any saddle area paresthesia anxniety1 Pt has chronic a nxiety and depression Pt takes prozac and valium and doing ok. Pt denies any suicidal or homicidal thought. pt denies any crying spells lung nodule1 Pt has lung nodu le. Pt had PET scan and biopsy but were inconclusive and he went to see CT surgeon and he was told to do another PET CT and biopsy. Pt denies any hemoptysis worsening or cough pain Pt has chronic b ack and ankle pain. Pt denies any worsening pain, Pt denies any loss of bladder control. Pt failed NSAID and ultram. Pt takes percocet PRN for pain. Pt has 6/10 pain daily. Pt has mild neuropathy. Pt failed neurontin. Pt denies any saddle area paresthesia anxiety Pt has chronic a nxiety and depression Pt takes prozac and valium and doing ok. Pt denies any suicidal or homicidal thought. pt denies any crying spells HTN Pt has HTN Pt ta kes losartan 25 mg daily and sotalol and his bp is around 130/80 anxiety Pt has chronic a nxiety and depression Pt takes prozac and valium and doing ok. Pt denies any suicidal or homicidal thought. pt denies any crying spells lung nodule1 Pt has lung nodu le Pt denies any hemoptysis, worsening sob or cough Pt sees pulmonary .Pt has chest CT scheduled next week HLP Pt has HLP Pt ta devyn crestor. Pt denies any myalgia. pain Pt has chronic b ack and ankle pain. Pt denies any worsening pain, Pt denies any loss of bladder control. Pt failed NSAID and ultram. Pt takes percocet PRN for pain. Pt has 6/10 pain daily. Pt has mild neuropathy. Pt failed neurontin. Pt denies any saddle area paresthesia pain Pt has chronic b ack and ankle pain. Pt denies any worsening pain, Pt denies any loss of bladder control. Pt failed NSAID and ultram. Pt takes percocet PRN for pain. Pt has 6/10 pain daily. Pt has mild neuropathy. Pt failed neurontin. Pt denies any saddle area paresthesia anxiety1 Pt has chronic a nxiety and depression Pt takes prozac and valium and doing ok. Pt denies any suicidal or homicidal thought. pt denies any crying spells HTN Pt takes losarta n 25 mg and sotalol and his bp is around 120/70 at home anxiety1 Pt has chronic a nxiety and depression Pt takes prozac and valium and doing ok. Pt denies any suicidal or homicidal thought. pt denies any crying spells pain Pt has chronic b ack and ankle pain. Pt denies any worsening pain, Pt denies any loss of bladder control. Pt failed NSAID and ultram. Pt takes percocet PRN for pain. Pt has 6/10 pain daily. Pt has mild neuropathy. Pt failed neurontin. Pt denies any saddle area paresthesia anxiety1 Pt has chronic a nxiety and depression Pt takes prozac and valium and doing ok. Pt denies any suicidal or homicidal thought. pt denies any crying spells pain Pt has chronic b ack and ankle pain. Pt denies any worsening pain, Pt denies any loss of bladder control. Pt failed NSAID and ultram. Pt takes percocet PRN for pain. Pt has 6/10 pain daily. Pt has mild neuropathy. Pt failed neurontin HTN Pt has HTN. he i s back on losartan but only 50 mg daily for now per his cardiology. Pt is on sotalol as well. Pt has not checked his bp at home. Pt denies any chest pain or headache or dizziness anxiety1 Pt has chronic a nxiety and depression Pt takes prozac and valium and doing ok. Pt denies any suicidal or homicidal thought. pt denies any crying spells pain Pt has chronic b ack and ankle pain. Pt denies any worsening pain, Pt denies any loss of bladder control. Pt failed NSAID and ultram. Pt takes percocet PRN for pain. Pt has 6/10 pain daily. Pt has mild neuropathy. Pt failed neurontin DM Pt has DM Pt levon es metformin, amaryl and also ozempic and his glucose is doing better and A1c down to 6.6 Pt sees endo. HLP Pt has HLP Pt ta kes Crestor Pt denies any myalgia. His lipid is ok ferritin1 Pt has mildly lo w ferritin .Pt is not anemic Pt denies any bleeding proteinuria1 Pt has mild prot einuria. Urine albumin ok. Pt has HTN. Pt only takes sotalol now. His bp was borderline high at endo office Pt told me he no loner takes losartan per cardiology since August anxiety1 Pt has chronic a nxiety and depression Pt takes prozac and valium and doing ok. Pt denies any suicidal or homicidal thought. pt denies any crying spells pain Pt has chronic b ack and ankle pain. Pt denies any worsening pain, Pt denies any loss of bladder control. Pt failed NSAID and ultram. Pt takes percocet PRN for pain. Pt has 6/10 pain daily. Pt has mild neuropathy. Pt failed neurontin physical Pt needs annual physical. Pt has aflutter and he underwent cardioversion and it is sinus now Pt is on sotalol. Pt denies any chest pain. Pt has chronic anxiety and depression. Pt takes prozac and valium and doing ok. pt denies any suicidal or homicidal thought. Pt has chronic back and knee pain .Pt takes percocet PRn for pain and doing ok. Pt is also on xarelto pre cardiology. Pt has chronic GERD. Pt takes omeprazole and doing ok. Pt has COPD. Pt sees pulmonary and he uses oral device nightly and doing ok. Pt uses symbicort and he rarely uses albuterol. Pt denies any new complaints anxiety1 Pt has chronic a nxiety and depression Pt takes prozac and valium and doing ok. Pt denies any suicidal or homicidal thought. pt denies any crying spells pain Pt has chronic b ack and ankle pain. Pt denies any worsening pain, Pt denies any loss of bladder control. Pt failed NSAID and ultram. Pt takes percocet PRN for pain. Pt has 6/10 pain daily. Pt has mild neuropathy lung nodule1 Pt has lung nodu le and he had biopsy done but unable to get enough sample so he was told to repeat chest CT in 6 months aflutter1 Pt has aflutter Pt underwent cardioversion recently and his cardiac rhythm is ok now per cardiology pt denies any chest pain or palpitation GRED1 Pt has chronic G ERD pt takes omeprazole and doing ok pt failed pepcid P has daily GERD without omeprazole anxiety Pt has chronic a nxiety and depression Pt takes prozac and valium and doing ok. Pt denies any suicidal or homicidal thought. pt denies any crying spells pain Pt has chronic b ack and ankle pain. Pt denies any worsening pain, Pt denies any loss of bladder control. Pt failed NSAID and ultram. Pt takes percocet PRN for pain. Pt has 6/10 pain daily. Pt has mild neuropathy DM Pt has DM. Pt sa w endo and he is on ozempic now and he is off januvia. He is on metformin and amaryl and his glucose is around 180s. Pt has neuropathy. He denies any hypoglycemia lung nodule1 Pt has lung nodu le .Pt just had lung nodule biopsy yesterday. he no longer smoking He denies any hemoptysis, cough HLP Pt has HLP Pt dom grier. He did lab from cardiology last month and was told lipid ok. Pt denies any myalgia DM Pt takes januvia and metformin and amaryl an his glucose is around 150s. Pt denies any hypoglycemia, polyuria, polydipsia anxiety1 Pt has chronic a nxiety and depression Pt takes prozac and valium and doing ok. Pt denies any suicidal or homicidal thought. pt denies any crying spells ED Pt doing ok with sildenafil pt denies any chest pain or prolonged erection or dizziness. Pt denies any testicular pain or nodule or atrophy lung nodule1 Pt has lung nodu le and he is seeing pulmonary and he will repeat chest cT later this month Pt denies any hemoptysis, worsening sob or cough pain Pt has chronic b ack and ankle pain. Pt denies any worsening pain, Pt denies any loss of bladder control. Pt failed NSAID and ultram. Pt takes percocet PRN for pain. Pt has 6/10 pain daily. Pt has mild neuropathy DM Pt takes januvia and his glucose is around 170s. Pt stopped taking metformin and amaryl?? Pt has proteinuria. Pt denies any UTI symptoms Pt takes losartan anxiety1 Pt has chronic a nxiety and depression Pt takes prozac and valium and doing ok. Pt denies any suicidal or homicidal thought. pt denies any crying spells ED Pt doing ok with sildenafil pt denies any chest pain or prolonged erection or dizziness pain Pt has chronic b ack and ankle pain. Pt denies any worsening pain, Pt denies any loss of bladder control. Pt failed NSAID and ultram. Pt takes percocet PRN for pain. Pt has 6/10 pain daily ED Pt c/o ED Pt wan ts to try viagra pt denies any chest pain with sex Pt denies any testicular pain or atrophy. or nodule HLP Pt has HLP Pt dom grier .Pt needs refill Pt had lab done by cardiology last week pt denies any myalgia pain Pt has chronic b ack and ankle pain. Pt denies any worsening pain, Pt denies any loss of bladder control. Pt failed NSAID and ultram. Pt takes percocet PRN for pain. Pt has 6/10 pain daily anxiety1 Pt has chronic a nxiety and depression Pt takes prozac and valium and doing ok. Pt denies any suicidal or homicidal thought. pt denies any crying spells DM Pt takes metform in and amaryl and his glucose is around 180s Pt denies any polyuria polydipsia. Pt has kelly with endo on August 14 chest1 Pt had another c hest CT done which showed patchy spot. Pt denies any sob. Pt is seeing pulmonary and he will repeat chest CT in 3 months aflutter Pt has persisten t aflutter Pt is seeing cardiology ,Pt denies any chest pain or palpitation or sob Pt failed cardioversion .Pt is on sotalol and metoprolol now. DM pt has DM. Pt ta kes metformin and amaryl and his glucose was 130s. Pt states that he still has not seen endo yet. Pt told me endo is [place] pain Pt has chronic b ack and ankle pain. Pt denies any worsening pain, Pt denies any loss of bladder control. Pt failed NSAID and ultram. Pt takes percocet PRN for pain. Pt has 6/10 pain daily anxiety1 Pt has chronic a nxiety and depression Pt takes prozac and valium and doing ok. Pt denies any suicidal or homicidal thought. pt denies any crying spells anxiety Pt has chronic a nxiety and depression Pt takes prozac and valium and doing ok. Pt denies any suicidal or homicidal thought. pt denies any crying spells aflutter Pt has aflutter Pt recently had cardioversion and he is doing ok He denies any chest pain or palpitation .He is off metoprolol, He is on sotalol and xarelto DM pt takes metform in and amaryl. His glucose is around 135. he has kelly with end next month lung nodule1 Pt has lung nodu le .Pt denies any sob or hemoptysis ,Pt needs lung CT soon. his pulmonary is ordering that. He still smoking pain Pt has chronic b ack and ankle pain. Pt denies any worsening pain, Pt denies any loss of bladder control. Pt failed NSAID and ultram. Pt takes percocet PRN for pain. Pt has 6/10 pain daily slep apnea1 Pt has sleep carrier blower ea but he could not tolerate cpap. Pt is waiting for oral device pain Pt has chronic b ack and ankle pain. Pt denies any worsening pain, Pt denies any loss of bladder control. Pt failed NSAID and ultram. Pt takes percocet PRN for pain. Pt has 6/10 pain daily anxiety1 Pt has chronic a nxiety and depression Pt takes prozac and valium and doing ok. Pt denies any suicidal or homicidal thought. pt denies any crying spells tachycardia1 Pt was referred to Dr. 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 Pt told me hydrogen plant operator will do cardioversion for him next week Pt has aflutter. pt is on xarelto, sotalol and metoprolol now. DM Pt has DM. Pt ta kes metformin and amaryl. His glucose is around 150s. Pt denies any polyuria, polydipsia anxiety1 Pt has chronic a nxiety and depression Pt takes prozac and valium and doing ok. Pt denies any suicidal or homicidal thought. pt denies any crying spells HLP Pt tolerating cr estor ok. Pt denies any myalgia lung Pt had LDCT done and he was told he has pneumonia and he was given abx. he denies any coughing or fever or sob. No nodule on lung CT DM Pt has DM. Pt ta kes metformin and amaryl and his glucose was 140. He has not heard from Dr Cain yet. pain Pt has chronic b ack and ankle pain. Pt denies any worsening pain, Pt denies any loss of bladder control. Pt failed NSAID and ultram. Pt takes percocet PRN for pain. Pt has 6/10 pain daily HLP Pt tolerating cr estor 20 mg ok. Pt denies any myalgia pain Pt has chronic b ack and ankle pain. Pt denies any worsening pain, Pt denies any loss of bladder control. Pt failed NSAID and ultram. Pt takes percocet PRN for pain. Pt has 6/10 pain daily anxiety1 Pt has chronic a nxiety and depression Pt takes prozac and valium and doing ok. Pt denies any suicidal or homicidal thought. pt denies any crying spells DM Pt has DM. Pt ta kes metformin and higher dose of amaryl and his glucose is around 140 now. Pt denies any polyuria, polydipsia. Dr. Cotter does not take his insurance pain Pt has chronic b ack and ankle pain. Pt denies any worsening pain, Pt denies any loss of bladder control. Pt failed NSAID and ultram. Pt takes percocet PRN for pain. Pt has 6/10 pain daily anxiety1 Pt has chronic a nxiety and depression Pt takes prozac and valium and doing ok. Pt denies any suicidal or homicidal thought. pt denies any crying spells LFT Pt has fatty pamela er. Pt denies any abd pain or jaundice . HLP Patient has hype rlipidemia. Patient take Crestor. His cholesterol is getting worse. Patient has been staying home due to virus and has been eating poorly. Patient denies any myalgia. DM Pt has DM. Pt ta kes metformin and amaryl and his glucose is around 200. Pt developed some proteinuria. Pt notices mild polyuria, polydipsia lately anxiety1 Pt has chronic a nxiety and depression Pt takes prozac and valium and doing ok. Pt denies any suicidal or homicidal thought. pt denies any crying spells pain Pt has chronic b ack and ankle pain. Pt denies any worsening pain, Pt denies any loss of bladder control. Pt failed NSAID and ultram. Pt takes percocet PRN for pain. Pt has 6/10 pain daily pain Pt has chronic b ack and ankle pain. Pt denies any worsening pain, Pt denies any loss of bladder control. Pt failed NSAID and ultram. Pt takes percocet PRN for pain. Pt has 6/10 pain daily anxiety1 Pt has chronic a nxiety and depression Pt takes prozac and valium and doing ok. Pt denies any suicidal or homicidal thought. pt denies any crying spells GERD1 Pt has chronic G ERd Pt takes omeprazole daily. Pt failed pepcid Pt has daily GERD without omeprazole pain Pt has chronic b ack and ankle pain. Pt denies any worsening pain, Pt denies any loss of bladder control. Pt failed NSAID and ultram. Pt takes percocet PRN for pain. Pt has 6/10 pain daily anxiety1 Pt has chronic a nxiety and depression Pt takes prozac and valium and doing ok. Pt denies any suicidal or homicidal thought. pt denies any crying spells HLP Pt has HLP .Pt t akmick crestor. Pt denies any myalgia. Pt still has not done lab yet sleep apnea1 Pt states that gavin arizmendi could not tolerate cpap so he is not using it. He states that dentist is fitting him a mouth piece but he has not gotten it yet. anxiety1 Pt has chronic a nxiety and depression Pt takes prozac and valium and doing ok. Pt denies any suicidal or homicidal thought. pt denies any crying spells chronic pain1 Pt has chronic b ack and ankle pain. Pt denies any worsening pain, Pt denies any loss of bladder control. Pt failed NSAID and ultram. Pt takes percocet PRN for pain. Pt has 6/10 pain daily anxiety1 Pt has chronic a nxiety and depression Pt takes prozac and valium and doing ok. Pt denies any suicidal or homicidal thought. pt denies any crying spells pain Pt has chronic b ack and ankle pain. Pt denies any worsening pain, Pt denies any loss of bladder control. Pt failed NSAID and ultram. Pt takes percocet PRN for pain. Pt has 6/10 pain daily pain Pt has chronic b ack and ankle pain. Pt denies any worsening pain, Pt denies any loss of bladder control. Pt failed NSAID and ultram. Pt takes percocet PRN for pain. anxiety1 Pt has chronic a nxiety and depression Pt takes prozac and valium and doing ok. Pt denies any suicidal or homicidal thought. pt denies any crying spells tobacco1 Pt has 32 pack y ear tobacco. Pt quit smoking 7 years ago Pt denies any chest pain or hemoptysis pt sees pulmonary Pt has COPD PHysical Pt needs annual physical. Pt has anxiety and depression. Pt takes prozac and valium and doing ok pt denies any suicidal or homicidal thought. Pt has HLP ,Pt takes crestor and doing ok. Pt denies any myalgia. Pt has asthma/COPD and he sees pulmonary and he takes symbicort. Pt rarely uses albuterol. Pt has HTn. Pt takes losartan. His BP is stable. Pt has metformin and amaryl Pt states that his glucose is 150s. Pt denies any neuropathy symptoms. Pt has GERD. Pt takes omeprazole and doing ok. Pt had colonoscopy which showed colon polyp recently and he was told to repeat in 3 years Pt denies any GI issue pain1 Pt has chronic b ack and ankle pain. Pt denies any worsening pain, Pt denies any loss of bladder control. Pt failed NSAID and ultram. Pt takes percocet PRN for pain. anxiety1 Pt has chronic a nxiety and depression Pt takes prozac and valium and doing ok. Pt denies any suicidal or homicidal thought. pt denies any crying spells polyp1 Pt had another c olonoscopy recently and was found to have another big' polyp. Pt was told to repeat colonoscopy in 3 years .Pt denies any bleeding Pt denies any lower Gi issue DM Pt has DM, Pt ta kes metformin and amaryl. His BG is around 150s. Pt denies any polyuria, polydipsia. Pt denies any neuropathy symptoms chronic pain1 Pt has chronic b ack and ankle pain. Pt denies any worsening pain, Pt denies any loss of bladder control. Pt failed NSAID and ultram. Pt takes percocet PRN for pain. anxiety1 Pt has chronic a nxiety and depression Pt takes prozac and valium and doing ok. Pt denies any suicidal or homicidal thought. pt denies any crying spells COPD1 Pt has COPD/asth ma. pt recently seen pulmonary and was changed from anoro to symbicort and also another inhaler but insurance does not cover the other one Pt doing much better with symbicort. Pt uses albuterol once per day on average. Pt no longer smoking chronic pain Pt has chronic b ack and ankle pain Pt denies any worsening pain Pt denies any loss of bladder control. Pt takes opioid for pain control Pt failed NSAID and ultram. Pt also failed injections anxiety1 Pt has anxiety a nd depression. Pt takes prozac and valium. pt denies any suicidal or homicidal thought. Pt denies any crying spells polyp1 Pt has colon reece yp pt just seen Dr. Taylor and he will have colonoscopy next month sleep apnea1 Pt has sleep carrier blower ea Pt unable to tolerate the CPAP Pt keeps ripping his face mask off. pain1 Pt has chronic b ack and ankle pain Pt denies any worsening pain Pt denies any loss of bladder control. Pt takes opioid for pain control Pt failed NSAID and ultram anxiety1 Pt has anxiety a nd depression. Pt takes prozac and valium. pt denies any suicidal or homicidal thought. Pt denies any crying spells colon polyp1 Pt has history o f tubular adenoma and also hyperplastic polyp Pt denies any lower GI issue Pt denies any bleeding Pt is noncompliant wit colonoscopy. chronic pain Pt has chronic b ack and ankle pain Pt denies any worsening pain Pt denies any loss of bladder control. Pt takes opioid for pain control Pt failed NSAID and ultram anxiety1 Pt has anxiety a nd depression. Pt takes prozac and valium. pt denies any suicidal or homicidal thought. Pt denies any crying spells HTN Pt has chronic H TN. Pt takes losartan and his BP is ok COPD1 Pt has COPD. Pt just seen his pulmonary and he is on Anoro now. Pt is off symbicort pt is working with pulmonary to get his sleep apnea equipment. Pt denies any hemoptysis, worsening sob or cough chronic pain1 Pt has chronic b ack and ankle pain Pt denies any worsening pain Pt denies any loss of bladder control. Pt takes opioid for pain control Pt failed NSAID and ultram DM Pt has DM Pt levon es metformin and amaryl. His BG is around 130s .Pt denies any polyuria, polydipsia. pt has been cutting down sweet and carb anxiety1 Pt has anxiety a nd depression. Pt takes prozac and valium. pt denies any suicidal or homicidal thought. Pt denies any crying spells chronic pain Pt has chronic b ack and ankle pain. Pt takes pain meds. Pt failed NSAID and ultram. Pt has chronic right ankle pain s/p fracture and surgery. pt denies any worsening pain anxiety1 Pt has anxiety a nd depression. Pt takes prozac and valium and doing ok. Pt denies any suicidal or homicidal thought HLP Pt has HLP. Pt t pavithra crestveronica and lipid profile normal. pt notices some leg cramp with crestor DM Pt has Dm. pt ta kes metformin and amaryl. His A1c is slightly worse Pt denies any polyuria, polyuria, Pt states that his BG is around 130s. chronic pain1 Pt has chronic b ack and ankle pain. Pt takes pain meds. Pt failed NSAID and ultram anxiety1 Pt has anxiety a nd depression. Pt takes prozac and valium and doing ok. Pt denies any suicidal or homicidal thought GERD1 Pt failed zantac Pt has daily GED without omeprazole. pain Pt has low back and ankle pain and ankle pain, Pt is seeing Dr. Pandya now Pt denies any injury Pt c/o flaring up of right ankle pain lately pt denies any redness or warmth. Pt notices mild swelling DM Pt takes metform in and amaryl. Pt states that his BG is around 130s. Pt denies any polyuria, polydipsia HLP Pt has HLP. Pt t pavithra creshannon. Pt denies any myalgia COPD1 Pt has COPD. Pt denies any hemoptysis, sob or cough. Pt needs symbicort refilled. His kelly with pulmonary is in November,. Pt had to change MD due to insurance issue. Pt rarely uses ventolin. pt has not used ventolin for over one month anxiety1 Pt has anxiety a nd depression Pt takes prozac and valium and doing ok. Pt denies any suicidal or homicidal thought anxiety1 Pt has anxiety a nd depression. Pt takes prozac and valium and doing ok Pt denies any suicidal or homicidal thought chronic pain1 Pt has chronic k nee and back pain Pt denies any worsening pain. Pt denies any loss of bladder control. Pt failed NSAID and ultram cough1 Pt c/o acute pro ductive coughing since last Thursday. Pt c/o green phlegm, and chest congestion. Pt denies any fever. Pt denies any recent travel or bedrest. Pt denies any sinus symptoms or sore throat. Pt denies any chest pain or sob. Pt denies any calf pain or any recent travel. chronic pain Pt has chronic b ack and knee pain. Pt seen ortho recently and had knee injections and he feels better. Pt takes percocet PRn for pain. Pt failed NSAID anxiety1 Pt has chronic a nxiety and depression. Pt takes prozac and valium and doing ok. Pt denies any suicidal or homicidal thought chronic pain1 Pt has chronic b ack and knee pain pt takes percocet PRN for pain Pt denies any worsening pain pt denies any loss of bladder control. anxiety1 Pt has chronic a nxiety and depression. Pt takes prozac and valium and doing ok. Pt denies any suicidal o r homicidal thought. Pt denies any crying spells HLP Pt is tolerating crestor 20 mg ok. Pt denies any myalgia knee pain1 Pt has meniscus tear left knee. pt needs to see ortho. Her old ortho does not take his insurance anymore. Pt received injection in the past. pt denies any redness or swelling .Pt has constant left knee pain PHysical Pt needs annual physical. pt has chronic back and knee pain. Pt takes percocet PRN for pain and doing ok. Pt failed NSAID and ultram. Pt has chronic anxiety and depression. Pt takes prozac and valium and doing ok. pt denies any suicidal or homicidal thought. Pt denies any crying spells. Pt has HLP. Pt takes crestor. His lipid profile is slightly high. Pt has fatty liver. Pt denies any abdominal pain. Pt has GERD. Pt takes omeprazole and doing ok. Pt also has DM and HTN. Pt takes metformin and amaryl. His BG is around 150s. His BP is stable. Pt denies any other complaints HLP Pt has HLP. Pt t pavithra marvel. pt states that he notices some myalgia around both of his legs now which he feels the same with previous statins. Pt is working on low fat and low carb diet chronic pain Pt has chronic l ow back and knee and ankle pain. pt denies any worsening pain. Pt denies any loss of bladder control. Pt failed NSAID and ultram anxiety1 Pt has chronic a nxiety and depression pt takes prozac and valium and doing ok. Pt denies any suicidal or homicidal thought GERD1 Pt has chronic G ERD Pt takes omeprazole. Pt doing ok. chronic pain Pt has chronic b ack and knee and ankle pain Pt denies any worsening pain. Pt denies any loss of bladder control. Pt is seeing ortho for knee injections Pt failed NSAID and ultram anxiety1 Pt has chronic a nxiety and depression. Pt takes prozac and valium and doing ok. Pt denies any suicidal or homicidal thought toothpain1 Pt c/o left uppe r tooth pain for several weeks Pt has appointment with dentist today. Pt denies any facial swelling chronic pain Pt has chronic l ow back and also knee and ankle pain. Pt takes percocet PRn for pain. Pt failed NSAID and ultram. pt failed injections. Pt denies any loss of bladder control anxiety1 Pt has chronic a nxiety and depression Pt takes prozac and valium and doing ok. Pt denies any suicidal or homicdial thought. Pt denies any crying spells HLP pt tolerating cr estor ok. pt denies any myalgia. Pt is on low fat and low carb diet HTN Pt takes losarta n and his BP is borderline today. Pt needs refill sleep apnea1 Pt has sleep carrier blower ea. Pt uses CPAP nightly. Pt uses at least 5 hours. Pt feels less fatigue and less snoring DM Pt has DM pt levon es metformin and amaryl now. his BG is around 130s His A1c is better. Pt denies hypoglycemia HLP Pt has HLP. Pt t akes zocor but lipid profile is still high Pt is on poor diet Pt is not very active proteinuria1 Pt has mild prot einuria. Pt is drinking muscle milk every morning instead of regular breakfast. COPD1 Pt has COPD. His chest x ray is benign which showed mild COPD. Pt takes Symbicort and duoneb and albuterol PRn> pt denies any acute sob pain1 Pt has chronic l ow back and ankle pain and knee pain. Pt failed NSAID and ultram Pt is on percocet for pain and doing ok chronic pain Pt has chronic b ack and knee and ankle pain Pt denies any worsening pain Pt denies any loss of bladder control. Pt has 8/10 pain. anxiety1 Pt has chronic a nxiety and depression Pt takes prozac and valium and doing ok Pt denies any suicidal or homicidal thought. Pt denies any crying spells DM Pt has been taki ng metformin and amaryl. His BG is average around 120s. Pt denies any polyuria, polydipsia COPD1 Pt has COPD. Pt sees pulmonary. pt uses symbicort and duoneb BID. Pt notices that he notices more sob recently, Pt has some productive coughing. Pt denies any chest pain Pt does use CPAP for sleep apnea. pt denies any acute sob. Pt states that zpak did help last month anxiety1 Pt has chronic a nxiety and depression Pt takes prozac and valium and doing ok Pt denies any suicidal or homicidal thought HLP Pt takes zocor P t denies any myalgia chronic pain1 Pt has chronic b ack and knee pain. Pt just had MRi done by ortho and he has meniscus tear and he also is seeing ortho for hand and wrist pain. Pt may need surgery cough1 pt c/o coughing up green phlegm for one week Pt denies any chest pain or sob. Pt denies any fever or other URI symptoms anxiety1 Pt has chronic a nxiety and depression. Pt takes prozac and valium and doing ok. pt denies any suicidal or homicidal thought pt denies any crying spells chronic pain1 Pt has chronic b ack and knee and ankle pain. Pt has DDD Pt has history of ankle surgery Pt denies any worsening pain hand pain1 Pt c/o extensor pain around right thumb for one month Pt denies any injury. Pt feels right hand is swelling Pt denies any weakness. Pt feels numbness around right thumb. Pt denies any injury HLP Pt has HLP Pt ta devyn zocor. PT denies any myalgia anxiety1 Pt has chronic a nxiety and depression. Pt takes prozac and valium and doing ok. Pt denies any suicidal or homicidal thought. Pt denies any crying spells GERD1 Pt has GERD. Pt takes omeprazole and doing ok. Pt denies any GERD or abd pain. Pt failed zantac. Pt denies any abdominal pain chronic pain Pt has chronic b ack and knee and ankle pain. Pt takes percocet for pain. Pt failed NSAID and ultram chronic pain Pt has chronic l ow back and knee pain. Pt denies any worsening pain. Pt denies any loss of bladder control. Pt has chronic right ankle pain post fracture long time ago. Pt takes percocet for pain anxiety1 Pt has chronic a nxiety and depression. Pt takes prozac and valium and doing ok Pt denies any suicidal or homicdial thought. Pt denies any crying spells. KCL Pt had repeat BM P and his KCL is ok now obesity1 Pt is obese. Pt has appointment with bariatric seminar at end of this month Pt is scared of the procedure. DM Pt has DM. Pt ta kejaclyn metformin. Pt has not been taking amaryl for two months? Pt told me pharmacy has not been giving him the amaryl His A1c went up to 8.0. Pt denies any polyuria, polydipsia. LFT Pt has mild high LFT. Pt denies any abd pain. Pt denies any juandice kcl Pt has mild bord carlos KCL. Pt deneis any chest pain chronic pain1 Pt has chronic l ow back and right knee and ankle pain. Pt takes percocet. Pt denies any worsening pain PHysical Pt needs annual physical. Pt has chronic anxiety and depression. Pt takes prozac and valium and doing ok. pt deneis any suicidal or homicdial thought. Pt has DM. Pt takes metformin and also amaryl and his BG is around 140s. Pt also has COPD. Pt in on symbicort and venotlin. Pt is off incruse from pulmonary due to asthma component. Pt also has HTn. pt takes losartan and his BP is stable. Pt also has HLP. Pt denies any myalgia. Pt recently went to [facility] for allergy reaction to amoxil. Pt wants some benadryl PRN. Pt deneis any rash or any breathing trouble now Pt denies any other complaints. chronic pain Pt has chornic b ack and ankle pain. pt has kneep ain Pt failed NSAID pt takes percocet PRN for pain and doing ok Pt foreign any worsening pain anxiety1 Pt has chronic a nxiety and depression. Pt takes prozac and valium and doing ok Pt denies any suicidal or homicidal thought Pt denies any crying spells HLP Pt has HLP Pt ta devyn zocor. Pt deneis any myalgia GERD1 Pt has GERD Pt t akes omerpzole and doing ok. Pt deneis any abd pain back pain1 Pt has chronic l ow back and ankle pain. pt just seen ortho and was told nothing can be done for ankle pain. Pt is taking percocet for pain now. Pt failed NSAID and pain management Anxiety1 Pt has chronic a nxiety and depression. Pt takes prozac and valium and doing ok. Pt denies any suicidal or homicidal thought HTN Pt takes losarta n and his BP is stable. Pt denies any priscilla pain COPD1 Pt has COPD and also sleep apnea. pt takes symbicort and incruse and he rarely uses albuterol anymore. Pt also uses CPAP and doing ok. Pt no longer smoking DM Pt has DM. pt ta kes metformin and amaryl. Pt states that his BG is around 130s. Pt denies any polyuria, polydipsia. cough1 Pt c/o coughing up green phlegm for severasl days. Pt denies any fever, chill. Pt denies any sob anxiety1 Pt has chronic a nxiety and depression. Pt takes prozac and valium and doing ok Pt denies any suicidal or homicdial thought .Pt denies any cyring spells chronic pain1 Pt has chronic a nkle and low back pain. Pt has history of right ankle surgery. Pt failed NSAID and pain injections Pt has 8/10 pain daily .Pt denies any sciatica or any loss of bladder control HLP Pt has HLP. Pt t akmick zocor. Pt denies any myalgia. Pt is on low fat and low carb diet COPD1 Pt has COPD. Pt takes symbicort and also ventolin PRN Pt unable to tolerate duoneb. Pt wants to use regular albuterol for now Pt uses neb 2 hcata per day Pt denies any aute sob HLP Pt has HLP Pt ta kes pravastatin but his lipid profile is etting slighlty worse. Pt is trying low fat diet DM Pt has DM. Pt ta kes metformin and amaryl but his glucose is worse and his A1c is worse. Pt denies any polyuria, polydipsia. Pt denies any neuropathy GERD1 Pt has GERD pt t akes omeprazole and doing ok pt denies any ad pain or GERd on meds. anxiety1 Pt has chronic a nxiety and dperession and low back and ankle pain Pt takes prozac and valiuma nd percocoet and doing ok. physical Pt needs annual physical. Pt has HTN and chronic low back pain. Pt failed pain management. Pt takes losartan and his BP is stable. pt has DM. Pt take metfomrin and amaryl. His BG is around 130s. Pt denies any polyuria, polydipsia, Pt denies any hypglycemia. Pt also has GERD and he takes omerpzole. Pt deneis any other ocmplaints chronic pain1 Pt has chronic l ow back and ankle pain Pt takes percocet for pain PRN and doign ok. Pt denie any worsening pain. Pt failed injection anxiety1 Pt has chronic a nxiety and depression. Pt takes prozac and valium and doing ok. Pt denies any suicidal or homicidal thought. Pt denies any crying spells GERD1 Pt has GERD. Pt takes omerpzoel and doign ok. Pt denies any abd pain. Pt denies any nauea colon polyp1 Pt has colon reece yp. Pt needs to repeat colonoscpy next year. Pt denies any GI bleeding anxiety1 Pt has chronic a nxiety and depression Pt takes provzac and valium and doing ok. Pt denies any suicidal or homcidial thought LBP Pt has chronic l ow back pain. Pt denies any worsening pain Pt denies any loss of bowel or bladder control Pt failed injection sleep apnea1 Pt has sleep carrier blower ea. Pt is on CPAP now. Pt is changing insurance to [employer] soon. Pt has COPD/asthma. Pt sees pulmonary Pt uses symbicort, flonase and ventolin Pt uses ventolin about once daily Pt denies any acute sob HTN Pt has HTN. Pt t akes losartan and his BP is stalbe. Pt denies any chest pain or headache chronic pain Pt has chronic l ow back pain. Pt deneis any worsening pain. Pt is getting injections for his back pain but not working. pt takes opoioid for pain control anxiety1 Pt has chronic a nxiety and depression. Pt takes prozac and valium and doing ok. Pt denies any suicidal or homicdial thought. Pt denies any crying spells back pain1 Pt has chronic l ow back pain. Pt denie any loss of bladder control. Pt denies any worsening pain. Pt failed injection. Pt failed NSAID. Pt takes percocet PRN for pain anxiety1 Pt has chronic a nxiety and depression Pt takes prozac and valium and doing ok Pt denies any suicidal or homicidal thought. Pt denies any cyring spells GERD1 Pt has chronic g astritis Pt failed zantac. Pt states that he has GERD without omeprazole. His insurance denied it obeisty1 Pt is morbidly o bese. Pt canot afford to go to [place] for bariatric surgery HLP Pt has HLP Pt ta kes pravastatin and he denies any myalgia. Pt is trying low fat and low carb diet chronic pain1 Pt has chronic b ack and knee pain. Pt failed pain management and injections Pt takes percocet for pain PRN and doing ok. Pt denies any loss of bladder control. Pt denies any worsening pain anxiety1 PT has chronic a nxiety and depression. Pt takes prozac and valium and doing ok. Pt denies any suicidal or homicidal thought Pt denies any cyring spells DM Pt has DM. Pt ta kes metformin and amaryl. His BG is around 120s. Pt denies any polyuria, polyuria anxiety1 Pt has chronic a nxiety and depression. Pt takes prozac and valium and doing ok. Pt denies any suicidal or homicidal thought. Pt denies any crying spells chronic pain1 Pt has chronic b ack and ankle pain. Pt takes percocet for pain and doing ok Pt denies any worsenign pain Pt failed pain management. hearing loss1 Pt is getting he aring aid from ENT. obesity1 Pt is morbidly o bese. Pt needs weight loss. Pt told me he could not make it to the bariatric sugery due to distance from his own hearing loss1 Pt has bilatearl high pitch hearing loss. Pt is good candidate for hearing aid. Pt denies any ear trauma. Pt has chronic exposure to loud nosie in the past Pt denies any ear pain GERD1 Pt has chronic G ERD Pt failed zantac. Pt takes omeprazole and doing ok Pt denies any abd pain or GERD chornic pain1 Pt has chornic l ow back pain. Pt denies any worsenign pain. Pt has 7/10 pain Pt failed pain management. Pt denies any sciatica or any loss of bladder control sleep apnea1 Pt has sleep carrier blower ea. Pt uses CPAP nightly. Pt doing ok. Pt feels less fatigue anxiety1 Pt has chronic a nxiety and depression. Pt takes prozac andvalium and doing ok pt denies any sucidal or homicdial thought chronic pain1 Pt has chronic b ack and knee pain. Pt failed injection. Pt is not taking neurontin anymore since not working. Pt takes percocet for pain. Pt has 7/10 pain daily anxiety1 Pt has chronic a nxiety and depression. Pt takes prozac and valium and doing ok. Pt denies any suicidal or homicidal thought. Pt denies any cyring spells HLP Pt has HLP. Pt t dylan pravastatin. Pt denies any myalgia. Pt is on low fat and low carb diet chornic pain Pt has chronic b ack and ankle pain. Pt failed pain management Pt takes percocet for pain and doing ok. Pt denies any loss of bowel or bladder control anxiety1 Pt has chronic a nxiety and depression. Pt takes prozac and valium and doing ok. Pt denies any suicidal or homicidal thought obesity1 Pt is morbidly o bese His BMI is over 40 Pt has difficulty losing weight hearing loss1 Pt c/o right ear hearing loss for several month. Pt denies any pain DM Pt has DM. pt ta kes metformin and amaryl. Pt states that his BG is around 120s. Pt denies any polyuria, polydipsia. anxiety1 Pt has chronic a nxiety and depression. Pt takes prozac and valium. Pt denies any suicidal or homicidal thought. Pt denies any crying spells GERD1 Pt has daily JUS D. Pt states that without omeprazole, he has daily GERD. Pt could not tolerate NSAID> Pt states that insuance only covers omeprazole 20 tablet. back pain1 Pt has chronic l ow back pain. Pt denies any worsening pain, any loss of bowel or bladder control. Pt states that percocet is better for pain control. Pt states that he feels that his back pain is better with percocet and without pain injections chronic pain1 Pt has chronic s evere low back pain. Pt has 8/10 pain. Pt is on norco but not helping. Pt has been seeing pain management and tried and failed neurontin, diclofenac, mobic and injection x 3 .Pt states that his pain is poorly controlled. anxiety1 Pt has chronic a nxiety and depression. Pt takes prozac and valium. Pt deneis any suicidla or homicidal thought. HLP Pt has HLP. Pt t akes pravastatin. Pt deneis any myalgia. Pt is on low fat and low carb diet leg numbness1 Pt has neuropath y both legs. Pt has numbness. Pt failed neurontin. Pt has appointment for NCS next month from pain management DM Pt takes metform in and amaryl and his BG is around 100s. His A1c is normal now. He is doing well. Pt denies any hypoglycemia HLP Pt takes pravast atin and his lipid profile is normal along with diet and exercise chronic pain1 Pt has chronic l ow back and ankle pain. Pt failed injection. Pt is not surgical candidate. Pt takes norco for decent pain control. Pt has 7/10 pain. anxiety1 Pt has chronic a nxiety and depression. Pt takes prozac and valium. Pt denies any suicidal or homicidal thought. Pt denies any crying spells PHysical Pt needs annual physical. Pt has HTN and he takes losartan and his BP is stable. Pt has DM and he takes metformin and amaryl and his BG is around 100. pt denies any numbness. Pt has HLP and he takes pravastatin. Pt has chronic anxiety and depression and she takes prozac and valium and doing ok. Pt denies any suicidal or homicidal thought. Pt has chronic severe low back and ankle pain Pt has been getting back injections and his pain is 10 fold worse. Pt has right sciatica but no numnbess. Pt has been taking diclofenac from pain management which is bothering his stomach again. Pt denies any other complaints GERD1 Pt has chronic G ERD Pt recently started on mobic by pain management and he had worsening GERD symptoms. Pt called pain managemnet and was told to stop mobic and his GERD resolved. Pt is on zantac. Pt denies any abd apin chronic pain1 Pt has chronic l ow back and knee pain. Pt went to see neurosurgery and was told no surgery and referred him to pain management with water therapy. Pt davina any worsening pain anxiety1 Pt has chronic a nxiety and depression. pt takes prozac and valium and doing ok. Pt denies any suicidal or homicdial thought .Pt denies any crying spells HLP Pt tolerating pr avastatin ok. Pt has not had any cramp HLP Pt has not been taking zocor on his own. His leg cramp resolved. GERD1 Pt insurance carnes s not approve omeprazole. Pt does not have chávez Pt has mild gERd. NO abd pain chronic pain Pt has chronic b ack and ankle pain. Pt is obese. Pt denies any worsening pain anxiety1 Pt has chronic a nxiety and depression. Pt takes prozac and valium and doing ok Pt denie any suicidal or homicdial thought anxiety1 Pt has chronic a nxiety and depression. Pt takes prozac and valium. Pt denies any suicidal or homicdial thought. Pt denies any crying spells DM Pt takes metform i and amaryl. His BG is around 120. Pt keeps gaining weight due to inactivity and poor diet. pt denies any hypoglycemia back pain1 Pt has chronic l ow back pain. Pt denies any loss of bowel or bladder control. Pt denies any worsening pain. Pt has knee pain also HLP Pt has been taki ng zocor 40 mg daily for 4 weeks. Pt notices mild cramp around leg and arm. Pt denies any severe myalgia. Pt is trying better diet HLP Pt has HLP Pt ta kes zocor Pt denies any myalgia. DM Pt stats that hi s BG is around 130 on average. Pt is noncompliant with diet and exercise. Pt had DM education class already .pt states that he just has hard time trying to be on low carb diet. Pt denies any polyruia, polyuria. Pt eats a lot of crackers, cheese it. chronic pain1 Pt has chronic l ow bakc pain pt denies any worsenign pain anxiety1 Pt has chronic a nxiety and depression. Pt takes prozac and valium and doign ok. Pt denies any suicidal or homicdialt hought DM Pt takes metform in and amaryl. His BG is around 120s. Pt denies any numnbess. pt denies any polyuria, polydipsia HLP Pt takes zocor. Pt denies any myalgia. pt is on low fat and low carb diet chronic apin Pt has chronic b ack and ankle pain. Pt has appointemtn with neurosurgery in . Pt denies any worsening pain. Pt denies any loss ofb owel or bladder control anxiety1 Pt has chronic a nxiety and depression Pt takes prozac and valium and doing ok. Pt denies any suicidal or homicdial thought GERD1 Pt is on 20 mg o meprazole and denies any GERD symptoms anxiety1 Pt has chronican xiety and depression. Pt takes prozac and valium and doing ok. Pt denies any suicidal or homicdial thought. pt denies anycrying spells HLP Pt taks zocor. P t denies any myalgia. Pt is on low fat and low carb diet GERD1 Pharmacy told hi m insuance only cover 40 mg omeprazole, not 20 mg?? Pt was given 40 mg daily. Pt denies any gERD or abd pain chronic pain Pt has chronic l ow back and ankle pain. Pt denies any worsenign pain. Pt denies any loss of owel or bladder control GERD1 Pt has GERD. Pt has been taking omeprazole 40 mg daily. Pt denies any acute abd pain or any GERD symptoms. Pt does not have chávez esophagus. Pt denies any active issue back pain1 Pt has chronic l ow back pain. Pt c/o sciatiac. Pt denies any loss of bowel or bladder control. Pt c/o numnbes both legs. Pt states that his low back pain is getting worse. Pt has 7/10 sharp and dull low abck pain HTN Pt takes losarta n for HTN. His PB is stable. Anxiety1 Pt has chronic a nxiety and depression. Pt takes prozac, valium. Pt feels more anxious due to his low back pain. pt denies any suicidal or homicidal thought chronic pain1 Pt has chornic l ow back and knee pain. Pt sees neurosrugery soon. Pt deneis any worsenign pain DM1 Pt takes metform in and amaryl. His bG is around 100. Pt denies any hypoglycemia. a1c is only 5.8 anxiety1 Pt has chronic a nxiety and depression Pt takes prozac and valium and doing ok Pt denies any suicidal or homcidial thougth. Pt denies any crying spells DM1 Pt has DM Pt levon es metformin and amaryl. His BG is around 110s now. Pt is doing DM education class and eating better now. Pt denies any numnbess chronic pain1 Pt has chronic l ow back and right ankle pain. Pt denies any loss of bowel or bladder control. Pt has right sciatica Pt notices right upper leg numbness Pt has appointment with neurosurgery 08/29. Anxiety1 Pt has chronic a nxiety and depression Pt takes prozac and valum and doing ok Pt denies any suicidal thought. Pt denies any crying spellss Pt denies any feeling of hopelessness. sleep apnea1 Pt has sleep carrier blower ea and COPD Pt uses CPAP nightly and he uses symbicort and albuterol Pt uses albuterol once per week. Pt does not smoke Pt sees pulmonary MD DM1 Pt has DM. Pt ta kes metformin and amaryl. His BG is 104. His A1c is only 5.8. Pt denies claribel hypoglcyemia HLP1 Pt takes zocor a nd his lipid profie is normal now. Pt denies any myalgia. Pt is doing better on diet also back pain1 Pt has chronic l ow back pain with right scaiatca and right leg numbness. Pt had MRi done which showes arthritis and stenosis. pt denies any loss of bowel or bladder control anxizety1 Pt has chronic a nxiety and depression. Pt atkes prozac and valium. Pt denies any suicidal thought or any crying spells. chronic pain1 Pt has chronic r ight ankle pain. Pt had history of ankle surgery. Pt is seeing ortho. Pt was sent to orthotic place and will get special ankle brace and boot. Pt has chornic low back pain Pt c/o right sciatica and right leg numnbess. Pt has 8/10 sharp pain all the time. Pt denies any loss of owel ro bladder control DM1 Pt has been taki ng metformin and amaryl 2 mg daily. His BG is around 130s which is better than last month. Pt will start DM education class next week. Pt is taking losartan daily anxiety1 Pt has chronic a nxiety and depressin. Pt takes prozac and valium. Pt denies any suicidal thought Pt deneis any crying spells or feeling of hopelessness. Pt doing ok with current meds. HLP1 Pt has been taki ng zocor. Pt denies any myalgia. Pt is on low fat and low carb diet DM Pt takes metform in and amaryl. His BG is around 145 and sometimes 180s. Pt denies any hypoglcyemia. Pt denies any numbness anxiety Additional infor mation: Pt has chronic anxiety and depression. Ptatkes prozac and valium and doing ok. Pt denies any suicidasl or feeling of hopelessness. back pain Additional infor mation: Pt has chronic LBP and ankle pain. Pt c/o right scaitica Pt has some right leg numbness. Pt denies any worsening pain. DM Pt states that o n average his BG is around 150s. Pt takes metformin only. He denies any hypogclyemia. Pt denies any numbness HLP Pt has mild HLP. Pt is not on any diet chronic pain Pt has chronic b ack and ankle pain. Pt denies any worsening pain. Pt denies any scaitica or any num bness. No loss of bowel or bladder control GERDR No chávez. Pt i s on 40 mg omperzole and doing ok. Pt had large colon polyp s/p removal Physical Pt needs annual physical. Pt had EGD and colonoscopy done which showed polyp and ? johanna. Pt is on omerpzole but still has GErD. Pt denies any abd apin. Pt has chornic right li and back pain. Pt takes norco and doing ok. Pt has HTN and his BP i ok. Pt denies any othe complaints ankle pain Location: ankle. Additional information: Pt has chronic right ankle pain. Pt had ankle surgery. Pt is seeing ortho and doing PT now. Pt states that his pain is getting worse Pt states that he needs maybe one more pain pill per day. anxiety Additional infor mation: pt has chronic anxiety and depression. pt takes prozac and valium. Pt doing ok. Pt denies any suicidal thought. ankle pain Location: ankle. Additional information: Pt has chornic right ankle pain. Pt seen ortho and will start PT. no surgery per pt. anxiety Additional infor mation: Pt has chronic anxiety and depression. Pt takes prozac and valium and is doing ok. Pt denies any suicidal thought. HTN Pt takes losarta n and his BP is stable Instructions Date Instruction Additional Infor mation Special diet education Related t o Body mass index (BMI) 40.0-44.9, adult Increase physical activity Relat ed to Chronic pain syndrome Weight management Related to Chr onic pain syndrome Weight management Related to Chr onic pain syndrome Weight management Related to Chr onic pain syndrome Special diet education Related t o Body mass index (BMI) 40.0-44.9, adult Increase physical activity Relat ed to Chronic pain syndrome Special diet education Related t o Body mass index (BMI) 40.0-44.9, adult Increase physical activity Relat ed to Chronic pain syndrome Weight management Related to Chr onic pain syndrome Special diet education Related t o Body mass index (BMI) 40.0-44.9, adult Increase physical activity Relat ed to Emphysema Weight management Related to Emp hysema Special diet education Related t o Body mass index (BMI) 40.0-44.9, adult Increase physical activity. Rela desiree to Type 2 diabetes mellitus without complications Stop smoking. Related to Type 2 diabetes mellitus without complications Weight management Related to Chr onic pain syndrome Special diet education Related t o Body mass index (BMI) 40.0-44.9, adult Increase physical activity Relat ed to Chronic pain syndrome Special diet education Related t o Body mass index (BMI) 40.0-44.9, adult Increase physical activity Relat ed to Generalized anxiety disorder Weight management Related to Gen eralized anxiety disorder Special diet education Related t o Body mass index (BMI) 40.0-44.9, adult Increase physical activity Relat ed to Generalized anxiety disorder Weight management Related to Gen eralized anxiety disorder Special diet education Related t o Body mass index (BMI) 40.0-44.9, adult Increase physical activity Relat ed to Chronic pain syndrome Weight management Related to Chr onic pain syndrome Special diet education Related t o Body mass index (BMI) 40.0-44.9, adult Increase physical activity Relat ed to Acute bronchitis Weight management Related to Acu te bronchitis Special diet education Related t o Body mass index (BMI) 40.0-44.9, adult Increase physical activity Relat ed to Generalized anxiety disorder Weight management Related to Gen eralized anxiety disorder Special diet education Related t o Body mass index (BMI) 40.0-44.9, adult Increase physical activity Relat ed to Chronic pain syndrome Weight management Related to Chr onic pain syndrome Special diet education Related t o Body mass index (BMI) 40.0-44.9, adult Special diet education Related t o Body mass index (BMI) 40.0-44.9, adult Special diet education Related t o Body mass index (BMI) 40.0-44.9, adult Increase physical activity Relat ed to Chronic pain syndrome Weight management Related to Chr onic pain syndrome Special diet education Related t o Body mass index (BMI) 40.0-44.9, adult Increase activity. Related to Hy perlipidemia Follow a low sodium diet. Relate d to Hyperlipidemia Check blood sugar twice a day. R elated to Type 2 diabetes mellitus without complications Increase physical activity. Rela desiree to Type 2 diabetes mellitus without complications Special diet education Related t o Body mass index (BMI) 40.0-44.9, adult Increase physical activity Relat ed to Emphysema Weight management Related to Emp hysema Special diet education Related t o Body mass index (BMI) 40.0-44.9, adult Increase physical activity Relat ed to Emphysema Weight management Related to Emp hysema Prescribed dietary intake Relate d to Body mass index (BMI) 40.0-44.9, adult Special diet education Related t o Body mass index (BMI) 40.0-44.9, adult Increase physical activity Relat ed to Chronic pain syndrome Weight management Related to Chr onic pain syndrome Weight management Related to Fat ty liver Prescribed dietary intake Relate d to Body mass index (BMI) 40.0-44.9, adult Weight management Related to Chr onic pain syndrome Special diet education Related t o Body mass index (BMI) 40.0-44.9, adult Increase physical activity Relat ed to Chronic pain syndrome Prescribed Activity and Exercise Education Related to Dietary Surveillance and Counseling Prescribed Diet Educ ation/Lifestyle Education Regarding Diet Related to Dietary Surveillance and Counseling Check blood sugar twice a day. R elated to Type 2 diabetes mellitus without complications Increase physical activity. Rela desiree to Type 2 diabetes mellitus without complications Prescribed Activity and Exercise Education Related to Dietary Surveillance and Counseling Prescribed Diet Educ ation/Lifestyle Education Regarding Diet Related to Dietary Surveillance and Counseling Increase physical activity Relat ed to Encounter for general adult medical exam w abnormal findings Weight management Related to Enc ounter for general adult medical exam w abnormal findings Prescribed Activity and Exercise Education Related to Dietary Surveillance and Counseling Increase activity. Related to Hy perlipidemia Follow a low sodium diet. Relate d to Hyperlipidemia Prescribed Diet Educ ation/Lifestyle Education Regarding Diet Related to Dietary Surveillance and Counseling Prescribed Activity and Exercise Education Related to Dietary Surveillance and Counseling Prescribed Diet Educ ation/Lifestyle Education Regarding Diet Related to Dietary Surveillance and Counseling Increase physical activity Relat ed to Emphysema Weight management Related to Emp hysema Follow a low sodium diet. Relate d to Hyperlipidemia Prescribed Activity and Exercise Education Related to Dietary Surveillance and Counseling Prescribed Diet Educ ation/Lifestyle Education Regarding Diet Related to Dietary Surveillance and Counseling Increase activity. Related to Hy perlipidemia Prescribed Activity and Exercise Education Related to Dietary Surveillance and Counseling Prescribed Diet Educ ation/Lifestyle Education Regarding Diet Related to Dietary Surveillance and Counseling Avoid provocative fo ods: citrus, alcohol, coffee, chocolate, mints Related to GERD w/o esophagitis Eat smaller meals, n o eating three hours prior to bedtime Related to GERD w/o esophagitis Elevate head of bed prior to sle ep Related to GERD w/o esophagitis Prescribed Activity and Exercise Education Related to Dietary Surveillance and Counseling Prescribed Diet Educ ation/Lifestyle Education Regarding Diet Related to Dietary Surveillance and Counseling Increase physical activity Relat ed to Encounter for general adult medical exam w abnormal findings Weight management Related to Enc ounter for general adult medical exam w abnormal findings Prescribed Activity and Exercise Education Related to Dietary Surveillance and Counseling Prescribed Diet Educ ation/Lifestyle Education Regarding Diet Related to Dietary Surveillance and Counseling Increase physical activity Relat ed to Chronic pain syndrome Weight management Related to Chr onic pain syndrome Increase physical activity Relat ed to Chronic pain syndrome Weight management Related to Chr onic pain syndrome Prescribed Activity and Exercise Education Related to Dietary Surveillance and Counseling Prescribed Diet Educ ation/Lifestyle Education Regarding Diet Related to Dietary Surveillance and Counseling Increase activity. Related to Es sential (primary) hypertension Follow a low sodium diet. Relate d to Essential (primary) hypertension Prescribed Diet Educ ation/Lifestyle Education Regarding Diet Related to Dietary Surveillance and Counseling Prescribed Activity and Exercise Education Related to Dietary Surveillance and Counseling Prescribed Diet Educ ation/Lifestyle Education Regarding Diet Related to Dietary Surveillance and Counseling Prescribed Activity and Exercise Education Related to Dietary Surveillance and Counseling Prescribed Activity and Exercise Education Related to Dietary Surveillance and Counseling Prescribed Diet Educ ation/Lifestyle Education Regarding Diet Related to Dietary Surveillance and Counseling Prescribed Diet Educ ation/Lifestyle Education Regarding Diet Related to Dietary Surveillance and Counseling Prescribed Activity and Exercise Education Related to Dietary Surveillance and Counseling Prescribed Activity and Exercise Education Related to Dietary Surveillance and Counseling Prescribed Diet Educ ation/Lifestyle Education Regarding Diet Related to Dietary Surveillance and Counseling Prescribed Activity and Exercise Education Related to Dietary Surveillance and Counseling Prescribed Diet Educ ation/Lifestyle Education Regarding Diet Related to Dietary Surveillance and Counseling Prescribed Activity and Exercise Education Related to Dietary Surveillance and Counseling Prescribed Diet Educ ation/Lifestyle Education Regarding Diet Related to Dietary Surveillance and Counseling Prescribed Activity and Exercise Education Related to Dietary Surveillance and Counseling Prescribed Diet Educ ation/Lifestyle Education Regarding Diet Related to Dietary Surveillance and Counseling Prescribed Activity and Exercise Education Related to Dietary Surveillance and Counseling Prescribed Diet Educ ation/Lifestyle Education Regarding Diet Related to Dietary Surveillance and Counseling Prescribed Activity and Exercise Education Related to Dietary Surveillance and Counseling Prescribed Diet Educ ation/Lifestyle Education Regarding Diet Related to Dietary Surveillance and Counseling Prescribed Activity and Exercise Education Related to Dietary Surveillance and Counseling Prescribed Diet Educ ation/Lifestyle Education Regarding Diet Related to Dietary Surveillance and Counseling Prescribed Activity and Exercise Education Related to Dietary Surveillance and Counseling Prescribed Diet Educ ation/Lifestyle Education Regarding Diet Related to Dietary Surveillance and Counseling Prescribed Activity and Exercise Education Related to Dietary Surveillance and Counseling Prescribed Diet Educ ation/Lifestyle Education Regarding Diet Related to Dietary Surveillance and Counseling Prescribed Activity and Exercise Education Related to Dietary Surveillance and Counseling Prescribed Diet Educ ation/Lifestyle Education Regarding Diet Related to Dietary Surveillance and Counseling Prescribed Activity and Exercise Education Related to Dietary Surveillance and Counseling Prescribed Diet Educ ation/Lifestyle Education Regarding Diet Related to Dietary Surveillance and Counseling Prescribed Activity and Exercise Education Related to Dietary Surveillance and Counseling Prescribed Diet Educ ation/Lifestyle Education Regarding Diet Related to Dietary Surveillance and Counseling Prescribed Activity and Exercise Education Related to Dietary Surveillance and Counseling Prescribed Diet Educ ation/Lifestyle Education Regarding Diet Related to Dietary Surveillance and Counseling Prescribed Activity and Exercise Education Related to Dietary Surveillance and Counseling Prescribed Diet Educ ation/Lifestyle Education Regarding Diet Related to Dietary Surveillance and Counseling Prescribed Activity and Exercise Education Related to Dietary Surveillance and Counseling Prescribed Diet Educ ation/Lifestyle Education Regarding Diet Related to Dietary Surveillance and Counseling Prescribed Diet Educ ation/Lifestyle Education Regarding Diet Related to Dietary Surveillance and Counseling Prescribed Activity and Exercise Education Related to Dietary Surveillance and Counseling Prescribed Activity and Exercise Education Related to Dietary Surveillance and Counseling Prescribed Diet Educ ation/Lifestyle Education Regarding Diet Related to Dietary Surveillance and Counseling Prescribed Activity and Exercise Education Related to Dietary Surveillance and Counseling Prescribed Diet Educ ation/Lifestyle Education Regarding Diet Related to Dietary Surveillance and Counseling Prescribed Activity and Exercise Education Related to Dietary Surveillance and Counseling Prescribed Diet Educ ation/Lifestyle Education Regarding Diet Related to Dietary Surveillance and Counseling Prescribed Diet Educ ation/Lifestyle Education Regarding Diet Related to Dietary Surveillance and Counseling Prescribed Activity and Exercise Education Related to Dietary Surveillance and Counseling Prescribed activity/ exercise education Related to Dietary surveillance and counseling Special diet education Related t o Dietary surveillance and counseling Physical activity counseling Rel ated to Dietary surveillance counseling Decrease caloric intake Related to Dietary surveillance counseling Physical activity counseling Rel ated to Dietary surveillance counseling Decrease caloric intake Related to Dietary surveillance counseling Physical activity counseling Rel ated to Dietary surveillance counseling Physical activity counseling Rel ated to Dietary surveillance counseling Decrease caloric intake Related to Dietary surveillance counseling Physical activity counseling Rel ated to Dietary surveillance counseling Decrease caloric intake Related to Dietary surveillance counseling Decrease caloric intake Related to Dietary surveillance counseling Physical activity counseling Rel ated to Dietary surveillance counseling Dietary counseling Related to Di etary surveillance counseling Decrease caloric intake Related to Dietary surveillance counseling Dietary counseling Related to Di etary surveillance counseling Decrease caloric intake Related to Dietary surveillance counseling Dietary counseling Related to Di etary surveillance counseling Decrease caloric intake Related to Dietary surveillance counseling Decrease caloric intake Related to Dietary surveillance counseling Dietary counseling Related to Di etary surveillance counseling Dietary counseling Related to Di etary surveillance counseling Decrease caloric intake Related to Dietary surveillance counseling Decrease caloric intake Related to Dietary surveillance counseling Dietary counseling Related to Di etary surveillance counseling Assessments Type Assessment Date assessment Solitary lung nodule assessment Centrilobular emphysema 025 assessment Chronic pain syndrome assessment Generalized anxiety disorder May assessment Overactive bladder Mental Status Date Cognitive Assessment Orientation - [place] ed to time, place, person, situation.
--- OUTSIDE RECORDS SUMMARY | 2024-06-22 05:01 | XMS_ITS | Referral Summary ---
Author Organization [facility] Address [address] [place] [address] Care Team Providers Care Store Manager Name Role Phone Americo Coyle MD Primary Care Provider [phone] Allergies Active Allergy Reactions Criticality Noted Date Comments Amoxicillin Unknown 04/30/2017 Sulfamethoxazole-Trimethoprim Stomach upset Low Diclofenac Rash Medium 02/11/2017 Nsaids (Non-Steroidal Anti-I nflammatory Drug) Unknown 04/30/2017 Medications losartan (COZAAR) 100 mg tablet 7 Active omeprazole (PriLOSEC) 20 mg capsule 7 Active oxyCODONE-aceta minophen (PERCOCET) 10-325 mg per tabletIndicatio ns:Pain 7 Active INCRUSE ELLIPTA 62.5 mcg/actuation blister with device 7 Active VENTOLIN HFA 90 mcg/actuation inhaler 8 Active glimepiride (AMARYL) 2 mg tabletIndicatio ns:type 2 diabetes mellitus Take 1 tablet by mouth every 12 hours. 8 Active SYMBICORT 160-4.5 mcg/actuation inhaler INHALE 2 PUFFS TWICE A DAY 6 8 Active diphenhydrAMINE (diphenhydrAMIN E) 25 mg capsule Take 1 capsule by mouth every 4 hours. 8 Active FLUoxetine (PROzac) 20 mg capsule 8 Active albuterol (PROVENTIL,VENT YUSUF) 2.5 mg /3 mL (0.083 %) nebulizer solution Inhale 3 mL every 6 hours. 7 Active fluticasone propionate (FLONASE) 50 mcg/actuation nasal spray Administer 1 spray into each nostril daily 1 spray 3 9 Active diazePAM (VALIUM) 5 mg tablet Take 5 mg by mouth 2 (two) times a day as needed Active rivaroxaban (XARELTO) 20 mg tablet Take 20 mg by mouth nightly Active semaglutide (OZEMPIC) 1 mg/dose (4 mg/3 mL) pen injector injection Inject 2 mg under the skin 2 (two) times a week Active ipratropium-alb uteroL (DUO-NEB) 0.5-2.5 mg/3 mL nebulizer solution every 6 hours Active magnesium oxide (MAG-OX) 400 mg (241.3 mg elemental magnesium) tablet Take 1 tablet by mouth Active montelukast (SINGULAIR) 10 mg tablet 1 tablet 2 Active naloxone 0.4 mg/mL syringe inject 1 milliliter by IM route over once, may repeat at 2 to 3 minute intervals as needed 2 Active sotaloL (BETAPACE) 120 mg tablet Take 1 tablet by mouth 2 (two) times a day 1 Active Active Problems Problem Noted Date Diagnosed Date History of COPD 12/17/2021 Allergy status to penicillin 10/22/2017 Pain in joint, ankle and foot 10/22/2017 Body mass index 35.0-35.9, adult 10/22/2017 Type 2 or unspecified type diabetes mellitus, un controlled 10/22/2017 Other chronic pain 10/22/2017 Chronic pain syndrome 10/22/2017 Other specified chronic obstructive airways dise ase 10/22/2017 Radial styloid tenosynovitis 10/22/2017 Other depressive disorder 10/22/2017 Type 2 or unspecified type diabetes mellitus 11/2017 Pulmonary emphysema 10/22/2017 Encounter for general adult medical examination with abnormal findings 10/22/2017 Encounter for screening for malignant neoplasm o f prostate 10/22/2017 Esophageal reflux 10/22/2017 Essential (primary) hypertension 10/22/2017 Fatty liver 10/22/2017 Gastro-esophageal reflux disease without esophag itis 10/22/2017 GERD with esophagitis 10/22/2017 Hearing loss 10/22/2017 Hyperlipidemia 10/22/2017 Hyperkalemia 10/22/2017 Liver disease 10/22/2017 Mixed hyperlipidemia 10/22/2017 Opioid type dependence, abuse 10/22/2017 Other and unspecified hyperlipidemia 10/22/2017 Other spondylosis, lumbar region 10/22/2017 Pain in joint, lower leg 10/22/2017 Polyp of colon 10/22/2017 Routine general medical exam ination at a health care facility 10/22/2017 Sleep apnea 10/22/2017 Special screening for malignant neoplasms, colon 10/22/2017 Type 2 diabetes mellitus without complications 0 10/22/2017 Type 2 diabetes mellitus with unspecified compli cations 10/22/2017 Body mass index (BMI) 40.0-44.9, adult 8 Dietary counseling and surveillance 01/03/2015 Diabetes mellitus 11/06/2014 Hypercholesterolemia 11/06/2014 Generalized anxiety disorder 07/11/2014 Gastroesophageal reflux disease 05/16/2014 Opioid dependence 05/16/2014 Low back pain 04/18/2014 Essential hypertension 03/17/2014 Depressive disorder 02/14/2014 Carpal tunnel syndrome 01/17/2014 Chronic obstructive lung disease 10/19/2013 Knee pain 10/19/2013 Open bimalleolar fracture 09/22/2012 Encounter for preventive health examination 08/15 Immunizations Immunization Administration Dates Next Due Influenza, Quadrivalent, Evette l Culture-based MDCK, Preservative Free, Antibiotic Free, Intramuscular 12/17/2021 Influenza, Quadrivalent, Rec ombinant, Egg Free, Preservative Free, Intramuscular 12/25/2017 Influenza, Quadrivalent, Spl it, Preservative Free, Intramuscular 01/25/2021,12/20/2018 Influenza, Trivalent, Preser vative Free, Intramuscular 12/22/2016,01/31/2016,12/28/2015,03/19 Pfizer Sars-Cov-2 Bivalent V accination (12+ YRS) 12/17/2021 Pneumococcal Polysaccharide PPV23 01/25/2021,06/2013 Social History Tobacco Use Types Packs/Day Years Used Date Smoking Tobacco: Never Smokeless Tobacco: Former Tobacco Cessation:Counseling Given: Not Answered Alcohol Use Standard Drinks/Week Comments Yes 0 (1 standard drink = 0.6 oz pur e alcohol) Personal Safety Answer Date Recorded Getting School Help Needed Not on file 02/25 Sex and Gender Information Value Date Recorded Sex Assigned at Not on file Legal Sex Male 4:52 AM DISPATCH CLERK Gender Identity Not on file Sexual Orientation Not on file Last Filed Vital Signs Vital Sign Reading Time Taken Comments Blood Pressure 151/97 02/18/2022 8:59 AM DISPATCH CLERK Pulse 71 02/18/2022 8:59 AM DISPATCH CLERK Temperature 36.4 C (97.6 F) 02/18/2022 8:59 AM DISPATCH CLERK Respiratory Rate - - Oxygen Saturation 96% 12/17/2021 10: 46 AM CDT Inhaled Oxygen Concentration - - Weight 135.4 kg (298 lb 9.6 oz) 02/18/2022 8:59 AM DISPATCH CLERK Height 188 cm (6' 2 ) 02/18/2022 8:59 AM DISPATCH CLERK Body Mass Index 38.34 02/18/2022 8:59 AM DISPATCH CLERK Plan of Treatment Not on file Procedures Procedure Name Priority Date/Time Associated Diagnosis Comments EGFR Routine 12/19/2021 10:57 AM CDT Mycobacterial infection, unspecified from Last 3 Months or Most Recently Relevant to Health Maintenance Results * eGFR (12/19/2021 10:57 AM CDT) eGFR >90 90 - 130 mL/min/1. 73 m2 [facility] Comment: Interpretive Data Reference Interval Normal >/= 90 mL/min/1.73m2 Mildly decreased* 60 - 89 mL/min/1.73m2 Mildly to moderately decreased 45 - 59 mL/min/1.73m2 Moderately to severely decreased 30 - 44 mL/min/1.73m2 Severely decreased 15 - 29 mL/min/1.73m2 Kidney Failure < 15 mL/min/1.73m2 *Relative to young adult level Estimated glomerular filtration rate is determined by the 2020 CKD-EPI equation recommended by the National Kidney Foundation (A Unifying Approach to GFR Estimation: Recommendations of the NKF-ASK Task Force on Reassessing the Inclusion of Race in Diagnosing Kidney Disease, JASN 2020). The CKD-EPI equation should not be used for patients with unstable renal function and has not been validated in children and those over 70. Current interpretive data was last reviewed 2021. Blood 12/19/2021 10:5 7 AM CDT 12/19/2021 12:58 PM CDT us Christopher Ingram MD LAB BLOOD ORDERABLES Final Resul t [facility] Department [place] [address] from Last 3 Months or Most Recently Relevant to Health Maintenance Insurance IDPA MEDICARE [facility] MEDICARE HMO IDPA [facility] MEDICARE ADVANTAGE IDPA [employer] MEDICARE HMO Care Teams Store Manager Relationship Specialty Start Date End Date Americo Coyle MD PCP - General Family Medicine 02/09/17
--- OUTSIDE RECORDS SUMMARY | 2024-06-22 05:01 | XMS_ITS | Clinical Summary ---
Author Organization [facility] Address [address] [place] [address] Care Team Providers Care Organic Preparation Analyst Name Role Phone Americo Coyle MD Primary Care Provider [phone] Allergies Active Allergy Reactions Criticality Noted Date [...] (12+ YRS) 12/17/2021 Pneumococcal Polysaccharide PPV23 01/25/2021,06/2013 Surgical History Surgery Date Site/Laterality Comments ANKLE SURGERY right CARPAL TUNNEL RELEASE 02/2014 Medical History Medical History Date Comments Asthma Hypertension Diabetes mellitus (HCC) High cholesterol History of COPD Family History Medical History Relation Name Comments Stomach cancer Father Stroke Father Emphysema Mother Arthritis Neg Hx Diabetes Neg Hx Lung disease Neg Hx Relation Name Status Comments Father Mother Social History Tobacco Use Types Packs/Day Years [...] on file Legal Sex Male 4:52 AM MANAGER OPERATIONS AND PROCUREMENT Gender Identity Not on file Sexual Orientation Not on file Obstetrics History Last Filed Vital Signs Vital Sign Reading Time Taken Comments Blood Pressure 151/97 02/18/2022 8:59 AM MANAGER OPERATIONS AND PROCUREMENT Pulse 71 02/18/2022 8:59 AM MANAGER OPERATIONS AND PROCUREMENT Temperature 36.4 C (97.6 F) 02/18/2022 8:59 AM MANAGER OPERATIONS AND PROCUREMENT Respiratory Rate - - Oxygen Saturation 96% 12/17/2021 10: 46 AM CDT Inhaled Oxygen Concentration - - Weight 135.4 kg (298 lb 9.6 oz) 02/18/2022 8:59 AM MANAGER OPERATIONS AND PROCUREMENT Height 188 cm (6' 2 ) 02/18/2022 8:59 AM MANAGER OPERATIONS AND PROCUREMENT Body Mass Index 38.34 02/18/2022 8:59 AM MANAGER OPERATIONS AND PROCUREMENT Plan of Treatment Health Maintenance Due Date Last Done Comments Albumin Creatinine Ratio, Urine 1964 Colon Cancer Screening-Colonoscopy 1964 Depression Screening 1964 Hemoglobin A1C 1964 Hepatitis C Screening 1964 Prostate Cancer Screening-PSA 1964 Dilated Eye Exam 1964 Foot Exam 1964 Lipid Panel 1964 DTaP/Tdap/Td Vaccine (1 - Tdap) 1975 Hepatitis B Screening 1982 Regular Well Visit/Exam 18-64 1982 Zoster Vaccine (1 of 2) 2014 Pneumococcal vaccine <65 (2 of 2 - PCV) 01/25/2022 01/25/2021, 03/19/2013 eGFR 12/19/2022 12/19/2021 Covid-19 Vaccine (2023-2 5 season) 2023 12/17/2021, 06/09/2020, 05/17/2020 Influenza Vaccine (#1) 2023 2, 01/25/2021, 12/20/2018, Additional history exists Procedures Procedure Name Priority Date/Time Associated Diagnosis Comments EGFR Routine 12/19/2021 10:57 AM CDT Mycobacterial infection, unspecified from Last 3 Months or Most Recently Relevant to Health Maintenance Results * eGFR (12/19/2021 10:57 AM CDT) eGFR >90 90 - 130 mL/min/1. 73 m2 [facility] Comment: Interpretive Data Reference Interval Normal >/= [...] of Race in Diagnosing Kidney Disease, JASN 202). The CKD-EPI equation should not be used for patients with unstable renal function and has not been validated in children and those over 70. Current interpretive data was last reviewed 2021. Blood 12/19/2021 10:5 7 AM CDT 12/19/2021 12:58 PM CDT us Christopher Ingram MD LAB BLOOD ORDERABLES Final Resul t [facility] Department [place] [address] from Last 3 Months or Most Recently Relevant to Health Maintenance Insurance IDPA MEDICARE [employer] MEDICARE HMO IDPA [facility] MEDICARE ADVANTAGE [facility] WELLCARE MEDICARE HMO Care Teams Organic Preparation Analyst Relationship Specialty Start Date End Date Americo Coyle MD PCP - General Family Medicine 02/09/17
--- OUTSIDE RECORDS SUMMARY | 2024-06-22 05:01 | XMS_ITS | Clinical Summary ---
Author Organization [facility] Address [address] [place] [address] Care Team Providers Care Supervisor Treating And Pumping Name Role Phone Americo Coyle MD Primary Care Provider [phone] Allergies Active Allergy Reactions Criticality Noted Date Comments Amoxicillin Unknown 04/30/2017 Diclofenac Rash Medium 02/11/2017 Nsaids Unknown 04/30/2017 Sulfamethoxazole-Trimethoprim GI Upset Low 2016 Medications albuterol 1.25 MG/3ML nebulizer solution Take 1 ampule by nebulization every 6 (six) hours as needed for Wheezing. Active albuterol sulfate HFA 108 (90 Base) MCG/ACT inhaler Inhale 2 puffs into the lungs every 6 (six) hours as needed for Wheezing. Active Budeson-Glycopy rrol-Formoterol (BREZTRI AEROSPHERE) 160-9-4.8 MCG/ACT Aerosol Acti ve diazePAM 5 MG tablet Take 5 mg by mouth every 6 (six) hours as needed for Anxiety. Active FLUoxetine 20 MG capsule Take 20 mg by mouth daily. Active fluticasone propionate 50 MCG/ACT nasal spray 1 spray by Nasal route daily. Active glimepiride 4 MG tablet Take 4 mg by mouth every morning before breakfast. Active losartan 25 MG tablet Take 25 mg by mouth daily. Active metFORMIN 1000 MG tablet 2 Active montelukast 10 MG tablet 2 Active omeprazole 20 MG capsule 2 Active oxyCODONE-aceta minophen 10-325 MG tablet 2 Active XARELTO 20 MG Tab tablet 2 Active rosuvastatin 20 MG tablet 2 Active OZEMPIC, 1 MG/DOSE, 4 MG/3ML Solution Pen-injector 2 Active sotalol 120 MG tablet 2 Active magnesium oxide 400 (240 Mg) MG tablet Take 400 mg by mouth daily. Active Active Problems Problem Noted Date Diagnosed Date History of COPD 12/17/2021 Solitary pulmonary nodule 05/08/2020 Disorder of liver 10/22/2017 GERD with esophagitis 10/22/2017 Hearing loss 10/22/2017 Hyperkalemia 10/22/2017 Chronic pain syndrome 10/22/2017 Other spondylosis, lumbar region 10/22/2017 Polyp of colon 10/22/2017 Radial styloid tenosynovitis 10/22/2017 Sleep apnea 10/22/2017 Type 2 diabetes mellitus wit hout complications ([facility]) 10/22/2017 Hypercholesterolemia 11/06/2014 Diabetes mellitus ([facility]) 11/06/2014 Generalized anxiety disorder 07/11/2014 Gastroesophageal reflux disease 05/16/2014 Opioid dependence ([facility]) 05/16/2014 Low back pain 04/18/2014 Hypertension 03/17/2014 Depressive disorder 02/14/2014 Carpal tunnel syndrome 01/17/2014 Chronic obstructive pulmonary disease ([facility]) 10/19/2013 Knee pain 10/19/2013 Open bimalleolar fracture 09/22/2012 Family History Medical History Relation Comments Stroke Father Cancer Mother Relation Status Comments Father Mother Social History Tobacco Use Types Packs/Day Years Used Date Smoking Tobacco: Former Cigarettes Smokeless Tobacco: Never Sex and Gender Information Value Date Recorded Sex Assigned at Not on file Legal Sex Male 3:05 AM CDT Gender Identity Not on file Sexual Orientation Not on file Last Filed Vital Signs Vital Sign Reading Time Taken Comments Blood Pressure 134/79 10/07/2022 8:40 AM CDT Pulse 69 10/07/2022 8:40 AM CDT Temperature 36.7 C (98 F) 10/07/2022 8:40 AM CDT Respiratory Rate 18 10/07/2022 8:40 AM CDT Oxygen Saturation 98% 10/07/2022 8:40 AM CDT Inhaled Oxygen Concentration - - Weight 130.2 kg (287 lb) 10/07/2022 8:40 AM CDT Height 188 cm (6' 2 ) 10/07/2022 8:40 AM CDT Body Mass Index 36.85 10/07/2022 8:40 AM CDT Plan of Treatment Health Maintenance Due Date Last Done Comments Colorectal Cancer Screening Colonoscopy (10 Years) 1965 Kidney Health Evaluation 1964 Hemoglobin A1C 1964 Lipid Panel 1964 Annual Physical 1967 Diabetes: Retinopathy Eye Exam 1982 Hepatitis C 1982 DTaP, Tdap and Td Vaccines ( 1 - Tdap) 1983 Zoster Vaccines (1 of 2) 2014 Pneumococcal Vaccine: Pediatrics (0 to 5 Years) and At-Risk Patients (6 to 64 Years) (2 of 2 - PCV) 01/25/2022 01/25/2021, 03/19/2013 COVID-19 Vaccine (4 - 2023-2 5 season) 2023 12/17/2021, 06/09/2020, 05/17/2020 PHQ-2 (Physician [place]) 03/16/2024 RSV Immunization or 60+ Years (1 - Risk 60-74 years 1-dose series) 2024 Meningococcal B Vaccine Aged Out No l onger eligible based on patient's age to complete this topic Meningococcal Vaccine Aged Out No jenniffer walt eligible based on patient's age to complete this topic RSV Immunizations Under 20 Months Aged Out No longer eligible b ased on patient's age to complete this topic Insurance * Guarantor: Kushal Sanders Account Type Relation to Patient Date of Phone Billing Address Personal/Family Self [address] [place] [id number] [place] [address] Care Teams Supervisor Treating And Pumping Relationship Specialty Start Date End Date Americo Coyle MD PCP - General 06/01/14
--- OUTSIDE RECORDS SUMMARY | 2024-06-22 05:01 | XMS_ITS | CONTINUITY OF CARE DOCUMENT ---
Author Name sharruyvince Address Unknown Organization [facility] Address [address] [address] [place] [address] Phone [phone] Care Team Providers Care Clinical Documentation Developer Name Role Phone Shashi Verdin MD Unavailable MARLENI FUCHS MD Unavailable INSURANCE PROVIDERS Payer name Policy type / Coverage type [place] red libertarian [place] MEDICAID (2) Medicaid [id number] [facility] [id number]
--- OUTSIDE RECORDS SUMMARY | 2024-06-22 05:01 | XMS_ITS | Encounter Summary ---
Author Organization [facility] Address [address] [place] [address] Care Team Providers Care Survey Superintendent Name Role Phone Americo Coyle MD Primary Care Provider [phone] Encounter Details Date Type Department Care Team (Late st Contact Info) Description 09/10/2022 MyChart Message [facility] [address] [place] [phone] Mychart, [facility] Provider Air Quality Message Social History Tobacco Use Types Packs/Day Years Used Date Smoking Tobacco: Former Cigarettes Smokeless Tobacco: Never Sex and Gender Information Value Date Recorded Sex Assigned at Not on file Legal Sex Male 3:05 AM CDT Gender Identity Not on file Sexual Orientation Not on file documented as of this encounter Plan of Treatment Not on file documented as of this encounter Visit Diagnoses Not on filedocumented in this encounter Care Teams Survey Superintendent Relationship Specialty Start Date End Date Americo Coyle MD PCP - General 06/01/14 documented as of this encounter
--- OUTSIDE RECORDS SUMMARY | 2024-06-22 05:01 | XMS_ITS | Data Portability ---
Author Organization [facility], Main Office Address [address] [place] [address] Care Team Providers Care Pricing Consultant Name Role Phone BLAKE DE Primary Care Provider BLAKE DE Referring Provider Assessment Encounter Date Assessment Date Assessment LastModified by Organization Details LastModified Time 12/30/2022 12/30/2022 This note is dictated and transcribed by [employer]. [employer] Salesperson variances may occur. Despite proofreading, typographical errors may occur. Not available 12/30/2022 09:45:28 05/14/2023 05/14/2023 This note is dictated and transcribed by [employer]. [employer] Salesperson variances may occur. Despite proofreading, typographical errors may occur. Not available 05/14/2023 09:06:33 Plan of Treatment Reminders Order Date Submit Date Provider Last Modified By Organization Details Last Modified Time Details Appointments None recorded. Lab None recorded. Referral None recorded. Procedures None recorded. Surgeries None recorded. Imaging None recorded. Medication Orders gentamicin 0.1 % topical ointment 2023 024 [facility] #[id number], [address], [place], [address], 09:58:45 Patient TargetsNo targets recorded. Patient Instructions Encounter Date Encounter Id Patient Instructions Last Modified By Organization Details Last Modified Time 05/14/2023 [id number] paronychia: care instructions vaishali Not available 05/14/2023 09:58:43 Reason for Referral None Reported. Problems Name Problem SNOMED Code Status Onset Date Resolution Date Notes Provider Name and Address Organization Details Recorded Time Seasonal allergy 677508917 Active 2022 Lizzy isbell, [place] [facility] 3 09:23:05 Arthritis 5476754 Active 2022 Lizzy Luevano null, [place] [facility] 3 09:23:11 Asthma 415247116 Active 2022 Lizzy Luevano null, [place] [facility] 3 09:23:17 Bronchitis 59992979 Active 2022 Lizzy Luevano null, [place] - [facility] 3 09:23:24 Cardiac arrhythmia 860100995 Active 2022 Lizzy Luevano null, [place] [facility] 3 09:23:32 Diabetes mellitus 66947512 Active 2022 Lizzy Luevano null, [place] [facility] 3 09:23:39 Heartburn 34302758 Active 2022 Lizzy Luevano null, [facility] 3 09:23:47 Hypercholeste rolemia 63519161 Active 2022 Lizzy Dodd null, [facility] 3 09:23:59 Disorder of lung 61630295 Active 2022 Lizzy Luevano null, [facility] 3 09:24:09 Pneumonia 436649575 Active 2022 Lizzy Luevano null, [facility] 3 09:24:17 Ingrowing toenail 018559012 Active 2022 Maicol Davis DPM [address], [place], [address] , [facility] 3 09:44:50 Notes:USE OF BLOOD THINNERS Problem Notes None recorded. Procedures Surgical History Date Name Laterality Status Provider Name and Address Organization Details Recorded Time 4 Partial Nail Avulsion Chemical Matrixectomy-Ri ght completed Maicol Davis DPM [address], [place], [address], [facility] 05/14/2023 09:03:51 4 Partial Nail Avulsion Chemical Matrixectomy-Le ft completed Maicol Davis DPM [address], [facility] [address], [place], [address], [facility] 05/14/2023 09:04:04 3 Nail Debridement completed Maicol Davis DPM [address], [facility] [address], [place], [address], [facility] 12/30/2022 09:44:42 Imaging Results None recorded. Procedure Notes None recorded. Medical Equipment None Reported. Allergies Allergen ID Allergen Name Allergen Category Reaction Reaction Severity Criticality Documentation Date Start Date Code Code System Note Provider Name and Address Organization Details Recorded Time 05220 amoxicill in medicatio n Not available Not available Not available 12/30/2022 723 [facility] 09:19:19 12334 Non-stero idal anti-infl ammatory agent (product) medicatio n Not available Not available Not available 12/30/2022 06938 005 [facility] 09:19:27 12610 meloxicam medicatio n Not available Not available Not available 12/30/2022 15500 [facility] 09:19:36 Medications Name Sig Start Date Stop Date Status Note LastModified by Organization Details LastModified Time prednisone 10 mg tablet TAKE 4 TABS DAILY X3 DAYS, 3 TABS DAILY X3 DAYS, 2 TABS DAILY X3 DAYS THEN 1 TAB DAILY X3 DAYS 12/30 completed Not Available Not Available Not Available doxycycline hyclate 100 mg capsule TAKE 1 CAPSULE BY MOUTH TWICE A DAY FOR 10 DAYS 12/30 completed Not Available Not Available Not Available clindamycin HCl 300 mg capsule TAKE 2 CAPSULES 2 TIMES A DAY FOR 5 DAYS 12/30 completed Not Available Not Available Not Available atorvastati n 10 mg tablet TAKE 1 TABLET BY MOUTH EVERY DAY active Not Available Not Available No t Available clarithromy ton 250 mg tablet TAKE 1 TABLET BY MOUTH EVERY 12 HOURS FOR 5 DAYS. 12/30 completed Not Available Not Available Not Available azithromyci n 250 mg tablet TAKE 2 TABLETS BY MOUTH TODAY, THEN TAKE 1 TABLET DAILY FOR 4 DAYS 12/30 completed Not Available Not Available Not Available ibuprofen 800 mg tablet TAKE 1 TABLET BY MOUTH TWICE A DAY X10 DAYS 12/30 completed Not Available Not Available Not Available albuterol sulfate 1.25 mg/3 mL solution for nebulizatio n INHALE THE CONTENTS OF 1 VIAL VIA NEBULIZER EVERY 4-6 HRS NEEDED FOR SHORTNESS OF BREATH/WH EEZING active Not Available Not Available No t Available prednisone 20 mg tablet TAKE 3 TABLETS BY MOUTH EVERY DAY 05/20 completed Not Available Not Available Not Available sotalol 120 mg tablet TAKE 1 TABLET BY MOUTH EVERY 12 HOURS active Not Available Not Available No t Available oxycodone-a cetaminophe n 10 mg-325 mg tablet TAKE 1 TABLET BY MOUTH EVERY 6 HOURS NEEDED FOR PAIN active Not Available Not Available No t Available prednisone 50 mg tablet TAKE 1 TABLET BY MOUTH EVERY DAY FOR 5 DAYS. 12/30 completed Not Available Not Available Not Available losartan 25 mg tablet TAKE 1 TABLET BY MOUTH EVERY DAY active Not Available Not Available No t Available omeprazole 20 mg capsule,del ayed release TAKE 1 CAPSULE BY MOUTH EVERY DAY active Not Available Not Available No t Available montelukast 10 mg tablet TAKE 1 TABLET BY MOUTH EVERYDAY AT BEDTIME active Not Available Not Available No t Available azelastine 137 mcg (0.1 %) nasal spray INSTILL 1 SPRAY INTO EACH NOSTRIL EVERY 12 HOURS NEEDED FOR SINUS CONGESTIO N AND ALLERGIES active Not Available Not Available No t Available cefuroxime axetil 500 mg tablet TAKE 1 TABLET BY MOUTH TWICE DAILY active Not Available Not Available No t Available levofloxaci n 750 mg tablet TAKE 1 TABLET BY MOUTH EVERY DAY active Not Available Not Available No t Available albuterol sulfate HFA 90 mcg/actuati on aerosol inhaler 1 - 2 PUFF INHALED EVERY 4 - 6 HOURS NEEDED FOR SHORTNESS OF BREATH OR WHEEZING active Not Available Not Available No t Available fluoxetine 20 mg capsule TAKE 1 CAPSULE BY MOUTH EVERY DAY IN THE MORNING active Not Available Not Available No t Available doxycycline hyclate 100 mg tablet TAKE 1 TABLET BY MOUTH TWICE DAILY 05/20 completed Not Available Not Available Not Available gentamicin 0.1 % topical ointment APPLY A SMALL AMOUNT TO THE AFFECTED AREA GREAT TOES BY TOPICAL ROUTE 3 TIMES PER DAY active Not Available Not Available No t Available diazepam 5 mg tablet TAKE 1 TABLET BY MOUTH TWICE A DAY NEEDED FOR ANXIETY active Not Available Not Available No t Available rosuvastati n 20 mg tablet TAKE 1 TABLET BY MOUTH EVERY DAY active Not Available Not Available No t Available BD Ultra-Fine Short Pen Needle 31 gauge x 5/16 USE 1 PEN NEEDLE EVERY DAY active Not Available Not Available No t Available Symbicort 80 mcg-4.5 mcg/actuati on HFA aerosol inhaler INHALE 2 PUFFS BY MOUTH EVERY 12 HOURS -RINSE AND SPIT AFTER USE AND USE WITH SPACER active Not Available Not Available No t Available Xarelto 20 mg tablet TAKE 1 TABLET BY MOUTH DAILY WITH EVENING MEAL active Not Available Not Available No t Available OneTouch Verio test strips USE DIRECTED TWICE A DAY active Not Available Not Available No t Available [facility] spacer USE DIRECTED active Not Available Not Available No t Available Jardiance 10 mg tablet TAKE 1 TABLET BY MOUTH EVERY DAY FOR 90 DAYS 05/20 completed Not Available Not Available Not Available Jardiance 25 mg tablet TAKE 1 TABLET BY MOUTH EVERY DAY active Not Available Not Available No t Available Spiriva Respimat 2.5 mcg/actuati on solution for inhalation INHALE 2 PUFFS BY MOUTH ONCE DAILY active Not Available Not Available No t Available Stiolto Respimat 2.5 mcg-2.5 mcg/actuati on solution for inhalation INHALE 2 PUFFS BY MOUTH ONCE DAILY. active Not Available Not Available No t Available Tresiba FlexTouch U-100 insulin 100 unit/mL (3 mL) subcutaneou s pen INJECT 30 UNITS UNDER THE SKIN ONCE DAILY AT BEDTIME active Not Available Not Available No t Available Bevespi Aerosphere 9 mcg-4.8 mcg HFA aerosol inhaler INHALE 2 PUFFS BY MOUTH EVERY 12 HOURS 12/30 completed Not Available Not Available Not Available Ozempic 1 mg/dose (4 mg/3 mL) subcutaneou s pen injector 12/30 completed Not Available Not Available Not Available Ozempic 2 mg/dose (8 mg/3 mL) subcutaneou s pen injector INJECT 2MG UNDER THE SKIN ONCE WEEKLY active Not Available Not Available No t Available Dexcom G7 Diamond Cleaver WILL USE SMARTPHON E active Not Available Not Available No t Available Dexcom G7 Sensor device USE TO MONITOR GLCUOSE active Not Available Not Available No t Available Vitals Date Recorded Body height Provider Name an d Address Organization Details Last Updated DateTime 12/30/2022 187.96 cm Lizzy Chloé [place] [employer] [facility] [employer] 12/30/2022 09:19:00 Date Recorded Heart rate Respiratory rate Oxygen saturation Oxygen saturation in Arterial blood by Pulse oximetry Body mass index (BMI) Body weight Systolic blood pressure Diastolic blood pressure Provider Name and Address Organization Details Last Updated DateTime 3 74 /min 14 /min 98 % 98 % 36.5 kg/m2 142597. 23 g 136 mm[Hg] 80 mm[Hg] Claribel Nolen [employer] [facility] 3 09:21:32 Date Recorded Body height Body mass index (BMI) Body weight Heart rate Respiratory rate Oxygen saturation Oxygen saturation in Arterial blood by Pulse oximetry Systolic blood pressure Diastolic blood pressure Provider Name and Address Organization Details Last Updated DateTime 4 187.96 cm 36.5 kg/m2 001328. 23 g 70 /min 14 /min 99 % 99 % 135 mm[Hg] 68 mm[Hg] Claribel Nolen [employer] [facility] 4 09:10:35 Date Recorded Body height Body mass index (BMI) Body weight Heart rate Respiratory rate Oxygen saturation Oxygen saturation in Arterial blood by Pulse oximetry Systolic blood pressure Diastolic blood pressure Provider Name and Address Organization Details Last Updated DateTime 4 187.96 cm 36.5 kg/m2 753343. 23 g 83 /min 14 /min 99 % 99 % 131 mm[Hg] 78 mm[Hg] Claribel Nolen [employer] [facility] 4 08:51:25 Date Recorded Body height Body mass index (BMI) Body weight Heart rate Respiratory rate Oxygen saturation Oxygen saturation in Arterial blood by Pulse oximetry Systolic blood pressure Diastolic blood pressure Provider Name and Address Organization Details Last Updated DateTime 4 187.96 cm 36.5 kg/m2 232544. 23 g 83 /min 14 /min 99 % 99 % 91 mm[Hg] 60 mm[Hg] Claribel Nolen [facility] [employer] 08:42:26 Social History Question Answer Notes LastModified by Organizat ion Details LastModified Time Tobacco Smoking Status Former Smoker Lizzy Chloé isbell [facility] 12/30/2022 09:38:47 What Is Your Level Of Alcohol Consumption? Occasional Information not available 12/30/2022 When Did You Quit Smoking? 11-15yearssince lastcigarette Information not available 12/30/2022 How Many Years Have You Smoked Tobacco? 30 Information not available 12/30/2022 Sex: Unknown Functional Status None recorded. Mental Status None recorded. Family History Relationship Description Onset Age of this Age Resolved Age Notes LastModified by Organization Details LastModified Time Mother Diabetes mellitus Not available 2022 09:37:33 Mother Arthritis Not available 12/30/2022 09:37:49 Father Cerebrovascu lar accident Not available 09:37:40 Father Arthritis Not available 12/30/2022 09:37:49 Father Family history of malignant neoplasm Not available 2022 09:38:20 Unspecified Relation Hypertensive disorder Not available 2022 09:38:11 Medical History Condition Response DIABETES, TYPE Y CARDIAC ARRHYTHMIA Y ARTHRITIS Y ALLERGIES/HAYFEVER Y USE OF BLOOD THINNERS Y LUNG DISEASE/DISORDER Y HEARTBURN / REFLUX Y HIGH CHOLESTEROL / HYPERLIPIDEMIA Y Past Encounters Encounter ID Performer Location Encounter Start Date Encounter Closed Date Diagnosis/Indication Diagnosis SNOMED-CT Code Diagnosis ICD10 Code Diagnosis Note [id number] Maicol Davis DPM [facility] [place] [address] [facility], [facility] [address] [place] [address] 12/30/2022 09:15:24 12/30/2022 10:00:45 Ingrowing toenail 364832330 L60.0 Bilateral great toenail- both cornersnai ls debrided without incidentEd ucated on conditionP atient will return for partial matrixecto my both nails great toe shows both corners [id number] Maicol Davis DPM [facility] [place] [address] [facility], [place] [address] [place] [address] 05/14/2023 09:04:41 05/14/2023 16:53:02 Ingrowing toenail 918551275 L60.0 Bilateral great toenail- both cornerspar tial matrixecto my both nails great toe todaywound care and dressings instructio ns reviewedmo nitor for signs of infection if presents seek medical attention immediatel yfollow up in one week [id number] Maicol Davis DPM [facility] [place] [address] [facility], [address] [place] [address] 05/21/2023 08:46:06 05/21/2023 14:06:03 Ingrowing toenail 482804422 L60.0 Bilateral great toenail- both cornerspar tial matrixecto my healingwou nd care and dressings instructio ns reviewedmo nitor for signs of infection if presents seek medical attention immediatel yfollow up in 2k [id number] Maicol Davis DPM [facility] [place] [address] [facility], [address] [place] [address] 06/04/2023 08:39:36 06/04/2023 08:59:14 Ingrowing toenail 301521321 L60.0 Bilateral great toenail- both cornerspar tial matrixecto my healedDC dressingfo llow-up as needed Health Concerns Section Related Observation LastModified by Organization Detai ls LastModified Time None Recorded Concern Status LastModified by Organization Details LastModified Time None Recorded Advance Directives Directive None Recorded Payers Encounter Date Sequence Insurance Name Policy Number Policy Gamble Covered Member ID Gamble Member ID Guarantor Name 12/30/2022 1 [facility] [id number] Kushal Sanders [id number] Kushal Sanders 05/14/2023 1 [facility] [id number] Kushal Sanders [id number] Kushal Sanders 05/21/2023 1 [facility] [id number] Kushal Sanders [id number] Kushal Sanders 06/04/2023 1 [facility] (MEDICARE REPLACEMENT/A DVANTAGE - PPO) [id number] Kushal Sanders [id number] Kushal Sanders Notes Date Note Type Note Provider Name and Address Organization Details Recorded Time 12/30/2022 text/html . Patient is a 57-year-old male diabetic who presents to the office with complaints of ingrown toenail pain to bilateral great toenails. Patient states that he has had ingrown toenails to both corners of both great toenails for several years and states he has had this chronic issue. Patient denies any redness or drainage. Patient denies any history of injury to the toes. Patient denies any numbness tingling or burning of the feet. Maicol Davis DPM [address], [place], [address], [employer] 12/30/2022 09:46:06 05/14/2023 text/html Patient returns for office procedure of the toenail. Denies any new complaints. Denies any changes in health. Understands procedure, risk, benefits, complications of procedure and elects to continue. Maicol Davis DPM [address], [place], [address], [employer] 05/14/2023 09:59:29 05/21/2023 text/html Returns for foll ow up procedure doing well no pain or signs of infection. Patient cont daily wound care. About 50% healed. No new complaints. Maicol Davis DPM [address], [place], [address], [employer] 05/21/2023 14:05:32 06/04/2023 text/html . Patient is a 58-year-old male who returns the office for follow-up on partial matrixectomy of the great toenails. Patient has completely healed the area has no complaints of pain or signs of infection. Patient denies any other complaints. Maicol Davis DPM [address], [place], [address], [employer] 06/04/2023 08:57:32
[2024-06-22 10:00] LABS: Glucose Point of Care 180 mg/dl (65-105)
[2024-06-22 10:16] LABS: Mean Platelet Volume 9.6 fl (7.4-10.4); Platelet Count Result 173 k/mm3 (150-375)
[2024-06-22 10:22] LABS: Prothrombin Time 13.3 Seconds (11.1-14.7)
[2024-06-22 13:17] LABS: Glucose Point of Care 177 mg/dl (65-105)
== END 2024-06-22 15:35 | disposition home or self-care (01) ==
PROVIDERS: PCP Emergency Medicine; Referring Provider Nurse Practitioner Family; Visit Provider Radiology Diagnostic Radiology
PROC: BB24ZZZ Computerized Tomography (CT Scan) of Bilateral Lungs (ICD-10-PCS; CPT 32408; principal; 2024-06-22 11:00)
DX: C34.91 Malignant neoplasm of unspecified part of right bronchus or lung (principal); R91.1 Solitary pulmonary nodule; J95.811 Postprocedural pneumothorax; E11.9 Type 2 diabetes mellitus without complications
CPT/HCPCS: 32408; 36415; 71045; 82948; 85049; 85610; 88305; 88342; C1729

== ENCOUNTER 2024-07-19 09:59 | Outpatient (CLI) | payer MEDICARE, MEDICAID, SELFPAY ==
--- NOTE | ~2024-07-19 | PE_ITS ---
EXAMINATION: PET skull to mid thigh DATE: 07/19/2024 11:54 INDICATION: Right middle lobe lung cancer TECHNIQUE: Blood glucose level was 138 mg/dL. 10.342 mCi of 18-fluorodeoxyglucose (18-FDG) was admini stered i.v. Low dose computed tomography (CT) images were acquired from the base of the brain to the proximal thighs for attenuation correction and anatomic localization. Positron emission tomography (P ET) images were acquired in the same distribution beginning 53 minutes after injection. Images includ ing fused PET/CT images were reconstructed in axial, coronal, and sagittal planes. Automated exposure control technique was employed. The dose-length product was 1319.18mGy-cm. COMPARISON: 03/31/2024 FINDINGS: Head/neck: There is symmetric increased activity in the oral and nasal cavities, laryngeal muscles and ocular mu scles without CT correlate, likely physiologic. There is complete opacification of the right maxillar y sinus with peripheral increased mucosal FDG activity. No pathologically enlarged cervical lymphaden opathy or suspicious foci of increased FDG uptake in the visualized head or neck. Chest: No interval change in size of a 1.5 x 1.2 cm FDG avid right middle lobe nodule with maximal SUV of 8. 0, previously 5.2. Unchanged 5 mm basilar right lower lobe nodule without FDG uptake. Also unchanged is a small region of chronic tree-in-bud opacity with multiple <4 mm nodules in the basilar left lowe r lobe. There are new centrilobular groundglass opacities in the left upper and lower lobes and lingu la consistent with pneumonia. No pleural effusion. Heart size is normal. Atherosclerotic coronary art tyler calcifications. No pericardial effusion. Small sliding-type hiatal hernia. Again seen are couple normal-sized FDG avid mediastinal lymph nodes the more cephalad right paratracheal lymph node measuri ng 1.3 x 0.8 cm with maximal SUV of 9.7 and a more caudal 1.4 x 0.9 cm subcarinal lymph node with max imal SUV of 9.6. Abdomen/pelvis/proximal thighs: Physiologic renal accumulation and excretion of FDG activity in the kidneys, bladder and along portio ns of ureters. There is mild bilateral hydroureteronephrosis extending to the distended bladder sugge stive of bladder outlet obstruction. Mild prostatomegaly measuring 5.1 x 3.6 cm. Normal degree and he terogenous pattern of increased uptake throughout the liver without radiologic correlate or dominant FDG avid lesion. The gallbladder, pancreas, spleen and bilateral adrenal glands are normal. Mild upta ke scattered throughout the bowels without radiologic correlate, also likely physiologic. There is a a persistent small focus of more prominent uptake along the ascending colon with maximal SUV increase d from 12.6 on the prior study due to 20.4 but which remains without radiologic correlate on the CT i maging. Normal appendix. No other abnormal foci of increased FDG uptake or pathologically enlarged ly mphadenopathy in the abdomen, pelvis or proximal thighs. Musculoskeletal: No suspicious lytic, blastic or abnormally FDG avid bone lesions. IMPRESSION: 1. Increased uptake associated with an unchanged 1.5 x 1.2 cm right middle lobe nodule consistent wit h biopsy-proven lung cancer. 2. No significant change in a couple normal-sized FDG avid mediastinal lymph nodes suspicious for met astatic disease but which could also be reactive. 3. Persistent single focus of disproportionately increased uptake along the ascending colon without r adiologic correlate on CT. If not recently performed would consider further evaluation with colonosco py. Reviewed, dictated and finalized at location A. IMPRESSION: 1. Increased uptake associated with an unchanged 1.5 x 1.2 cm right middle lobe nodule consistent with biopsy-proven lung cancer. 2. No significant change in a couple normal-sized FDG avid mediastinal lymph no dc suspicious for metastatic disease but which could also be reactive. 3. Persistent single focus of disproportionately increased uptake along the asc ending colon without radiologic correlate on CT. If not recently performed woul d consider further evaluation with colonoscopy.
[2024-07-19 10:20] LABS: Glucose Point of Care 127 mg/dl (65-105)
--- OUTSIDE RECORDS SUMMARY | 2024-07-19 10:50 | XMS_ITS | Clinical Summary ---
Author Organization [facility] (Former[facility]) Roger Thakkar Address [address] [place] [address] Care Team Providers Care Route Process Administrator Name Role Phone Unavailable Primary Care Provider Unavailabl e Allergies Active Allergy Reactions Criticality Noted Date Comments Amoxicillin Swelling Low 07/05/2024 Swelling of lip,tongue and throat Nsaids (Non-Steroidal Anti-Inflammatory Drug) Rash Low 07/05/2024 Medications FLUoxetine (PROzac) 20 mg capsule Take 20 mg by mouth daily. 5 Active diazePAM (VALIUM) 5 mg tablet Take 1 Tablet by mouth 2 times daily. 5 Active omeprazole (PriLOSEC) 20 mg Capsule, Delayed Release(E.C.) Take 1 Capsule by mouth daily. 5 Active oxyCODONE-acet aminophen (PERCOCET) 10-325 mg Tablet Take 1 Tablet by mouth every 6 hours. Active MAGNESIUM OXIDE ORAL Take 400 mg by mouth daily. Active omega-3 fatty acids-fish oil 300-1,000 mg Capsule Take 1 Capsule by mouth daily. Active empagliflozin (JARDIANCE) 25 mg tablet Take 25 mg by mouth daily. Active albuterol sulfate HFA 90 mcg/actuation aerosol inhaler 2 Puffs by See Admin Instructions route see administration instructions. 5 Active azelastine (ASTELIN) 137 mcg/actuation nasal spray Administer 2 Sprays in each nostril 2 times daily. Active losartan (COZAAR) 25 mg tablet Take 1 Tablet by mouth daily. 5 Active budesonide-for moteroL (SYMBICORT) 160-4.5 mcg/actuation HFA Aerosol Inhaler 2 Puffs by See Admin Instructions route see administration instructions. 5 Active oxyBUTYnin (DITROPAN) 5 mg tablet Take 1 Tablet by mouth 2 times daily. 5 Active ALPRAZolam (XANAX) 0.25 mg tablet TAKE 1 TABLET BY MOUTH ONCE TAKE 30-45 MINUTES PRIOR TO PROCEDURE. 5 Active atorvastatin (LIPITOR) 10 mg tablet Take 1 Tablet by mouth daily. 5 Active sotaloL (BETAPACE) 120 mg Tablet Take 1 Tablet by mouth 2 times daily. 5 Active Xarelto 20 mg Tablet Take 20 mg by mouth daily with supper. 5 Active predniSONE (DELTASONE) 20 mg tablet Take 3 Tablets by mouth daily. 5 Active levoFLOXacin (LEVAQUIN) 750 mg tablet Take 1 Tablet by mouth daily. 5 Active OneTouch Delica Plus Lancet 33 gauge USE TO TEST 3-4 TIMES DAILY 5 Active Tresiba FlexTouch U-100 100 unit/mL (3 mL) pen syringe INJECT 30 UNITS UNDER THE SKIN ONCE DAILY FOR 3 MONTHS 5 Active Breztri Aerosphere 160 mcg-9mcg-4.8mc g/actuation HFA aerosol inhaler TAKE 2 PUFFS BY MOUTH TWICE A DAY IN THE MORNING AND IN THE EVENING 5 Active OneTouch Verio Flex meter use as directed 5 Active OneTouch Verio test strips Strip USE TO TEST 3-4 TIMES DAILY 5 Active montelukast (SINGULAIR) 10 mg tablet Take 10 mg by mouth daily at bedtime. Active Active Problems No known active problems Encounters Date Type Department Care Team Description 07/12/2024 External Device Data ST[facility] ABSTRACTION Provider, Abstract 07/12/2024 External Device Data [facility] ABSTRACTION Provider, Abstract 07/12/2024 External Device Data [facility] ABSTRACTION Provider, Abstract 07/05/2024 2:00 PM CDT Office Visit [facility] ([facility] Oncology and Hematology [facility] [address] [place] [id number] Nan Mckeon MD Non-small cell cancer of right lung (CMS/HCC) (Primary Dx) from Last 3 Months Family History Medical History Relation Name Comments No Known Problems Brother No Known Problems Child Stomach Cancer Father Diabetes Mother Emphysema Mother No Known Problems Sister Relation Name Status Comments Brother Alive Child Alive Father Mother Sister Alive Social History Tobacco Use Types Packs/Day Years Used Date Smoking Tobacco: Never Smokeless Tobacco: Never Alcohol Use Standard Drinks/Week Comments Never 0 (1 standard drink = 0.6 oz pur e alcohol) Sex and Gender Information Value Date Recorded Sex Assigned at Not on file Legal Sex Male 2:47 PM CDT Gender Identity Not on file Sexual Orientation Not on file Last Filed Vital Signs Vital Sign Reading Time Taken Comments Blood Pressure 141/79 07/05/2024 2:21 PM CDT Pulse 74 07/05/2024 2:17 PM CDT Temperature 36.5 C (97.7 F) 07/05/2024 2:17 PM CDT Respiratory Rate 16 07/05/2024 2:17 PM CDT Oxygen Saturation 95% 07/05/2024 2:17 PM CDT Inhaled Oxygen Concentration - - Weight 119 kg (262 lb 6.4 oz) 07/05/2024 2:17 PM CDT Height 185.4 cm (6' 1 ) 07/05/2024 2:17 PM CDT Body Mass Index 34.62 07/05/2024 2:17 PM CDT Plan of Treatment Upcoming Encounters Date Type Department Care Team (Late st Contact Info) Description 07/26/2024 10:00 AM CDT Office Visit [facility] ([facility] Oncology and Hematology - [place] [address] [facility] [address] [place] [address] Arnie Bai MD [address] [facility] [address] [place] [address] Health Maintenance Due Date Last Done Comments DIABETES ANNUAL FOOT EXAM 1982 DIABETES ANNUAL RETINAL EXAM 1982 DIABETES HBA1C Q 6 MONTHS 1982 DIABETES MICROALBUMIN ANNUAL SCREEN 1982 LDL CHOLESTEROL ANNUAL 1982 DTAP/TDAP/TD VACCINES (1 - Tdap) 1983 COLORECTAL SCREENING 2009 Colorectal Cancer Screening 2009 FIT-DNA Q 3 years 2009 FIT/FOBT Q 1 year 2009 Flex Sig/CT Colonography Q 5 years 2009 ZOSTER VACCINE (1 of 2) 2014 INFLUENZA VACCINE (#1) 2023 , 01/25/2021, 12/20/2018, Additional history exists COVID-19 Vaccine ( season) 2023 12/17/2021 [place] ([place]) Preventative Visit/Annual Wellness Visit 03/16/2024 07/31/2023, 07/31/2023 RSV VACCINE (60+ or ) (1 - Risk 60-74 years 1-dose series) 2024 HEPATITIS B VACCINES Aged Out No long er eligible based on patient's age to complete this topic Insurance MEDICAID [place] UHC DUAL COMPLETE PPO [facility] [id number]
--- OUTSIDE RECORDS SUMMARY | 2024-07-19 10:50 | XMS_ITS | Clinical Summary ---
Author Organization [facility] Address [address] [facility] [place] [address] Care Team Providers Care Social Service Coordinator Name Role Phone Americo Coyle MD Primary Care Provider [phone] Source Comments [facility] and Associated Physician Practices is amultiple site organization consisting of ambulatory clinics and hospital sitesin [place], [place], [place] and [place]. This disclosure is being madepursuant to the Care Everywhere program and may not contain all information available regarding this patient. Last updated 17.[facility] Social History Tobacco Use Types Packs/Day Years Used Date Smoking Tobacco: Former Cigarettes Q uit: 05/17/2012 Alcohol Use Standard Drinks/Week Comments Not Asked 0 (1 standard drink = 0.6 oz pur e alcohol) Sex and Gender Information Value Date Recorded Sex Assigned at Not on file Legal Sex Male 2:49 PM CDT Gender Identity Not on file [...] age to complete this topic Insurance MEDICAID - OUT OF STATE MEDICARE [facility] MANAGED MEDICARE ADV MED[place]ID - [place] SELF PAY NO INSURANCE Member Subscriber Plan / Payer (Ef fective for All Dates) Name:Dayan Sanders Member ID:Not on file Relation to Subscriber:Not on file Name:DAYAN SANDERS Subscriber ID:Not on file (Home) Address: [address] [place] [id number] Payer ID:Not on file Group ID:Not on file Type:Self Pay Address: [place], [place] Care Teams Social Service Coordinator Relationship Specialty Start Date End Date Americo Coyle MD [address] [place] [address] (work) PCP - General 07/06/14
--- OUTSIDE RECORDS SUMMARY | 2024-07-19 10:50 | XMS_ITS | Referral Summary ---
Author Organization [facility] Address [address] [place] [id number] Care Team Providers Care Program Coordinator Executive Education Name Role Phone Americo Coyle MD Primary Care Provider [phone] Allergies Active Allergy Reactions Criticality Noted Date [...] Active Problems Problem Noted Date Diagnosed Date Adenocarcinoma of right lung 07/15/2024 History of COPD 12/17/2021 Allergy status to [...] on file Legal Sex Male 4:52 AM ALPACA FARMER Gender Identity Not on file Sexual Orientation Not on file Last Filed Vital Signs Vital Sign Reading Time Taken Comments Blood Pressure 151/97 02/18/2022 8:59 AM ALPACA FARMER Pulse 71 02/18/2022 8:59 AM ALPACA FARMER Temperature 36.4 C (97.6 F) 02/18/2022 8:59 AM ALPACA FARMER Respiratory Rate - - Oxygen Saturation 96% 12/17/2021 10: 46 AM CDT Inhaled Oxygen Concentration - - Weight 135.4 kg (298 lb 9.6 oz) 02/18/2022 8:59 AM ALPACA FARMER Height 188 cm (6' 2 ) 02/18/2022 8:59 AM ALPACA FARMER Body Mass Index 38.34 02/18/2022 8:59 AM ALPACA FARMER Plan of Treatment Not on file Procedures Procedure Name Priority Date/Time Associated Diagnosis Comments EGFR Routine 12/19/2021 10:57 AM CDT Mycobacterial infection, unspecified from Last 3 Months or Most Recently Relevant to Health Maintenance Results * eGFR (12/19/2021 10:57 AM CDT) eGFR >90 90 - 130 mL/min/1. 73 m2 [facility] Comment: Interpretive Data Reference Interval Normal >/= [...] LAB BLOOD ORDERABLES Final Resul t [facility] Department [place] [address] from Last 3 Months or Most Recently Relevant to Health Maintenance Insurance [place]PA MEDICARE [facility] MEDICARE HMO IDPA [facility] MEDICARE ADVANTAGE [facility] Address: [address] [address] [place] [address] IDPA [facility] MEDICARE ADVANTAGE Care Teams Program Coordinator Executive Education Relationship Specialty Start Date End Date Americo Coyle MD PCP - General Family Medicine 02/09/17
--- OUTSIDE RECORDS SUMMARY | 2024-07-19 10:50 | XMS_ITS | Clinical Summary ---
Author Organization [facility] Address [address] [place] [address] Care Team Providers Care Plumbing Warehouse Helper Name Role Phone Americo Coyle MD Primary Care Provider [phone] Allergies Active Allergy Reactions Criticality Noted Date [...] ANKLE SURGERY right CARPAL TUNNEL RELEASE 02/2014 LUNG BIOPSY Medical History Medical History Date Comments Asthma Hypertension Diabetes mellitus (HCC) High cholesterol History of COPD Anxiety GERD (gastroesophageal reflux disease) Chronic anticoagulation Allergic rhinitis Depression Family History Medical History Relation Name Comments [...] on file Legal Sex Male 4:52 AM BOAT HOIST OPERATOR Gender Identity Not on file Sexual Orientation Not on file Obstetrics History Last Filed Vital Signs Vital Sign Reading Time Taken Comments Blood Pressure 151/97 02/18/2022 8:59 AM BOAT HOIST OPERATOR Pulse 71 02/18/2022 8:59 AM BOAT HOIST OPERATOR Temperature 36.4 C (97.6 F) 02/18/2022 8:59 AM BOAT HOIST OPERATOR Respiratory Rate - - Oxygen Saturation 96% 12/17/2021 10: 46 AM CDT Inhaled Oxygen Concentration - - Weight 135.4 kg (298 lb 9.6 oz) 02/18/2022 8:59 AM BOAT HOIST OPERATOR Height 188 cm (6' 2 ) 02/18/2022 8:59 AM BOAT HOIST OPERATOR Body Mass Index 38.34 02/18/2022 8:59 AM BOAT HOIST OPERATOR Plan of Treatment Health Maintenance Due Date [...] season) 2023 12/17/2021, 06/09/2020, 05/17/2020 Influenza Vaccine (Season Ended) 2024 12/17/2021, 01/25/2021, 12/20/2018, Additional history exists Procedures Procedure [...] MD LAB BLOOD ORDERABLES Final Resul t [facility] [place] [address] from Last 3 Months or Most Recently Relevant to Health Maintenance Insurance IDPA MEDICARE [facility] Address: [address] [address] [place] [address] WE[employer] MEDICARE HMO IDPA [facility] MEDICARE ADVANTAGE IDPA [facility] MEDICARE ADVANTAGE Care Teams Plumbing Warehouse Helper Relationship Specialty Start Date End Date Americo Coyle MD PCP - General Family Medicine 02/09/17
--- OUTSIDE RECORDS SUMMARY | 2024-07-19 10:50 | XMS_ITS | CONTINUITY OF CARE DOCUMENT ---
Author Name sharruyvince Address Unknown Organization [facility] Address [address] [place] [address] Phone [phone] Care Team Providers Care X Ray Developer Name Role Phone Shashi Verdin MD Unavailable MARLENI FUCHS MD Unavailable INSURANCE PROVIDERS Payer name Policy type / Coverage type [place] red [place] MEDICAID (2) Medicaid [id number] [facility] [id number]
--- OUTSIDE RECORDS SUMMARY | 2024-07-19 10:51 | XMS_ITS | Data Portability ---
Author Organization [facility] [employer], Main Office Address [address] [place] [address] Care Team Providers Care Gripper Machine Operator Name Role Phone BLAKE DE Primary Care Provider [phone] BLAKE DE Referring Provider [phone] Assessment Encounter Date Assessment Date Assessment LastModified by Organization Details LastModified Time 12/30/2022 12/30/2022 This note is dictated and transcribed by [employer]. Supervisor [employer] variances may occur. Despite proofreading, typographical errors may occur. Not available 12/30/2022 09:45:28 05/14/2023 05/14/2023 This note is dictated and transcribed by [employer]. Supervisor [employer] variances may occur. Despite proofreading, typographical errors may occur. Not available 05/14/2023 09:06:33 Plan of Treatment Reminders Order Date Submit Date Provider Last Modified By Organization Details Last Modified Time Details Appointments None recorded. Lab None recorded. Referral None recorded. Procedures None recorded. Surgeries None recorded. Imaging None recorded. Medication Orders gentamicin 0.1 % topical ointment 2023 024 [id number] [address] [facility] [place], [address], 09:58:45 Patient TargetsNo targets recorded. Patient Instructions Encounter Date Encounter Id Patient Instructions Last Modified By Organization Details Last Modified Time 05/14/2023 [id number] paronychia: care instructions vaishali Not available 05/14/2023 09:58:43 Reason for Referral None Reported. Problems Name Problem SNOMED Code Status Onset Date Resolution Date Notes Provider Name and Address Organization Details Recorded Time Seasonal allergy 452755993 Active 2022 Liz[place]bell[place] [facility] 3 09:23:05 Arthritis 6009826 Active 2022 Lizzy Luevano null, [place] [facility] 3 09:23:11 Asthma 693862505 Active 2022 Lizzy Luevano null, [place] [facility] 3 09:23:17 Bronchitis 43775046 Active 2022 Lizzy Luevano null, [place] [facility] 3 09:23:24 Cardiac arrhythmia 924653287 Active 2022 Lizzy Luevano null, [place] [facility] 3 09:23:32 Diabetes mellitus 01058104 Active 2022 Lizzy Luevano null, [place] [facility] 3 09:23:39 Heartburn 88355320 Active 2022 Lizzy Luevano null, [facility] 3 09:23:47 Hypercholeste rolemia 25575824 Active 2022 Lizzy Dodd null, [facility] 3 09:23:59 Disorder of lung 61465496 Active 2022 Lizzy Luevano null, [facility] 3 09:24:09 Pneumonia 062914587 Active 2022 Lizzy Luevano null, [facility] 3 09:24:17 Ingrowing toenail 893732600 Active 2022 Maicol Davis DPM [address], [address], [place], [address] , [facility] 3 09:44:50 Notes:USE OF BLOOD THINNERS Problem Notes None recorded. Procedures Surgical History Date Name Laterality Status Provider Name and Address Organization Details Recorded Time 4 Partial Nail [employer] Matrixectomy-Ri ght completed Maicol Davis DPM [address], [address], [place], [address], [facility] 05/14/2023 09:03:51 4 Partial Nail [employer] Matrixectomy-Le ft completed Maicol Davis DPM [address] [facility] [facility] [address], [place], [address], [facility] [employer] [facility] 05/14/2023 09:04:04 3 Nail Debridement completed Maicol Davis DPM [address] [facility], [facility] [address], [place], [address], [facility] [employer] [facility] 12/30/2022 09:44:42 Imaging Results None recorded. Procedure Notes None recorded. Medical Equipment None Reported. Allergies Allergen ID Allergen Name Allergen Category Reaction Reaction Severity Criticality Documentation Date Start Date Code Code System Note Provider Name and Address Organization Details Recorded Time 58704 amoxicill in medicatio n Not available Not available Not available 12/30/2022 723 [facility] 09:19:19 39582 Non-stero idal anti-infl ammatory agent (product) medicatio n Not available Not available Not available 12/30/2022 76742 005 SNOMED [facility] 09:19:27 31945 meloxicam medicatio n Not available Not available Not available 12/30/2022 66266 RxNorm [facility] 3 09:19:36 Medications Name Sig Start Date [...] Not Available Not Available No t Available [facility] spacer USE DIRECTED active Not [...] Not Available No t Available Dexcom G7 Delivery Person WILL USE SMARTPHON E active Not Available Not Available No t Available Dexcom G7 Sensor device USE TO MONITOR GLCUOSE active Not Available Not Available No t Available Vitals Date Recorded Body height Provider Name an d Address Organization Details Last Updated DateTime 12/30/2022 187.96 cm Lizzy Chloé [place] [employer] [facility] [employer] 12/30/2022 09:19:00 Date Recorded Heart rate Respiratory rate Oxygen saturation Oxygen saturation in Arterial blood by Pulse oximetry Body mass index (BMI) Body weight Systolic blood pressure Diastolic blood pressure Provider Name and Address Organization Details Last Updated DateTime 3 74 /min 14 /min 98 % 98 % 36.5 kg/m2 673333. 23 g 136 mm[Hg] 80 mm[Hg] Claribel Nolen [employer] 3 09:21:32 Date Recorded Body height Body mass index (BMI) Body weight Heart rate Respiratory rate Oxygen saturation Oxygen saturation in Arterial blood by Pulse oximetry Systolic blood pressure Diastolic blood pressure Provider Name and Address Organization Details Last Updated DateTime 4 187.96 cm 36.5 kg/m2 826493. 23 g 70 /min 14 /min 99 % 99 % 135 mm[Hg] 68 mm[Hg] Claribel Nolen [employer] [facility] [employer] 4 09:10:35 Date Recorded Body height Body mass index (BMI) Body weight Heart rate Respiratory rate Oxygen saturation Oxygen saturation in Arterial blood by Pulse oximetry Systolic blood pressure Diastolic blood pressure Provider Name and Address Organization Details Last Updated DateTime 4 187.96 cm 36.5 kg/m2 730566. 23 g 83 /min 14 /min 99 % 99 % 131 mm[Hg] 78 mm[Hg] Claribel Nolen [employer] 4 08:51:25 Date Recorded Body height Body mass index (BMI) Body weight Heart rate Respiratory rate Oxygen saturation Oxygen saturation in Arterial blood by Pulse oximetry Systolic blood pressure Diastolic blood pressure Provider Name and Address Organization Details Last Updated DateTime 4 187.96 cm 36.5 kg/m2 176889. 23 g 83 /min 14 /min 99 % 99 % 91 mm[Hg] 60 mm[Hg] Claribel Nolen [facility] [employer] 08:42:26 Social History Question Answer Notes LastModified by Organizat ion Details LastModified Time Tobacco Smoking Status Former Smoker Lizzy Chloé isbell [facility] [employer] [facility] 12/30/2022 09:38:47 What Is Your Level [...] available 2022 09:38:11 Medical History Condition Response ALLERGIES/HAYFEVER Y LUNG DISEASE/DISORDER Y HIGH CHOLESTEROL / HYPERLIPIDEMIA Y ARTHRITIS Y USE OF BLOOD THINNERS Y DIABETES, TYPE Y HEARTBURN / REFLUX Y CARDIAC ARRHYTHMIA Y Past Encounters Encounter ID Performer Location Encounter Start Date Encounter Closed Date Diagnosis/Indication Diagnosis SNOMED-CT Code Diagnosis ICD10 Code Diagnosis Note [id number] Maicol Davis DPM [facility] [place] [address] [facility] [address] [place] [address] 12/30/2022 09:15:24 12/30/2022 10:00:45 Ingrowing toenail 899907081 L60.0 Bilateral great toenail- both cornersnai ls debrided without incidentEd ucated on conditionP atient will return for partial matrixecto my both nails great toe shows both corners [id number] Maicol Davis DPM [facility] [place] [address] [address] 05/14/2023 09:04:41 05/14/2023 16:53:02 Ingrowing toenail 914674972 L60.0 Bilateral great toenail- both cornerspar tial matrixecto my both nails great toe todaywound care and dressings instructio ns reviewedmo nitor for signs of infection if presents seek medical attention immediatel yfollow up in one week [id number] Maicol Davis DPM [facility] [place] [address] [id number] 05/21/2023 08:46:06 05/21/2023 14:06:03 Ingrowing toenail 094202398 L60.0 Bilateral great toenail- both cornerspar tial matrixecto my healingwou nd care and dressings instructio ns reviewedmo nitor for signs of infection if presents seek medical attention immediatel yfollow up in 2k [id number] Maicol Davis DPM [facility] [place] [address] [address] 06/04/2023 08:39:36 06/04/2023 08:59:14 Ingrowing toenail 083671817 L60.0 Bilateral great toenail- both cornerspar tial matrixecto my healedDC dressingfo llow-up as needed Health Concerns Section Related Observation LastModified by Organization Detai ls LastModified Time None Recorded Concern Status LastModified by Organization Details LastModified Time None Recorded Advance Directives Directive None Recorded Payers Encounter Date Sequence Insurance Name Policy Number Policy Gamble Covered Member ID Gamble Member ID Guarantor Name 12/30/2022 1 [facility] [id number] Kushal Sanders [id number] Kushal Sanders 05/14/2023 1 [facility] [id number] Kushal Sanders [id number] Kushal Sanders 05/21/2023 1 [facility] [id number] Kushal Sanders [id number] Kushal Sanders 06/04/2023 1 [facility] (MEDICARE REPLACEMENT/A DVANTAGE - PPO) [id number] Kushal Sanders [id number] Kushal Sanders Notes Date Note Type Note [...] Maicol Davis DPM [address], [place], [address], [email or web address] 12/30/2022 09:46:06 05/14/2023 text/html Patient returns for office procedure of the toenail. Denies any new complaints. Denies any changes in health. Understands procedure, risk, benefits, complications of procedure and elects to continue. Maicol Davis DPM [address], [place], [address], [email or web address] 05/14/2023 09:59:29 05/21/2023 text/html Returns for foll ow up procedure doing well no pain or signs of infection. Patient cont daily wound care. About 50% healed. No new complaints. Maicol Davis DPM [address], [place], [address], [email or web address] 05/21/2023 14:05:32 06/04/2023 text/html . Patient is a 58-year-old male who returns the office for follow-up on partial matrixectomy of the great toenails. Patient has completely healed the area has no complaints of pain or signs of infection. Patient denies any other complaints. Maicol Davis DPM [address], [place], [address], [email or web address] 06/04/2023 08:57:32
--- OUTSIDE RECORDS SUMMARY | 2024-07-19 10:51 | XMS_ITS | Encounter Summary ---
Author Organization [facility] Address [address] [place] [address] Care Team Providers Care Nursing Clerk Name Role Phone Americo Coyle MD Primary Care Provider [phone] Encounter Details Date Type Department Care Team (Late st Contact Info) Description 09/25/2021 [place] [address] [address] Yi Kauffman MA Social History Tobacco Use [...] on filedocumented in this encounter Care Teams Nursing Clerk Relationship Specialty Start Date End Date Americo Coyle MD PCP - General 06/01/14 documented as of this encounter
--- OUTSIDE RECORDS SUMMARY | 2024-07-19 10:51 | XMS_ITS | Clinical Summary ---
Author Organization [facility] Address [address] [place] [address] Care Team Providers Care Online Communications Manager Name Role Phone Americo Coyle MD Primary Care Provider [phone] Allergies Active Allergy Reactions Criticality Noted Date [...] Type 2 diabetes mellitus wit hout complications ([facility]) 10/22/2017 Hypercholesterolemia 11/06/2014 Diabetes mellitus ([facility]) 11/06/2014 Generalized anxiety disorder 07/11/2014 Gastroesophageal reflux disease 05/16/2014 Opioid dependence ([facility]) 05/16/2014 Low back pain 04/18/2014 Hypertension 03/17/2014 Depressive disorder 02/14/2014 Carpal tunnel syndrome 01/17/2014 Chronic obstructive pulmonary disease ([facility]) 10/19/2013 Knee pain 10/19/2013 Open bimalleolar fracture [...] Vaccines (1 of 2) 2014 Pneumococcal Vaccine: 50+ Years (2 of 2 - PCV) 01/25/2022 01/25/2021, 03/19/2013 COVID-19 Vaccine (4 - 2023-2 5 season) 2023 12/17/2021, 06/09/2020, 05/17/2020 PHQ-2 (Physician [place]) 03/16/2024 RSV Immunization or 60+ Years (1 [...] age to complete this topic Insurance MEDICAID [employer] Care Teams Online Communications Manager Relationship Specialty Start Date End Date Americo Coyle MD PCP - General 06/01/14
--- OUTSIDE RECORDS SUMMARY | 2024-07-19 10:51 | XMS_ITS | Encounter Summary ---
Author Organization [facility] Address [facility] [place] [address] Care Team Providers Care Can Stacker Name Role Phone Americo Coyle MD Primary Care Provider Encounter Details Date Type Department Care Team (Late st Contact Info) Description 09/10/2022 MyChart Message [facility] [address] [place] [phone] Mychart, [facility] Provider Air Quality Message Social [...] on filedocumented in this encounter Care Teams Can Stacker Relationship Specialty Start Date End Date Americo Coyle MD PCP - General 06/01/14 documented as of this encounter
--- OUTSIDE RECORDS SUMMARY | 2024-07-19 10:51 | XMS_ITS | Continuity of Care Document ---
Author Organization [facility] Address [address] [place] [address] Phone Care Team Providers Care Computer Aided Drafter Name Role Phone Americo Coyle MD Unavailable Unavailable Allergies, Adverse Reactions, Alerts Substance Reaction Status Criticality amoxicillin Active No Information NSAIDS (Non-Steroidal Anti-Inflammatory Drug) Active No Information Medications Medication Instructions Dosage Effective Dates (start - stop) Status Comments Percocet 10 mg-325 mg tablet take 1 tablet by oral route every 6 hours as needed as needed 1.00 tablet - Active PRN for pain, avoid driving or operate machines Valium 5 mg tablet take 1 tablet by oral route 2 times every day as needed 5 MG - Active avoid driving or operate machines, PRn for anxiety Vesicare 10 mg tablet take 1 tablet by oral route every day 10 MG - Active Breztri Aerosphere 160 mcg-9mcg-4.8mcg/act uation HFA aerosol inhaler inhale 2 puff by inhalation route 2 times every day in the morning and evening 2.00 puff - Active Prozac 20 mg capsule take 1 Capsule by oral route every day in the morning 20 MG - Active omeprazole 20 mg tablet,delayed release take 1 [...] VISIT, EST, AGE 40-64 OFFICE/OUTPATIENT VISIT, EST -2015 OFFICE/OUTPATIENT VISIT, EST OFFICE/OUTPATIENT VISIT, EST OFFICE/OUTPATIENT VISIT, EST OFFICE/OUTPATIENT VISIT, EST OFFICE/OUTPATIENT VISIT, EST OFFICE/OUTPATIENT VISIT, EST OFFICE/OUTPATIENT VISIT, EST -2015 OFFICE/OUTPATIENT VISIT, EST OFFICE/OUTPATIENT VISIT, EST -2014 OFFICE/OUTPATIENT VISIT, EST -2014 OFFICE/OUTPATIENT VISIT, EST OFFICE/OUTPATIENT VISIT, EST -2014 OFFICE/OUTPATIENT VISIT, EST -2014 PREV VISIT, EST, AGE 40-64 OFFICE/OUTPATIENT VISIT, EST -2014 OFFICE/OUTPATIENT VISIT, EST -2014 OFFICE/OUTPATIENT VISIT, EST OFFICE/OUTPATIENT VISIT, EST -2014 OFFICE/OUTPATIENT VISIT, EST OFFICE/OUTPATIENT VISIT, EST -2014 OFFICE/OUTPATIENT VISIT, EST OFFICE/OUTPATIENT VISIT, EST OFFICE/OUTPATIENT VISIT, EST OFFICE/OUTPATIENT VISIT, EST OFFICE/OUTPATIENT VISIT, EST OFFICE/OUTPATIENT VISIT, EST PREV VISIT, NEW, AGE 40-64 Advance Directives Directive Yes / No Effective Date File Name No Information Encounters Encounter Description Practice Location Reason(s) For Visit Diagnoses Date Provider Providers Copied on Encounter OFFICE/OUTPA TIENT VISIT, EST [facility], [address], [place], [place], [address], [place] tel:[phone] [facility] Medicine pain (chief complaint) anxiety1 (chief complaint) urinary1 (chief complaint) lung CA (chief complaint) Chronic pain syndromeGeneralized anxiety disorderOveractive bladderCancer of lung Jun- 5 Leonides Driscoll. [address], [place], [place], [address] , [place]. tel:[phone] OFFICE/OUTPA TIENT VISIT, EST [facility], [address], [place], [place], [address], [place] tel:[phone] [facility] Medicine pain (chief complaint) anxiety1 (chief complaint) COPD1 (chief complaint) urinary 1 (chief complaint) Solitary lung noduleCentrilobular emphysemaChronic pain syndromeGeneralized anxiety disorderOveractive bladder May- 5 Leonides Son [address], [place], [place], [address] , [place]. tel:[phone] OFFICE/OUTPA TIENT VISIT, EST [facility], [address] [place], [address], [place] tel:[phone] [facility] Medicine pain (chief complaint) anxiety1 (chief complaint) cough1 (chief complaint) UA (chief complaint) Chronic pain syndromeGeneralized anxiety disorderAsymptomati c microscopic hematuriaCOPD w/ acute exacerbation 5 Leonides Son [address], [place], [place], [address] , [place]. tel:[phone] OFFICE/OUTPA TIENT VISIT, EST [facility], [address], [place], [place], [address], [place] tel:[phone] [facility] Medicine urinary1 (chief complaint) Asymptomatic microscopic hematuriaRenal stoneAbnormal weight loss 3- 5 Leonides Driscoll. [address], [place], [place], [address] , [place]. tel:[phone] OFFICE/OUTPA TIENT VISIT, [facility], [address], [place], [place], [address], [place] tel:[phone] [facility] pain (chief complaint) anxiety1 (chief complaint) lung (chief complaint) GERD1 (chief complaint) Generalized anxiety disorderChronic pain syndromeGERD w/o esophagitisSolitary lung nodule 5 Leonides Son [address], [place], [place], [address] , [place]. tel:[phone] OFFICE/OUTPA TIENT VISIT, [facility], [address], [place], [place], [address], [place] tel:[phone] [facility] pain (chief complaint) anxiety1 (chief complaint) Chronic pain syndromeGeneralized anxiety disorder 4 Leonides Son [address], [place], [place], [address] , [place]. [phone] OFFICE/OUTPA TIENT VISIT, [facility], [address], [place], [place], [address], [place] tel:[phone] [facility] pain (chief complaint) anxiety1 (chief complaint) fatigue1 (chief complaint) Chronic pain syndromeGeneralized anxiety disorderFatigueAdul t obstructive sleep apnea 4 Leonides Son [address], [place], [place], [address] , [place]. [phone] OFFICE/OUTPA TIENT VISIT, [facility], [address], [place], [place], [address], [place] tel:[phone] [facility] pain (chief complaint) anxiety1 (chief complaint) Chronic pain syndromeGeneralized anxiety disorder 4 Leonides Son [address], [place], [place], [address] , [place]. tel:[phone] OFFICE/OUTPA TIENT VISIT, [facility], [address], [place], [place], [address], [place] tel:[phone] [facility] pain (chief complaint) anxiety1 (chief complaint) leg pain1 (chief complaint) Pain in right legGeneralized anxiety disorderNontraumati c hematoma of soft tissueChronic pain syndrome 4 Leonides Son [address], [place], [place], [address] , [place]. tel:[phone] OFFICE/OUTPA TIENT VISIT, [facility], [address], [place], [place], [address], [place] tel:[phone] [facility] Medicine pain (chief complaint) anxiety1 (chief complaint) leg pain1 (chief complaint) Pain in right legNontraumatic hematoma of soft tissueChronic pain syndromeGeneralized anxiety disorder 4 Leonides Driscoll. [address], [place], [place], [address] , [place]. tel:[phone] OFFICE/OUTPA TIENT VISIT, [facility], [address], [place], [place], [address], [place] tel:[phone] [facility] pain (chief complaint) anxiety1 (chief complaint) HLP (chief complaint) Chronic pain syndromeGeneralized anxiety disorderMixed hyperlipidemia 4 Leonides Son [address], [place], [place], [address] , [place]. tel:[phone] OFFICE/OUTPA TIENT VISIT, [facility], [address], [place], [place], [address], [place] tel:[phone] [facility] Medicine pain (chief complaint) anxiety1 (chief complaint) Chronic pain syndromeGeneralized anxiety disorder 4 Leonides Driscoll. [address], [place], [place], [address] , [place]. tel:[phone] OFFICE/OUTPA TIENT VISIT, [facility], [address], [place], [place], [address], [place] tel:[phone] [facility] Medicine anxiety1 (chief complaint) pain (chief complaint) bronchitis 1 (chief complaint) yeast1 (chief complaint) Centrilobular emphysemaChronic pain syndromeGeneralized anxiety disorderInflammator y disorders of scrotum 4 Leonides Driscoll. [address], [place], [place], [address] , [place]. tel:[phone] PREV VISIT, EST, AGE 40-64 [facility], [address], [place], [place], [address], [place] tel:[phone] [facility] physical (chief complaint) Encounter for general adult medical exam w abnormal findingsEncounter for STD screeningGeneralize d anxiety disorderAtrial flutterChronic pain syndromeMixed hyperlipidemiaGERD w/o esophagitisType 2 diabetes mellitus with diabetic nephropathyCentrilo bular emphysema 4 Leonides Driscoll. [address], [place], [place], [address] , [place]. tel: [phone] OFFICE/OUTPA TIENT VISIT, [facility], [address], [place], [place], [address], [place] tel:[phone] [facility] anxiety1 (chief complaint) pain (chief complaint) STD (chief complaint) aflutter1 (chief complaint) Chronic pain syndromeGeneralized anxiety disorderEncounter for STD screeningType 2 diabetes mellitus with diabetic nephropathyAtrial flutter 4 Leonides Driscoll. [address], [place], [place], [address] , [place]. tel: [phone] OFFICE/OUTPA TIENT VISIT, [facility], [address], [place], [place], [address], [place] [phone] [facility] anxiety1 (chief complaint) pain (chief complaint) HLP (chief complaint) Chronic pain syndromeGeneralized anxiety disorderMixed hyperlipidemia May- 4 Leonides Driscoll. [address], [place], [place], [address] , [place]. tel:[phone] OFFICE/OUTPA TIENT VISIT, [facility], [address], [place], [place], [address], [place] tel:[phone] [facility] anxiety1 (chief complaint) pain (chief complaint) GERD1 (chief complaint) HLP (chief complaint) Mixed hyperlipidemiaChron ic pain syndromeGeneralized anxiety disorderGERD w/o esophagitis 4 Leonides Son [address], [place], [place], [address] , [place]. tel:[phone] OFFICE/OUTPA TIENT VISIT, [facility], [address], [place], [place], [address], [place] tel:[phone] [facility] anxiety1 (chief complaint) pain (chief complaint) lung nodule1 (chief complaint) pneumonia1 (chief complaint) HLP (chief complaint) PneumoniaGeneralize d anxiety disorderChronic pain syndromeCentrilobul ar emphysemaSolitary lung noduleMixed hyperlipidemia 4 Leonides Son [address], [place], [place], [address] , [place]. [phone] OFFICE/OUTPA TIENT VISIT, [facility], [address], [place], [place], [address], [place] tel:[phone] [facility] anxiety1 (chief complaint) pain (chief complaint) COPD1 (chief complaint) PneumoniaChronic pain syndromeGeneralized anxiety disorderCentrilobul ar emphysema 3 Leonides Son [address], [place], [place], [address] , [place]. tel:[phone] OFFICE/OUTPA TIENT VISIT, [facility], [address], [place], [place], [address], [place] tel:[phone] [facility] pneumonia1 (chief complaint) Pneumonia 3 Leonides Son [address], [place], [place], [address] , [place]. tel:[phone] OFFICE/OUTPA TIENT VISIT, [facility], [address], [place], [place], [address], [place] tel:[phone] [facility] anxiety1 (chief complaint) pain (chief complaint) pneumonia1 (chief complaint) PneumoniaChronic pain syndromeGeneralized anxiety disorder 3 Leonides Driscoll. [address], [place], [place], [address] , [place]. tel:[phone] OFFICE/OUTPA TIENT VISIT, [facility], [address], [address], tel:[phone] [facility] anxiety1 (chief complaint) pain (chief complaint) colon polyp1 (chief complaint) myopathy1 (chief complaint) Chronic pain syndromeDrug-induce d myopathyGeneralized anxiety disorderMixed hyperlipidemiaPolyp of colon 3 Leonides Driscoll. [address], [place], [place], [address] , [place]. tel:[phone] OFFICE/OUTPA TIENT VISIT, [facility], [address] [place], [address], [place] tel:[phone] [facility] anxiety1 (chief complaint) pain (chief complaint) HLP (chief complaint) Chronic pain syndromeGeneralized anxiety disorderMixed hyperlipidemiaDrug- induced myopathy 3 Leonides Driscoll. [address], [place], [place], [address] , [place]. tel:[phone] OFFICE/OUTPA TIENT VISIT, [facility], [address] [place], [address], [place] tel:[phone] [facility] anxiety1 (chief complaint) pain (chief complaint) HLP (chief complaint) polyp1 (chief complaint) Chronic pain syndromeGeneralized anxiety disorderPolyp of colonMixed hyperlipidemia 3 eLonides Driscoll. [address] [place], [address] , [place]. tel:[phone] OFFICE/OUTPA TIENT VISIT, [facility], [address] [place], [address], tel:[phone] [facility] lung nodule1 (chief complaint) anxiety1 (chief complaint) pain (chief complaint) Chronic pain syndromeGeneralized anxiety disorderSolitary lung nodule 3 Coyle Americo. [address], [place], [place], [address] , [place]. [phone] OFFICE/OUTPA TIENT VISIT, [facility], [address], [place], [place], [address], [place] tel:[phone] [facility] anxiety1 (chief complaint) pain (chief complaint) colon polyp1 (chief complaint) lung nodule1 (chief complaint) toe (chief complaint) Ingrowing nailGeneralized anxiety disorderChronic pain syndromePolyp of colonSolitary lung nodule 3 Coyle Americo. [address], [place], [place], [address] , [place]. tel: [phone] OFFICE/OUTPA TIENT VISIT, [facility], [address], [place], [place], [address], [place] tel:[phone] [facility] anxiety1 (chief complaint) pain (chief complaint) colon polyp1 (chief complaint) HLP (chief complaint) Generalized anxiety disorderChronic pain syndromeMixed hyperlipidemiaPolyp of colon Romeo- 3 Coyle Americo. [address], [place], [place], [address] , [place]. [phone] OFFICE/OUTPA TIENT VISIT, [facility], [address], [place], [place], [address], [place] tel:[phone] [facility] anxiety1 (chief complaint) pain (chief complaint) HLP (chief complaint) DM (chief complaint) colon polylp1 (chief complaint) Chronic pain syndromeGeneralized anxiety disorderType 2 diabetes mellitus with diabetic nephropathyMixed hyperlipidemiaPolyp of colon 3 Coyle Americo. [address], [place], [place], [address] , [place]. tel:[phone] OFFICE/OUTPA TIENT VISIT, [facility], [address], [place], [place], [address], [place] tel:[phone] [facility] Medicine anxiety1 (chief complaint) pain (chief complaint) MAC (chief complaint) Chronic pain syndromeGeneralized anxiety disorderCentrilobul ar emphysema 3 Leonides Son [address], [place], [place], [address] , [place]. [phone] OFFICE/OUTPA TIENT VISIT, EST [facility], [address], [place], [place], [address], [place] tel:[phone] [facility] Medicine anxiety1 (chief complaint) pain (chief complaint) Chronic pain syndromeGeneralized anxiety disorder 3 Leonides Dricsoll. [address], [place], [place], [address] , [place]. [phone] OFFICE/OUTPA TIENT VISIT, EST [facility], [address], [place], [place], [address], [place] tel:[phone] [facility] anxiety1 (chief complaint) pain (chief complaint) lung nodule1 (chief complaint) GERD1 (chief complaint) Chronic pain syndromeGeneralized anxiety disorderGERD w/o esophagitisSolitary lung noduleTrichomoniasi s 3 Leonides Driscoll. [address], [place], [place], [address] , [place]. [phone] OFFICE/OUTPA TIENT VISIT, EST [facility], [address], [place], [place], [address], [place] tel:[phone] [facility] Medicine trichomona s1 (chief complaint) Trichomoniasis 3 Leonides Son [address], [place], [place], [address] , [place]. tel:[phone] PREV VISIT, EST, AGE 40-64 [facility], [address], [place], [place], [address], [place] tel:[phone] [facility] physical (chief complaint) Encounter for general adult medical examination without abnormal findingsMixed hyperlipidemiaType 2 diabetes mellitus with diabetic nephropathyChronic pain syndromeEssential (primary) hypertensionGeneral ized anxiety disorderEncounter for general adult medical exam w abnormal findings 3 Leonides Son [address], [place], [place], [address] , [place]. tel:[phone] OFFICE/OUTPA TIENT VISIT, [facility], [address], [place], [place], [address], [place] tel:[phone] [facility] anxiety1 (chief complaint) pain (chief complaint) Chronic pain syndromeGeneralized anxiety disorder 2 Leonides Son [address], [place], [place], [address] , [place]. [phone] OFFICE/OUTPA TIENT VISIT, [facility], [address], [place], [place], [address], [place] tel:[phone] [facility] anxiety1 (chief complaint) pain (chief complaint) DM (chief complaint) fatty liver1 (chief complaint) HLP (chief complaint) Mixed hyperlipidemiaFatty liverType 2 diabetes mellitus with diabetic nephropathyGenerali zed anxiety disorderChronic pain syndrome 2 Leonides Son [address], [place], [place], [address] , [place]. [phone] PREV VISIT, EST, AGE 40-64 [facility], [address], [place], [place], [address], [place] tel:[phone] [facility] physical (chief complaint) Encounter for general adult medical exam w abnormal findingsPrimary central sleep apneaGeneralized anxiety disorderChronic pain syndromeEssential (primary) hypertensionMixed hyperlipidemiaType 2 diabetes mellitus with diabetic mononeuropathy 2 Leonides Son [address], [place], [place], [address] , [place]. tel:[phone] OFFICE/OUTPA TIENT VISIT, [facility], [address], [place], [place], [address], [place] tel:[phone] [facility] anxiety1 (chief complaint) pain (chief complaint) colon polyp1 (chief complaint) MAC (chief complaint) Chronic pain syndromeGeneralized anxiety disorderSolitary lung nodulePolyp of colonDissem mycobacterium avium-intracellular e complex (DMAC) 2 Leonides Driscoll. [address], [place], [place], [address] , [place]. tel:[phone] OFFICE/OUTPA TIENT VISIT, [facility], [address], [place], [place], [address], [place] tel:[phone] [facility] anxiety1 (chief complaint) pain (chief complaint) Chronic pain syndromeGeneralized anxiety disorder 2 Leonides Driscoll. [address], [place], [place], [address] , [place]. tel:[phone] OFFICE/OUTPA TIENT VISIT, [facility], [address], [place], [place], [address], [place] tel:[phone] [facility] anxiety (chief complaint) pain (chief complaint) lung (chief complaint) GERD1 (chief complaint) Solitary lung noduleGERD w/o esophagitisGenerali zed anxiety disorderChronic pain syndrome 2 Leonides Driscoll. [address], [place], [place], [address] , [place]. tel:[phone] OFFICE/OUTPA TIENT VISIT, [facility], [address], [place], [place], [address], [place] tel:[phone] [facility] anxiety1 (chief complaint) pain (chief complaint) Chronic pain syndromeGeneralized anxiety disorder 2 Leonides Driscoll. [address], [place], [place], [address] , [place]. tel:[phone] OFFICE/OUTPA TIENT VISIT, [facility], [address], [place], [place], [address], [place] tel:[phone] [facility] lung nodule1 (chief complaint) anxiety1 (chief complaint) pain1 (chief complaint) sleep apnea1 (chief complaint) Chronic pain syndromeGeneralized anxiety disorderSolitary lung noduleSleep apnea July- 2 Coyle Americo. [address], [place], [place], [address] , [place]. tel:[phone] OFFICE/OUTPA TIENT VISIT, [facility], [address], [place], [place], [address], [place] tel:[phone] [facility] pain (chief complaint) anxiety1 (chief complaint) lung nodule1 (chief complaint) Chronic pain syndromeGeneralized anxiety disorderSolitary lung nodule Jun- 2 Coyle Americo. [address], [place], [place], [address] , [place]. tel:[phone] OFFICE/OUTPA TIENT VISIT, [facility], [address], [place], [place], [address], [place] tel:[phone] [facility] lung nodule1 (chief complaint) Aflutter1 (chief complaint) pain (chief complaint) anxniety1 (chief complaint) Chronic pain syndromeSolitary lung noduleGeneralized anxiety disorderAtrial flutter May-3 2 Leonides Driscoll. [address], [place], [place], [address] , [place]. tel:[phone] OFFICE/OUTPA TIENT VISIT, [facility], [address], [place], [place], [address], [place] tel:[phone] [facility] lung nodule1 (chief complaint) pain (chief complaint) anxiety1 (chief complaint) HTN (chief complaint) Solitary lung noduleChronic pain syndromeGeneralized anxiety disorderEssential (primary) hypertension May-0 2 Coyle Americo. [address], [place], [place], [address] , [place]. tel:[phone] OFFICE/OUTPA TIENT VISIT, [facility], [address], [place], [place], [address], [place] tel:[phone] [facility] anxiety1 (chief complaint) pain (chief complaint) lung nodule1 (chief complaint) HLP (chief complaint) Chronic pain syndromeGeneralized anxiety disorderHyperlipide miaSolitary lung nodule 2 Leonides Son [address], [place], [place], [address] , [place]. [phone] OFFICE/OUTPA TIENT VISIT, [facility], [address], [place], [place], [address], [place] tel:[phone] [facility] Medicine anxiety1 (chief complaint) pain (chief complaint) Chronic pain syndromeGeneralized anxiety disorder 2 Leonides Son [address], [place], [place], [address] , [place]. [phone] OFFICE/OUTPA TIENT VISIT, [facility], [address] [place], [address], [place] tel:[phone] [facility] anxiety1 (chief complaint) pain (chief complaint) HTN (chief complaint) Chronic pain syndromeGeneralized anxiety disorderEssential (primary) hypertension 1 Leonides Son [address], [place], [place], [address] , [place]. [phone] OFFICE/OUTPA TIENT VISIT, [facility], [address], [address], [place] tel:[phone] [facility] Medicine anxiety1 (chief complaint) pain (chief complaint) HTN (chief complaint) Essential (primary) hypertensionGeneral ized anxiety disorderChronic pain syndromeAsthma 1 Leonides Son [address], [place], [place], [address] , [place]. [phone] OFFICE/OUTPA TIENT VISIT, [facility], [address] [place], [address], [place] tel:[phone] [facility] anxiety1 (chief complaint) pain (chief complaint) DM (chief complaint) HLP (chief complaint) ferritin1 (chief complaint) proteinuri a1 (chief complaint) HyperlipidemiaType 2 diabetes mellitus with diabetic nephropathyIron deficiencyChronic pain syndromeGeneralized anxiety disorderEssential (primary) hypertension 1 Leonides Son [address], [place], [place], [address] , [place]. [phone] OFFICE/OUTPA TIENT VISIT, EST [facility], [address], [place], [place], [address], [place] [phone] [id number] [facility] anxiety1 (chief complaint) pain (chief complaint) Chronic pain syndromeGeneralized anxiety disorder 1 Leonides Son [address], [place], [place], [address] , [place]. [phone] PREV VISIT, EST, AGE 40-64 [facility], [address], [place], [place], [address], [place] tel:[phone] [facility] Medicine physical (chief complaint) Encounter for general adult medical exam w abnormal findingsGERD w/o esophagitisAtrial flutterSolitary lung noduleType 2 diabetes mellitus with diabetic nephropathySleep apneaChronic pain syndromeGeneralized anxiety disorderHyperlipide miaMale erectile dysfunction, unspecifiedFatty liver 1 Leonides Son [address], [address], [place], [place], [address] , [place]. tel:[phone] OFFICE/OUTPA TIENT VISIT, EST [facility], [address], [place], [place], [address], [place] tel:[phone] [facility] Medicine anxiety1 (chief complaint) pain (chief complaint) lung nodule1 (chief complaint) aflutter1 (chief complaint) GRED1 (chief complaint) HyperlipidemiaSolit reese lung noduleAtrial flutterChronic pain syndromeGeneralized anxiety disorderGERD w/o esophagitis 1 Leonides Son [address], [place], [place], [address] , [place]. tel:[phone] OFFICE/OUTPA TIENT VISIT, [facility], [address], [place], [place], [address], [place] tel:[phone] [facility] Medicine DM (chief complaint) lung nodule1 (chief complaint) HLP (chief complaint) anxiety1 (chief complaint) pain (chief complaint) Solitary lung noduleHyperlipidemi aType 2 diabetes mellitus with diabetic nephropathyChronic pain syndromeGeneralized anxiety disorder 1 Leonides Driscoll. [address], [place], [place], [address] , [place]. tel:[phone] OFFICE/OUTPA TIENT VISIT, [facility], [address], [place], [place], [address], [place] tel:[phone] [facility] DM (chief complaint) anxiety1 (chief complaint) ED (chief complaint) lung nodule1 (chief complaint) pain (chief complaint) Solitary lung noduleGeneralized anxiety disorderType 2 diabetes mellitus with diabetic nephropathyMale erectile dysfunction, unspecifiedChronic pain syndrome 1 Leonides Driscoll. [address], [place], [place], [address] , [place]. [phone] OFFICE/OUTPA TIENT VISIT, [facility], [address], [place], [place], [address], [place] tel:[phone] [facility] Medicine DM (chief complaint) anxiety1 (chief complaint) ED (chief complaint) pain (chief complaint) Type 2 diabetes mellitus with diabetic nephropathyMale erectile dysfunction, unspecifiedGenerali zed anxiety disorderChronic pain syndrome 1 Leonides Driscoll. [address], [place], [place], [address] , [place]. [phone] OFFICE/OUTPA TIENT VISIT, [facility], [address], [place], [place], [address], [place] tel:[phone] [facility] Medicine pain (chief complaint) anxiety1 (chief complaint) DM (chief complaint) chest1 (chief complaint) ED (chief complaint) HLP (chief complaint) Atrial flutterChronic pain syndromeGeneralized anxiety disorderSolitary lung noduleType 2 diabetes mellitus with diabetic nephropathyMale erectile dysfunction, unspecifiedHyperlip idemia 1 Leonides Driscoll. [address], [place], [place], [address] , [place]. tel:[phone] OFFICE/OUTPA TIENT VISIT, [facility], [address], [place], [place], [address], [place] tel:[phone] [facility] Medicine pain (chief complaint) anxiety1 (chief complaint) aflutter (chief complaint) DM (chief complaint) Atrial flutterType 2 diabetes mellitus with diabetic nephropathyChronic pain syndromeGeneralized anxiety disorderSolitary lung nodule 1 Leonides Driscoll. [address], [place], [place], [address] , [place]. tel:[phone] Referring Provider: Sim Wei [address], [place], [place], [address]. tel:[phone] OFFICE/OUTPA TIENT VISIT, [facility], [address], [place], [place], [address], [place] tel:[phone] [facility] Medicine pain (chief complaint) anxiety1 (chief complaint) aflutter (chief complaint) DM (chief complaint) lung nodule1 (chief complaint) Chronic pain syndromeGeneralized anxiety disorderType 2 diabetes mellitus with diabetic nephropathyAtrial flutterSolitary lung nodule 1 Leonides Son [address], [place], [place], [address] , [place]. tel:[phone] Referring Provider: Sim Wei [address], [place], [place], [address]. tel:[phone] OFFICE/OUTPA TIENT VISIT, [facility], [address], [place], [place], [address], [place] tel:[phone] [facility] pain (chief complaint) anxiety1 (chief complaint) tachycardi a1 (chief complaint) slep apnea1 (chief complaint) DM (chief complaint) Generalized anxiety disorderType 2 diabetes mellitus with diabetic nephropathyAtrial flutterSleep apneaChronic pain syndrome 0 Leonides Driscoll. [address], [place], [place], [address] , [place]. tel:[phone] Referring Provider: Americo Coyle, [address], [place], [place], [address]. tel:[phone] OFFICE/OUTPA TIENT VISIT, [facility], [address], [place], [place], [address], [place] tel:[phone] [facility] anxiety1 (chief complaint) pain (chief complaint) HLP (chief complaint) lung (chief complaint) DM (chief complaint) Chronic pain syndromeGeneralized anxiety disorderHyperlipide miaType 2 diabetes mellitus with diabetic nephropathyPneumoni a 0 Leonides Driscoll. [address], [place], [place], [address] , [place]. tel:[phone] Referring Provider: Americo Coyle [address], [place], [place], [address]. tel:[phone] OFFICE/OUTPA TIENT VISIT, [facility], [address], [place], [place], [address], [place] tel:[phone] [facility] HLP (chief complaint) pain (chief complaint) anxiety1 (chief complaint) DM (chief complaint) Generalized anxiety disorderChronic pain syndromeType 2 diabetes mellitus with diabetic nephropathyHyperlip idemia 0 Leonides Driscoll. [address], [place], [place], [address] , [place]. tel:[phone] Referring Provider: Sim Wei [address], [place], [place], [address]. tel:[phone] OFFICE/OUTPA TIENT VISIT, [facility], [address], [place], [place], [address], [place] tel:[phone] [facility] HLP (chief complaint) DM (chief complaint) pain (chief complaint) anxiety1 (chief complaint) LFT (chief complaint) Type 2 diabetes mellitus with diabetic nephropathyHyperlip idemiaFatty liverChronic pain syndromeGeneralized anxiety disorder 0 Leonides Son [address], [place], [place], [address] , [place]. tel:[phone] Referring Provider: Sim Wei [address], [place], [place], [address]. tel:[phone] OFFICE/OUTPA TIENT VISIT, [facility], [address], [place], [place], [address], [place] tel:[phone] [facility] pain (chief complaint) anxiety1 (chief complaint) Generalized anxiety disorderChronic pain syndrome 0 Leonides Son [address], [place], [place], [address] , [place]. tel:[phone] Referring Provider: Sim Wei [address], [place], [place], [address]. tel:[phone] OFFICE/OUTPA TIENT VISIT, [facility], [address], [place], [place], [address], [place] tel:[phone] [facility] pain (chief complaint) anxiety1 (chief complaint) GERD1 (chief complaint) GERD w/o esophagitisGenerali zed anxiety disorderChronic pain syndrome 0 Leonides Montemayor [address], [place], [place], [address] , [place]. tel:[phone] Referring Provider: Sim Wei [address], [place], [place], [address]. tel:[phone] OFFICE/OUTPA TIENT VISIT, [facility], [address], [place], [place], [address], [place] tel:[phone] [facility] pain (chief complaint) anxiety1 (chief complaint) HLP (chief complaint) sleep apnea1 (chief complaint) Chronic pain syndromeGeneralized anxiety disorderSleep apneaHyperlipidemia Tobacco use 0 Coyle Americo. [address], [place], [place], [address] , [place]. [phone] Referring Provider: Sim Wei [address], [place], [place], [address]. tel:[phone] OFFICE/OUTPA TIENT VISIT, [facility], [address], [place], [place], [address], [place] tel:[phone] [facility] chronic pain1 (chief complaint) anxiety1 (chief complaint) Chronic pain syndromeGeneralized anxiety disorder July- 0 Leonides Driscoll. [address], [place], [place], [address] , [place]. [phone] Referring Provider: Sim Wei [address], [place], [place], [address]. tel:[phone] OFFICE/OUTPA TIENT VISIT, [facility], [address], [place], [place], [address], [place] tel:[phone] [facility] pain (chief complaint) anxiety1 (chief complaint) Chronic pain syndromeGeneralized anxiety disorder July-0 0 Leonides Son [address], [place], [place], [address] , [place]. [phone] Referring Provider: Sim Wei [address], [place], [place], [address]. tel:[phone] OFFICE/OUTPA TIENT VISIT, [facility], [address], [place], [place], [address], [place] tel:[phone] [facility] pain (chief complaint) anxiety1 (chief complaint) tobacco1 (chief complaint) Chronic pain syndromeGeneralized anxiety disorderTobacco use Jun-0 0 Leonides Driscoll. [address], [place], [place], [address] , [place]. [phone] Referring Provider: Sim Wei [address], [place], [place], [address]. tel:[phone] PREV VISIT, EST, AGE 40-64 [facility], [address], [place], [place], [address], [place] tel:[phone] [facility] PHysical (chief complaint) Encounter for general adult medical exam w abnormal findingsSleep apneaType 2 diabetes mellitus without complicationsEssent ial (primary) hypertensionGERD w/o esophagitisHyperlip idemiaGeneralized anxiety disorder May-0 0 Leonides Driscoll. [address], [place], [place], [address] , [place]. tel:[phone] Referring Provider: Americo Coyle, [address], [place], [place], [address]. tel:[phone] OFFICE/OUTPA TIENT VISIT, [facility], [address], [place], [place], [address], [place] tel:[phone] [facility] pain1 (chief complaint) anxiety1 (chief complaint) polyp1 (chief complaint) Generalized anxiety disorderChronic pain syndromePolyp of colon Apr- 0 Leonides Driscoll. [address], [place], [place], [address] , [place]. tel:[phone] Referring Provider: Sim Wei [address], [place], [place], [address]. tel:[phone] OFFICE/OUTPA TIENT VISIT, [facility], [address] [place], [address], [place] tel:[phone] [facility] DM (chief complaint) chronic pain1 (chief complaint) anxiety1 (chief complaint) COPD1 (chief complaint) Chronic pain syndromeType 2 diabetes mellitus without complicationsEmphys emaGeneralized anxiety disorderSleep apneaPolyp of colon Mar- 0 Leonides Driscoll. [address], [place], [place], [address] , [place]. tel:[phone] Referring Provider: Americo Coyle [address], [place], [place], [address]. tel:[phone] OFFICE/OUTPA TIENT VISIT, [facility], [address], [place], [place], [address], [place] tel:[phone] [facility] chronic pain (chief complaint) anxiety1 (chief complaint) polyp1 (chief complaint) sleep apnea1 (chief complaint) Chronic pain syndromeGeneralized anxiety disorderPolyp of colonSleep apnea 9 Leonides Driscoll. [address], [place], [place], [address] , [place]. tel:[phone] Referring Provider: Sim Wei [address], [place], [place], [address]. tel:[phone] OFFICE/OUTPA TIENT VISIT, [facility], [address], [place], [place], [address], [place] tel:[phone] [facility] pain1 (chief complaint) anxiety1 (chief complaint) colon polyp1 (chief complaint) Body mass index (BMI) 40.0-44.9, adultChronic pain syndromeGeneralized anxiety disorderPolyp of colon 9 Leonides Driscoll. [address], [place], [place], [address] , [place]. tel:[phone] Referring Provider: Sim Wei [address], [place], [place], [address]. tel:[phone] OFFICE/OUTPA TIENT VISIT, [facility], [address], [place], [place], [address], [place] tel:[phone] [facility] chronic pain (chief complaint) anxiety1 (chief complaint) HTN (chief complaint) COPD1 (chief complaint) EmphysemaChronic pain syndromeGeneralized anxiety disorderEssential (primary) hypertension 9 Leonides Driscoll. [address], [place], [place], [address] , [place]. tel:[phone] Referring Provider: Sim Wei [address], [place], [place], [address]. tel:[phone] OFFICE/OUTPA TIENT VISIT, [facility], [address], [place], [place], [address], [place] tel:[phone] [facility] chronic pain1 (chief complaint) DM (chief complaint) anxiety1 (chief complaint) Body mass index (BMI) 40.0-44.9, adultType 2 diabetes mellitus without complicationsGenera lized anxiety disorderChronic pain syndrome Nov-0 9 Leonides Son [address], [place], [place], [address] , [place]. tel:[phone] Referring Provider: Americo Coyle, [address], [place], [place], [address]. tel:[phone] OFFICE/OUTPA TIENT VISIT, [facility], [address], [place], [place], [address], [place] tel:[phone] [facility] chronic pain (chief complaint) anxiety1 (chief complaint) Chronic pain syndromeGeneralized anxiety disorder 9 Leonides Son [address], [place], [place], [address] , [place]. tel:[phone] Referring Provider: Sim Wei [address], [place], [place], [address]. tel:[phone] OFFICE/OUTPA TIENT VISIT, [facility], [address], [place], [place], [address], [place] tel:[phone] [facility] HLP (chief complaint) DM (chief complaint) chronic pain1 (chief complaint) anxiety1 (chief complaint) GERD1 (chief complaint) Generalized anxiety disorderType 2 diabetes mellitus without complicationsGERD w/o esophagitisChronic pain syndromeHyperlipide elio 9 Leonides Son [address], [place], [place], [address] , [place]. tel:[phone] OFFICE/OUTPA TIENT VISIT, [facility], [address], [place], [place], [address], [place] tel:[phone] [facility] anxiety1 (chief complaint) pain (chief complaint) DM (chief complaint) HLP (chief complaint) COPD1 (chief complaint) Generalized anxiety disorderChronic pain syndromeHyperlipide miaType 2 diabetes mellitus without complicationsEmphys donna 9 Leonides Driscoll. [address], [place], [place], [address] , [place]. [phone] Referring Provider: Americo Coyle, [address], [place], [place], [address]. tel:[phone] OFFICE/OUTPA TIENT VISIT, [facility], [address], [place], [place], [address], [place] tel:[phone] [facility] anxiety1 (chief complaint) chronic pain1 (chief complaint) Chronic pain syndromeGeneralized anxiety disorder 9 Leonides Driscoll. [address], [place], [place], [address] , [place]. [phone] Referring Provider: Sim Wei [address], [place], [place], [address]. tel:[phone] OFFICE/OUTPA TIENT VISIT, [facility], [address], [place], [place], [address], [place] tel:[phone] [facility] cough1 (chief complaint) Acute bronchitis 9 Leonides Driscoll. [address], [place], [place], [address] , [place]. tel:[phone] Referring Provider: Sim Wei [address], [place], [place], [address]. tel:[phone] OFFICE/OUTPA TIENT VISIT, [facility], [address], [place], [place], [address], [place] tel:[phone] [facility] chronic pain (chief complaint) anxiety1 (chief complaint) Body mass index (BMI) 40.0-44.9, adultGeneralized anxiety disorderChronic pain syndrome 9 Leonides Driscoll. [address], [place], [place], [address] , [place]. [phone] Referring Provider: Sim Wei [address], [place], [place], [address]. tel:[phone] OFFICE/OUTPA TIENT VISIT, EST [facility], [address], [place], [place], [address], [place] tel:[phone] [facility] chronic pain1 (chief complaint) anxiety1 (chief complaint) HLP (chief complaint) knee pain1 (chief complaint) Chronic pain syndromeHyperlipide miaGeneralized anxiety disorderSleep apneaPain in left knee 9 Leonides Driscoll. [address], [place], [place], [address] , [place]. tel:[phone] Referring Provider: Sim Wei [address], [place], [place], [address]. tel:[phone] PREV VISIT, EST, AGE 40-64 [facility], [address], [place], [place], [address], [place] tel:[phone] [facility] PHysical (chief complaint) Encounter for general adult medical exam w abnormal findingsHyperlipide miaFatty liverChronic pain syndromeGERD w/o esophagitisSleep apneaType 2 diabetes mellitus without complications 9 Leonides Driscoll. [address], [place], [place], [address] , [place]. tel:[phone] Referring Provider: Sim Wei [address], [place], [place], [address]. tel:[phone] OFFICE/OUTPA TIENT VISIT, EST [facility], [address], [place], [place], [address], [place] tel:[phone] [facility] Medicine HLP (chief complaint) chronic pain (chief complaint) anxiety1 (chief complaint) Body mass index (BMI) 40.0-44.9, adultHyperlipidemia Chronic pain syndromeGeneralized anxiety disorder 9 Leonides Driscoll. [address], [place], [place], [address] , [place]. tel:[phone] OFFICE/OUTPA TIENT VISIT, [facility], [address] [employer], [place], [place], [address], [place] tel:[phone] [facility] GERD1 (chief complaint) chronic pain (chief complaint) anxiety1 (chief complaint) toothpain1 (chief complaint) Generalized anxiety disorderChronic pain syndromeGERD w/o esophagitisAtypical facial pain 8 Leonides Driscoll. [address], [place], [place], [address] , [place]. tel:[phone] Referring Provider: Sim Wei [facility] [place], [address]. tel:[phone] OFFICE/OUTPA TIENT VISIT, [facility], [address] [place], [address], [place] tel:[phone] [facility] chronic pain (chief complaint) anxiety1 (chief complaint) HLP (chief complaint) HTN (chief complaint) sleep apnea1 (chief complaint) Body mass index (BMI) 40.0-44.9, adultChronic pain syndromeHyperlipide miaGeneralized anxiety disorderEssential (primary) hypertensionSleep apnea 8 Leonides Driscoll. [address], [address] , [place]. tel:[phone] Referring Provider: Sim Wei [facility] [place], [address]. tel:[phone] OFFICE/OUTPA TIENT VISIT, [facility], [address] [employer] [place], [address], [place] tel:[phone] [facility] DM (chief complaint) HLP (chief complaint) proteinuri a1 (chief complaint) COPD1 (chief complaint) pain1 (chief complaint) Body mass index (BMI) 40.0-44.9, adultEmphysemaType 2 diabetes mellitus without complicationsHyperl ipidemiaProteinuria Chronic pain syndromeGeneralized anxiety disorder 8 Leonides Driscoll. [address], [place], [place], [address] , [place]. tel:[phone] Referring Provider: Sim Wei [address], [place], [place], [address]. tel:[phone] OFFICE/OUTPA TIENT VISIT, [facility], [address], [place], [place], [address], [place] tel:[phone] [facility] chronic pain (chief complaint) anxiety1 (chief complaint) DM (chief complaint) COPD1 (chief complaint) Body mass index (BMI) 40.0-44.9, adultEmphysemaGener alized anxiety disorderChronic pain syndromeType 2 diabetes mellitus without complicationsPolyp of colon 8 Leonides Driscoll. [address], [place], [place], [address] , [place]. tel:[phone] Referring Provider: Sim Wei [facility], [place], [place], [address]. tel:[phone] OFFICE/OUTPA TIENT VISIT, [facility], [address], [place], [place], [address], [place] tel:[phone] [facility] anxiety1 (chief complaint) HLP (chief complaint) chronic pain1 (chief complaint) cough1 (chief complaint) Body mass index (BMI) 40.0-44.9, adultHyperlipidemia Chronic pain syndromeGeneralized anxiety disorderAcute bronchitis 8 Leonides Driscoll. [address], [place], [place], [address] , [place]. tel:[phone] Referring Provider: Sim Wei [address], [place], [place], [address]. tel:[phone] OFFICE/OUTPA TIENT VISIT, [facility], [address] [place], [address], [place] tel:[phone] [facility] Medicine anxiety1 (chief complaint) chronic pain1 (chief complaint) hand pain1 (chief complaint) Body mass index (BMI) 40.0-44.9, adultChronic pain syndromeDe Quervain tenosynovitisGenera lized anxiety disorder 8 Leonides Son [address], [place], [place], [address] , [place]. [phone] OFFICE/OUTPA TIENT VISIT, [facility], [address], [place], [place], [address], [place] [phone] [facility] HLP (chief complaint) anxiety1 (chief complaint) GERD1 (chief complaint) chronic pain (chief complaint) Body mass index (BMI) 40.0-44.9, adultFatty liverHyperlipidemia Chronic pain syndromeGeneralized anxiety disorderGERD w/o esophagitis 8 Leonides Son [address], [place], [place], [address] , [place]. [phone] Referring Provider: Americo Coyle [address] [facility] [address], [place], [place], [address]. tel:[phone] OFFICE/OUTPA TIENT VISIT, [facility], [address], [place], [place], [address], [place] tel:[phone] [facility] chronic pain (chief complaint) anxiety1 (chief complaint) KCL (chief complaint) obesity1 (chief complaint) Body mass index (BMI) 40.0-44.9, adultChronic pain syndromeHyperkalemi aType 2 diabetes mellitus without complicationsLiver diseaseGeneralized Anxiety Disorder 8 Leonides Son [address], [place], [place], [address] , [place]. tel:[phone] OFFICE/OUTPA TIENT VISIT, [facility], [address], [place], [place], [address], [place] tel:[phone] [facility] DM (chief complaint) LFT (chief complaint) kcl (chief complaint) chronic pain1 (chief complaint) Type 2 diabetes mellitus without complicationsLiver diseaseHyperkalemia Chronic pain syndrome 8 Leonides Son [address], [place], [place], [address] , [place]. tel:[phone] Referring Provider: Sim [address], [place], [place], [address]. tel:[phone] PREV VISIT, EST, AGE 40-64 [facility], [address], [place], [place], [address], [place] [phone] [facility] PHysical (chief complaint) Encounter for general adult medical exam w abnormal findingsType 2 diabetes mellitus without complicationsHyperl ipidemiaAllergy status to penicillin 8 Leonides Driscoll. [address], [place], [place], [address] , [place]. tel:[phone] Referring Provider: Sim Wei [address], [place], [place], [address]. tel:[phone] OFFICE/OUTPA TIENT VISIT, [facility], [address], [place], [place], [address], [place] [phone] [facility] chronic pain (chief complaint) anxiety1 (chief complaint) HLP (chief complaint) GERD1 (chief complaint) HyperlipidemiaGERD w/o esophagitisChronic pain syndromeType 2 diabetes mellitus without complications 8 Leonides Driscoll. [address], [place], [place], [address] , [place]. tel:[phone] Referring Provider: Sim Wei [address], [place], [place], [address]. tel:[phone] OFFICE/OUTPA TIENT VISIT, EST [facility], [address], [place], [place], [address], [place] [phone] [facility] back pain1 (chief complaint) Anxiety1 (chief complaint) HTN (chief complaint) COPD1 (chief complaint) EmphysemaEssential (primary) hypertensionChronic pain syndrome 7 Leonides Driscoll. [address], [place], [place], [address] , [place]. tel:[phone] Referring Provider: Sim Wei [address], [place], [place], [address]. tel:[phone] OFFICE/OUTPA TIENT VISIT, EST [facility], [address], [place], [place], [address], [place] [phone] [facility] Medicine HLP (chief complaint) DM (chief complaint) cough1 (chief complaint) anxiety1 (chief complaint) chronic pain1 (chief complaint) HyperlipidemiaType 2 diabetes mellitus without complicationsChroni c pain syndromeGeneralized anxiety disorder 7 Leonides Driscoll. [address], [place], [place], [address] , [place]. [phone] Referring Provider: Sim Wei [address], [place], [place], [address]. tel:[phone] OFFICE/OUTPA TIENT VISIT, EST [facility], [address], [place], [place], [address], [place] tel:[phone] [facility] COPD1 (chief complaint) HLP (chief complaint) DM (chief complaint) GERD1 (chief complaint) anxiety1 (chief complaint) GERD w/o esophagitisEmphysem aHyperlipidemiaType 2 diabetes mellitus without complications 7 Leonides Driscoll. [address], [place], [place], [address] , [place]. tel:[phone] PREV VISIT, EST, AGE 40-64 [facility], [address], [place], [place], [address], [place] tel:[phone] [facility] physical (chief complaint) Encounter for general adult medical exam w abnormal findingsGERD w/o esophagitisSleep apneaType 2 diabetes mellitus without complications 7 Leonides Driscoll. [address], [place], [place], [address] , [place]. tel:[phone] Referring Provider: Sim Wei [address], [place], [place], [address]. tel:[phone] OFFICE/OUTPA TIENT VISIT, EST [facility], [address], [place], [place], [address], [place] tel:[phone] [facility] chronic pain1 (chief complaint) anxiety1 (chief complaint) GERD1 (chief complaint) colon polyp1 (chief complaint) Chronic pain syndromeGeneralized anxiety disorderGERD w/o esophagitisPolyp of colon 7 Leonides Driscoll. [address], [place], [place], [address] , [place]. tel:[phone] Referring Provider: Americo Coyle, [address], [place], [place], [address]. tel:[phone] OFFICE/OUTPA TIENT VISIT, [facility], [address], [place], [place], [address], [place] tel:[phone] [facility] anxiety1 (chief complaint) LBP (chief complaint) sleep apnea1 (chief complaint) HTN (chief complaint) Chronic pain syndromeSleep apneaEssential (primary) hypertensionGeneral ized anxiety disorder 7 Leonides Driscoll. [address], [place], [place], [address] , [place]. tel:[phone] Referring Provider: Sim [address], [place], [place], [address]. tel:[phone] OFFICE/OUTPA TIENT VISIT, [facility], [address], [place], [place], [address], [place] tel:[phone] [facility] chronic pain (chief complaint) anxiety1 (chief complaint) Chronic pain syndromeGeneralized anxiety disorder 7 Leonides Driscoll. [address], [place], [place], [address] , [place]. [phone] Referring Provider: Sim Wei [address], [place], [place], [address]. tel:[phone] OFFICE/OUTPA TIENT VISIT, [facility], [address], [place], [place], [address], [place] tel:[phone] [facility] back pain1 (chief complaint) anxiety1 (chief complaint) GERD1 (chief complaint) obeisty1 (chief complaint) Chronic pain syndromeGeneralized anxiety disorderBody mass index (BMI) 40.0-44.9, adultGERD w/o esophagitis Aug- 7 Leonides Driscoll. [address], [place], [place], [address] , [place]. [phone] Referring Provider: Sim [address], [place], [place], [address]. tel:[phone] OFFICE/OUTPA TIENT VISIT, [facility], [address], [place], [place], [address], [place] [phone] [facility] HLP (chief complaint) chronic pain1 (chief complaint) anxiety1 (chief complaint) DM (chief complaint) HyperlipidemiaType 2 diabetes mellitus without complicationsSleep apneaGeneralized anxiety disorder July- 7 Leonides Son [address], [place], [place], [address] , [place]. tel:[phone] Referring Provider: Sim Wei [address], [place], [place], [address]. tel:[phone] OFFICE/OUTPA TIENT VISIT, [facility], [address], [place], [place], [address], [place] tel:[phone] [facility] anxiety1 (chief complaint) chronic pain1 (chief complaint) hearing loss1 (chief complaint) obesity1 (chief complaint) Chronic pain syndromeGeneralized anxiety disorderBody mass index (BMI) 40.0-44.9, adultHearing loss Jun-0 7 Leonides Son [address], [place], [place], [address] , [place]. [phone] Referring Provider: Sim [address], [place], [place], [address]. tel:[phone] OFFICE/OUTPA TIENT VISIT, [facility], [address], [place], [place], [address], [place] tel:[phone] [facility] hearing loss1 (chief complaint) GERD1 (chief complaint) chornic pain1 (chief complaint) sleep apnea1 (chief complaint) anxiety1 (chief complaint) GERD w/o esophagitisHearing lossSleep apneaChronic pain syndrome 7 Leonides Son [address], [place], [place], [address] , [place]. [phone] Referring Provider: Sim [address], [place], [place], [address]. tel:[phone] OFFICE/OUTPA TIENT VISIT, [facility], [address], [place], [place], [address], [place] tel:[phone] [facility] chronic pain1 (chief complaint) anxiety1 (chief complaint) HLP (chief complaint) Chronic pain syndromeGeneralized anxiety disorderHyperlipide miaBody mass index (BMI) 40.0-44.9, adult Fe 7 Leonides Son [address], [place], [place], [address] , [place]. [phone] Referring Provider: Sim [address], [place], [place], [address]. tel:[phone] OFFICE/OUTPA TIENT VISIT, [facility], [address], [place], [place], [address], [place] tel:[phone] [facility] chornic pain (chief complaint) anxiety1 (chief complaint) obesity1 (chief complaint) hearing loss1 (chief complaint) Body mass index (BMI) 40.0-44.9, adultChronic pain syndromeGeneralized anxiety disorderHearing loss 7 Leonides Son [address], [place], [place], [address] , [place]. tel:[phone] Referring Provider: Sim [address], [place], [place], [address]. tel:[phone] OFFICE/OUTPA TIENT VISIT, [facility], [address], [place], [place], [address], [place] tel:[phone] [facility] DM (chief complaint) anxiety1 (chief complaint) GERD1 (chief complaint) back pain1 (chief complaint) Chronic pain syndromeType 2 diabetes mellitus without complicationsGERD w/o esophagitisGenerali zed Anxiety Disorder 8 6 Leonides Driscoll. [address], [place], [place], [address] , [place]. [phone] Referring Provider: Sim eWi [address], [place], [place], [address]. tel:[phone] OFFICE/OUTPA TIENT VISIT, [facility], [address], [place], [place], [address], [place] tel:[phone] [facility] chronic pain1 (chief complaint) anxiety1 (chief complaint) HLP (chief complaint) leg numbness1 (chief complaint) Chronic pain syndromeHyperlipide miaGeneralized anxiety disorder 6 Leonides Driscoll. [address], [place], [place], [address] , [place]. [phone] Referring Provider: Sim [address], [place], [place], [address]. tel:[phone] OFFICE/OUTPA TIENT VISIT, EST [facility], [address], [place], [place], [address], [place] [phone] [facility] DM (chief complaint) HLP (chief complaint) chronic pain1 (chief complaint) anxiety1 (chief complaint) Type 2 diabetes mellitus without complicationsHyperl ipidemiaChronic pain syndromeGeneralized anxiety disorder 2 6 Leonides Driscoll. [address], [place], [place], [address] , [place]. tel:[phone] Referring Provider: Sim [address], [place], [place], [address]. tel:[phone] PREV VISIT, EST, AGE 40-64 [facility], [address], [place], [place], [address], [place] tel:[phone] [facility] Medicine PHysical (chief complaint) Encounter for general adult medical exam w abnormal findingsChronic pain syndromeType 2 diabetes mellitus without complicationsGenera lized anxiety disorder 6 Leonides Driscoll. [address], [place], [place], [address] , [place]. [phone] Referring Provider: Sim [address], [place], [place], [address]. tel:[phone] OFFICE/OUTPA TIENT VISIT, [facility], [address], [place], [place], [address], [place] [phone] [facility] GERD1 (chief complaint) chronic pain1 (chief complaint) anxiety1 (chief complaint) HLP (chief complaint) GERD w/o esophagitisChronic pain syndromeGeneralized anxiety disorderHyperlipide elio 6 Leonides Driscoll. [address], [place], [place], [address] , [place]. [phone] Referring Provider: Sim [address], [place], [place], [address]. tel:[phone] OFFICE/OUTPA TIENT VISIT, [facility], [address], [place], [place], [address], [place] tel:[phone] [facility] HLP (chief complaint) GERD1 (chief complaint) chronic pain (chief complaint) anxiety1 (chief complaint) Chronic pain syndromeGeneralized anxiety disorderHyperlipide [facility] hospitalGERD w/o esophagitis 6 Leonides Driscoll. [address], [place], [place], [address] , [place]. [phone] Referring Provider: Sim [address], [place], [place], [address]. tel:[phone] OFFICE/OUTPA TIENT VISIT, [facility], [address], [place], [place], [address], [place] tel:[phone] [facility] DM (chief complaint) back pain1 (chief complaint) HLP (chief complaint) anxiety1 (chief complaint) Type 2 diabetes mellitus without complicationsHyperl ipidemiaChronic pain syndromeGeneralized anxiety disorder 6 Leonides Driscoll. [address], [place], [place], [address] , [place]. tel:[phone] Referring Provider: Sim [address], [place], [place], [address]. tel:[phone] OFFICE/OUTPA TIENT VISIT, [facility], [address], [place], [place], [address], [place] tel:[phone] [facility] DM (chief complaint) HLP (chief complaint) chronic pain1 (chief complaint) anxiety1 (chief complaint) Type 2 diabetes mellitus without complicationsHyperl ipidemiaChronic pain syndromeGeneralized anxiety disorder 6 Leonides Driscoll. [address], [place], [place], [address] , [place]. [phone] Referring Provider: Sim [address], [place], [place], [address]. tel:[phone] OFFICE/OUTPA TIENT VISIT, [facility], [address], [place], [place], [address], [place] tel:[phone] [facility] DM (chief complaint) HLP (chief complaint) chronic apin (chief complaint) anxiety1 (chief complaint) GERD1 (chief complaint) Type 2 diabetes mellitus without complicationsGenera lized anxiety disorderChronic pain syndromeHyperlipide elio 6 Leonides Driscoll. [address], [place], [place], [address] , [place]. [phone] Referring Provider: Sim [address], [place], [place], [address]. tel:[phone] OFFICE/OUTPA TIENT VISIT, [facility], [address], [place], [place], [address], [place] tel:[phone] [facility] chronic pain (chief complaint) anxiety1 (chief complaint) HLP (chief complaint) GERD1 (chief complaint) GERD w/o esophagitisGenerali zed anxiety disorderChronic pain syndromeEssential (primary) hypertension 6 Leonides Driscoll. [address], [place], [place], [address] , [place]. tel:[phone] Referring Provider: Sim [address], [place], [place], [address]. tel:[phone] OFFICE/OUTPA TIENT VISIT, [facility], [address], [place], [place], [address], [place] tel:[phone] [facility] GERD1 (chief complaint) back pain1 (chief complaint) HTN (chief complaint) Anxiety1 (chief complaint) Other chronic painEssential (primary) hypertensionGeneral ized anxiety disorderGERD with esophagitis 6 Leonides Driscoll. [address], [place], [place], [address] , [place]. [phone] Referring Provider: Sim [address], [place], [place], [address]. tel:[phone] OFFICE/OUTPA TIENT VISIT, [facility], [address], [place], [place], [address], [place] tel:[phone] [facility] DM1 (chief complaint) anxiety1 (chief complaint) chronic pain1 (chief complaint) Type 2 diabetes mellitus without complicationsGenera lized anxiety disorderChronic pain syndromeEncounter for screening for malignant neoplasm of prostate 6 Leonides Driscoll. [address], [place], [place], [address] , [place]. [phone] Referring Provider: Sim [address], [place], [place], [address]. tel:[phone] OFFICE/OUTPA TIENT VISIT, [facility], [address], [place], [place], [address], [place] tel:[phone] [facility] DM1 (chief complaint) chronic pain1 (chief complaint) Anxiety1 (chief complaint) sleep apnea1 (chief complaint) Type 2 diabetes mellitus with unspecified complicationsChroni c pain syndromeGeneralized anxiety disorderSleep apnea 5 Leonides Driscoll. [address], [place], [place], [address] , [place]. [phone] Referring Provider: Sim Wei [address], [place], [place], [address]. tel:[phone] OFFICE/OUTPA TIENT VISIT, [facility], [address], [place], [place], [address], [place] tel:[phone] [facility] DM1 (chief complaint) HLP1 (chief complaint) back pain1 (chief complaint) anxizety1 (chief complaint) Type 2 diabetes mellitus without complicationsMixed hyperlipidemiaOther spondylosis, lumbar regionGeneralized anxiety disorder 5 Leonides Driscoll. [address], [place], [place], [address] , [place]. [phone] Referring Provider: Sim [address], [place], [place], [address]. tel:[phone] OFFICE/OUTPA TIENT VISIT, [facility], [address] [place], [address], [place] tel:[phone] [facility] chronic pain1 (chief complaint) DM1 (chief complaint) anxiety1 (chief complaint) HLP1 (chief complaint) Dietary surveillance and counselingOther spondylosis, lumbar regionType 2 diabetes mellitus w/o complicationMixed hyperlipidemiaGener alized anxiety disorder 5 Leonides Son [address], [place], [place], [address] , [place]. [phone] Referring Provider: Sim Wei [address], [place], [place], [address]. tel:[phone] OFFICE/OUTPA TIENT VISIT, [facility], [address], [place], [place], [address], [place] tel:[phone] [facility] DM (chief complaint) anxiety (chief complaint) back pain (chief complaint) Diabetes mellitus without mention of complication, type II or unspecified type, uncontrolledGeneral ized anxiety disorderChronic painDietary surveillance and counseling 5 Leonides Driscoll. [address], [place], [place], [address] , [place]. tel:[phone] Referring Provider: Sim [address], [place], [place], [address]. tel:[phone] OFFICE/OUTPA TIENT VISIT, EST [facility], [address], [place], [place], [address], [place] tel:[phone] [facility] Medicine DM (chief complaint) HLP (chief complaint) chronic pain (chief complaint) GERDR (chief complaint) Brittle diabetesOther and unspecified hyperlipidemiaChron ic painDietary surveillance and counseling 5 Leonides Son [address], [place], [place], [address] , [place]. tel:[phone] Referring Provider: Sim [address], [place], [place], [address]. tel:[phone] PREV VISIT, EST, AGE 40-64 [facility], [address], [place], [place], [address], [place] tel:[phone] [facility] Medicine Physical (chief complaint) Routine medical examDietary surveillance and counseling 5 Leonides Son [address], [place], [place], [address] , [place]. tel:[phone] Referring Provider: Sim [address], [place], [place], [address]. tel:[phone] OFFICE/OUTPA TIENT VISIT, EST [facility], [address], [place], [place], [address], [place] tel:[phone] [facility] Medicine ankle pain (chief complaint) anxiety (chief complaint) Ankle painDepressive disorder, not elsewhere classifiedUnspecifi ed essential hypertensionBMI 35.0 to 35.9 5 Coyle Americo. [address], [place], [place], [address] , [place]. tel:[phone] Referring Provider: Sim Wei [address], [place], [place], [address]. tel:[phone] OFFICE/OUTPA TIENT VISIT, [facility], [address], [place], [place], [address], [place] tel:[phone] [facility] ankle pain (chief complaint) anxiety (chief complaint) HTN (chief complaint) Dietary surveillance and counselingGeneraliz ed anxiety disorderEsophageal refluxUnspecified essential hypertensionAnkle pain 5 Leonides Driscoll. [address], [place], [place], [address] , [place]. tel:[phone] Referring Provider: Sim [address], [place], [place], [address]. tel:[phone] OFFICE/OUTPA TIENT VISIT, [facility], [address], [place], [place], [address], [place] tel:[phone] [facility] GERD (chief complaint) chornic pain (chief complaint) DM (chief complaint) depression (chief complaint) Dietary surveillance and counselingGERDPain in joint involving lower legDiabetes Mellitus Type 2, UncomplicatedGenera lized anxiety disorder 5 Leonides Driscoll. [address], [place], [place], [address] , [place]. tel:[phone] Referring Provider: Sim [address], [place], [place], [address]. tel:[phone] OFFICE/OUTPA TIENT VISIT, [facility], [address], [place], [place], [address], [place] tel:[phone] [facility] GERD (chief complaint) HTN (chief complaint) chornic pain (chief complaint) Dietary surveillance and counselingGERDHyper tension, UnspecifiedPain in joint involving lower legSpecial screening for malignant neoplasms, colon May- 5 Leonides Driscoll. [address], [place], [place], [address] , [place]. tel:[phone] Referring Provider: Sim [address], [place], [place], [address]. tel:[phone] OFFICE/OUTPA TIENT VISIT, [facility], [address], [place], [place], [address], [place] tel:[phone] [facility] HTN (chief complaint) chronic pain (chief complaint) DM (chief complaint) depression (chief complaint) back pain (chief complaint) GERD (chief complaint) Dietary surveillance and counselingLumbagoHy pertension, UnspecifiedGERDOpio id type dependence, unspecified use 5 Leonides Driscoll. [address], [place], [place], [address] , [place]. tel:[phone] Referring Provider: Smi [address], [place], [place], [address]. tel:[phone] OFFICE/OUTPA TIENT VISIT, [facility], [address], [place], [place], [address], [place] tel:[phone] [facility] HTN (chief complaint) chronic pain (chief complaint) back pain (chief complaint) Dietary surveillance and counselingHypertens ion, UnspecifiedPain in joint involving lower legLumbago 5 Leonides Son [address], [place], [place], [address] , [place]. tel:[phone] Referring Provider: Sim [address], [place], [place], [address]. tel:[phone] OFFICE/OUTPA TIENT VISIT, [facility], [address], [place], [place], [address], [place] tel:[phone] [facility] HTN (chief complaint) Ankle pain (chief complaint) depression (chief complaint) COPD (chief complaint) Dietary surveillance and counselingHypertens ion, UnspecifiedDepressi onPain in joint involving lower legCOPD 5 Leonides Son [address], [place], [place], [address] , [place]. tel:[phone] Referring Provider: Sim [address], [place], [place], [address]. tel:[phone] OFFICE/OUTPA TIENT VISIT, [facility], [address], [place], [place], [address], [place] tel:[phone] [facility] DM (chief complaint) Chornic pain (chief complaint) depression (chief complaint) Dietary surveillance and counselingDiabetes Mellitus Type 2, UncomplicatedPain in joint involving lower legDepression 2 4 Leoindes Driscoll. [address], [place], [place], [address] , [place]. [phone] Referring Provider: Sim [address], [place], [place], [address]. tel:[phone] OFFICE/OUTPA TIENT VISIT, [facility], [address], [place], [place], [address], [place] tel:[phone] [facility] carpal tunnel (chief complaint) ankle pain (chief complaint) DM (chief complaint) Dietary surveillance and counselingPain in joint involving lower legDiabetes Mellitus Type 2, UncomplicatedCarpal Tunnel Syndrome 4 Leonides Driscoll. [address], [place], [place], [address] , [place]. [phone] Referring Provider: Sim [address], [place], [place], [address]. tel:[phone] OFFICE/OUTPA TIENT VISIT, [facility], [address], [place], [place], [address], [place] tel:[phone] [facility] hand pain (chief complaint) ankle pain (chief complaint) DM (chief complaint) Dietary surveillance and counselingCarpal Tunnel SyndromePain in joint involving lower legDiabetes Mellitus Type 2, Uncomplicated 3201 4 Leonides Son [address], [address], [place], [place], [id number] , [place]. tel:[phone] Referring Provider: Sim [address], [place], [place], [id number]. tel:[phone] OFFICE/OUTPA TIENT VISIT, [facility], [address], [place], [place], [id number], [phone] [facility] ankle pain (chief complaint) COPD (chief complaint) Dietary surveillance and counselingCOPDPain in joint involving lower leg Nov-0 4 Leonides Driscoll. [address], [address], [place], [place], [address] , [place]. tel:[phone] Referring Provider: Sim Wei [address], [place], [place], [address]. tel:[phone] OFFICE/OUTPA TIENT VISIT, [facility], [address], [place], [place], [id number], [place] tel:[phone] [facility] ankle pain (chief complaint) DM (chief complaint) vitamin D (chief complaint) COPD (chief complaint) Dietary surveillance and counselingDiabetes Mellitus Type 2, UncomplicatedCOPDPa in in joint involving lower leg Oct-0 4 Leonides Driscoll. [address], [address], [place], [place], [address] , [place]. tel:[phone] Referring Provider: Sim [address], [place], [place], [address]. tel:[phone] PREV VISIT, NEW, AGE 40-64 [facility], [address] [place], [address], [place] [phone] [facility] Physical (chief complaint) Routine Medical ExamDietary surveillance and counselingRoutine Medical Exam Sep-0 4 Leonides Driscoll. [address], [place], [place], [address] , [place]. tel:[phone] Family History Family Member Type Diagnosis Age At Onset Mother Problem (finding) Diabetes mellitus Father Problem (finding) Stroke 69 Mother Problem (finding) COPD Brother Problem (finding) Alive and well Payers Payer name Insurance type Covered libertarian ID Authoriza tion(s) [employer] CI [id number] Social History Type Description Quantity Date Captured Comments Alcohol Use Details No Caffeine Use Details Unknown Tobacco Use Status Ex-cigarette smoker 025 Smoking Status Former smoker Sex Male Vital Signs Date / Time: Height Weight BMI Pulse Rate Blood Pressure Temperature Respiratory Rate Body Surface Area Head Circumference BMI percentile Pulse Ox Inhaled Ox 9:37 AM 74.00 in 263.00 lbs 33.7 7 kg/m eter (2) 76 /min 110/68 mm[Hg] 98.0 F 16 /min Chief Complaint And Reason For Visit From encounter dated '07/07/2024 09:31'. pain (chief complaint). Description: Pt has chronic [...] thought. pt denies any crying spells urinary1 (chief complaint). Description: pt has persistent urinary frequency and urgency with urinary incontinence. pt is on jardiance. Pt states that oxybutynin is not helping much lung CA (chief complaint). Description: Pt has newly diagnosed carcinoma of the lung. Pt has kelly with [facility] in two weeks with PET scan soon Plan Of Treatment Date Type Action Status [...] -Podiatric Medicine & Surgery Service Providers : Per Assessment Nurse (related to Ingrowing nail) ordered Referral Referred To: ZAN MARTINEZ [address] [facility] [place], [place], [phone] Ordered: Referrals: Podiatric Medicine & Surgery Service Providers : Per Assessment Nurse. AZN MARTINEZ. 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 YESIKA CAIN. 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
[address] [place], [place] [id number] Ordered: Referrals: Allopathic & Osteopathic Physicians : Internal Medicine : Endocrinology, Diabetes & Metabolism. Jane Stevenson. Evaluate and treat ordered Referral Ordered: CT THORAX W/O DYE ordered Referral Referred To: Corinne Taylor [address] [place], [phone] Ordered: Referrals: Corinne Taylor. Evaluate and treat ordered Referral Ordered: Eloy Pandya -Allopathic & Osteopathic Physicians : Orthopaedic Surgery (related to Pain in left knee) ordered Referral Referred To: Eloy Padnya [address] [place], [place] [phone] Ordered: Referrals: Allopathic & Osteopathic Physicians : Orthopaedic Surgery. Eloy Pandya. Evaluate and treat ordered Referral Ordered: Callum Renae -Allopathic & Osteopathic Physicians : Surgery (related to De Quervain tenosynovitis) ordered Referral Ordered: Jono Hein -Allopathic & Osteopathic Physicians : Orthopaedic Surgery (related to Chronic pain syndrome) ordered Referral Referred To: Jono Hein [address] [facility] [address] [place], [place] [phone] Ordered: Referrals: Allopathic & Osteopathic Physicians : Orthopaedic Surgery. Jono Hein. Evaluate and treat ordered Referral Referred To: Callum Renae [address] [place], [place] [phone] Ordered: Referrals: Allopathic & Osteopathic Physicians : Surgery. Callum Renae. Evaluate and treat ordered Referral Ordered: US EXAM, ABDOM, COMPLETE ordered Referral Ordered: Jono Hein (related to Chronic pain syndrome) ordered Referral Referred To: Jono Hein [address] [place] [address] [address] [place], [place] [phone] Ordered: Referrals: Jono Hein. Evaluate and treat ordered Referral Ordered: Otolaryngology (related to Hearing loss) ordered Referral Ordered: Referrals: Otolaryngology. Evaluate and treat ordered Referral Ordered: Lio Hernandez (related to Body mass index (BMI) 40.0-44.9, adult) ordered Referral Referred To: Lio Hernandez [address] [place], [phone] Ordered: Referrals: Lio Hernandez. Evaluate and treat [...] thought. pt denies any crying spells urinary1 pt has persisten t urinary frequency and urgency with urinary incontinence. pt is on jardiance. Pt states that oxybutynin is not helping much lung CA Pt has newly miesha gnosed carcinoma of the lung. Pt has kelly with [facility] in two weeks with PET scan soon anxiety1 Pt has chronic a nxiety and [...] neurontin. Pt denies any saddle area paresthesia COPD1 Pt has COPD . Pt started [...] Ct scheduled in two weeks by pulmonary colon polyp1 Pt has tubular a denoma on colonoscopy 2019 Pt denies any GI issue Pt has kelly with Dr Taylor for colonoscopy in two weeks HLP Pt has HLP Pt is not on statin per ID Pt has hard time reaching his ID. Pt is being treated for MAC infection and he denies any hemoptysis, fever or cough now anxiety1 Pt has chronic a nxiety and [...] pt failed pepcid. pt needs omeprazole refilled pain Pt has chronic b ack and ankle pain. Pt denies any worsening pain, Pt denies any loss of bladder control. Pt failed NSAID and ultram. Pt takes percocet PRN for pain. Pt has 6/10 pain daily. Pt has mild neuropathy. Pt failed neurontin. Pt denies any saddle area paresthesia anxiety Additional infor mation: Pt has chronic anxiety and depression Pt takes prozac and valium and doing ok. Pt denies any suicidal or homicidal thought. pt denies any crying spells. 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 Pt denies any suicidal or homicidal thought. pt denies any crying spells lung nodule1 Pt has lung nodu le Pt denies any hemoptysis, worsening sob or cough Pt sees pulmonary .Pt has chest CT scheduled next week HLP Pt has HLP Pt ta devyn grier. Pt denies any myalgia. pain Pt has [...] sees endo. HLP Pt has HLP Pt dom Grier Pt denies any myalgia. His lipid is [...] uses albuterol. Pt denies any new complaints GRED1 Pt has chronic G ERD pt takes omeprazole and doing ok pt failed pepcid P has daily GERD without omeprazole aflutter1 Pt has aflutter Pt underwent cardioversion recently and his cardiac rhythm is ok now per cardiology pt denies any chest pain or palpitation lung nodule1 Pt has lung nodu le and he had biopsy done but unable to get enough sample so he was told to repeat chest CT in 6 months pain Pt has chronic b ack and ankle pain. Pt denies any worsening pain, Pt denies any loss of bladder control. Pt failed NSAID and ultram. Pt takes percocet PRN for pain. Pt has 6/10 pain daily. Pt has mild neuropathy anxiety1 Pt has chronic a nxiety and [...] 6/10 pain daily. Pt has mild neuropathy anxiety1 Pt has chronic a nxiety and depression Pt takes prozac and valium and doing ok. Pt denies any suicidal or homicidal thought. pt denies any crying spells DM Pt has DM. Pt sa w [...] cough HLP Pt has HLP Pt dom devyn marvel. He did lab from cardiology last month and was told lipid ok. Pt denies any myalgia DM Pt takes januvia and metformin and amaryl an his glucose is around 150s. Pt denies any hypoglycemia, polyuria, polydipsia anxiety Pt has chronic a nxiety and [...] or nodule HLP Pt has HLP Pt ta devyn grier .Pt needs refill Pt had lab done by cardiology last week pt denies any myalgia pain Pt has chronic b ack and ankle pain. Pt denies any worsening pain, Pt denies any loss of bladder control. Pt failed NSAID and ultram. Pt takes percocet PRN for pain. Pt has 6/10 pain daily anxiety Pt has chronic a nxiety and [...] [facility] Pt has chronic b ack and ankle pain. Pt denies any worsening pain, Pt denies any loss of bladder control. Pt failed NSAID and ultram. Pt takes percocet PRN for pain. 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 [...] was referred to Dr. bolaños from his line erector due to tachycardia recently Pt denies any chest pain or palpitation or sob. Pt told me line erector will do cardioversion for him next week Pt has aflutter. pt is on xarelto, sotalol and metoprolol now. DM Pt has DM. Pt ta kes metformin and amaryl. His glucose is around 150s. Pt denies any polyuria, polydipsia HLP Pt tolerating cr estor ok. Pt denies any myalgia lung Pt had LDCT done and he was told he has pneumonia and he was given abx. he denies any coughing or fever or sob. No nodule on lung CT DM Pt has DM. Pt ta kes metformin and amaryl and his glucose was 140. He has not heard from Dr Cain yet. anxiety1 Pt has chronic a nxiety [...] for pain. Pt has 6/10 pain daily DM Pt has DM. Pt ta kes metformin and higher dose of amaryl and his glucose is around 140 now. Pt denies any polyuria, polydipsia. Dr. Cotter does not take his insurance HLP Pt tolerating cr estor 20 mg [...] spells HLP Pt has HLP .Pt t pavithra grier. Pt denies any myalgia. 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 Pt t akes crestor and lipid profile normal. pt notices some [...] polydipsia HLP Pt has HLP. 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 Pt denies any myalgia COPD1 Pt has [...] Pt denies any suicidal or homicidal thought knee pain1 Pt has meniscus tear left knee. pt needs to see ortho. Her old ortho does not take his insurance anymore. Pt received injection in the past. pt denies any redness or swelling .Pt has constant left knee pain HLP Pt is tolerating crestor 20 mg ok. Pt denies any myalgia anxiety1 Pt has chronic a nxiety and depression. Pt takes prozac and valium and doing ok. Pt denies any suicidal o r homicidal thought. Pt denies any crying spells chronic pain1 Pt has chronic b ack and knee pain pt takes percocet PRN for pain Pt denies any worsening pain pt denies any loss of bladder control. PHysical Pt needs annual physical. pt has [...] is stable. Pt denies any other complaints anxiety1 Pt has chronic a nxiety and depression pt takes prozac and valium and doing ok. Pt denies any suicidal or homicidal thought chronic pain Pt has chronic l ow back and knee and ankle pain. pt denies any worsening pain. Pt denies any loss of bladder control. Pt failed NSAID and ultram HLP Pt has HLP. Pt t akes crestor. pt states that he notices some myalgia around both of his legs now which he feels the same with previous statins. 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 Pt uses CPAP nightly. Pt uses [...] on percocet for pain and doing ok DM Pt has been taki ng metformin [...] states that zpak did help last month chronic pain Pt has chronic b ack and knee and ankle pain Pt denies any worsening pain Pt denies any loss of bladder control. Pt has 8/10 pain. anxiety1 Pt has chronic a nxiety and depression Pt takes prozac and valium and doing ok Pt denies any suicidal or homicidal thought. Pt denies any crying spells anxiety1 Pt has chronic a nxiety and [...] injury HLP Pt has HLP Pt ta kes zocor. PT denies any myalgia anxiety1 Pt has chronic a nxiety and depression. Pt takes prozac and valium and doing ok. Pt denies any suicidal or homicidal thought. Pt denies any crying spells chronic pain Pt has chronic b ack and knee and ankle pain. Pt takes percocet for pain. Pt failed NSAID and ultram GERD1 Pt has GERD. Pt takes omeprazole and doing ok. Pt denies any GERD or abd pain. Pt failed zantac. Pt denies any abdominal pain chronic pain Pt has chronic l [...] procedure. DM Pt has DM. Pt ta kes metformin. Pt has not been taking amaryl [...] control HLP Pt has HLP. Pt t akes zocor. Pt denies any myalgia. Pt is on low fat and low carb diet COPD1 Pt has COPD. Pt takes symbicort and also ventolin PRN Pt unable to tolerate duoneb. 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 Pt is on CPAP now. Pt is changing insurance to [employer] soon. Pt has COPD/asthma. Pt sees pulmonary [...] homicdial thought. Pt denies any crying spells GERD1 Pt has chronic g astritis Pt failed zantac. Pt states that he has GERD without omeprazole. His insurance denied it obeisty1 Pt is morbidly o bese. Pt canot afford to go to [place] for bariatric surgery anxiety1 Pt has chronic a nxiety and depression Pt takes prozac and valium and doing ok Pt denies any suicidal or homicidal thought. Pt denies any cyring spells back pain1 Pt has chronic l ow back pain. Pt denie any loss of bladder control. Pt denies any worsening pain. Pt failed injection. Pt failed NSAID. 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 Pt uses CPAP nightly. Pt doing [...] for several month. Pt denies any pain anxiety1 Pt has chronic a nxiety [...] better with percocet and without pain injections DM Pt has DM. pt ta kes metformin and amaryl. Pt states that his BG is around 120s. Pt denies any polyuria, polydipsia. chronic pain1 Pt has chronic s evere [...] o meprazole and denies any GERD symptoms HLP Pt taks zocor. P t denies any myalgia. Pt is on low fat and low carb diet GERD1 Pharmacy told hi m insuance only cover 40 mg omeprazole, not 20 mg?? Pt was given 40 mg daily. Pt denies any gERD or abd pain anxiety1 Pt has chronican xiety and depression. Pt takes prozac and valium and doing ok. Pt denies any suicidal or homicdial thought. pt denies anycrying spells chronic pain Pt has chronic l ow [...] homcidial thougth. 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 Pt does not smoke Pt sees pulmonary MD Anxiety1 Pt has chronic a nxiety and depression Pt takes prozac and valum and doing ok Pt denies any suicidal thought. Pt denies any crying spellss Pt denies any feeling of hopelessness. chronic pain1 Pt has chronic l ow back and right ankle pain. Pt denies any loss of bowel or bladder control. Pt has right sciatica Pt notices right upper leg numbness Pt has appointment with neurosurgery 08/29. DM1 Pt has DM Pt levon es metformin and amaryl. His BG is around 110s now. Pt is doing DM education class and eating better now. Pt denies any numnbess HLP1 Pt takes zocor a nd his [...] any suicidal thought or any crying spells. DM1 Pt has DM. Pt ta kes metformin and amaryl. His BG is 104. His A1c is only 5.8. Pt denies claribel hypoglcyemia HLP1 Pt has been takcamilo harper zocor. Pt denies any myalgia. Pt is on low fat and low carb diet chronic pain1 Pt has chronic r ight [...] ro bladder control DM1 Pt has been mirela harper metformin and amaryl 2 mg daily. His BG is around 130s which is better than last month. Pt will start DM education class next week. Pt is taking losartan daily anxiety1 Pt has chronic a nxiety and depressin. Pt takes prozac and valium. Pt denies any suicidal thought Pt deneis any crying spells or feeling of hopelessness. Pt doing ok with current meds. anxiety Additional infor mation: Pt has chronic anxiety and depression. Ptatkes prozac and valium and doing ok. Pt denies any suicidasl or feeling of hopelessness. back pain Additional infor mation: Pt has chronic LBP and ankle pain. Pt c/o right scaitica Pt has some right leg numbness. Pt denies any worsening pain. DM Pt takes metform in and amaryl. His BG is around 145 and sometimes 180s. Pt denies any hypoglcyemia. Pt denies any numbness GERDR No chávez. Pt i s on 40 mg omperzole and doing ok. Pt had large colon polyp s/p removal chronic pain Pt has chronic b ack and ankle pain. Pt denies any worsening pain. Pt denies any scaitica or any num bness. No loss of bowel or bladder control HLP Pt has mild HLP. Pt is not on any diet DM Pt states that o n average his BG is around 150s. Pt takes metformin only. He denies any hypogclyemia. Pt denies any numbness Physical Pt needs annual physical. Pt had [...] stable Instructions Date Instruction Additional Infor mation Increase physical activity Relat ed to Chronic [...] Weight management Related to Acu te bronchitis Weight management Related to Gen eralized anxiety disorder Special diet education Related t o Body mass index (BMI) 40.0-44.9, adult Increase physical activity Relat ed to Generalized anxiety disorder Weight management Related to Chr onic pain [...] low sodium diet. Relate d to Hyperlipidemia Special diet education Related t o Body mass index (BMI) 40.0-44.9, adult Increase physical activity Relat ed to Emphysema Weight management Related to Emp hysema Increase physical activity. Rela desiree to Type 2 diabetes mellitus without complications Check blood sugar twice a day. R [...] low sodium diet. Relate d to Hyperlipidemia Increase activity. Related to Hy perlipidemia Prescribed [...] Diet Related to Dietary Surveillance and Counseling Weight management Related to Chr onic pain syndrome Increase physical activity Relat ed to Chronic pain syndrome Increase physical activity Relat ed [...] surveillance counseling Assessments Type Assessment Date assessment Chronic pain syndrome assessment Generalized anxiety disorder Jun assessment Overactive bladder assessment Cancer of lung Mental Status Date Cognitive Assessment Orientation - Lavinia ed to time, place, person, situation.
== END 2024-07-19 10:00 | disposition home or self-care (01) ==
PROVIDERS: PCP Emergency Medicine; Visit Provider Internal Medicine
DX: C34.2 Malignant neoplasm of middle lobe, bronchus or lung (principal); R91.1 Solitary pulmonary nodule
CPT/HCPCS: 78815; A9552